=== PATIENT | female | born 1945 | race Hispanic/Latino ===

== ENCOUNTER → 2018-06-09 | Outpatient (CLI) | payer OTHER, MEDICARE ==
[~2018-06-09] MED LIST: ACET1TAB12 PO; BENZ1TAB10 PO; HALO5TAB2 PO; LOSA25TA41 PO; SERT50TA12 PO
== END | disposition home or self-care (01) ==
LOC: RAH 09:10
PROVIDERS: ATTEND Internal Medicine Gastroenterology
DX: N20.0 Calculus of kidney (principal); K76.0 Fatty (change of) liver, not elsewhere classified; N28.1 Cyst of kidney, acquired
CPT/HCPCS: 76700

== ENCOUNTER 2023-06-26 14:01 | Observation (INO) | payer MEDICARE, OTHER ==
[~2023-06-26] VITALS: Ht 154.9 cm; Wt 96.6 kg
[~2023-06-26 14:01] MED LIST changes: -BENZ1TAB10 PO; +BENZ1TAB83 PO; +SERT-439 PO; -SERT50TA12 PO
[2023-06-26 14:31] LABS: BASOPHILS # (AUTO) 0.03 K/uL (0.00-0.20); BASOPHILS % (AUTO) 0.3 % (0.0-5.0); EOSINOPHILS # (AUTO) 0.23 K/uL (0.00-0.70); EOSINOPHILS % (AUTO) 2.6 % (0.0-8.0); HEMATOCRIT 44.5 % (36-48); IMMATURE GRANULOCYTE ABSOLUTE 0.03 K/uL (0-1); LYMPHOCYTES # (AUTO) 2.9 K/uL (1.0-4.8); LYMPHOCYTES % (AUTO) 32.3 % (21.0-51.0); MEAN CORPUSCULAR HEMOGLOBIN 29.7 pg (27.0-33.0); MEAN CORPUSCULAR HGB CONC 32.1 g/dL (32.0-36.0); MEAN CORPUSCULAR VOLUME 92.5 fL (79-99); MONOCYTES % (AUTO) 10.8 % (3.0-13.0); NEUTROPHILS # (AUTO) 4.8 K/uL (1.8-7.7); NEUTROPHILS % (AUTO) 53.7 % (40.0-77.0); PLATELET COUNT (AUTO) 192 K/uL (130-400); RED BLOOD CELL COUNT(AUTO) 4.81 MIL/uL (4.00-5.50); RED CELL DISTRIBUTION WIDTH 13.6 % (11.0-15.5); WHITE BLOOD COUNT (AUTO) 8.9 K/uL (4.8-10.8)
[2023-06-26 14:42] LABS: CREATININE 0.8 mg/dL (0.5-1.5)
[2023-06-26 14:43] LABS: INR 0.98 (0.85-1.15); PROTHROMBIN TIME 11.4 SEC (9.6-11.6)
[2023-06-26 14:44] LABS: PARTIAL THROMBOPLASTIN TIME 33.3 SEC (26.3-35.5)
[2023-06-26 14:47] LABS: ALBUMIN 3.4 g/dL (3.5-5.0); BILIRUBIN,TOTAL 0.6 mg/dL (0.2-1.0); MAGNESIUM 1.9 mg/dL (1.80-2.40); TOTAL PROTEIN, SERUM 7.6 g/dL (6.0-8.3)
[2023-06-26 14:49] LABS: POTASSIUM 3.2 mmol/L (3.5-5.1)
[2023-06-26 14:54] LABS: B-TYPE NATRIURETIC PEPTIDE 25 pg/mL (0-100)
[2023-06-26 16:36] VITALS: BP 138/70; PULSE 82; RESP 20; O2SAT 96
[2023-06-26 16:51] LABS: APPEARANCE,URINE CLEAR (CLEAR); BILIRUBIN,URINE NEGATIVE (NEGATIVE); COLOR,URINE YELLOW (YELLOW); GLUCOSE, URINE (UA) NEGATIVE (NEGATIVE); KETONES,URINE NEGATIVE (NEGATIVE); LEUKOCYTE ESTERASE ,URINE TRACE Leu/uL (NEGATIVE); NITRATE,URINE NEGATIVE (NEGATIVE); OCCULT BLOOD,URINE TRACE-INTACT (NEGATIVE); PH,URINE 6.5 (5.0-8.0); PROTEIN,URINE NEGATIVE (NEGATIVE); UROBILINOGEN,URINE 0.2 mg/dL (0.2-1.0)
[2023-06-26 16:57] LABS: ADD UA MICROSCOPIC YES
[2023-06-26 17:00] LABS: BACTERIA,URINE Rare /HPF (None Seen); RBC,URINE 0-1 /HPF (0-1); SQUAMOUS EPITHELIAL CELL,UR Rare /HPF (0-2)
[2023-06-26 19:21] LABS: SARS-CoV-2, RNA, NAAT NEGATIVE SARS CoV-2 (NEGATIVE)
[2023-06-26 19:25] LABS: INFLUENZA TYPE A Negative For Type A (NEGATIVE); INFLUENZA TYPE B Negative For Type B (NEGATIVE)
[2023-06-26] MEDS ORDERED: ACETAMINOPHEN 325 MG TAB PO PRN (19:30)
[2023-06-26] MEDS ORDERED: ONDANSETRON 4MG INJ IVP PRN (19:30)
[2023-06-26] MEDS ORDERED: TEMAZEPAM 15 MG CAPSULE PO PRN (19:30)
[2023-06-26] MEDS ORDERED: KCL 20 MEQ ERTAB PO PRN (19:30)
[2023-06-26] MEDS ORDERED: MAGNESIUM 2GM PREMIX 50ML 50 ML IV PRN (19:30)
[2023-06-26] MEDS ORDERED: ACETAMINOPHEN 650 MG SUPPOSITORY RC PRN (19:30)
[2023-06-26] MEDS ORDERED: LACTULOSE 20 GM/30 ML UDCUP PO PRN (19:30)
[2023-06-26] MEDS ORDERED: DEXTROSE 50%-WATER 50 ML DISP.SYRIN IV PRN (19:30)
[2023-06-26] MEDS ORDERED: POTASSIUM CHLORIDE 10% ELIXIR 20 MEQ/15 ML UDCUP PO PRN (19:30)
[2023-06-26] MEDS ORDERED: DOCUSATE SODIUM 100 MG CAP PO PRN (19:30)
[2023-06-26] MEDS ORDERED: HYDRALAZINE 20MG/ML VIAL IV PRN (19:30)
[2023-06-26] MEDS ORDERED: GLUCAGON 1MG KIT 1 MG ML IM PRN (19:30)
[2023-06-26] MEDS ORDERED: POTASSIUM CHLORIDE 20MEQ/100ML 100 ML IV PRN (19:30)
[2023-06-26] MEDS: AZITHROMYCIN 250 MG TABLET PO ONE (19:37)
[2023-06-26] MEDS: CEFTRIAXONE 2GM VIAL IVPB ONE (19:38)
[2023-06-26] MEDS: KCL 20 MEQ ERTAB PO ONE (19:38)
[2023-06-26] MEDS ORDERED: POTASSIUM BICARB/CIT AC 25 MEQ TABLET.EFF ONE (19:44)
[2023-06-26] MEDS ORDERED: SOLU-MEDROL 125MG VIAL IVP SCH (20:00)
[2023-06-26] MEDS ORDERED: ALBUTEROL 0.083% 2.5 MG/3 ML INH IH SCH (20:00)
[2023-06-26] MEDS ORDERED: IPRATROPIUM 0.5 MG/2.5 ML INH IH SCH (20:00)
[2023-06-26] MEDS ORDERED: INSULIN HUMULIN R 100 UNIT/ML 3ML SQ SCH (21:00)
[2023-06-26] MEDS ORDERED: DOXYCYCLINE 100MG+NS 250ML IV SCH (21:30)
[2023-06-26] MEDS ORDERED: IPRATROPIUM/ALBUTEROL SULFATE 3 ML SOLUTION IH SCH (22:00)
[2023-06-27] MEDS ORDERED: CEFTRIAXONE 1G VIAL IVPB SCH (09:00)
[2023-06-27] MEDS ORDERED: ENOXAPARIN SODIUM 40 MG/0.4 ML SYRINGE SQ SCH (09:00)
== END 2023-06-26 22:59 | disposition left against medical advice (07) ==
LOC: EDH 14:01 → EDHIP 18:23
PROVIDERS: ADMIT Internal Medicine; ATTEND Internal Medicine
DX: J96.01 Acute respiratory failure with hypoxia (principal); Z20.822 Contact with and (suspected) exposure to COVID-19; J18.9 Pneumonia, unspecified organism; I45.10 Unspecified right bundle-branch block; I10 Essential (primary) hypertension; J45.909 Unspecified asthma, uncomplicated; E11.9 Type 2 diabetes mellitus without complications; Z77.22 Contact with and (suspected) exposure to environmental tobacco smoke (acute) (chronic); Z85.3 Personal history of malignant neoplasm of breast; Z91.040 Latex allergy status; Z90.49 Acquired absence of other specified parts of digestive tract
CPT/HCPCS: 96374; 99285; 83735; 84484; 80053; 83880; 85025; 85610; 85730; 87804 ×2; 81001; 36415; 87635; 71045; 93005; G0378 ×5; J0696

== ENCOUNTER 2024-05-24 11:24 | Inpatient (IN) | payer OTHER ==
[~2024-05-24] VITALS: Ht 170.2 cm; Wt 90.7 kg
--- NOTE | 2024-05-24 11:42 | ERN ---
ED Note History of Present Illness Stated Complaint: NAUSEA Chief Complaint: Nausea,Vomiting,Diarrhea Time Seen by MD: 11:29 Dictation: PATIENT IS A 78-YEAR-OLD FEMALE COMING IN FROM THE [facility] VIA EMS WITH FEVER CHILLS NAUSEA VOMITING AND DIFFUSE ABDOMINAL PAIN FOR THE LAST SEVERAL DAYS. PER EMS, PATIENT HAS A HISTORY OF DEMENTIA IN HIS NOT A HISTORIAN. FAMILY STATES THAT SHE HAD BEEN DIAGNOSED WITH A URINARY TRACT INFECTION AND PRESCRIBED CEPHALEXIN HOWEVER SHE HAS ONLY TAKEN ONE DOSE. PATIENT IS ALERT, HAS NOT ABLE TO ANSWER ANY QUESTIONS AND NO FAMILY AT THE BEDSIDE. SHE IS NOTED TO BE TEMPERATURE MORE LOWER ABDOMEN WITH PALPATION MORE ON THE LEFT. Allergies: Coded Allergies: latex (Unverified Allergy, Unknown, 06/26/23) Home Meds Active Scripts Acetaminophen with Codeine (Tylenol with Codeine #3 Tablet) 1 Each Tablet, 1-2 TAB PO q4h for PAIN, #40 TAB Prov:ANTONIETTA MONTES MD 08/31/14 Reported Medications Benztropine Mesylate (Benztropine Mesylate) 1 Mg Tablet, 1 MG PO HS, TAB 08/29/14 Sertraline HCl (Sertraline HCl) 50 Mg Tablet, 50 MG PO HS, TAB 08/29/14 Losartan Potassium (Losartan Potassium) 25 Mg Tablet, 25 MG PO DAILY, TAB 08/29/14 Haloperidol (Haldol) 5 Mg Tab, 5 MG PO HS, TAB 08/29/14 Past Medical History Past Medical History: Dementia, Diabetes-Type II, High Cholesterol, Hypertension Additional Past Medical Hx: BREAST CA Surgical History: Unknown Surgical History Other: MASTECTOMY History: Not Applicable RN Note Reviewed/Agreed w/PFSH: Yes Review of System Dictation CONSTITUTIONAL: NEGATIVE EXCEPT FOR HPI FEVER CHILLS HEAD/FACE: NEGATIVE EXCEPT FOR HPI EENT: NEGATIVE EXCEPT FOR HPI RESPIRATORY: NEGATIVE EXCEPT FOR HPI GASTROINTESTINAL/ABDOMINAL: NEGATIVE EXCEPT FOR HPI NAUSEA VOMITING WITH DIFFUSE LOWER ABDOMINAL PAIN GREATER ON THE LEFT GENITOURINARY: NEGATIVE EXCEPT FOR HPI MUSCULOSKELETAL: NEGATIVE EXCEPT FOR HPI INTEGUMENTARY: NEGATIVE EXCEPT FOR HPI NEUROLOGICAL/PSYCH: NEGATIVE EXCEPT FOR HPI HEMATOLOGIC/LYMPHATIC: NEGATIVE EXCEPT FOR HPI ALL SYSTEMS NEGATIVE, EXCEPT NOTED ABOVE. 13 POINT REVIEW OF SYSTEMS ASSESSED AND ALL NEGATIVE EXCEPT FOR ABOVE. Initial Vital Sign VS Vital Signs Date Time Temp Pulse Resp B/P (MAP) Pulse Ox O2 Delivery O2 Flow Rate FiO2 05/24/24 11:26 101.1 95 23 147/84 95 Room Air 0 05/24/24 15:30 21 Physical Exam Dictation VITAL SIGNS REVIEWED GENERAL APPEARANCE: ALERT, ORIENTED X 1, NOT ANSWERING QUESTIONS. PATIENT MYCHAL EARS ELDERLY AND DEBILITATED.. HEAD AND FACE: NON-TRAUMATIC. EYES: PERRL, PINK CONJUNCTIVAS, EYELID NO TRAUMA, ANTERIOR CHAMBER WITH ARCUS SENILIS. EARS: PINNAS INTACT AND NO SIGNS OF TRAUMA OR ERYTHEMA EAR CANALS CLEAR AND NO DISCHARGE TM NO ERYTHEMA NOSE: NO DISCHARGE, NO BLEEDING. OROPHARYNX: MOUTH NORMAL, TONGUE PINK, PHARYNX CLEAR,NO ERYTHEMA, TONSILS NO EXUDATES, NO ABSCESSES NOTED, MUCOUS MEMBRANE MOIST NECK: SUPPLE, NON-TENDER, NO THYROMEGALY, NO MASSES, NO JVD, NO BRUITS BREAST:DEFERRED CHEST:NO TENDERNESS, NO CREPITUS, NO PARADOXICAL MOVEMENT, NO RETRACTIONS LUNGS:CLEAR, WELL-VENTILATED, SYMMETRIC, NO RALES, NO WHEEZING, NO RHONCHI, NO STRIDOR, GOOD BREATH SOUNDS BILATERALLY HEART: REGULAR RATE, REGULAR RHYTHM, NO MURMUR, NO GALLOPS VASCULAR: NO PERIPHERAL EDEMA, ABDOMEN: SOFT, POSITIVE BOWEL SOUNDS, NONDISTENDED, NO GUARDING, DIFFUSE LOWER ABDOMEN AND PELVIC TENDERNESS, SEEMS GREATER ON THE LEFT RECTAL: DEFERRED GENITAL: DEFERRED NEUROLOGICAL: NORMAL SPEECH, MOTOR FUNCTION INTACT, SENSORY FUNCTION INTACT MUSCULOSKELETAL: NECK NONTENDER, FULL RANGE OF MOTION, BACK NONTENDER, FULL RANGE OF MOTION, EXTREMITIES: NONTENDER, FULL RANGE OF MOTION SKIN: COLOR PINK, DRY, NO TURGOR, NO RASH, NO LACERATIONS, NO ABRASIONS, NO CONTUSIONS. LYMPHATIC: DEFERRED Results (Laboratory/Radiology) Laboratory/Radiology Laboratory Tests Test 05/24/24 12:39 05/24/24 12:45 05/24/24 13:40 05/24/24 15:32 White Blood Count 26.4 K/uL (4.8-10.8) H Red Blood Count 4.58 MIL/uL (4.00-5.50) Hemoglobin 13.5 g/dL (12.0-16.0) Hematocrit 41.5 % (36-48) Mean Corpuscular Volume 90.6 fL (79-99) Mean Corpuscular Hemoglobin 29.5 pg (27.0-33.0) Mean Corpuscular Hemoglobin Concent 32.5 g/dL (32.0-36.0) Red Cell Distribution Width 14.2 % (11.0-15.5) Platelet Count 172 K/uL (130-400) Mean Platelet Volume 11.5 fL (7.5-10.5) H Immature Granulocyte % (Auto) 0.8 % (0-1) Neutrophils (%) (Auto) 85.6 % (40.0-77.0) H Lymphocytes (%) (Auto) 4.4 % (21.0-51.0) L Monocytes (%) (Auto) 9.0 % (3.0-13.0) Eosinophils (%) (Auto) 0.0 % (0.0-8.0) Basophils (%) (Auto) 0.2 % (0.0-5.0) Neutrophils # (Auto) 22.6 K/uL (1.8-7.7) H Lymphocytes # (Auto) 1.2 K/uL (1.0-4.8) Monocytes # (Auto) 2.4 K/uL (0.1-1.0) H Eosinophils # (Auto) 0.00 K/uL (0.00-0.70) Basophils # (Auto) 0.06 K/uL (0.00-0.20) Absolute Immature Granulocyte (auto 0.20 K/uL (0-1) Nucleated Red Blood Cells 0.0 % (0.0-0.19) White Cell Morphology Comment See comments Sodium Level 135 mmol/L (136-145) L Potassium Level 3.5 mmol/L (3.5-5.1) Chloride Level 99 mmol/L (101-111) L Carbon Dioxide Level 23 mmol/L (21-32) Blood Urea Nitrogen 24 mg/dL (7-18) H Creatinine 2.0 mg/dL (0.5-1.0) H Glomerular Filtration Rate Calc 25 mL/min (>90) Random Glucose 176 mg/dL (70-105) H Lactic Acid Level 3.9 mmol/L (0.8-2.5) H 2.6 mmol/L (0.8-2.5) H Total Calcium 8.8 mg/dL (8.5-10.1) Troponin I High Sensitivity 16 ng/L (4-50) Lipase 17 U/L (16-77) Influenza Type A Antigen Negative For Type A Influenza Type B Antigen Negative For Type B SARS-CoV-2 Antigen (Rapid) PRESUMPTIVE NEGATIVE Urine Color YELLOW (YELLOW) Urine Appearance CLOUDY (CLEAR) H Urine pH 6.0 (5.0-8.0) Urine Specific [place] 1.015 (1.001-1.031) Urine Protein 100 mg/dL (NEGATIVE) H Urine Glucose (UA) NEGATIVE mg/dL (NEGATIVE) Urine Ketones NEGATIVE mg/dL (NEGATIVE) Urine Occult Blood MODERATE (NEGATIVE) H Urine Nitrate NEGATIVE (NEGATIVE) Urine Bilirubin NEGATIVE mg/dL (NEGATIVE) Urine Urobilinogen 0.2 mg/dL (0.2-1.0) Urine Leukocyte Esterase 500 Deloris/uL (NEGATIVE) H Urine RBC 26-50 /HPF (0-1) H Urine WBC TNTC /HPF (0-1) H Urine Squamous Epithelial Cells RARE /HPF (0-2) Urine Bacteria FEW /HPF (None Seen) Erythrocyte Sedimentation Rate 45 MM/HR (0-30) H Prothrombin Time 14.0 SEC (9.6-11.6) H Prothromb Time International Ratio 1.28 (0.85-1.15) H Activated Partial Thromboplast Time 34.5 SEC (26.3-35.5) Hemoglobin A1c 6.2 % (4.0-6.0) H Estimated Average Glucose (eAG) 131 mg/dL (70-126) H Total Bilirubin 1.2 mg/dL (0.2-1.0) H Direct Bilirubin 0.6 mg/dL (0.0-0.3) H Aspartate Amino Transf (AST/SGOT) 22 U/L (10-37) Alanine Aminotransferase (ALT/SGPT) 16 U/L (12-78) Alkaline Phosphatase 76 U/L (50-136) Ammonia < 10 umol/L (11-32) L C-Reactive Protein, Quantitative 125.20 mg/L (0.5-3.0) H Total Protein 6.0 g/dL (6.0-8.3) Albumin 2.3 g/dL (3.5-5.0) L Procalcitonin 3.54 ng/mL (0.05-0.5) H Thyroid Stimulating Hormone (TSH) 0.64 uIU/mL (0.36-3.74) Labs Reviewed?: Yes ED Course ED Course Orders Procedure Category Date Status Time Covid19 (Sars Antigen LAB 05/24/24 Complete Rapid) 11:37 Influenza Type A & B, LAB 05/24/24 Complete Rapid 11:37 Cbc With Differential LAB 05/24/24 Complete 11:37 Blood Cult BENNETT 05/24/24 In Process 11:37 Urinalysis Profile LAB 05/24/24 Complete 11:37 Troponin I High LAB 05/24/24 Complete Sensitivity 11:37 Lactic Acid LAB 05/24/24 Complete 11:37 Basic Metabolic Panel LAB 05/24/24 Complete 11:37 Nurse Driven Herrmann ALBERTO 05/24/24 In Process Removal Pro 11:37 Acetaminophen 500mg PHA 05/24/24 Complete Tab (Tylenol 500mg T 12:00 0.9%Nacl 1000ml (Ns PHA 05/24/24 Complete 1000ml) 12:00 Ketorolac PHA 05/24/24 Complete Tromethamine 15mg/Ml 12:00 Ondansetron 4mg Inj PHA 05/24/24 Complete (Zofran 4mg Inj) 12:00 Ct Abdomen/Pelvis W/O CT 05/24/24 Resulted Contrast 11:37 Chest 1vw RAD 05/24/24 Resulted 11:37 Lipase LAB 05/24/24 Complete 11:37 Ceftriaxone 2gm Vial PHA 05/24/24 Complete (Rocephin 2gm Inj) 13:00 0.9%Nacl 1000ml (Ns PHA 05/24/24 Complete 1000ml) 13:00 Culture Urine BENNETT 05/24/24 In Process 14:06 Edm Admit Bridge Order ADM 05/24/24 Transmitted 14:45 Keep Patient Npo CPOE 05/24/24 Transmitted 14:58 Hemoglobin A1c LAB 05/24/24 Complete 14:58 Thyroid Stimulating LAB 05/24/24 Complete Hormone 14:58 0.9%Nacl 1000ml (Ns PHA 05/24/24 In Process 1000ml) 15:00 Lactic Acid LAB 05/24/24 Complete 14:58 Pharmacy PHA 05/24/24 Complete Communication (Lace 15:00 Hepatic Function Panel LAB 05/24/24 Complete 15:02 Ammonia LAB 05/24/24 Complete 15:02 Erythrocyte LAB 05/24/24 Complete Sedimentation Rate 15:02 Crp Quantitative LAB 05/24/24 Complete 15:02 Procalcitonin LAB 05/24/24 Complete 15:02 12 Lead Ekg Tracing- EKG 05/24/24 Logged Technical 15:03 Meropenem (Merrem) PHA 05/24/24 In Process 15:30 Pharmacy To Renal PHA 05/24/24 Complete Dose (Renal Dose) 15:30 Acetaminophen 325 Tab PHA 05/24/24 In Process (Tylenol 325mg Tab 15:30 Ondansetron 4mg Inj PHA 05/24/24 In Process (Zofran 4mg Inj) 15:30 Fall Precautions CPOE 05/24/24 Transmitted 15:05 Aspiration Precautions CPOE 05/24/24 Transmitted 15:05 Elevate Hob At 30 CPOE 05/24/24 Transmitted Degrees 15:05 Admit Orders ADM 05/24/24 Transmitted 15:05 Transfer To: CPOE 05/24/24 Transmitted 15:05 Critcal Care Consult CONPHYSVC 05/24/24 Transmitted 15:05 Nephrology Consult CONPHYSVC 05/24/24 Transmitted 15:22 Urology Consult CONPHYSVC 05/24/24 Transmitted 15:22 Pt And Ptt LAB 05/24/24 Complete 15:23 Influenza Type A & B, LAB 05/24/24 Transmitted Rapid 15:23 Norepinephrin 4mg/Ns PHA 05/24/24 In Process 250ml (Levophed 4mg 15:30 Pantoprazole 40mg Inj PHA 05/24/24 In Process (Protonix 40mg Inj 15:30 *Nursing CPOE 05/24/24 Transmitted Communication: 15:26 Budesonide 0.5 Mg/2 PHA 05/24/24 In Process Ml Inh (Pulmicort 0. 18:00 Ct Head/Brain W/O CT 05/24/24 Resulted Contrast 15:26 Type And Screen BBK 05/24/24 Complete 15:27 Thiamine Hcl (Vitamin PHA 05/24/24 In Process B-1) 16:00 Venous Blood Gas + RT 05/24/24 Transmitted 16:32 Current Medications Medications (Trade) Dose Ordered Sig/Madelaine Route PRN Reason Start Time Stop Time Status Last Admin Dose Admin Acetaminophen (TYLenol 500MG TAB) 1,000 mg ONCE ONCE PO 05/24/24 12:00 05/24/24 12:01 DC 05/24/24 13:05 Ceftriaxone Sodium (Rocephin 2gm Inj) 2 gm ONCE ONCE IVPB 05/24/24 13:00 05/24/24 13:01 DC 05/24/24 13:04 Ketorolac Tromethamine (toRADol) 15 mg ONCE ONCE IV 05/24/24 12:00 05/24/24 12:01 DC 05/24/24 13:06 Ondansetron HCl (zoFRAN 4MG INJ) 4 mg ONCE ONCE IVP 05/24/24 12:00 05/24/24 12:01 DC 05/24/24 13:04 Pharmacy Profile Note (Lace Assessment) 1 each AD MISC 05/24/24 15:00 05/24/24 15:05 DC Sodium Chloride 1,000 ml @ 0 mls/hr ONCE ONCE IV 05/24/24 12:00 05/24/24 12:01 DC Sodium Chloride 1,000 ml @ 75 mls/hr [id number] IV 05/24/24 15:00 06/23/24 14:59 05/24/24 16:07 Sodium Chloride 3,402 ml @ 1,134 mls/hr ONCE ONCE IV 05/24/24 13:00 05/24/24 15:59 DC 05/24/24 13:03 Vital Signs Date Time Temp Pulse Resp B/P (MAP) Pulse Ox O2 Delivery O2 Flow Rate FiO2 05/24/24 16:26 99.1 88 20 103/51 95 Room Air* 0 21 05/24/24 15:30 99.1 87 20 87/48 95 Room Air* 0 21 05/24/24 13:05 101.1 05/24/24 11:26 101.1 95 23 147/84 95 Room Air 0 Fourteen 20, spoke with patient's granddaughter at length who does not live with her. She states patient has a long history of urinary tract infections currently is on cephalexin because she does not take him because she can not remember to take him. She said she does not live with her however she has family lives with her and they do not remind her either in her to take her meds she is aware that she will be admitted for UTI with [id number]/spoke with , reviewed labs CT etc. he agreed to admit patient Medical Decision Making MDM MDM: Differential diagnosis: Sepsis/UTI/pyelonephritis/SARs/COVID/pne umonia/bronchitis/electrolyte imbalance/dehydration Rationale: Tests considered and ordered secondary to shared decision making include: labs, ECG and radiology Previous outside records reviewed: Old ER visits. Risk of complication and/or morbidity or mortality of patient management: Moderate Medications-Per medication reconciliation Need for hospitalization: Patient does meet criteria for hospitalization. Patient will need broad-spectrum antibiotics cultures for her urinalysis and f luid resuscitation. Need for emergency major/minor surgery: No There are no social concerns with this patient. Patient lives with family who depend on her to provide her own care and remember her own medications. Prescription drug management Prescriptions will include symptomatic care Patient's prior external medical records from other ER visits were reviewed by me as indicated. Prior testing and results from previous visits were reviewed. Prior tests were taken into account with medical decision making and resource utilization, independent historian/historians were used to obtain complete medical history. I independently interpreted the test that were performed, results were reviewed by me and considered findings on radiology if ordered. Medical management and examination interpretation discussions were had by me with other qualified healthcare professionals as indicated for the patient's care. DX & DISP Disposition: Inpatient Decision to Admit Time: 14:33 Departure Impression: Primary Impression: Acute cystitis with hematuria Additional Impressions: Uncontrolled diabetes mellitus, Acute kidney injury, Sepsis, Hyponatremia, Frequent UTI, Acute pyonephrosis Condition: Stable Referrals: MALLY NG M.D. (PCP) Time of Disposition: 14:33 I have reviewed the case, and I agree with, Diagnosis and Plan I performed the substantive portion of the visit. I have reviewed and personally made and approve the management plan that is documented in the notes by myself or the MYCHAL. I acknowledge full responsibility for the patient's management plan. CM CORRALES NP May 24, 2024 11:42 PHNA SANDOVAL MD May 24, 2024 17:20
--- NOTE | 2024-05-24 12:15 | NUR ---
ASSUMED PT CARE AT THIS TIME
--- NOTE | 2024-05-24 12:16 | NUR ---
PT MOVED FROM EMS STRETCHER TO ER ROOM 10. PT AOX2
[2024-05-24 12:48] LABS: BASOPHILS # (AUTO) 0.06 K/uL (0.00-0.20); BASOPHILS % (AUTO) 0.2 % (0.0-5.0); HEMATOCRIT 41.5 % (36-48); LYMPHOCYTES # (AUTO) 1.2 K/uL (1.0-4.8); LYMPHOCYTES % (AUTO) 4.4 % (21.0-51.0); MEAN CORPUSCULAR HEMOGLOBIN 29.5 pg (27.0-33.0); MEAN CORPUSCULAR HGB CONC 32.5 g/dL (32.0-36.0); MEAN CORPUSCULAR VOLUME 90.6 fL (79-99); MONOCYTES # (AUTO) 2.4 K/uL (0.1-1.0); NEUTROPHILS # (AUTO) 22.6 K/uL (1.8-7.7); NEUTROPHILS % (AUTO) 85.6 % (40.0-77.0); PLATELET COUNT (AUTO) 172 K/uL (130-400); RED BLOOD CELL COUNT(AUTO) 4.58 MIL/uL (4.00-5.50); RED CELL DISTRIBUTION WIDTH 14.2 % (11.0-15.5); WHITE BLOOD COUNT (AUTO) 26.4 K/uL (4.8-10.8)
[2024-05-24 12:56] LABS: POTASSIUM 3.5 mmol/L (3.5-5.1)
[2024-05-24] MEDS: 0.9%NACL 1000ML 1,000 ML IV ONE (13:03)
[2024-05-24] MEDS: [UNRECOGNIZED DRUG - OTHER] IV ONE (13:03)
[2024-05-24] MEDS: ondanSETRON 4MG INJ IVP ONE (13:04)
[2024-05-24] MEDS: CEFTRIAXONE 2GM VIAL IVPB ONE (13:04)
[2024-05-24] MEDS: acetaMINOPHEN 500 MG TABLET PO ONE (13:05)
[2024-05-24] MEDS: ketOROlac 15MG/ML VIAL (15MG/ML) IV ONE (13:06)
[2024-05-24 13:22] LABS: COVID19 (SARS ANTIGEN RAPID) PRESUMPTIVE NEGATIVE (NEGATIVE); INFLUENZA TYPE A Negative For Type A (NEGATIVE); INFLUENZA TYPE B Negative For Type B (NEGATIVE)
[2024-05-24 14:00] VITALS: TEMP 99.1
--- NOTE | 2024-05-24 14:00 | HMCIMG ---
CT ABDOMEN PELVIS WITHOUT CONTRAST Clinical Information: DIFFUSE AND LEFT LOWER QUADRANT PAIN TENDERNESS WITH FEVER Comparison: CT Dose Index (CTDI): 28.40 mGy Dose Length Product (DLP): 1536.00 total mGy-cm PROTOCOL: Routine noncontrast helical scanning of the abdomen and pelvis was performed at 5mm collimation. Findings: There is a Right ureteropelvic junction calculus measuring 6 mm causing moderate hydronephrosis. There is extensive nephrolithiasis of the right kidney and there is air within the collecting system and the possibility of hydronephrosis on the right side must be entertained. The left side shows nonobstructing nephrolithiasis. The lung bases are clear. The stomach is unremarkable. It shows no wall thickening. No gross ulceration is seen. It is not overly distended. There are no surrounding inflammatory changes. No wall lesions are identified to suggest cancer. The spleen is unremarkable. It is not enlarged. The pancreas shows normal anatomy. It is not fatty replaced. It shows no lesions. The pancreatic duct is not dilated. The gallbladder is surgically absent. The adrenal glands are unremarkable. There is no enlargement. No lesions are noted. The liver is unremarkable. It shows no focal masses. The appendix is unremarkable. It shows no evidence of inflammation. No appendicolith is seen. The small bowel is unremarkable. There is no evidence of dilatation to suggest obstruction. No evidence of adynamic ileus is seen. There is no small bowel wall thickening to suggest enteritis. The colon is unremarkable. The urinary bladder is unremarkable. There is no wall thickening to suggest tumor or inflammation. There are no intraluminal calculi. There are no diverticula. There is no evidence of chronic bladder outlet obstruction. There is no evidence of urinary bladder distention to suggest urinary retention. The other pelvic structures are unremarkable. The bony and vascular structures are unremarkable for the patient's age. IMPRESSION: Urinary tract calculus causing obstruction. Possible right pyonephrosis. This study was performed using dose reduction techniques to include automated exposure control and/or adjustment of the mA and/or kV according to patient size.
[2024-05-24 14:02] LABS: APPEARANCE,URINE CLOUDY (CLEAR); BILIRUBIN,URINE NEGATIVE (NEGATIVE); COLOR,URINE YELLOW (YELLOW); GLUCOSE, URINE (UA) NEGATIVE (NEGATIVE); KETONES,URINE NEGATIVE (NEGATIVE); LEUKOCYTE ESTERASE ,URINE 500 Leu/uL (NEGATIVE); NITRATE,URINE NEGATIVE (NEGATIVE); OCCULT BLOOD,URINE MODERATE (NEGATIVE); PROTEIN,URINE 100 mg/dL (NEGATIVE); UROBILINOGEN,URINE 0.2 mg/dL (0.2-1.0)
[2024-05-24 14:05] LABS: ADD UA MICROSCOPIC YES
[2024-05-24 14:13] LABS: BACTERIA,URINE FEW /HPF (None Seen); MUCUS,URINE RARE LPF (None Seen); RBC,URINE 26-50 /HPF (0-1); SQUAMOUS EPITHELIAL CELL,UR RARE /HPF (0-2); WBC,URINE TNTC /HPF (0-1)
[2024-05-24] MEDS ORDERED: PHARMACY COMMUNICATION 1 EACH EACH MISC SCH (15:00)
--- NOTE | 2024-05-24 15:28 | HMCIMG ---
Exam Type: CHEST 1VW Clinical Information: SHORTNESS A BREATH Comparison: None Findings: The lungs are clear of infiltrates. The heart is enlarged. Bony and soft tissue structures of the chest wall are unremarkable. IMPRESSION: Cardiomegaly. Clear lungs.
[2024-05-24] MEDS ORDERED: RENAL DOSE IV SCH (15:30)
[2024-05-24] MEDS ORDERED: NOREPINEPHRIN 4MG/NS 250ML 250 ML IV SCH (15:30)
[2024-05-24] MEDS ORDERED: acetaMINOPHEN 325 MG TAB PO PRN (15:30)
[2024-05-24] MEDS ORDERED: ondanSETRON 4MG INJ IVP PRN (15:30)
[2024-05-24] MEDS: MEROPENEM 1GM 1 GM VIAL IVPB SCH (15:43)
[2024-05-24] MEDS: PANTOPrazole 40 MG/VIAL IVP SCH (15:44)
[2024-05-24 16:00] LABS: INR 1.28 (0.85-1.15)
[2024-05-24 16:02] LABS: PARTIAL THROMBOPLASTIN TIME 34.5 SEC (26.3-35.5)
[2024-05-24 16:06] LABS: HEMOGLOBIN A1C 6.2 % (4.0-6.0)
[2024-05-24] MEDS: 0.9%NACL 1000ML 1,000 ML IV SCH (16:07)
[2024-05-24] MEDS: THIAMINE HCL 100 MG/ML 2ML VIAL IVP SCH (16:09)
[2024-05-24 16:22] LABS: ALANINE AMINOTRANSFERASE 16 U/L (12-78); ALBUMIN 2.3 g/dL (3.5-5.0); AMMONIA < 10 umol/L (11-32); ASPARTATE AMINOTRANSFERASE 22 U/L (10-37); BILIRUBIN,DIRECT 0.6 mg/dL (0.0-0.3); BILIRUBIN,TOTAL 1.2 mg/dL (0.2-1.0)
--- NOTE | 2024-05-24 16:28 | HMCIMG ---
Exam Type: CT HEAD/BRAIN W/O CONTRAST Clinical Information: sepsis, confusion Comparison: None CT Dose Index (CTDI): 57.33 mGy Dose Length Product (DLP): 956.79 total mGy-cm Findings: The examination shows atrophy. There is low attenuation throughout the periventricular white matter locations, consistent with chronic small vessel ischemic changes. No acute intra- or extra-axial fluid collections are seen. There is no evidence of acute or chronic hemorrhage. There is no mass effect or shift of midline structures. There are no areas to suggest acute infarct. The skull windows show no significant abnormalities. IMPRESSION: 1. ATROPHY AND CHRONIC SMALL VESSEL ISCHEMIC CHANGES. This study was performed using dose reduction techniques to include automated exposure control and/or adjustment of the mA and/or kV according to patient size.
[2024-05-24 16:34] LABS: THYROID STIMULATING HORMONE 0.64 uIU/mL (0.36-3.74)
--- NOTE | 2024-05-24 17:07 | HP ---
[facility] HISTORY [facility] PHYSICAL Date of Service: May 24, 2024 Time of Service: 17:07 HISTORY OF PRESENT ILLNESS: Date of service: 05/24/2024, patient was seen in ER room 10 78-year-old female with underlying history of hypertension, type 2 diabetes mellitus, hyperlipidemia, obesity who presented to the ER for further evaluation of high-grade fevers, confusion, nausea, poor oral intake. Symptoms have been going on since last night her daughter noticed that patient was having fever of 102 F. patient was seen by her PCP recently and was diagnosed with a UTI and was given a course of outpatient Keflex. Daughter states that patient has not taken antibiotics due to nausea. She has been having issues with urinary tract infection and urinary incontinence over the past several months. She has been being followed by Dr. Stark with Gynecology as outpatient. Recently, she was referred for outpatient urology appointment. Patient is a poor historian and unable to provide detailed history. History was obtained from patient's daughter was present at bedside. Patient on presentation to the hospital was febrile with T-max of 101.1 F, heart rate of 95, blood pressure of 147/84. Labs on presentation showed [place] [address] with neutrophilia, hemoglobin of 13.5, platelet count of [id number]. BMP remarkable for sodium of 135, creatinine 2.0, lactic acid close to 4 and urinalysis showed leukocyte esterase positive, pyuria and bacteriuria. Patient underwent further imaging with CT abdomen pelvis without contrast which showed findings of right ureteropelvic junction calculus measuring 6 mm causing moderate hydronephrosis with significant nephrolithiasis noted of right kidney, air was noted in the collecting duct with concerns for right pyonephrosis. Patient will be admitted for severe sepsis POA we will monitor this patient closely in the ICU for 24 hours, lactic acid will be trended. Consultation with Urology, Nephrology and critical Care will be requested be. patient will receive broad-spectrum antibiotics and IV fluid resuscitation as well. If patient gets clinically worse tonight, plan will be for emergent right percutaneous nephrostomy tube tonight , on the other hand, if patient's lactic acid is improving and stabilizes, plan will be for ureteral stent placement by Dr. Daniel., per recommendations by Urology. REVIEW OF SYSTEMS Unable to obtain review of system due to underlying confusion and lethargy PAST MEDICAL HISTORY: Hypertension, hyperlipidemia, type 2 diabetes mellitus, morbid obesity, history of recurrent UTI, urinary incontinence, history of right breast cancer diagnosed in 2015 PAST SURGICAL HISTORY: History of right breast mastectomy in 2015, history of right shoulder surgery PAST SOCIAL HISTORY: Denies active smoking or alcohol consumption, resides with family at home, needs assistance with IADLs FAMILY HISTORY: Denies pertinent family history Home medications: Keflex 500 mg q.i.d., losartan 25 mg daily, atorvastatin 10 mg daily, Januvia 100 mg daily Coded Allergies: latex (Unverified Allergy, Unknown, 06/26/23) PHYSICAL EXAM GENERAL APPEARANCE: Patient is Able to tell me her name but otherwise appears lethargic NEUROLOGICAL: Cranial nerves II-XII grossly intact. Motor is 5/5 in bilateral upper and lower extremities proximal to distal. No sensory deficits. HEENT: Face is symmetric. Pupils are equal and reactive. Extraocular movements are intact. NECK: Supple. No JVD. No thyromegaly. No submental, submandibular, pre-/ postauricular, occipital or supraclavicular lymphadenopathy. CHEST: Normal chest expansion. No Telemetry. LUNGS: Minimal crackles noted bilateral lung bases CARDIOVASCULAR: Regular. S1 and S2 normal. No appreciable rubs, murmurs or gallops. ABDOMEN: No significant tenderness noted of the abdomen : Deferred. No Herrmann. EXTREMITIES: Non-edematous and not cyanotic. No clubbing. Good capillary refill. SKIN: No skin breakdown. Vital Sign (Last 24 Hours) 05/24/24 16:26 Temp 99.1 Pulse 88 Resp 20 B/P (MAP) 103/51 Pulse Ox 95 O2 Delivery Room Air* O2 Flow Rate 0 FiO2 21 LABS: Laboratory: Test 05/24/24 15:32 05/24/24 13:40 05/24/24 12:45 05/24/24 12:39 Range/Units Prothrombin Time 14.0 H 9.6-11.6 SEC Prothromb Time International Ratio 1.28 H 0.85-1.15 Activated Partial Thromboplast Time 34.5 26.3-35.5 SEC Hemoglobin A1c 6.2 H 4.0-6.0 % Estimated Average Glucose (eAG) 131 H 70-126 mg/dL Lactic Acid Level 2.6 H 0.8-2.5 mmol/L Total Bilirubin 1.2 H 0.2-1.0 mg/dL Direct Bilirubin 0.6 H 0.0-0.3 mg/dL Aspartate Amino Transf (AST/SGOT) 22 10-37 U/L Alanine Aminotransferase (ALT/SGPT) 16 12-78 U/L Alkaline Phosphatase 76 50-136 U/L Ammonia < 10 L 11-32 umol/L C-Reactive Protein, Quantitative 125.20 H 0.5-3.0 mg/L Total Protein 6.0 6.0-8.3 g/dL Albumin 2.3 L 3.5-5.0 g/dL Thyroid Stimulating Hormone (TSH) 0.64 0.36-3.74 uIU/mL Urine Color YELLOW YELLOW Urine Appearance CLOUDY H CLEAR Urine pH 6.0 5.0-8.0 Urine Specific Ellerbe 1.015 1.001-1.031 Urine Protein 100 H NEGATIVE mg/dL Urine Glucose (UA) NEGATIVE NEGATIVE mg/dL Urine Ketones NEGATIVE NEGATIVE mg/dL Urine Occult Blood MODERATE H NEGATIVE Urine Nitrate NEGATIVE NEGATIVE Urine Bilirubin NEGATIVE NEGATIVE mg/dL Urine Urobilinogen 0.2 0.2-1.0 mg/dL Urine Leukocyte Esterase 500 H NEGATIVE Deloris/uL Urine RBC 26-50 H 0-1 /HPF Urine WBC TNTC H 0-1 /HPF Urine Squamous Epithelial Cells RARE 0-2 /HPF Urine Bacteria FEW None Seen /HPF Influenza Type A Antigen Negative For Type A NEGATIVE Influenza Type B Antigen Negative For Type B NEGATIVE SARS-CoV-2 Antigen (Rapid) PRESUMPTIVE NEGATIVE NEGATIVE White Blood Count 26.4 H 4.8-10.8 K/uL Red Blood Count 4.58 4.00-5.50 MIL/uL Hemoglobin 13.5 12.0-16.0 g/dL Hematocrit 41.5 36-48 % Mean Corpuscular Volume 90.6 79-99 fL Mean Corpuscular Hemoglobin 29.5 27.0-33.0 pg Mean Corpuscular Hemoglobin Concent 32.5 32.0-36.0 g/dL Red Cell Distribution Width 14.2 11.0-15.5 % Platelet Count 172 130-400 K/uL Mean Platelet Volume 11.5 H 7.5-10.5 fL Immature Granulocyte % (Auto) 0.8 0-1 % Neutrophils (%) (Auto) 85.6 H 40.0-77.0 % Lymphocytes (%) (Auto) 4.4 L 21.0-51.0 % Monocytes (%) (Auto) 9.0 3.0-13.0 % Eosinophils (%) (Auto) 0.0 0.0-8.0 % Basophils (%) (Auto) 0.2 0.0-5.0 % Neutrophils # (Auto) 22.6 H 1.8-7.7 K/uL Lymphocytes # (Auto) 1.2 1.0-4.8 K/uL Monocytes # (Auto) 2.4 H 0.1-1.0 K/uL Eosinophils # (Auto) 0.00 0.00-0.70 K/uL Basophils # (Auto) 0.06 0.00-0.20 K/uL Absolute Immature Granulocyte (auto 0.20 0-1 K/uL Nucleated Red Blood Cells 0.0 0.0-0.19 % White Cell Morphology Comment See comments Sodium Level 135 L 136-145 mmol/L Potassium Level 3.5 3.5-5.1 mmol/L Chloride Level 99 L 101-111 mmol/L Carbon Dioxide Level 23 21-32 mmol/L Blood Urea Nitrogen 24 H 7-18 mg/dL Creatinine 2.0 H 0.5-1.0 mg/dL Glomerular Filtration Rate Calc 25 >90 mL/min Random Glucose 176 H 70-105 mg/dL Total Calcium 8.8 8.5-10.1 mg/dL Troponin I High Sensitivity 16 4-50 ng/L Lipase 17 16-77 U/L Current Medications Medications (Trade) Dose Ordered Sig/Madelaine Route PRN Reason Start Time Stop Time Status Last Admin Dose Admin Acetaminophen (TYLenol 325MG TAB) 650 mg Q6H PRN PO MILD PAIN (1-3) 05/24/24 15:30 06/23/24 15:29 Budesonide (Pulmicort 0.5 Mg/2ml) 0.5 mg BIDRESP IH 05/24/24 18:00 06/23/24 17:59 Meropenem (Merrem) 1 gm Q12H IVPB 05/24/24 15:30 06/03/24 15:29 05/24/24 15:43 1 GM Norepinephrine 250 ml @ 21.263 mls/ hr PROTOCOL IV 05/24/24 15:30 06/23/24 15:29 Ondansetron HCl (zoFRAN 4MG INJ) 4 mg Q6H PRN IVP NAUSEA/VOMITING 05/24/24 15:30 06/23/24 15:29 Pantoprazole Sodium (PROTonix 40MG INJ) 40 mg Q24H IVP 05/24/24 15:30 06/23/24 15:29 05/24/24 15:44 40 MG Pharmacy Profile Note (Lace Assessment) 1 each AD MISC 05/24/24 15:00 05/24/24 15:05 DC Sodium Chloride 1,000 ml @ 75 mls/hr [id number] IV 05/24/24 15:00 06/23/24 14:59 05/24/24 16:07 75 MLS/HR Thiamine HCl (Vitamin B-1) 100 mg Q24H IVP 05/24/24 16:00 06/23/24 15:59 05/24/24 16:09 100 MG DIAGNOSTICS / RADIOLOGY: SERVICE 1137 REASON: DIFFUSE AND LEFT LOWER QUADRANT PAIN TENDERNESS WITH FEVER ORDERING PHYSICIAN: CM CORRALES NP PROCEDURE: ABD PEL WO - CT ABDOMEN/PELVIS W/O CONTRAST CT ABDOMEN PELVIS WITHOUT CONTRAST Clinical Information: DIFFUSE AND LEFT LOWER QUADRANT PAIN TENDERNESS WITH FEVER Comparison: CT Dose Index (CTDI): 28.40 mGy Dose Length Product (DLP): 1536.00 total mGy-cm PROTOCOL: Routine noncontrast helical scanning of the abdomen and pelvis was performed at 5mm collimation. Findings: There is a Right ureteropelvic junction calculus measuring 6 mm causing moderate hydronephrosis. There is extensive nephrolithiasis of the right kidney and there is air within the collecting system and the possibility of hydronephrosis on the right side must be entertained. The left side shows nonobstructing nephrolithiasis. The lung bases are clear. The stomach is unremarkable. It shows no wall thickening. No gross ulceration is seen. It is not overly distended. There are no surrounding inflammatory changes. No wall lesions are identified to suggest cancer. The spleen is unremarkable. It is not enlarged. The pancreas shows normal anatomy. It is not fatty replaced. It shows no lesions. The pancreatic duct is not dilated. The gallbladder is surgically absent. The adrenal glands are unremarkable. There is no enlargement. No lesions are noted. The liver is unremarkable. It shows no focal masses. The appendix is unremarkable. It shows no evidence of inflammation. No appendicolith is seen. The small bowel is unremarkable. There is no evidence of dilatation to suggest obstruction. No evidence of adynamic ileus is seen. There is no small bowel wall thickening to suggest enteritis. The colon is unremarkable. The urinary bladder is unremarkable. There is no wall thickening to suggest tumor or inflammation. There are no intraluminal calculi. There are no diverticula. There is no evidence of chronic bladder outlet obstruction. There is no evidence of urinary bladder distention to suggest urinary retention. The other pelvic structures are unremarkable. The bony and vascular structures are unremarkable for the patient's age. IMPRESSION: Urinary tract calculus causing obstruction. Possible right pyonephrosis. This study was performed using dose reduction techniques to include automated exposure control and/or adjustment of the mA and/or kV according to patient size. DICTATED BY: SHERICE SANCHEZ MD DATE: 05/24/24 1354 ELECTRONICALLY SIGNED BY: SHERICE SANCHEZ MD DATE: 05/24/24 1400 ASSESSMENT: Severe sepsis, 2/2 complicated urinary tract infection, POA Toxic/metabolic encephalopathy, POA Complicated urinary tract infection with right pyonephrosis, POA Obstructing right ureteropelvic junction calculus measuring 6 mm causing moderate right-sided hydronephrosis, POA Significant leukocytosis, POA Acute kidney injury, POA Moderate lactic acidosis, POA Morbid obesity, POA Frailty, POA Underlying history of hypertension, POA Hyperlipidemia, POA Significant nephrolithiasis noted of the right kidney, 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 We will start patient on broad-spectrum antibiotics with IV meropenem 1 g b.i.d. Patient will be kept NPO Patient's case was discussed with Dr. Daniel with Urology, if patient has clinical deterioration with septic shock and up trending lactic acidosis, plan will be for emergent percutaneous right-sided nephrostomy tube placement, on the other hand, if patient clinically stabilizes tonight, plan will be for ureteral stent placement We will have critical Care and Nephrology follow this patient along All medications were reconciled and updated All labs will be repeated in the morning DVT prophylaxis with SCDs and Lovenox, GI prophylaxis with Protonix We will start patient thiamine supplementation Monitor urine output closely, Herrmann catheter will be placed Date of service: 05/24/2024 Critical care minutes: 60 minutes Plan of care was discussed with patient and family at bedside, Reymundo Curiel MD Advanced Care Planning: Which of the following were discussed: Hospice care: Yes __ No _X_ Therapeutic options: Yes _X_ No __ Advance directives: Yes __X No __ Other discussions: Discussed with who?: Patient Voluntary nature of this service was explained to the patient? Yes _x_ No __ Amount of time spent: 20 minutes REYMUNDO CURIEL MD May 24, 2024 17:07
--- NOTE | 2024-05-24 17:46 | CONS ---
[facility] CONSULTATION NOTE Date Patient Seen: May 24, 2024 Time of Visit: 1944 Supervising Physician: [Dr. Rik Mei ] Reason for Consultation: [Critical care management ] Primary Care Physician: [Dr. Law [facility]] Outpatient Specialists: [Oncology: Dr. Martinez, Obgyn: Dr. Stark] Inpatient Consults: [BIS team: ICU care; Urology: Dr. Daniel, nephro: Dr. Tejada] PROBLEM LIST: Severe sepsis-POA Lactic acidosis-POA Acute infectious encephalopathy-POA Complicated UTI-POA Right pyelonephritis-POA Moderate right hydronephrosis-POA Right ureteropelvic junction calculus measuring 6 mm, causing obstruction-POA CHARISSA-POA Urinary retention-POA Mild hyponatremia-POA Dehydration-POA Hyperbilirubinemia-POA Recurrent UTIs-POA Recurrent urinary retention-POA Lawson catheter in situ-POA HX of right breast CA s/p mastectomy Primary HTN DM HLD Morbid obesity PLAN: -Continue critical care management -Start IV Levophed drip as warranted to maintain hemodynamic stability to keep MAP >65 -Continue IV fluids for hydration -Continue IV Merrem, add Linezolid in the setting of immunocompromise state. Deescalate as warranted pending culture results -Avoid mind-altering meds or sedatives -Reinforce facility-approved CAUTI prevention strategies, nursing to implement -Multimodal pain management -HAPI-prevention reinforcement -Urology consulted by primary for possible urinary stent placement -Nephro team to follow on kidney injury concerns -The rest of medical management per primary team HPI: [Patient is encephalopathic and unable to relay medical history and reason for hospitalization. She has an adolescent grandson who was at bedside but unable to give residual history other than right breast cancer with mastectomy. Per ED notes: "78-year-old female with underlying history of hypertension, type 2 diabetes mellitus, hyperlipidemia, obesity who presented to the ER for further evaluation of high-grade fevers, confusion, nausea, poor oral intake. Symptoms have been going on since last night her daughter noticed that patient was having fever of 102 F. patient was seen by her PCP recently and was diagnosed with a UTI and was given a course of outpatient Keflex. Daughter states that patient has not taken antibiotics due to nausea. She has been having issues with urinary tract infection and urinary incontinence over the past several months. She has been being followed by Dr. Stark with Gynecology as outpatient. Rec ently, she was referred for outpatient urology appointment. Patient is a poor historian and unable to provide detailed history. History was obtained from patient's daughter was present at bedside. Patient on presentation to the hospital was febrile with T-max of 101.1 F, heart rate of 95, blood pressure of 147/84.Labs on presentation showed [place] [address] with neutrophilia, hemoglobin of 13.5, platelet count of 884665. BMP remarkable for sodium of 135, creatinine 2.0, lactic acid close to 4 and urinalysis showed leukocyte esterase positive, pyuria and bacteriuria. Patient underwent further imaging with CT abdomen pelvis without contrast which showed findings of right ureteropelvic junction calculus measuring 6 mm causing m oderate hydronephrosis with significant nephrolithiasis noted of right kidney, air was noted in the collecting duct with concerns for right pyonephrosis.Patient will be admitted for severe sepsis POA we will monitor this patient closely in the ICU for 24 hours, lactic acid will be trended. Consultation with Urology, Nephrology and critical Care will be requested be. patient will receive broad-spectrum antibiotics and IV fluid resuscitation as well." BIS team was consulted fro critical care management. At the time of my assessment, patient's BP was slowly improving, lawson was draining concentrated urine at a 100 ml level. She denies pain or discomfort. Lungs CTA, abdomen soft and non-tender. We will initiate Levophed drip if hemodynamically unstable to keep MAP above 65. I agree to continue the patient on broad-spectrum antibiotic. In reference to severe sepsis with elevated procalcitonin of 3.5, we will add Zyvox in the setting of immunocompromise state and kidney injury. We will continue to follow along patient's response to treatment. On behalf of BIS team, thank you for the opportunity to get consulted on Miss Cho's case. PAST MEDICAL HX: see above PAST SURGICAL HX: noncontributory SOCIAL HISTORY: No tobacco, ETOH, or illicit drug use Coded Allergies: latex (Unverified Allergy, Unknown, 06/26/23) REVIEW OF SYSTEMS: 12 point ROS reviewed with patient. Pertinent positives mentioned above. Otherwise negative. PHYSICAL EXAM: GENERAL: alert, weak, awake oriented x 2 HEENT: EOMI, Sclera non icteric, moist mucosa NECK: Supple, no JVD, trachea midline LUNGS: Clear breath sounds bilaterally. No wheezes HEART: Regular rate and rhythm. Normal S1 and S2, without murmurs ABD: Abdomen soft, nontender. Bowel sounds present EXT: No clubbing cyanosis, 2+ pitting edema on BLE NEURO: Alert and oriented to person, follows commands Vital Signs (last 8hr) Date Time Temp Pulse Resp B/P (MAP) Pulse Ox O2 Delivery O2 Flow Rate FiO2 05/24/24 16:26 99.1 88 20 103/51 95 Room Air* 0 21 05/24/24 15:30 99.1 87 20 87/48 95 Room Air* 0 21 05/24/24 13:05 101.1 05/24/24 11:26 101.1 95 23 147/84 95 Room Air 0 LABS: Hematology Labs: Test 05/24/24 15:32 05/24/24 12:39 Range/Units Erythrocyte Sedimentation Rate 45 H 0-30 MM/HR White Blood Count 26.4 H 4.8-10.8 K/uL Red Blood Count 4.58 4.00-5.50 MIL/uL Hemoglobin 13.5 12.0-16.0 g/dL Hematocrit 41.5 36-48 % Mean Corpuscular Volume 90.6 79-99 fL Mean Corpuscular Hemoglobin 29.5 27.0-33.0 pg Mean Corpuscular Hemoglobin Concent 32.5 32.0-36.0 g/dL Red Cell Distribution Width 14.2 11.0-15.5 % Platelet Count 172 130-400 K/uL Mean Platelet Volume 11.5 H 7.5-10.5 fL Immature Granulocyte % (Auto) 0.8 0-1 % Neutrophils (%) (Auto) 85.6 H 40.0-77.0 % Lymphocytes (%) (Auto) 4.4 L 21.0-51.0 % Monocytes (%) (Auto) 9.0 3.0-13.0 % Eosinophils (%) (Auto) 0.0 0.0-8.0 % Basophils (%) (Auto) 0.2 0.0-5.0 % Neutrophils # (Auto) 22.6 H 1.8-7.7 K/uL Lymphocytes # (Auto) 1.2 1.0-4.8 K/uL Monocytes # (Auto) 2.4 H 0.1-1.0 K/uL Eosinophils # (Auto) 0.00 0.00-0.70 K/uL Basophils # (Auto) 0.06 0.00-0.20 K/uL Absolute Immature Granulocyte (auto 0.20 0-1 K/uL Nucleated Red Blood Cells 0.0 0.0-0.19 % White Cell Morphology Comment See comments Chemistry Labs: Test 05/24/24 15:32 05/24/24 12:39 Range/Units Hemoglobin A1c 6.2 H 4.0-6.0 % Estimated Average Glucose (eAG) 131 H 70-126 mg/dL Lactic Acid Level 2.6 H 0.8-2.5 mmol/L Total Bilirubin 1.2 H 0.2-1.0 mg/dL Direct Bilirubin 0.6 H 0.0-0.3 mg/dL Aspartate Amino Transf (AST/SGOT) 22 10-37 U/L Alanine Aminotransferase (ALT/SGPT) 16 12-78 U/L Alkaline Phosphatase 76 50-136 U/L Ammonia < 10 L 11-32 umol/L C-Reactive Protein, Quantitative 125.20 H 0.5-3.0 mg/L Total Protein 6.0 6.0-8.3 g/dL Albumin 2.3 L 3.5-5.0 g/dL Procalcitonin 3.54 H 0.05-0.5 ng/mL Thyroid Stimulating Hormone (TSH) 0.64 0.36-3.74 uIU/mL Sodium Level 135 L 136-145 mmol/L Potassium Level 3.5 3.5-5.1 mmol/L Chloride Level 99 L 101-111 mmol/L Carbon Dioxide Level 23 21-32 mmol/L Blood Urea Nitrogen 24 H 7-18 mg/dL Creatinine 2.0 H 0.5-1.0 mg/dL Glomerular Filtration Rate Calc 25 >90 mL/min Random Glucose 176 H 70-105 mg/dL Total Calcium 8.8 8.5-10.1 mg/dL Troponin I High Sensitivity 16 4-50 ng/L Lipase 17 16-77 U/L Coagulation Labs: Test 05/24/24 15:32 Range/Units Prothrombin Time 14.0 H 9.6-11.6 SEC Prothromb Time International Ratio 1.28 H 0.85-1.15 Activated Partial Thromboplast Time 34.5 26.3-35.5 SEC DIAGNOSTICS / RADIOLOGY RESULTS: [ ] PLAN NEURO: Minimize central acting medications as possible. Maintain fall precautions, adequate lighting during the day PULMONARY: Supplemental 02 as needed. Maintain aspiration precautions at all times CARDIOVASCULAR: Follow hemodynamics. Vital signs per facility protocol GI & NUTRITION: Continue with nutritional support. Continue stool softeners and laxatives as needed. KIDNEYS & ELECTROLYTES: Strict monitoring of intake, output and overall fluid balance. Avoid nephrotoxic medications to the extent possible. Medications to be dosed according to renal function. Monitor electrolytes and replace as needed ENDOCRINE: Maintain blood glucose between 100-180 at all times. Hypoglycemia protocol in place INFECTIOUS DISEASE: Trend temperature, WBC and procalcitonin level Follow cultures, deescalate antibiotics as soon as possible. Panculture if new onset fever ONCOLOGY/HEMATOLOGY/COAGULATION: Monitor for s/s of bleeding Monitor hemoglobin, coagulation studies as needed SKIN: Pressure ulcer prevention per facility protocol Specialty mattress ORTHO/REHAB: Continue PT/OT Prophylaxis: Continue GI and DVT prophylaxis Code Status: Full Resuscitation Disposition: TBD Other: Total patient care time: 35 minutes CARO ARITA May 24, 2024 17:46
--- NOTE | 2024-05-24 18:51 | NUR ---
CALLED RT FOR VBG AND TX
--- NOTE | 2024-05-24 19:15 | NUR ---
ASSUMED PT CARE, PT DENIES PAIN AT THIS TIME, RESTING IN POSITION OF COMFORT, NO ACUTE DISTRESS NOTED. VSS, RESP EVEN AND UNLABORED ON RA.
[2024-05-24 19:20] VITALS: PULSE 75; RESP 18
[2024-05-24 19:38] LABS: ABG OXYGEN SATURATION 78.1 % (94.0-98.0); BASE EXCESS,VENOUS BLOOD GAS -4.6 (-2.0-3.0); DEVICE COMMENT RN VENOUS; HCO3,VENOUS BLOOD GAS 20.5 (22.0-29.0); PCO2,VENOUS BLOOD GAS 38 (38-54); PH,VENOUS BLOOD GAS 7.346 (7.320-7.430); VENT MODE, BG RA (ROOM AIR)
--- NOTE | 2024-05-24 21:28 | CONS ---
Urology CONSULTATION NOTE Date of Service: May 24, 2024 Reason for Consultation: Obstructing right renal pelvis/ureteral calculi with hydronephrosis/systemic inflammatory response syndrome Requesting Physician: Hospitalist team HISTORY OF PRESENT ILLNESS: 78-year-old female with underlying history of hypertension, type 2 diabetes mellitus, hyperlipidemia, obesity who presented to the ER for further evaluation of high-grade fevers, confusion, nausea, poor oral intake. Symptoms have been going on since last night her daughter noticed that patient was having fever of 102 F. patient was seen by her PCP recently and was diagnosed with a UTI and was given a course of outpatient Keflex. Daughter states that patient has not taken antibiotics due to nausea. She has been having issues with urinary tract infection and urinary incontinence over the past several months. Recently, she was referred for outpatient urology appointment. Patient on presentation to the hospital was febrile with T-max of 101.1 F, heart rate of 95, blood pressure of 147/84. Labs on presentation showed significant leukocytosis with WBC count of 26K with neutrophilia, hemoglobin of 13.5, platelet count of 172K. BMP remarkable for sodium of 135, creatinine 2.0, lactic acid close to 4 and urinalysis showed leukocyte esterase positive, pyuria and bacteriuria. Patient underwent further imaging with CT abdomen pelvis without contrast which showed findings of right ureteropelvic junction calculus measuring 6 mm causing moderate hydronephrosis with significant nephrolithiasis noted of right kidney, air was noted in the collecting duct with concerns for right pyonephrosis. Patient was admitted for severe sepsis with a urological consultation. REVIEW OF SYSTEMS Unable to obtain a review of systems, patient is confused. Past Medical History Hypertension, DM 2 hyperlipidemia and obesity Past surgical history No surgeries reported Social history Denies ethanol alcohol and recreational drugs as reported by family Coded Allergies: latex (Unverified Allergy, Unknown, 06/26/23) PHYSICAL EXAM EYES: Anicteric. Pupils equal and reactive. HENT: No oral thrush seen, moist Oral mucosa NECK: Supple, no JVD or thyromegaly. LUNGS: Good air entry. No rales, no rhonchi. CARDIOVASCULAR: S1, S2 regular. No murmur heard. ABDOMEN: Soft, non tender, bowel sounds present, no organomegaly CENTRAL NERVOUS SYSTEM: Awake, alert, oriented x 3. No focal deficits. SKIN: No rashes, no swelling. LYMPHATICS: No peripheral lymphadenopathy MUSCULOSKELETAL: No joint swelling, erythema or tenderness. EXTREMITIES: No cyanosis or clubbing BACK: No deformity, no pressure ulcer. GENITOURINARY: Unable to perform a exam patient uncooperative Vital Sign (Last 24 Hours) 05/24/24 20:39 Temp 98.1 Pulse 74 Resp 20 B/P (MAP) 104/57 Pulse Ox 98 O2 Delivery Room Air* O2 Flow Rate 0 FiO2 21 LABS: Laboratory: Test 05/24/24 19:37 05/24/24 19:13 05/24/24 15:32 05/24/24 13:40 Range/Units Blood Gas Specimen Type Venous Arterial Blood Oxygen Saturation 78.1 L 94.0-98.0 % Venous Blood pH 7.346 7.320-7.430 Venous Blood pCO2 at Patient Temp 38 38-54 Venous Blood pO2 at Patient Temp 42.0 23.0-48.0 mmHg Venous Blood HCO3 20.5 L 22.0-29.0 Venous Blood Base Excess -4.6 L -2.0-3.0 Venous Blood Total Hemoglobin 13.3 12.0-16.0 Sodium (Blood Gas) 136 136-145 MMOL/L Bedside Potassium (Blood Gas) 3.5 3.4-4.5 MMOL/L Bedside Chloride (Blood Gas) 104 98-107 MMOL/L Bedside Glucose (Blood Gas) 141 H 65-95 MG/DL Bedside Ionized Calcium (Blood Gas) 1.09 L 1.15-1.33 MMOL/L Bedside Lactic Acid (Blood Gas) 1.96 H 0.36-0.75 MMOL/L Blood Gas Temperature 37.0 35.5-37.0 CELSIUS Blood Gas Vent Mode RA ROOM AIR FiO2 21.0 % Blood Gas Specimen Comment RN VENOUS Lactic Acid Level 2.0 0.8-2.5 mmol/L Erythrocyte Sedimentation Rate 45 H 0-30 MM/HR Prothrombin Time 14.0 H 9.6-11.6 SEC Prothromb Time International Ratio 1.28 H 0.85-1.15 Activated Partial Thromboplast Time 34.5 26.3-35.5 SEC Hemoglobin A1c 6.2 H 4.0-6.0 % Estimated Average Glucose (eAG) 131 H 70-126 mg/dL Total Bilirubin 1.2 H 0.2-1.0 mg/dL Direct Bilirubin 0.6 H 0.0-0.3 mg/dL Aspartate Amino Transf (AST/SGOT) 22 10-37 U/L Alanine Aminotransferase (ALT/SGPT) 16 12-78 U/L Alkaline Phosphatase 76 50-136 U/L Ammonia < 10 L 11-32 umol/L C-Reactive Protein, Quantitative 125.20 H 0.5-3.0 mg/L Total Protein 6.0 6.0-8.3 g/dL Albumin 2.3 L 3.5-5.0 g/dL Procalcitonin 3.54 H 0.05-0.5 ng/mL Thyroid Stimulating Hormone (TSH) 0.64 0.36-3.74 uIU/mL Urine Color YELLOW YELLOW Urine Appearance CLOUDY H CLEAR Urine pH 6.0 5.0-8.0 Urine Specific [place] 1.015 1.001-1.031 Urine Protein 100 H NEGATIVE mg/dL Urine Glucose (UA) NEGATIVE NEGATIVE mg/dL Urine Ketones NEGATIVE NEGATIVE mg/dL Urine Occult Blood MODERATE H NEGATIVE Urine Nitrate NEGATIVE NEGATIVE Urine Bilirubin NEGATIVE NEGATIVE mg/dL Urine Urobilinogen 0.2 0.2-1.0 mg/dL Urine Leukocyte Esterase 500 H NEGATIVE Deloris/uL Urine RBC 26-50 H 0-1 /HPF Urine WBC TNTC H 0-1 /HPF Urine Squamous Epithelial Cells RARE 0-2 /HPF Urine Bacteria FEW None Seen /HPF Test 05/24/24 12:45 05/24/24 12:39 Range/Units Influenza Type A Antigen Negative For Type A NEGATIVE Influenza Type B Antigen Negative For Type B NEGATIVE SARS-CoV-2 Antigen (Rapid) PRESUMPTIVE NEGATIVE NEGATIVE White Blood Count 26.4 H 4.8-10.8 K/uL Red Blood Count 4.58 4.00-5.50 MIL/uL Hemoglobin 13.5 12.0-16.0 g/dL Hematocrit 41.5 36-48 % Mean Corpuscular Volume 90.6 79-99 fL Mean Corpuscular Hemoglobin 29.5 27.0-33.0 pg Mean Corpuscular Hemoglobin Concent 32.5 32.0-36.0 g/dL Red Cell Distribution Width 14.2 11.0-15.5 % Platelet Count 172 130-400 K/uL Mean Platelet Volume 11.5 H 7.5-10.5 fL Immature Granulocyte % (Auto) 0.8 0-1 % Neutrophils (%) (Auto) 85.6 H 40.0-77.0 % Lymphocytes (%) (Auto) 4.4 L 21.0-51.0 % Monocytes (%) (Auto) 9.0 3.0-13.0 % Eosinophils (%) (Auto) 0.0 0.0-8.0 % Basophils (%) (Auto) 0.2 0.0-5.0 % Neutrophils # (Auto) 22.6 H 1.8-7.7 K/uL Lymphocytes # (Auto) 1.2 1.0-4.8 K/uL Monocytes # (Auto) 2.4 H 0.1-1.0 K/uL Eosinophils # (Auto) 0.00 0.00-0.70 K/uL Basophils # (Auto) 0.06 0.00-0.20 K/uL Absolute Immature Granulocyte (auto 0.20 0-1 K/uL Nucleated Red Blood Cells 0.0 0.0-0.19 % White Cell Morphology Comment See comments Sodium Level 135 L 136-145 mmol/L Potassium Level 3.5 3.5-5.1 mmol/L Chloride Level 99 L 101-111 mmol/L Carbon Dioxide Level 23 21-32 mmol/L Blood Urea Nitrogen 24 H 7-18 mg/dL Creatinine 2.0 H 0.5-1.0 mg/dL Glomerular Filtration Rate Calc 25 >90 mL/min Random Glucose 176 H 70-105 mg/dL Total Calcium 8.8 8.5-10.1 mg/dL Troponin I High Sensitivity 16 4-50 ng/L Lipase 17 16-77 U/L DIAGNOSTICS / RADIOLOGY: A CT scan of the abdomen and pelvis without intravenous contrast was reviewed. Evidence of obstruction of the right collecting system with stones at various levels along the ureter were noted. Large stone burden in the renal pelvis on the right side noted. Nonobstructing stones on the left side noted. ASSESSMENT: 78-year-old female with significant risk factors presents with an obstructed right renal unit secondary to stone burden mounting systemic inflammatory response syndrome PLAN: 1. Patient has been admitted to the hospitalist team for supportive care. That we include fluid management, intravenous antibiotics and pain control. 2. Patient is going to need a urological intervention. As of now the plan is to perform a cystoscopy with retrograde pyelogram with stent placement on 07/2024. In preparation for this procedure, patient can have breakfast the morning of 05/25/2024 and be NPO after breakfast. 3. We will put into the system the appropriate orders in anticipation for this intervention tomorrow. 4. Thank you for involving us in the care of this patient. 60 minutes spent to complete a consult, more than half of the time spent at bedside in counseling and coordination of care discussing all questions and concerns post by patient's family. Some time was spent discussing with members of her care team. The rest of the time was spent reviewing medical records past and present as well as reviewing laboratory imaging data. QUIN RUSSO MD May 24, 2024 21:28
[2024-05-25] VITALS (21 sets, daily range): BP systolic 125–158; BP diastolic 63–105; PULSE 87–101; RESP 14–23; TEMP 98.6–99.6; O2SAT 92–94
--- NOTE | 2024-05-25 | NUR ---
PT CONTINUES IN ER ROOM 10, NO ACUTE DISTRESS NOTED, PT RESTING IN POSITION OF COMFORT, VSS, RESP EVEN AND UNLABORED ON RA, ALL NEEDS ADDRESSED AT THIS TIME.
--- NOTE | 2024-05-25 04:20 | NUR ---
REPORT GIVEN TO BRAYAN RN ALL QUESTIONS ANSWERED AT THIS TIME. RN EXPECTING PT ARRIVAL TO THE UNIT.
[2024-05-25] MEDS: LINEZOLID 600 MG/ISO-OSM 300 ML IV SCH (04:30)
[2024-05-25] MEDS ORDERED: SITA100T12 PO (05:35)
[2024-05-25] MEDS ORDERED: CEPH500C2 PO (05:35)
[2024-05-25] MEDS: BUDESONIDE 0.5 MG/2 ML INH IH SCH (06:38)
[2024-05-25 06:41] LABS: BASOPHILS # (AUTO) 0.03 K/uL (0.00-0.20); BASOPHILS % (AUTO) 0.2 % (0.0-5.0); EOSINOPHILS # (AUTO) 0.03 K/uL (0.00-0.70); EOSINOPHILS % (AUTO) 0.2 % (0.0-8.0); HEMATOCRIT 34.4 % (36-48); LYMPHOCYTES % (AUTO) 6.9 % (21.0-51.0); MEAN CORPUSCULAR HEMOGLOBIN 30.1 pg (27.0-33.0); MEAN CORPUSCULAR HGB CONC 30.2 g/dL (32.0-36.0); MEAN CORPUSCULAR VOLUME 99.4 fL (79-99); MONOCYTES # (AUTO) 1.2 K/uL (0.1-1.0); MONOCYTES % (AUTO) 8.8 % (3.0-13.0); NEUTROPHILS # (AUTO) 11.7 K/uL (1.8-7.7); NEUTROPHILS % (AUTO) 83.2 % (40.0-77.0); PLATELET COUNT (AUTO) 112 K/uL (130-400); RED BLOOD CELL COUNT(AUTO) 3.46 MIL/uL (4.00-5.50); RED CELL DISTRIBUTION WIDTH 15.1 % (11.0-15.5)
[2024-05-25 06:55] LABS: INR 1.23 (0.85-1.15); PROTHROMBIN TIME 13.5 SEC (9.6-11.6)
[2024-05-25 06:56] LABS: PARTIAL THROMBOPLASTIN TIME 41.6 SEC (26.3-35.5)
--- NOTE | 2024-05-25 07:00 | EKG ---
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
--- NOTE | 2024-05-25 08:28 | NUR ---
Dr. Daniel page Paged Dr. Daniel through his office. Spoke to Jaylyn, asked for date and time clarification on ordered scheduled procedure for cystourethroscopy with right urethral stent placement. Pending call back at this time.
[2024-05-25 08:35] LABS: ALBUMIN 2.5 g/dL (3.5-5.0); BILIRUBIN,TOTAL 1.4 mg/dL (0.2-1.0); CREATININE 2.4 mg/dL (0.5-1.0); MAGNESIUM 1.6 mg/dL (1.80-2.40); PHOSPHORUS 3.3 mg/dL (2.5-4.9); POTASSIUM 3.5 mmol/L (3.5-5.1)
--- NOTE | 2024-05-25 10:16 | NUR ---
DCP Per daughter/provider, Yue Cho [phone], states patient was not showing signs of dementia until she became ill. States patient lives with daughter, Yanna Cho, and grandchildren; [phone], in a rented house with two steps at the entrance. Recieves $20 in food stamps. patient was able to do most of her own ADL's until she became ill. States patient suffers of incontinence and wears diapers. Has a walker with a seat but has a step in tub and requires assistance. Denies home health or dialysis services. PCP - Jenna Fleming MD. [facility]. Discharge home with family, Yue, daughter/provider will transport. will need a hospital bed and wheelchair. Referred to primary care doctor for prescription. Addendum: 05/25/24 at 1032 by DIOGENES POLLOCK RN CM Amended: Links added.
--- NOTE | 2024-05-25 11:49 | PN ---
[facility] PROGRESS NOTE Date Patient Seen: May 25, 2024 Time of Visit: 11:49 Supervising Physician: Dr. Carlson Primary Care Physician: [Dr. Hoffman of [facility]] Outpatient Specialists: [Oncology: Dr. Martinez, Obgyn: Dr. Stark] Inpatient Consults: [[facility] team: ICU care; Urology: Dr. Daniel, nephro: Dr. Tejada] PROBLEM LIST: Severe sepsis-POA Lactic acidosis-POA Acute infectious encephalopathy-POA Complicated UTI-POA Right pyelonephritis-POA Moderate right hydronephrosis-POA Right ureteropelvic junction calculus measuring 6 mm, causing obstruction-POA CHARISSA-POA Urinary retention-POA Mild hyponatremia-POA Dehydration-POA Hyperbilirubinemia-POA Recurrent UTIs-POA Recurrent urinary retention-POA Herrmann catheter in situ-POA HX of right breast CA s/p mastectomy Primary HTN DM HLD Morbid obesity INTERVAL HISTORY: 05/25/2024: At time of my evaluation, the patient was lying in bed. She is awake, alert and oriented x2. Respiratory mcdermott, the patient is breathing on room air. On the monitor, the patient is hemodynamically stable and is not requiring any pressor therapy. She is feeding orally and is so far tolerating well. There is no report of nausea, vomiting or diarrhea events. Staff nurse reports no major events overnight. The patient continues on antibiotic therapy with Merrem and Zyvox combination. No other complaint. REVIEW OF SYSTEMS: 12 point ROS reviewed with patient. Pertinent positives mentioned above. Othe rwise negative. PHYSICAL EXAM: GENERAL: alert, weak, awake oriented x 2 HEENT: EOMI, Sclera non icteric, moist mucosa NECK: Supple, no JVD, trachea midline LUNGS: Clear breath sounds bilaterally. No wheezes HEART: Regular rate and rhythm. Normal S1 and S2, without murmurs ABD: Abdomen soft, nontender. Bowel sounds present EXT: No clubbing cyanosis, 2+ pitting edema on BLE NEURO: Alert and oriented to person, follows commands Vital Signs (last 8hr) Date Time Temp Pulse Resp B/P (MAP) Pulse Ox O2 Delivery O2 Flow Rate FiO2 05/25/24 09:00 91 23 150/77 94 Room Air 05/25/24 08:30 92 15 145/74 93 Room Air 05/25/24 08:00 99.7 95 20 155/84 93 Room Air 05/25/24 08:00 93 Room Air* 0 05/25/24 07:30 93 20 141/78 92 Room Air 05/25/24 07:00 94 16 139/105 94 Room Air 05/25/24 06:41 91 18 05/25/24 06:41 91 18 N/A Room Air 05/25/24 05:16 94 Room Air* 0 21 05/25/24 05:01 99.0 93 14 139/80 94 Room Air 05/25/24 04:19 98.6 93 16 115/62 96 Room Air* 0 21 LABS: Hematology Labs: Test 05/25/24 06:26 05/24/24 15:32 05/24/24 12:39 Range/Units White Blood Count 14.0 #H 4.8-10.8 K/uL Red Blood Count 3.46 #L 4.00-5.50 MIL/uL Hemoglobin 10.4 #L 12.0-16.0 g/dL Hematocrit 34.4 L 36-48 % Mean Corpuscular Volume 99.4 H 79-99 fL Mean Corpuscular Hemoglobin 30.1 27.0-33.0 pg Mean Corpuscular Hemoglobin Concent 30.2 L 32.0-36.0 g/dL Red Cell Distribution Width 15.1 11.0-15.5 % Platelet Count 112 #L 130-400 K/uL Mean Platelet Volume 11.9 H 7.5-10.5 fL Immature Granulocyte % (Auto) 0.7 0-1 % Neutrophils (%) (Auto) 83.2 H 40.0-77.0 % Lymphocytes (%) (Auto) 6.9 L 21.0-51.0 % Monocytes (%) (Auto) 8.8 3.0-13.0 % Eosinophils (%) (Auto) 0.2 0.0-8.0 % Basophils (%) (Auto) 0.2 0.0-5.0 % Neutrophils # (Auto) 11.7 H 1.8-7.7 K/uL Lymphocytes # (Auto) 1.0 1.0-4.8 K/uL Monocytes # (Auto) 1.2 H 0.1-1.0 K/uL Eosinophils # (Auto) 0.03 0.00-0.70 K/uL Basophils # (Auto) 0.03 0.00-0.20 K/uL Absolute Immature Granulocyte (auto 0.10 0-1 K/uL Nucleated Red Blood Cells 0.0 0.0-0.19 % Red Blood Cell Morphology See comments Erythrocyte Sedimentation Rate 45 H 0-30 MM/HR White Cell Morphology Comment See comments Chemistry Labs: Test 05/25/24 08:05 05/24/24 19:13 05/24/24 15:32 05/24/24 12:39 Range/Units Sodium Level 136 136-145 mmol/L Potassium Level 3.5 3.5-5.1 mmol/L Chloride Level 100 L 101-111 mmol/L Carbon Dioxide Level 23 21-32 mmol/L Blood Urea Nitrogen 32 H 7-18 mg/dL Creatinine 2.4 H 0.5-1.0 mg/dL Glomerular Filtration Rate Calc 20 >90 mL/min Random Glucose 181 H 70-105 mg/dL Total Calcium 8.1 L 8.5-10.1 mg/dL Phosphorus Level 3.3 2.5-4.9 mg/dL Magnesium Level 1.60 L 1.80-2.40 mg/dL Total Bilirubin 1.4 H 0.2-1.0 mg/dL Aspartate Amino Transf (AST/SGOT) 20 10-37 U/L Alanine Aminotransferase (ALT/SGPT) 17 12-78 U/L Alkaline Phosphatase 98 # 50-136 U/L Total Protein 7.0 6.0-8.3 g/dL Albumin 2.5 L 3.5-5.0 g/dL Lactic Acid Level 2.0 0.8-2.5 mmol/L Hemoglobin A1c 6.2 H 4.0-6.0 % Estimated Average Glucose (eAG) 131 H 70-126 mg/dL Direct Bilirubin 0.6 H 0.0-0.3 mg/dL Ammonia < 10 L 11-32 umol/L C-Reactive Protein, Quantitative 125.20 H 0.5-3.0 mg/L Procalcitonin 3.54 H 0.05-0.5 ng/mL Thyroid Stimulating Hormone (TSH) 0.64 0.36-3.74 uIU/mL Troponin I High Sensitivity 16 4-50 ng/L Lipase 17 16-77 U/L Coagulation Labs: Test 05/25/24 06:26 Range/Units Prothrombin Time 13.5 H 9.6-11.6 SEC Prothromb Time International Ratio 1.23 H 0.85-1.15 Activated Partial Thromboplast Time 41.6 H 26.3-35.5 SEC DIAGNOSTICS / RADIOLOGY RESULTS: [ ] PLAN 05/24/2024: PLAN: -Continue critical care management -Start IV Levophed drip as warranted to maintain hemodynamic stability to keep MAP >65 -Continue IV fluids for hydration -Continue IV Merrem, add Linezolid in the setting of immunocompromise state. Deescalate as warranted pending culture results -Avoid mind-altering meds or sedatives -Reinforce facility-approved CAUTI prevention strategies, nursing to implement -Multimodal pain management -HAPI-prevention reinforcement -Urology consulted by primary for possible urinary stent placement -Nephro team to follow on kidney injury concerns -The rest of medical management per primary team 05/25/2024: For now, going to continue current management for the patient. We will continue monitoring her mental status. The patient is currently breathing on room air, but we will offer oxygen supplementation if necessary. We will continue to monitor hemodynamically status. We will continue to monitor her nutrition status and supplement if necessary. The urologist is on board and plans to takes the patient for a cystoscopic evaluation of the urinary tract. Urine sample for culture, currently showing Gram-negative rods. Blood cultures x2 were negative. The patient will continue with antibiotic coverage as ordere d. We will monitor the renal parameters and follow the the recommendation of the cocoa mill operator. Considering the patient is not requiring any pressor therapy, we will downgrade the patient to medical with tele. We will continue to provide general supportive care, GI and DVT prophylaxis. Further orders per attending MD and hospital course. NEURO: Minimize central acting medications as possible. Fall Precautions. Well lighted room through the day and minimize interruptions through the night to prevent acute delirium. PULMONARY: Supplemental 02 as needed Titrate Fio2 to keep Spo2 > or = 90% DuoNebs and CPT as needed IS hourly while awake for pulmonary hygiene Out of bed to chair as tolerated VAP Bundle Vent/BIPAP Settings: [ ] CARDIOVASCULAR: Follow hemodynamics. Titrate vasopressor to keep MAP >65 or systolic blood pressure >95mmHg DIPS: [ ] LINES: [ ] GI & NUTRITION: Continue nutritional support Aspirations precautions Prokinetic agents and laxatives as needed KIDNEYS & ELECTROLYTES: Strict monitoring of intake and output Daily weights Avoid nephrotoxic agents Monitor electrolytes and replace as needed Goal urine output of 30mL/hr or 0.5mL/kg/hr Urine output: [ ] Fluid Balance: [ ] ENDOCRINE: Maintain blood glucose between 100-180 at all times. Insulin sliding scale for blood glucose management INFECTIOUS DISEASE: Trend temperature. Miller-culture if febrile. Micro: [ ] Antibiotics: [ ] HEMATOLOGY & COAGULATION: Monitor H&H. Keep Hgb > 7 Transfuse 1 unit of PRBC for Hgb < 7 Transfuse 1 pack of platelets of platelets < 20, 000 Watch for any signs and symptoms of bleeding SKIN: Pressure ulcer prevention per facility protocol Rehab: PT/OT Prophylaxis: GI: Protonix DVT: SCDs Code Status: Full Resuscitation Disposition: ICU Other: Total patient care time exceeds 35 minutes excluding all procedures. Case was discussed and seen with my supervising physician. The above plan was formulated and agreed upon. MAUREEN PACKER NP May 25, 2024 11:49
--- NOTE | 2024-05-25 12:32 | CONS ---
NEPHROLOGY CONSULTATION REASON FOR CONSULTATION: Renal failure. HISTORY OF PRESENT ILLNESS: This lady has multiple medical problems of diabetes, hypertension, hyperlipidemia, obesity. The patient has severe mental status changes . The patient has rising BUN and creatinine, for which we have been consulted. The patient has low sodium also slightly. No other associated finding. Has been found to have a leukocytosis. PAST MEDICAL HISTORY: As above with hypertension, hyperlipidemia, diabetes, anemia, UTI, incontinence, breast cancer before. PAST SURGICAL HISTORY: Mastectomy, right shoulder surgery. SOCIAL HISTORY: No smoking, alcohol or drug abuse. Lives at home. FAMILY HISTORY: Not pertinent. ALLERGIES: LATEX. HOME MEDICINES: Reviewed. REVIEW OF SYSTEMS: Has been having fever, chills and has been confused. No other associated finding and multiple other comorbidities, unable to get any other review from the patient. PHYSICAL EXAMINATION: GENERAL: Pale, no other distress. VITAL SIGNS: Temperature up to 99.1, pulse 80, respiratory rate 20, blood pressure is 103/51. HEENT: Head is atraumatic. Pupils are round and reactive. Sclerae are anicteric. Conjunctivae not pale. Oral mucosa is not dry. NECK: Supple. No masses or bruits. Thyroid is palpable. Neck has no bruits. CHEST: Shows diminished at both bases, prolonged expiration, percussion note being resonant in all areas. Few crackles. CARDIAC: Regular rhythm, no rub, no S3, S4. No parasternal heave. ABDOMEN: Soft. No guarding or tenderness and no organomegaly. EXTREMITIES: With no edema. No cyanosis or clubbing. BACK: No tenderness or back deformities. LYMPHATIC: With no lymph node swelling in neck or axillary area. NEUROLOGIC: The patient is lethargic, nonfocal. No cranial nerve palsies. SKIN: No other rashes on inspection and palpation. Reviewed available labs. Urine has shown pyuria. Ammonia less than 10. Lactic acid 2.6, high. The patient has influenza test and COVID test negative. The patient has white cell count of 26,000, hemoglobin 13.5. Sodium 135, BUN of 24, creatinine 2. Imaging studies are personally reviewed. Old records reviewed. The patient has CT abdomen and pelvis done, with no evidence of bleed, but there is a right-sided hydronephrosis, right UPJ calculus. Left side also shows a nonobstructing nephrolithiasis, otherwise old records have been reviewed. Imaging studies are personally reviewed. PROBLEMS: * Acute renal failure. * Sepsis, severe. * Mental status changes, metabolic encephalopathy. * Nephrolithiasis with obstructing right stone with right hydronephrosis. * The patient has lactic acidosis. * Underlying dementia. * Underlying hypertension. * Underlying hyperlipidemia. * The patient has recurrent urinary tract infections before, incontinence, depression and other comorbidities. The patient is critically ill. PLAN: * The patient is admitted to the ICU. * The patient will have broad-spectrum antibiotic in adjusted dose. * The patient will be on pressors as needed. * The patient is on gentle hydration. * The patient will have a followup with Urology, may need nephrostomy or cystoscopy. * IV Dilaudid 0.5 q. 6 can be used for pain. * We reviewed the old record, external records. Herrmann catheter is planned to be placed and the patient will have a continued followup on renal function, electrolytes and overall status. The patient will get other nephrotoxic avoided. Discussed with other team physicians. We have reviewed the external records, old records, previous records. All the labs and x-rays were personally reviewed and interpreted and follow up labs and x-rays have been ordered. Condition is critical, guarded. Thank you for this patient. TID: [id number] RECEIPT: [id number]
--- NOTE | 2024-05-25 13:06 | PN ---
[facility] PROGRESS NOTE Date of Service: May 25, 2024 Time of Service: 13:02 SUBJECTIVE: 05/25 patient seen at bedside, no acute events overnight. She has been afebrile, hemodynamically stable saturating well on room air. She has not required any pressors, WBC improved from 20/6 0.4 down to 14.0, hemoglobin decreased from 13.5 down to 10.4, platelets decreased from 172 down to 112, creatinine increased from 2.0 up to 2.4, lactic acid improved from 2.6 down to 2.0, remainder of her labs are relatively unremarkable. Urology planning to take patient for cystogram with possible stent placement and other intervention tomorrow, we will continue with empiric antibiotics and IV fluids. Patient responding appropriately, has no complaints this morning. REVIEW OF SYSTEMS 12 point review of systems negative unless noted in HPI PHYSICAL EXAM GENERAL APPEARANCE: Patient is Able to tell me her name but otherwise appears lethargic NEUROLOGICAL: Cranial nerves II-XII grossly intact. Motor is 5/5 in bilateral upper and lower extremities proximal to distal. No sensory deficits. HEENT: Face is symmetric. Pupils are equal and reactive. Extraocular movements are intact. NECK: Supple. No JVD. No thyromegaly. No submental, submandibular, pre-/posta uricular, occipital or supraclavicular lymphadenopathy. CHEST: Normal chest expansion. No Telemetry. LUNGS: Minimal crackles noted bilateral lung bases CARDIOVASCULAR: Regular. S1 and S2 normal. No appreciable rubs, murmurs or gallops. ABDOMEN: No significant tenderness noted of the abdomen : Deferred. No Herrmann. EXTREMITIES: Non-edematous and not cyanotic. No clubbing. Good capillary refill. SKIN: No skin breakdown. Vital Signs (last 8hr) Date Time Temp Pulse Resp B/P (MAP) Pulse Ox O2 Delivery O2 Flow Rate FiO2 05/25/24 09:00 91 23 150/77 94 Room Air 05/25/24 08:30 92 15 145/74 93 Room Air 05/25/24 08:00 99.7 95 20 155/84 93 Room Air 05/25/24 08:00 93 Room Air* 0 21 05/25/24 07:30 93 20 141/78 92 Room Air 05/25/24 07:00 94 16 139/105 94 Room Air 05/25/24 06:41 91 18 2/4/25 06:41 91 18 N/A Room Air 21 05/25/24 05:16 94 Room Air* 0 21 LABS: Laboratory: Test 05/25/24 08:05 05/25/24 06:26 05/24/24 19:37 05/24/24 19:13 Range/Units Sodium Level 136 136-145 mmol/L Potassium Level 3.5 3.5-5.1 mmol/L Chloride Level 100 L 101-111 mmol/L Carbon Dioxide Level 23 21-32 mmol/L Blood Urea Nitrogen 32 H 7-18 mg/dL Creatinine 2.4 H 0.5-1.0 mg/dL Glomerular Filtration Rate Calc 20 >90 mL/min Random Glucose 181 H 70-105 mg/dL Total Calcium 8.1 L 8.5-10.1 mg/dL Phosphorus Level 3.3 2.5-4.9 mg/dL Magnesium Level 1.60 L 1.80-2.40 mg/dL Total Bilirubin 1.4 H 0.2-1.0 mg/dL Aspartate Amino Transf (AST/SGOT) 20 10-37 U/L Alanine Aminotransferase (ALT/SGPT) 17 12-78 U/L Alkaline Phosphatase 98 # 50-136 U/L Total Protein 7.0 6.0-8.3 g/dL Albumin 2.5 L 3.5-5.0 g/dL White Blood Count 14.0 #H 4.8-10.8 K/uL Red Blood Count 3.46 #L 4.00-5.50 MIL/uL Hemoglobin 10.4 #L 12.0-16.0 g/dL Hematocrit 34.4 L 36-48 % Mean Corpuscular Volume 99.4 H 79-99 fL Mean Corpuscular Hemoglobin 30.1 27.0-33.0 pg Mean Corpuscular Hemoglobin Concent 30.2 L 32.0-36.0 g/dL Red Cell Distribution Width 15.1 11.0-15.5 % Platelet Count 112 #L 130-400 K/uL Mean Platelet Volume 11.9 H 7.5-10.5 fL Immature Granulocyte % (Auto) 0.7 0-1 % Neutrophils (%) (Auto) 83.2 H 40.0-77.0 % Lymphocytes (%) (Auto) 6.9 L 21.0-51.0 % Monocytes (%) (Auto) 8.8 3.0-13.0 % Eosinophils (%) (Auto) 0.2 0.0-8.0 % Basophils (%) (Auto) 0.2 0.0-5.0 % Neutrophils # (Auto) 11.7 H 1.8-7.7 K/uL Lymphocytes # (Auto) 1.0 1.0-4.8 K/uL Monocytes # (Auto) 1.2 H 0.1-1.0 K/uL Eosinophils # (Auto) 0.03 0.00-0.70 K/uL Basophils # (Auto) 0.03 0.00-0.20 K/uL Absolute Immature Granulocyte (auto 0.10 0-1 K/uL Nucleated Red Blood Cells 0.0 0.0-0.19 % Red Blood Cell Morphology See comments Prothrombin Time 13.5 H 9.6-11.6 SEC Prothromb Time International Ratio 1.23 H 0.85-1.15 Activated Partial Thromboplast Time 41.6 H 26.3-35.5 SEC Blood Gas Specimen Type Venous Arterial Blood Oxygen Saturation 78.1 L 94.0-98.0 % Venous Blood pH 7.346 7.320-7.430 Venous Blood pCO2 at Patient Temp 38 38-54 Venous Blood pO2 at Patient Temp 42.0 23.0-48.0 mmHg Venous Blood HCO3 20.5 L 22.0-29.0 Venous Blood Base Excess -4.6 L -2.0-3.0 Venous Blood Total Hemoglobin 13.3 12.0-16.0 Sodium (Blood Gas) 136 136-145 MMOL/L Bedside Potassium (Blood Gas) 3.5 3.4-4.5 MMOL/L Bedside Chloride (Blood Gas) 104 98-107 MMOL/L Bedside Glucose (Blood Gas) 141 H 65-95 MG/DL Bedside Ionized Calcium (Blood Gas) 1.09 L 1.15-1.33 MMOL/L Bedside Lactic Acid (Blood Gas) 1.96 H 0.36-0.75 MMOL/L Blood Gas Temperature 37.0 35.5-37.0 CELSIUS Blood Gas Vent Mode RA ROOM AIR FiO2 21.0 % Blood Gas Specimen Comment RN VENOUS Lactic Acid Level 2.0 0.8-2.5 mmol/L Test 05/24/24 15:32 05/24/24 13:40 05/24/24 12:45 05/24/24 12:39 Range/Units Erythrocyte Sedimentation Rate 45 H 0-30 MM/HR Hemoglobin A1c 6.2 H 4.0-6.0 % Estimated Average Glucose (eAG) 131 H 70-126 mg/dL Direct Bilirubin 0.6 H 0.0-0.3 mg/dL Ammonia < 10 L 11-32 umol/L C-Reactive Protein, Quantitative 125.20 H 0.5-3.0 mg/L Procalcitonin 3.54 H 0.05-0.5 ng/mL Thyroid Stimulating Hormone (TSH) 0.64 0.36-3.74 uIU/mL Urine Color YELLOW YELLOW Urine Appearance CLOUDY H CLEAR Urine pH 6.0 5.0-8.0 Urine Specific Homer 1.015 1.001-1.031 Urine Protein 100 H NEGATIVE mg/dL Urine Glucose (UA) NEGATIVE NEGATIVE mg/dL Urine Ketones NEGATIVE NEGATIVE mg/dL Urine Occult Blood MODERATE H NEGATIVE Urine Nitrate NEGATIVE NEGATIVE Urine Bilirubin NEGATIVE NEGATIVE mg/dL Urine Urobilinogen 0.2 0.2-1.0 mg/dL Urine Leukocyte Esterase 500 H NEGATIVE Deloris/uL Urine RBC 26-50 H 0-1 /HPF Urine WBC TNTC H 0-1 /HPF Urine Squamous Epithelial Cells RARE 0-2 /HPF Urine Bacteria FEW None Seen /HPF Influenza Type A Antigen Negative For Type A NEGATIVE Influenza Type B Antigen Negative For Type B NEGATIVE SARS-CoV-2 Antigen (Rapid) PRESUMPTIVE NEGATIVE NEGATIVE White Cell Morphology Comment See comments Troponin I High Sensitivity 16 4-50 ng/L Lipase 17 16-77 U/L Current Medications Medications (Trade) Dose Ordered Sig/Madelaine Route PRN Reason Start Time Stop Time Status Last Admin Dose Admin Acetaminophen (TYLenol 325MG TAB) 650 mg Q6H PRN PO MILD PAIN (1-3) 05/24/24 15:30 06/23/24 15:29 Budesonide (Pulmicort 0.5 Mg/2ml) 0.5 mg BIDRESP IH 05/24/24 18:00 06/23/24 17:59 05/25/24 06:38 0.5 MG Insulin Human Regular (humuLIN R 100 UNIT/ML 3ML) INSULIN SLIDING SCAL... ACHS SQ 05/25/24 16:30 06/24/24 16:29 Linezolid 300 ml @ 150 mls/hr Q12H IV 05/25/24 04:00 06/04/24 03:59 05/25/24 04:30 150 MLS/HR Magnesium Sulfate 50 ml @ 0 mls/hr PROTOCOL IV 05/25/24 12:00 06/24/24 11:59 Meropenem (Merrem) 1 gm Q12H IVPB 05/24/24 15:30 06/03/24 15:29 05/25/24 03:43 1 GM Norepinephrine 250 ml @ 21.263 mls/ hr PROTOCOL IV 05/24/24 15:30 06/23/24 15:29 Ondansetron HCl (zoFRAN 4MG INJ) 4 mg Q6H PRN IVP NAUSEA/VOMITING 05/24/24 15:30 06/23/24 15:29 Pantoprazole Sodium (PROTonix 40MG INJ) 40 mg Q24H IVP 05/24/24 15:30 06/23/24 15:29 05/24/24 15:44 40 MG Pharmacy Profile Note (Lace Assessment) 1 each AD MISC 05/24/24 15:00 05/24/24 15:05 DC Sodium Chloride 1,000 ml @ 75 mls/hr [id number] IV 05/24/24 15:00 06/23/24 14:59 05/25/24 03:43 75 MLS/HR Thiamine HCl (Vitamin B-1) 100 mg Q24H IVP 05/24/24 16:00 06/23/24 15:59 05/24/24 16:09 100 MG DIAGNOSTICS / RADIOLOGY: [ ] ASSESSMENT: Severe sepsis, 2/2 complicated urinary tract infection, POA Toxic/metabolic encephalopathy, POA Complicated urinary tract infection with right pyonephrosis, POA Obstructing right ureteropelvic junction calculus measuring 6 mm causing moderate right-sided hydronephrosis, POA Significant leukocytosis, POA Acute kidney injury, POA Moderate lactic acidosis, POA Morbid obesity, POA Frailty, POA Underlying history of hypertension, POA Hyperlipidemia, POA Significant nephrolithiasis noted of the right kidney, 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 Start regular diet, NPO after midnight Urology planning for cystogram tomorrow Continue sliding scale insulin with hypoglycemia protocol Continue linezolid Continue meropenem Critical care and nephrology consulted, appreciate recommendations DVT prophylaxis with SCDs and Lovenox, GI prophylaxis with Protonix Continue thiamine supplementation Continue to monitor urinary output Disposition: Pending cystogram, urology recommendations, improvement in clinical status Greater than 35 minutes ICU time spent in care of this patient JOANNE RENEE MD May 25, 2024 13:06
--- NOTE | 2024-05-25 14:37 | PN ---
NEPHROLOGY PROGRESS NOTE Date/Time Patient Seen: May 25, 2024 Reason for Consultation: 14:31 SUBJECTIVE: This is a 78-year-old female with underlying history of hypertension, type 2 diabetes mellitus, hyperlipidemia, obesity She presented to the ER for further evaluation of high-grade fevers, confusion, nausea, poor oral intake. Patient was seen by her PCP recently and was diagnosed with a UTI and was given a course of outpatient Keflex. CT abdomen pelvis without contrast which showed findings urinary tract calculus causing obstruction. Possible right pyonephrosis. Urology recommended cystoscopy with retrograde pyelogram with stent placement on 05/25/2024. Urine cultures positive for Gram-negative rods She continues on antibiotics The patient has rising BUN and creatinine, for which we have been consulted. The patient has low sodium also slightly. No other associated finding. Has been found to have a leukocytosis. Renal function remains elevated Electrolytes are stable. She was seen in the ICU, in no acute distress Family at the bedside Prognosis remains guarded REVIEW OF SYSTEMS: GENERAL: Negative for any nausea, vomiting, fevers, chills, or weight loss. NEUROLOGIC: Negative for any blurry vision, blind spots, double vision, facial asymmetry, dysphagia, dysarthria, hemiparesis, hemisensory deficits, vertigo, ataxia. HEENT: Negative for any head trauma, neck trauma, neck stiffness, photophobia, phonophobia, sinusitis, rhinitis. CARDIAC: Negative for any chest pain, dyspnea on exertion, paroxysmal nocturnal dyspnea, peripheral edema. PULMONARY: Negative for any shortness of breath, wheezing, COPD, or TB exposure. GASTROINTESTINAL: Negative for any abdominal pain, nausea, vomiting, bright red blood per rectum, melena. GENITOURINARY: Negative for any dysuria, hematuria, incontinence. INTEGUMENTARY: Negative for any rashes, cuts, insect bites. RHEUMATOLOGIC: Negative for any joint pains, photosensitive rashes, history of vasculitis or kidney problems. HEMATOLOGIC: Negative for any abnormal bruising, frequent infections or bleeding. Vital Signs (last 8hr) Date Time Temp Pulse Resp B/P (MAP) Pulse Ox O2 Delivery O2 Flow Rate FiO2 05/25/24 13:00 88 15 155/69 94 Room Air 05/25/24 12:00 98.8 101 19 152/85 94 Room Air 05/25/24 11:00 97 18 138/70 93 Room Air 05/25/24 10:00 90 18 158/63 93 Room Air 05/25/24 09:00 91 23 150/77 94 Room Air 05/25/24 08:30 92 15 145/74 93 Room Air 05/25/24 08:00 99.7 95 20 155/84 93 Room Air 05/25/24 08:00 93 Room Air* 0 21 05/25/24 07:30 93 20 141/78 92 Room Air 05/25/24 07:00 94 16 139/105 94 Room Air 05/25/24 06:41 91 18 05/25/24 06:41 91 18 N/A Room Air 21 PHYSICAL EXAM: GENERAL: Alert and oriented x 3. No acute distress. Well-nourished. EYES: EOMI. Anicteric. HENT: Moist mucous membranes. No scleral icterus. No cervical lymphadenopathy. LUNGS: Clear to auscultation bilaterally. No accessory muscle use. CARDIOVASCULAR: Regular rate and rhythm. No murmur. No JVD. ABDOMEN: Soft, non-tender and non-distended. No palpable masses. EXTREMITIES: No edema. Non-tender.?SKIN: No rashes or lesions. Warm. NEUROLOGIC: No focal neurological deficits. CN II-XII grossly intact, but not individually tested. PSYCHIATRIC: Cooperative. Appropriate mood and affect. Current Medications Medications (Trade) Dose Ordered Sig/Madelaine Route PRN Reason Start Time Stop Time Status Last Admin Dose Admin Acetaminophen (TYLenol 325MG TAB) 650 mg Q6H PRN PO MILD PAIN (1-3) 05/24/24 15:30 06/23/24 15:29 Budesonide (Pulmicort 0.5 Mg/2ml) 0.5 mg BIDRESP IH 05/24/24 18:00 06/23/24 17:59 05/25/24 06:38 0.5 MG Insulin Human Regular (humuLIN R 100 UNIT/ML 3ML) INSULIN SLIDING SCAL... ACHS SQ 05/25/24 16:30 06/24/24 16:29 Linezolid 300 ml @ 150 mls/hr Q12H IV 05/25/24 04:00 06/04/24 03:59 05/25/24 04:30 150 MLS/HR Magnesium Sulfate 50 ml @ 0 mls/hr PROTOCOL IV 05/25/24 12:00 06/24/24 11:59 Meropenem (Merrem) 1 gm Q12H IVPB 05/24/24 15:30 06/03/24 15:29 05/25/24 03:43 1 GM Norepinephrine 250 ml @ 21.263 mls/ hr PROTOCOL IV 05/24/24 15:30 06/23/24 15:29 Ondansetron HCl (zoFRAN 4MG INJ) 4 mg Q6H PRN IVP NAUSEA/VOMITING 05/24/24 15:30 06/23/24 15:29 Pantoprazole Sodium (PROTonix 40MG INJ) 40 mg Q24H IVP 05/24/24 15:30 06/23/24 15:29 05/24/24 15:44 40 MG Pharmacy Profile Note (Lace Assessment) 1 each AD MISC 05/24/24 15:00 05/24/24 15:05 DC Sodium Chloride 1,000 ml @ 75 mls/hr [id number] IV 05/24/24 15:00 06/23/24 14:59 05/25/24 03:43 75 MLS/HR Thiamine HCl (Vitamin B-1) 100 mg Q24H IVP 05/24/24 16:00 06/23/24 15:59 05/24/24 16:09 100 MG LABORATORY: [ ] Hematology Labs: Test 05/25/24 06:26 05/24/24 15:32 05/24/24 12:39 Range/Units White Blood Count 14.0 #H 4.8-10.8 K/uL Red Blood Count 3.46 #L 4.00-5.50 MIL/uL Hemoglobin 10.4 #L 12.0-16.0 g/dL Hematocrit 34.4 L 36-48 % Mean Corpuscular Volume 99.4 H 79-99 fL Mean Corpuscular Hemoglobin 30.1 27.0-33.0 pg Mean Corpuscular Hemoglobin Concent 30.2 L 32.0-36.0 g/dL Red Cell Distribution Width 15.1 11.0-15.5 % Platelet Count 112 #L 130-400 K/uL Mean Platelet Volume 11.9 H 7.5-10.5 fL Immature Granulocyte % (Auto) 0.7 0-1 % Neutrophils (%) (Auto) 83.2 H 40.0-77.0 % Lymphocytes (%) (Auto) 6.9 L 21.0-51.0 % Monocytes (%) (Auto) 8.8 3.0-13.0 % Eosinophils (%) (Auto) 0.2 0.0-8.0 % Basophils (%) (Auto) 0.2 0.0-5.0 % Neutrophils # (Auto) 11.7 H 1.8-7.7 K/uL Lymphocytes # (Auto) 1.0 1.0-4.8 K/uL Monocytes # (Auto) 1.2 H 0.1-1.0 K/uL Eosinophils # (Auto) 0.03 0.00-0.70 K/uL Basophils # (Auto) 0.03 0.00-0.20 K/uL Absolute Immature Granulocyte (auto 0.10 0-1 K/uL Nucleated Red Blood Cells 0.0 0.0-0.19 % Red Blood Cell Morphology See comments Erythrocyte Sedimentation Rate 45 H 0-30 MM/HR White Cell Morphology Comment See comments Chemistry Labs: Test 05/25/24 08:05 05/24/24 19:13 05/24/24 15:32 05/24/24 12:39 Range/Units Sodium Level 136 136-145 mmol/L Potassium Level 3.5 3.5-5.1 mmol/L Chloride Level 100 L 101-111 mmol/L Carbon Dioxide Level 23 21-32 mmol/L Blood Urea Nitrogen 32 H 7-18 mg/dL Creatinine 2.4 H 0.5-1.0 mg/dL Glomerular Filtration Rate Calc 20 >90 mL/min Random Glucose 181 H 70-105 mg/dL Total Calcium 8.1 L 8.5-10.1 mg/dL Phosphorus Level 3.3 2.5-4.9 mg/dL Magnesium Level 1.60 L 1.80-2.40 mg/dL Total Bilirubin 1.4 H 0.2-1.0 mg/dL Aspartate Amino Transf (AST/SGOT) 20 10-37 U/L Alanine Aminotransferase (ALT/SGPT) 17 12-78 U/L Alkaline Phosphatase 98 # 50-136 U/L Total Protein 7.0 6.0-8.3 g/dL Albumin 2.5 L 3.5-5.0 g/dL Lactic Acid Level 2.0 0.8-2.5 mmol/L Hemoglobin A1c 6.2 H 4.0-6.0 % Estimated Average Glucose (eAG) 131 H 70-126 mg/dL Direct Bilirubin 0.6 H 0.0-0.3 mg/dL Ammonia < 10 L 11-32 umol/L C-Reactive Protein, Quantitative 125.20 H 0.5-3.0 mg/L Procalcitonin 3.54 H 0.05-0.5 ng/mL Thyroid Stimulating Hormone (TSH) 0.64 0.36-3.74 uIU/mL Troponin I High Sensitivity 16 4-50 ng/L Lipase 17 16-77 U/L Coagulation Labs: Test 05/25/24 06:26 Range/Units Prothrombin Time 13.5 H 9.6-11.6 SEC Prothromb Time International Ratio 1.23 H 0.85-1.15 Activated Partial Thromboplast Time 41.6 H 26.3-35.5 SEC DIAGNOSTICS / RADIOLOGY: REASON: sepsis, confusion ORDERING PHYSICIAN: SUNG CAICEDO MD PROCEDURE: HEAD WO - CT HEAD/BRAIN W/O CONTRAST Exam Type: CT HEAD/BRAIN W/O CONTRAST Clinical Information: sepsis, confusion Comparison: None CT Dose Index (CTDI): 57.33 mGy Dose Length Product (DLP): 956.79 total mGy-cm Findings: The examination shows atrophy. There is low attenuation throughout the periventricular white matter locations, consistent with chronic small vessel ischemic changes. No acute intra- or extra-axial fluid collections are seen. There is no evidence of acute or chronic hemorrhage. There is no mass effect or shift of midline structures. There are no areas to suggest acute infarct. The skull windows show no significant abnormalities. IMPRESSION: 1. ATROPHY AND CHRONIC SMALL VESSEL ISCHEMIC CHANGES. This study was performed using dose reduction techniques to include automated exposure control and/or adjustment of the mA and/or kV according to patient size. DICTATED BY: SHERICE SANCHEZ MD DATE: 05/24/24 1625 REASON: SHORTNESS A BREATH ORDERING PHYSICIAN: CM CORRALES NP PROCEDURE: CXR1VW - CHEST 1VW Exam Type: CHEST 1VW Clinical Information: SHORTNESS A BREATH Comparison: None Findings: The lungs are clear of infiltrates. The heart is enlarged. Bony and soft tissue structures of the chest wall are unremarkable. IMPRESSION: Cardiomegaly. Clear lungs. DICTATED BY: SHERICE SANCHEZ MD DATE: 05/24/24 1525 REASON: DIFFUSE AND LEFT LOWER QUADRANT PAIN TENDERNESS WITH FEVER ORDERING PHYSICIAN: CM CORRALES NP PROCEDURE: ABD PEL WO - CT ABDOMEN/PELVIS W/O CONTRAST CT ABDOMEN PELVIS WITHOUT CONTRAST Clinical Information: DIFFUSE AND LEFT LOWER QUADRANT PAIN TENDERNESS WITH FEVER Comparison: CT Dose Index (CTDI): 28.40 mGy Dose Length Product (DLP): 1536.00 total mGy-cm PROTOCOL: Routine noncontrast helical scanning of the abdomen and pelvis was performed at 5mm collimation. Findings: There is a Right ureteropelvic junction calculus measuring 6 mm causing moderate hydronephrosis. There is extensive nephrolithiasis of the right kidney and there is air within the collecting system and the possibility of hydronephrosis on the right side must be entertained. The left side shows nonobstructing nephrolithiasis. The lung bases are clear. The stomach is unremarkable. It shows no wall thickening. No gross ulceration is seen. It is not overly distended. There are no surrounding inflammatory changes. No wall lesions are identified to suggest cancer. The spleen is unremarkable. It is not enlarged. The pancreas shows normal anatomy. It is not fatty replaced. It shows no lesions. The pancreatic duct is not dilated. The gallbladder is surgically absent. The adrenal glands are unremarkable. There is no enlargement. No lesions are noted. The liver is unremarkable. It shows no focal masses. The appendix is unremarkable. It shows no evidence of inflammation. No appendicolith is seen. The small bowel is unremarkable. There is no evidence of dilatation to suggest obstruction. No evidence of adynamic ileus is seen. There is no small bowel wall thickening to suggest enteritis. The colon is unremarkable. The urinary bladder is unremarkable. There is no wall thickening to suggest tumor or inflammation. There are no intraluminal calculi. There are no diverticula. There is no evidence of chronic bladder outlet obstruction. There is no evidence of urinary bladder distention to suggest urinary retention. The other pelvic structures are unremarkable. The bony and vascular structures are unremarkable for the patient's age. IMPRESSION: Urinary tract calculus causing obstruction. Possible right pyonephrosis. This study was performed using dose reduction techniques to include automated exposure control and/or adjustment of the mA and/or kV according to patient size. DICTATED BY: SHERICE SANCHEZ MD DATE: 05/24/24 6998 ASSESSMENT: Acute kidney injury Severe sepsis Complicated urinary tract infection Toxic/metabolic encephalopathy Obstructing right ureteropelvic junction calculus measuring 6 mm causing moderate right-sided hydronephrosis Significant leukocytosis Morbid obesity, Frailty Hypertension, Hyperlipidemia Significant nephrolithiasis noted of the right kidney, likely staghorn calculi History of recurrent urinary tract infection History of urinary incontinence History of depression PLAN: Labs, diagnostic, radiologic exams reviewed and interpreted by myself and supervising physician. We have reviewed external records in detail Pending sister garth with possible stent by Urology. Continue with antibiotics Follow up culture results Require close monitoring of renal function and electrolytes Order CBC, CMP, and electrolytes in am BiPAP as necessary, for respiratory distress IV pressors as needed Monitor blood pressure adjust medication doses as needed Avoid hypotensive episodes May use Dilaudid 0.5 mg IV every 6 hours as needed for severe pain Monitor blood sugars Strict intake, output, and daily weight should be monitored Please renally adjust medications Avoid nephrotoxic and nonsteroidal drugs Avoid contrast if possible Will continue to monitor renal function, anemia, electrolytes Treatment plan discussed with patient Questions were answered We have discussed with the other team physicians in detail about the care plan We will continue to monitor the patient closely Total critical care time spent with patient, nursing staff, critical care team over 35 minutes ATTESTATION BY PHYSICIAN I have seen and examined the patient. I reviewed the documentation, medical decision making, and treatment plan as noted by the mid-level provider above. I agree with the findings and plan of care. JESSICA RUCKER MD, [facility] [employer] May 25, 2024 14:37
[2024-05-25] MEDS: INSULIN humuLIN R 100 UNIT/ML 3ML SQ SCH (16:30)
[2024-05-25] MEDS: MAGNESIUM 2GM PREMIX 50ML 50 ML IV SCH (17:23)
--- NOTE | 2024-05-25 20:00 | NUR ---
Dr. Daniel rounding Pt to be taken for surgery tomorrow 05/26/24 1830 PM. Made aware pt pending consent, to be signed in AM per report by daughter who is POA.
--- NOTE | 2024-05-25 20:16 | PN ---
UROLOGY PROGRESS NOTE Date of Service: May 25, 2024 Time of Service: 20:13 SUBJECTIVE: Patient is still dealing with some degree of confusion however her overall clinical picture is improving. A Herrmann catheter has been inserted. Patient seems to be more responsive than she was yesterday. She is on a regular diet with standing order to be NPO tomorrow 05/26/2024 after breakfast. Grandson present at bedside. REVIEW OF SYSTEMS All systems reviewed negative except as stated in the HPI PHYSICAL EXAM EYES: Anicteric. Pupils equal and reactive. HENT: No oral thrush seen, moist Oral mucosa NECK: Supple, no JVD or thyromegaly. LUNGS: Good air entry. No rales, no rhonchi. CARDIOVASCULAR: S1, S2 regular. No murmur heard. ABDOMEN: Soft, non tender, bowel sounds present, no organomegaly CENTRAL NERVOUS SYSTEM: Awake, alert, oriented x 3. No focal deficits. SKIN: No rashes, no swelling. LYMPHATICS: No peripheral lymphadenopathy MUSCULOSKELETAL: No joint swelling, erythema or tenderness. EXTREMITIES: No cyanosis or clubbing BACK: No deformity, no pressure ulcer. GENITOURINARY: Normal genitalia, Herrmann catheter draining to gravity Vital Signs (last 8hr) Date Time Temp Pulse Resp B/P (MAP) Pulse Ox O2 Delivery O2 Flow Rate FiO2 05/25/24 19:36 88 18 N/A Room Air 21 05/25/24 19:34 87 18 05/25/24 18:45 99.1 93 16 125/75 95 Room Air 05/25/24 17:00 96 16 141/72 93 Room Air 05/25/24 16:00 90 16 135/70 93 Room Air 05/25/24 14:46 91 19 147/67 91 Room Air 05/25/24 13:46 90 21 140/81 92 Room Air 05/25/24 13:00 88 15 155/69 94 Room Air LABS: Laboratory: Test 05/25/24 19:59 05/25/24 08:05 05/25/24 06:26 05/24/24 19:37 Range/Units Whole Blood Glucose 150 H 70-110 MG/DL Sodium Level 136 136-145 mmol/L Potassium Level 3.5 3.5-5.1 mmol/L Chloride Level 100 L 101-111 mmol/L Carbon Dioxide Level 23 21-32 mmol/L Blood Urea Nitrogen 32 H 7-18 mg/dL Creatinine 2.4 H 0.5-1.0 mg/dL Glomerular Filtration Rate Calc 20 >90 mL/min Random Glucose 181 H 70-105 mg/dL Total Calcium 8.1 L 8.5-10.1 mg/dL Phosphorus Level 3.3 2.5-4.9 mg/dL Magnesium Level 1.60 L 1.80-2.40 mg/dL Total Bilirubin 1.4 H 0.2-1.0 mg/dL Aspartate Amino Transf (AST/SGOT) 20 10-37 U/L Alanine Aminotransferase (ALT/SGPT) 17 12-78 U/L Alkaline Phosphatase 98 # 50-136 U/L Total Protein 7.0 6.0-8.3 g/dL Albumin 2.5 L 3.5-5.0 g/dL White Blood Count 14.0 #H 4.8-10.8 K/uL Red Blood Count 3.46 #L 4.00-5.50 MIL/uL Hemoglobin 10.4 #L 12.0-16.0 g/dL Hematocrit 34.4 L 36-48 % Mean Corpuscular Volume 99.4 H 79-99 fL Mean Corpuscular Hemoglobin 30.1 27.0-33.0 pg Mean Corpuscular Hemoglobin Concent 30.2 L 32.0-36.0 g/dL Red Cell Distribution Width 15.1 11.0-15.5 % Platelet Count 112 #L 130-400 K/uL Mean Platelet Volume 11.9 H 7.5-10.5 fL Immature Granulocyte % (Auto) 0.7 0-1 % Neutrophils (%) (Auto) 83.2 H 40.0-77.0 % Lymphocytes (%) (Auto) 6.9 L 21.0-51.0 % Monocytes (%) (Auto) 8.8 3.0-13.0 % Eosinophils (%) (Auto) 0.2 0.0-8.0 % Basophils (%) (Auto) 0.2 0.0-5.0 % Neutrophils # (Auto) 11.7 H 1.8-7.7 K/uL Lymphocytes # (Auto) 1.0 1.0-4.8 K/uL Monocytes # (Auto) 1.2 H 0.1-1.0 K/uL Eosinophils # (Auto) 0.03 0.00-0.70 K/uL Basophils # (Auto) 0.03 0.00-0.20 K/uL Absolute Immature Granulocyte (auto 0.10 0-1 K/uL Nucleated Red Blood Cells 0.0 0.0-0.19 % Red Blood Cell Morphology See comments Prothrombin Time 13.5 H 9.6-11.6 SEC Prothromb Time International Ratio 1.23 H 0.85-1.15 Activated Partial Thromboplast Time 41.6 H 26.3-35.5 SEC Blood Gas Specimen Type Venous Arterial Blood Oxygen Saturation 78.1 L 94.0-98.0 % Venous Blood pH 7.346 7.320-7.430 Venous Blood pCO2 at Patient Temp 38 38-54 Venous Blood pO2 at Patient Temp 42.0 23.0-48.0 mmHg Venous Blood HCO3 20.5 L 22.0-29.0 Venous Blood Base Excess -4.6 L -2.0-3.0 Venous Blood Total Hemoglobin 13.3 12.0-16.0 Sodium (Blood Gas) 136 136-145 MMOL/L Bedside Potassium (Blood Gas) 3.5 3.4-4.5 MMOL/L Bedside Chloride (Blood Gas) 104 98-107 MMOL/L Bedside Glucose (Blood Gas) 141 H 65-95 MG/DL Bedside Ionized Calcium (Blood Gas) 1.09 L 1.15-1.33 MMOL/L Bedside Lactic Acid (Blood Gas) 1.96 H 0.36-0.75 MMOL/L Blood Gas Temperature 37.0 35.5-37.0 CELSIUS Blood Gas Vent Mode RA ROOM AIR FiO2 21.0 % Blood Gas Specimen Comment RN VENOUS Test 05/24/24 19:13 05/24/24 15:32 05/24/24 13:40 05/24/24 12:45 Range/Units Lactic Acid Level 2.0 0.8-2.5 mmol/L Erythrocyte Sedimentation Rate 45 H 0-30 MM/HR Hemoglobin A1c 6.2 H 4.0-6.0 % Estimated Average Glucose (eAG) 131 H 70-126 mg/dL Direct Bilirubin 0.6 H 0.0-0.3 mg/dL Ammonia < 10 L 11-32 umol/L C-Reactive Protein, Quantitative 125.20 H 0.5-3.0 mg/L Procalcitonin 3.54 H 0.05-0.5 ng/mL Thyroid Stimulating Hormone (TSH) 0.64 0.36-3.74 uIU/mL Urine Color YELLOW YELLOW Urine Appearance CLOUDY H CLEAR Urine pH 6.0 5.0-8.0 Urine Specific [place] 1.015 1.001-1.031 Urine Protein 100 H NEGATIVE mg/dL Urine Glucose (UA) NEGATIVE NEGATIVE mg/dL Urine Ketones NEGATIVE NEGATIVE mg/dL Urine Occult Blood MODERATE H NEGATIVE Urine Nitrate NEGATIVE NEGATIVE Urine Bilirubin NEGATIVE NEGATIVE mg/dL Urine Urobilinogen 0.2 0.2-1.0 mg/dL Urine Leukocyte Esterase 500 H NEGATIVE Deloris/uL Urine RBC 26-50 H 0-1 /HPF Urine WBC TNTC H 0-1 /HPF Urine Squamous Epithelial Cells RARE 0-2 /HPF Urine Bacteria FEW None Seen /HPF Influenza Type A Antigen Negative For Type A NEGATIVE Influenza Type B Antigen Negative For Type B NEGATIVE SARS-CoV-2 Antigen (Rapid) PRESUMPTIVE NEGATIVE NEGATIVE Test 05/24/24 12:39 Range/Units White Cell Morphology Comment See comments Troponin I High Sensitivity 16 4-50 ng/L Lipase 17 16-77 U/L DIAGNOSTICS / RADIOLOGY: A CT scan of the abdomen and pelvis without intravenous contrast was reviewed. Evidence of obstruction of the right collecting system with stones at various levels along the ureter were noted. Large stone burden in the renal pelvis on the right side noted. Nonobstructing stones on the left side noted. ASSESSMENT: 78-year-old female with significant risk factors presents with an obstructed right renal unit secondary to stone burden mounting systemic inflammatory response syndrome PLAN: 1. Patient has been admitted to the hospitalist team for supportive care. That we include fluid management, intravenous antibiotics and pain control. 2. Patient is going to need a urological intervention. As of now the plan is to perform a cystoscopy with retrograde pyelogram with stent placement on 05/26/2024. In preparation for this procedure, patient can have breakfast the morning of 05/26/2024 and be NPO after breakfast. 30 minutes spent to complete a consult with more than half of the time spent at bedside in counseling and coordination of care, addressing questions posed by patient's grandson. Some time was spent discussing with other members of her care team. The rest of the time was spent in reviewing medical records. QUIN RUSSO MD May 25, 2024 20:16
[2024-05-26] VITALS (27 sets, daily range): BP systolic 92–160; BP diastolic 44–86; PULSE 74–100; RESP 12–18; TEMP 97.1–99.3; O2SAT 93–95
[2024-05-26 04:12] LABS: HEMATOCRIT 36.5 % (36-48); MEAN CORPUSCULAR HEMOGLOBIN 29.6 pg (27.0-33.0); MEAN CORPUSCULAR HGB CONC 32.3 g/dL (32.0-36.0); MEAN CORPUSCULAR VOLUME 91.5 fL (79-99); PLATELET COUNT (AUTO) 157 K/uL (130-400); RED BLOOD CELL COUNT(AUTO) 3.99 MIL/uL (4.00-5.50); RED CELL DISTRIBUTION WIDTH 14.3 % (11.0-15.5); WHITE BLOOD COUNT (AUTO) 14.7 K/uL (4.8-10.8)
[2024-05-26 04:27] LABS: ALBUMIN 2.1 g/dL (3.5-5.0); BILIRUBIN,TOTAL 0.9 mg/dL (0.2-1.0); CREATININE 1.7 mg/dL (0.5-1.0); MAGNESIUM 2.2 mg/dL (1.80-2.40); PHOSPHORUS 2.7 mg/dL (2.5-4.9); POTASSIUM 3.4 mmol/L (3.5-5.1); TOTAL PROTEIN, SERUM 6.1 g/dL (6.0-8.3)
[2024-05-26 04:46] LABS: BAND NEUTROPHILS % (MANUAL) 2 % (0-2); BASOPHILS % (MANUAL) 1 % (0-2); LYMPHOCYTES % (MANUAL) 12 % (22-44); MAN.DIFF COMMENT-IMPRESSION MANUAL DIFFERENTIAL; MONOCYTES % (MANUAL) 6 % (2-9); SEGMENTED NEUTROPHILS % 79 % (40-70); TOTAL CELLS COUNTED 100
--- NOTE | 2024-05-26 11:56 | HMCIMG ---
Exam Type: CHEST 1VW Clinical Information: sob Comparison: None Findings: The lungs are clear. The heart is normal in size. There is tortuosity of the aorta which artifactually enlarges the mediastinum. No actual mediastinal pathology is detected. IMPRESSION: Tortuous aorta. Clear lungs.
--- NOTE | 2024-05-26 14:51 | PN ---
NEPHROLOGY PROGRESS NOTE Date/Time Patient Seen: May 26, 2024 Reason for Consultation: 14:46 SUBJECTIVE: This is a 78-year-old female with underlying history of hypertension, type 2 diabetes mellitus, hyperlipidemia, obesity She presented to the ER for further evaluation of high-grade fevers, confusion, nausea, poor oral intake. Patient was seen by her PCP recently and was diagnosed with a UTI and was given a course of outpatient Keflex. CT abdomen pelvis without contrast which showed findings urinary tract calculus causing obstruction. Possible right pyonephrosis. Urology recommended cystoscopy with retrograde pyelogram with stent placement, pending Urine cultures positive for E coli. She continues on antibiotics The patient has rising BUN and creatinine, for which we have been consulted. The patient has low sodium also slightly. No other associated finding. Has been found to have a leukocytosis. Renal function is improving Electrolytes are stable. She was seen in the medical floor, in no acute distress Family at the bedside Prognosis remains guarded REVIEW OF SYSTEMS: GENERAL: Negative for any nausea, vomiting, fevers, chills, or weight loss. NEUROLOGIC: Negative for any blurry vision, blind spots, double vision, facial asymmetry, dysphagia, dysarthria, hemiparesis, hemisensory deficits, vertigo, ataxia. HEENT: Negative for any head trauma, neck trauma, neck stiffness, photophobia, phonophobia, sinusitis, rhinitis. CARDIAC: Negative for any chest pain, dyspnea on exertion, paroxysmal nocturnal dyspnea, peripheral edema. PULMONARY: Negative for any shortness of breath, wheezing, COPD, or TB exposure. GASTROINTESTINAL: Negative for any abdominal pain, nausea, vomiting, bright red blood per rectum, melena. GENITOURINARY: Negative for any dysuria, hematuria, incontinence. INTEGUMENTARY: Negative for any rashes, cuts, insect bites. RHEUMATOLOGIC: Negative for any joint pains, photosensitive rashes, history of vasculitis or kidney problems. HEMATOLOGIC: Negative for any abnormal bruising, frequent infections or bleeding. Vital Signs (last 8hr) Date Time Temp Pulse Resp B/P (MAP) Pulse Ox O2 Delivery O2 Flow Rate FiO2 05/25/24 13:00 88 15 155/69 94 Room Air 05/25/24 12:00 98.8 101 19 152/85 94 Room Air 05/25/24 11:00 97 18 138/70 93 Room Air 05/25/24 10:00 90 18 158/63 93 Room Air 05/25/24 09:00 91 23 150/77 94 Room Air 05/25/24 08:30 92 15 145/74 93 Room Air 05/25/24 08:00 99.7 95 20 155/84 93 Room Air 05/25/24 08:00 93 Room Air* 0 21 05/25/24 07:30 93 20 141/78 92 Room Air 05/25/24 07:00 94 16 139/105 94 Room Air 05/25/24 06:41 91 18 05/25/24 06:41 91 18 N/A Room Air 21 PHYSICAL EXAM: GENERAL: Alert and oriented x 3. No acute distress. Well-nourished. EYES: EOMI. Anicteric. HENT: Moist mucous membranes. No scleral icterus. No cervical lymphadenopathy. LUNGS: Clear to auscultation bilaterally. No accessory muscle use. CARDIOVASCULAR: Regular rate and rhythm. No murmur. No JVD. ABDOMEN: Soft, non-tender and non-distended. No palpable masses. EXTREMITIES: No edema. Non-tender.?SKIN: No rashes or lesions. Warm. NEUROLOGIC: No focal neurological deficits. CN II-XII grossly intact, but not individually tested. PSYCHIATRIC: Cooperative. Appropriate mood and affect. Current Medications Medications (Trade) Dose Ordered Sig/Madelaine Route PRN Reason Start Time Stop Time Status Last Admin Dose Admin Acetaminophen (TYLenol 325MG TAB) 650 mg Q6H PRN PO MILD PAIN (1-3) 05/24/24 15:30 06/23/24 15:29 Budesonide (Pulmicort 0.5 Mg/2ml) 0.5 mg BIDRESP IH 05/24/24 18:00 06/23/24 17:59 05/25/24 06:38 0.5 MG Insulin Human Regular (humuLIN R 100 UNIT/ML 3ML) INSULIN SLIDING SCAL... ACHS SQ 05/25/24 16:30 06/24/24 16:29 Linezolid 300 ml @ 150 mls/hr Q12H IV 05/25/24 04:00 06/04/24 03:59 05/25/24 04:30 150 MLS/HR Magnesium Sulfate 50 ml @ 0 mls/hr PROTOCOL IV 05/25/24 12:00 06/24/24 11:59 Meropenem (Merrem) 1 gm Q12H IVPB 05/24/24 15:30 06/03/24 15:29 05/25/24 03:43 1 GM Norepinephrine 250 ml @ 21.263 mls/ hr PROTOCOL IV 05/24/24 15:30 06/23/24 15:29 Ondansetron HCl (zoFRAN 4MG INJ) 4 mg Q6H PRN IVP NAUSEA/VOMITING 05/24/24 15:30 06/23/24 15:29 Pantoprazole Sodium (PROTonix 40MG INJ) 40 mg Q24H IVP 05/24/24 15:30 06/23/24 15:29 05/24/24 15:44 40 MG Pharmacy Profile Note (Lace Assessment) 1 each AD MISC 05/24/24 15:00 05/24/24 15:05 DC Sodium Chloride 1,000 ml @ 75 mls/hr [id number] IV 05/24/24 15:00 06/23/24 14:59 05/25/24 03:43 75 MLS/HR Thiamine HCl (Vitamin B-1) 100 mg Q24H IVP 05/24/24 16:00 06/23/24 15:59 05/24/24 16:09 100 MG LABORATORY: [ ] Hematology Labs: Test 05/26/24 03:56 05/25/24 06:26 05/24/24 15:32 Range/Units White Blood Count 14.7 H 4.8-10.8 K/uL Red Blood Count 3.99 L 4.00-5.50 MIL/uL Hemoglobin 11.8 L 12.0-16.0 g/dL Hematocrit 36.5 36-48 % Mean Corpuscular Volume 91.5 79-99 fL Mean Corpuscular Hemoglobin 29.6 27.0-33.0 pg Mean Corpuscular Hemoglobin Concent 32.3 32.0-36.0 g/dL Red Cell Distribution Width 14.3 11.0-15.5 % Platelet Count 157 # 130-400 K/uL Mean Platelet Volume 12.0 H 7.5-10.5 fL Segmented Neutrophils % 79 H 40-70 % Band Neutrophils % 2 0-2 % Lymphocytes % (Manual) 12 L 22-44 % Monocytes % (Manual) 6 2-9 % Basophils % (Manual) 1 0-2 % Nucleated Red Blood Cells 0.0 0.0-0.19 % Differential Comment MANUAL DIFFERENTIAL White Cell Morphology Comment Platelet Morphology Comment See comments Red Blood Cell Morphology ANISO 1+ Immature Granulocyte % (Auto) 0.7 0-1 % Neutrophils (%) (Auto) 83.2 H 40.0-77.0 % Lymphocytes (%) (Auto) 6.9 L 21.0-51.0 % Monocytes (%) (Auto) 8.8 3.0-13.0 % Eosinophils (%) (Auto) 0.2 0.0-8.0 % Basophils (%) (Auto) 0.2 0.0-5.0 % Neutrophils # (Auto) 11.7 H 1.8-7.7 K/uL Lymphocytes # (Auto) 1.0 1.0-4.8 K/uL Monocytes # (Auto) 1.2 H 0.1-1.0 K/uL Eosinophils # (Auto) 0.03 0.00-0.70 K/uL Basophils # (Auto) 0.03 0.00-0.20 K/uL Absolute Immature Granulocyte (auto 0.10 0-1 K/uL Erythrocyte Sedimentation Rate 45 H 0-30 MM/HR Chemistry Labs: Test 05/26/24 12:10 05/26/24 03:56 05/24/24 19:13 05/24/24 15:32 Range/Units Whole Blood Glucose 125 H 70-110 MG/DL Sodium Level 140 136-145 mmol/L Potassium Level 3.4 L 3.5-5.1 mmol/L Chloride Level 107 101-111 mmol/L Carbon Dioxide Level 23 21-32 mmol/L Blood Urea Nitrogen 26 H 7-18 mg/dL Creatinine 1.7 H 0.5-1.0 mg/dL Glomerular Filtration Rate Calc 31 >90 mL/min Random Glucose 141 H 70-105 mg/dL Total Calcium 7.9 L 8.5-10.1 mg/dL Phosphorus Level 2.7 2.5-4.9 mg/dL Magnesium Level 2.20 1.80-2.40 mg/dL Total Bilirubin 0.9 # 0.2-1.0 mg/dL Aspartate Amino Transf (AST/SGOT) 16 10-37 U/L Alanine Aminotransferase (ALT/SGPT) 15 12-78 U/L Alkaline Phosphatase 100 50-136 U/L Total Protein 6.1 6.0-8.3 g/dL Albumin 2.1 L 3.5-5.0 g/dL Lactic Acid Level 2.0 0.8-2.5 mmol/L Hemoglobin A1c 6.2 H 4.0-6.0 % Estimated Average Glucose (eAG) 131 H 70-126 mg/dL Direct Bilirubin 0.6 H 0.0-0.3 mg/dL Ammonia < 10 L 11-32 umol/L C-Reactive Protein, Quantitative 125.20 H 0.5-3.0 mg/L Procalcitonin 3.54 H 0.05-0.5 ng/mL Thyroid Stimulating Hormone (TSH) 0.64 0.36-3.74 uIU/mL Coagulation Labs: Test 05/25/24 06:26 Range/Units Prothrombin Time 13.5 H 9.6-11.6 SEC Prothromb Time International Ratio 1.23 H 0.85-1.15 Activated Partial Thromboplast Time 41.6 H 26.3-35.5 SEC DIAGNOSTICS / RADIOLOGY: REASON: sob ORDERING PHYSICIAN: MAUREEN PACKER NP PROCEDURE: CXR1VW - CHEST 1VW Exam Type: CHEST 1VW Clinical Information: sob Comparison: None Findings: The lungs are clear. The heart is normal in size. There is tortuosity of the aorta which artifactually enlarges the mediastinum. No actual mediastinal pathology is detected. IMPRESSION: Tortuous aorta. Clear lungs. DICTATED BY: SHERICE SANCHEZ MD DATE: 05/26/24 1153 REASON: sepsis, confusion ORDERING PHYSICIAN: SUNG CAICEDO MD PROCEDURE: HEAD WO - CT HEAD/BRAIN W/O CONTRAST Exam Type: CT HEAD/BRAIN W/O CONTRAST Clinical Information: sepsis, confusion Comparison: None CT Dose Index (CTDI): 57.33 mGy Dose Length Product (DLP): 956.79 total mGy-cm Findings: The examination shows atrophy. There is low attenuation throughout the periventricular white matter locations, consistent with chronic small vessel ischemic changes. No acute intra- or extra-axial fluid collections are seen. There is no evidence of acute or chronic hemorrhage. There is no mass effect or shift of midline structures. There are no areas to suggest acute infarct. The skull windows show no significant abnormalities. IMPRESSION: 1. ATROPHY AND CHRONIC SMALL VESSEL ISCHEMIC CHANGES. This study was performed using dose reduction techniques to include automated exposure control and/or adjustment of the mA and/or kV according to patient size. DICTATED BY: SHERICE SANCHEZ MD DATE: 05/24/24 1625 REASON: SHORTNESS A BREATH ORDERING PHYSICIAN: CM CORRALES NP PROCEDURE: CXR1VW - CHEST 1VW Exam Type: CHEST 1VW Clinical Information: SHORTNESS A BREATH Comparison: None Findings: The lungs are clear of infiltrates. The heart is enlarged. Bony and soft tissue structures of the chest wall are unremarkable. IMPRESSION: Cardiomegaly. Clear lungs. DICTATED BY: SHERICE SANCHEZ MD DATE: 05/24/24 1525 REASON: DIFFUSE AND LEFT LOWER QUADRANT PAIN TENDERNESS WITH FEVER ORDERING PHYSICIAN: CM CORRALES NP PROCEDURE: ABD PEL WO - CT ABDOMEN/PELVIS W/O CONTRAST CT ABDOMEN PELVIS WITHOUT CONTRAST Clinical Information: DIFFUSE AND LEFT LOWER QUADRANT PAIN TENDERNESS WITH FEVER Comparison: CT Dose Index (CTDI): 28.40 mGy Dose Length Product (DLP): 1536.00 total mGy-cm PROTOCOL: Routine noncontrast helical scanning of the abdomen and pelvis was performed at 5mm collimation. Findings: There is a Right ureteropelvic junction calculus measuring 6 mm causing moderate hydronephrosis. There is extensive nephrolithiasis of the right kidney and there is air within the collecting system and the possibility of hydronephrosis on the right side must be entertained. The left side shows nonobstructing nephrolithiasis. The lung bases are clear. The stomach is unremarkable. It shows no wall thickening. No gross ulceration is seen. It is not overly distended. There are no surrounding inflammatory changes. No wall lesions are identified to suggest cancer. The spleen is unremarkable. It is not enlarged. The pancreas shows normal anatomy. It is not fatty replaced. It shows no lesions. The pancreatic duct is not dilated. The gallbladder is surgically absent. The adrenal glands are unremarkable. There is no enlargement. No lesions are noted. The liver is unremarkable. It shows no focal masses. The appendix is unremarkable. It shows no evidence of inflammation. No appendicolith is seen. The small bowel is unremarkable. There is no evidence of dilatation to suggest obstruction. No evidence of adynamic ileus is seen. There is no small bowel wall thickening to suggest enteritis. The colon is unremarkable. The urinary bladder is unremarkable. There is no wall thickening to suggest tumor or inflammation. There are no intraluminal calculi. There are no diverticula. There is no evidence of chronic bladder outlet obstruction. There is no evidence of urinary bladder distention to suggest urinary retention. The other pelvic structures are unremarkable. The bony and vascular structures are unremarkable for the patient's age. IMPRESSION: Urinary tract calculus causing obstruction. Possible right pyonephrosis. This study was performed using dose reduction techniques to include automated exposure control and/or adjustment of the mA and/or kV according to patient size. 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 We have reviewed external records in detail Pending cystoscopy with retrograde pyelogram with stent placement Continue with antibiotics Follow up culture results Require close monitoring of renal function and electrolytes Order CBC, CMP, and electrolytes in am BiPAP as necessary, for respiratory distress Monitor blood pressure adjust medication doses as needed Avoid hypotensive episodes May use Dilaudid 0.5 mg IV every 6 hours as needed for severe pain Monitor blood sugars Strict intake, output, and daily weight should be monitored Please renally adjust medications Avoid nephrotoxic and nonsteroidal drugs Avoid contrast if possible Will continue to monitor renal function, anemia, electrolytes Treatment plan discussed with patient Questions were answered We have discussed with the other team physicians in detail about the care plan We will continue to monitor the patient closely ATTESTATION BY PHYSICIAN I have seen and examined the patient. I reviewed the documentation, medical decision making, and treatment plan as noted by the mid-level provider above. I agree with the findings and plan of care. JESSICA RUCKER MD, ELIZABETH FNP May 26, 2024 14:50
--- NOTE | 2024-05-26 15:59 | PN ---
[facility] PROGRESS NOTE Date of Service: May 26, 2024 Time of Service: 15:53 SUBJECTIVE: 05/25 patient seen at bedside, no acute events overnight. She has been afebrile, hemodynamically stable saturating well on room air. She has not required any pressors, WBC improved from 20/6 0.4 down to 14.0, hemoglobin decreased from 13.5 down to 10.4, platelets decreased from 172 down to 112, creatinine increased from 2.0 up to 2.4, lactic acid improved from 2.6 down to 2.0, remainder of her labs are relatively unremarkable. Urology planning to take patient for cystogram with possible stent placement and other intervention tomorrow, we will continue with empiric antibiotics and IV fluids. Patient responding appropriately, has no complaints this morning. 05/26 patient seen at bedside, no acute events overnight. Patient pending cystogram today with Urology, we will follow up postprocedure. Patient growing E coli in the blood and 1/2 bottles, we will consult Infectious Disease. Urine growing E coli, we will continue with meropenem, probably can be de-escalated to ceftriaxone, we will defer to Infectious Disease. Creatinine improved from 2.4 down to 1.7, WBC increased from 14.0 up to 14.7, hemoglobin improved from 10.4 up to 11.8, platelets increased from 112 up to 157 remainder of her labs are relatively unremarkable. REVIEW OF SYSTEMS 12 point review of systems negative unless noted in HPI PHYSICAL EXAM GENERAL APPEARANCE: Patient is Able to tell me her name but otherwise appears l ethargic NEUROLOGICAL: Cranial nerves II-XII grossly intact. Motor is 5/5 in bilateral upper and lower extremities proximal to distal. No sensory deficits. HEENT: Face is symmetric. Pupils are equal and reactive. Extraocular movements are intact. NECK: Supple. No JVD. No thyromegaly. No submental, submandibular, pre- /postauricular, occipital or supraclavicular lymphadenopathy. CHEST: Normal chest expansion. No Telemetry. LUNGS: Minimal crackles noted bilateral lung bases CARDIOVASCULAR: Regular. S1 and S2 normal. No appreciable rubs, murmurs or gallops. ABDOMEN: No significant tenderness noted of the abdomen : Deferred. No Herrmann. EXTREMITIES: Non-edematous and not cyanotic. No clubbing. Good capillary refill. SKIN: No skin breakdown. Vital Signs (last 8hr) Date Time Temp Pulse Resp B/P (MAP) Pulse Ox O2 Delivery O2 Flow Rate FiO2 05/26/24 12:30 98.4 100 18 160/85 92 Room Air 05/26/24 08:35 98.8 80 18 133/77 95 Room Air 05/26/24 08:34 80 18 N/A Room Air 21 LABS: Laboratory: Test 05/26/24 15:46 05/26/24 03:56 05/25/24 06:26 05/24/24 19:37 Range/Units Whole Blood Glucose 132 H 70-110 MG/DL White Blood Count 14.7 H 4.8-10.8 K/uL Red Blood Count 3.99 L 4.00-5.50 MIL/uL Hemoglobin 11.8 L 12.0-16.0 g/dL Hematocrit 36.5 36-48 % Mean Corpuscular Volume 91.5 79-99 fL Mean Corpuscular Hemoglobin 29.6 27.0-33.0 pg Mean Corpuscular Hemoglobin Concent 32.3 32.0-36.0 g/dL Red Cell Distribution Width 14.3 11.0-15.5 % Platelet Count 157 # 130-400 K/uL Mean Platelet Volume 12.0 H 7.5-10.5 fL Segmented Neutrophils % 79 H 40-70 % Band Neutrophils % 2 0-2 % Lymphocytes % (Manual) 12 L 22-44 % Monocytes % (Manual) 6 2-9 % Basophils % (Manual) 1 0-2 % Nucleated Red Blood Cells 0.0 0.0-0.19 % Differential Comment MANUAL DIFFERENTIAL White Cell Morphology Comment Platelet Morphology Comment See comments Red Blood Cell Morphology ANISO 1+ Sodium Level 140 136-145 mmol/L Potassium Level 3.4 L 3.5-5.1 mmol/L Chloride Level 107 101-111 mmol/L Carbon Dioxide Level 23 21-32 mmol/L Blood Urea Nitrogen 26 H 7-18 mg/dL Creatinine 1.7 H 0.5-1.0 mg/dL Glomerular Filtration Rate Calc 31 >90 mL/min Random Glucose 141 H 70-105 mg/dL Total Calcium 7.9 L 8.5-10.1 mg/dL Phosphorus Level 2.7 2.5-4.9 mg/dL Magnesium Level 2.20 1.80-2.40 mg/dL Total Bilirubin 0.9 # 0.2-1.0 mg/dL Aspartate Amino Transf (AST/SGOT) 16 10-37 U/L Alanine Aminotransferase (ALT/SGPT) 15 12-78 U/L Alkaline Phosphatase 100 50-136 U/L Total Protein 6.1 6.0-8.3 g/dL Albumin 2.1 L 3.5-5.0 g/dL Immature Granulocyte % (Auto) 0.7 0-1 % Neutrophils (%) (Auto) 83.2 H 40.0-77.0 % Lymphocytes (%) (Auto) 6.9 L 21.0-51.0 % Monocytes (%) (Auto) 8.8 3.0-13.0 % Eosinophils (%) (Auto) 0.2 0.0-8.0 % Basophils (%) (Auto) 0.2 0.0-5.0 % Neutrophils # (Auto) 11.7 H 1.8-7.7 K/uL Lymphocytes # (Auto) 1.0 1.0-4.8 K/uL Monocytes # (Auto) 1.2 H 0.1-1.0 K/uL Eosinophils # (Auto) 0.03 0.00-0.70 K/uL Basophils # (Auto) 0.03 0.00-0.20 K/uL Absolute Immature Granulocyte (auto 0.10 0-1 K/uL Prothrombin Time 13.5 H 9.6-11.6 SEC Prothromb Time International Ratio 1.23 H 0.85-1.15 Activated Partial Thromboplast Time 41.6 H 26.3-35.5 SEC Blood Gas Specimen Type Venous Arterial Blood Oxygen Saturation 78.1 L 94.0-98.0 % Venous Blood pH 7.346 7.320-7.430 Venous Blood pCO2 at Patient Temp 38 38-54 Venous Blood pO2 at Patient Temp 42.0 23.0-48.0 mmHg Venous Blood HCO3 20.5 L 22.0-29.0 Venous Blood Base Excess -4.6 L -2.0-3.0 Venous Blood Total Hemoglobin 13.3 12.0-16.0 Sodium (Blood Gas) 136 136-145 MMOL/L Bedside Potassium (Blood Gas) 3.5 3.4-4.5 MMOL/L Bedside Chloride (Blood Gas) 104 98-107 MMOL/L Bedside Glucose (Blood Gas) 141 H 65-95 MG/DL Bedside Ionized Calcium (Blood Gas) 1.09 L 1.15-1.33 MMOL/L Bedside Lactic Acid (Blood Gas) 1.96 H 0.36-0.75 MMOL/L Blood Gas Temperature 37.0 35.5-37.0 CELSIUS Blood Gas Vent Mode RA ROOM AIR FiO2 21.0 % Blood Gas Specimen Comment RN VENOUS Test 05/24/24 19:13 Range/Units Lactic Acid Level 2.0 0.8-2.5 mmol/L Current Medications Medications (Trade) Dose Ordered Sig/Madelaine Route PRN Reason Start Time Stop Time Status Last Admin Dose Admin Acetaminophen (TYLenol 325MG TAB) 650 mg Q6H PRN PO MILD PAIN (1-3) 05/24/24 15:30 06/23/24 15:29 Budesonide (Pulmicort 0.5 Mg/2ml) 0.5 mg BIDRESP IH 05/24/24 18:00 06/23/24 17:59 05/26/24 07:09 0.5 MG Insulin Human Regular (humuLIN R 100 UNIT/ML 3ML) INSULIN SLIDING SCAL... ACHS SQ 05/25/24 16:30 06/24/24 16:29 Linezolid 300 ml @ 150 mls/hr Q12H IV 05/25/24 04:00 06/04/24 03:59 05/26/24 04:18 150 MLS/HR Magnesium Sulfate 50 ml @ 0 mls/hr PROTOCOL IV 05/25/24 12:00 06/24/24 11:59 05/25/24 17:23 25 MLS/HR Meropenem (Merrem 1gm) 1 gm Q12H IVPB 05/24/24 15:30 06/03/24 15:29 05/26/24 14:47 1 GM Norepinephrine 250 ml @ 21.263 mls/ hr PROTOCOL IV 05/24/24 15:30 06/23/24 15:29 Ondansetron HCl (zoFRAN 4MG INJ) 4 mg Q6H PRN IVP NAUSEA/VOMITING 05/24/24 15:30 06/23/24 15:29 Pantoprazole Sodium (PROTonix 40MG INJ) 40 mg Q24H IVP 05/24/24 15:30 06/23/24 15:29 05/26/24 14:47 40 MG Pharmacy Profile Note (Lace Assessment) 1 each AD MISC 05/24/24 15:00 05/24/24 15:05 DC Sodium Chloride 1,000 ml @ 75 mls/hr [id number] IV 05/24/24 15:00 05/26/24 16:00 05/26/24 06:01 75 MLS/HR Thiamine HCl (Vitamin B-1) 100 mg Q24H IVP 05/24/24 16:00 06/23/24 15:59 05/25/24 17:21 100 MG DIAGNOSTICS / RADIOLOGY: [ ] ASSESSMENT: Severe sepsis, 2/2 complicated urinary tract infection, POA Toxic/metabolic encephalopathy, POA Gram-negative bacteremia Complicated urinary tract infection with right pyonephrosis, POA Obstructing right ureteropelvic junction calculus measuring 6 mm causing moderate right-sided hydronephrosis, POA Significant leukocytosis, POA Acute kidney injury, POA Moderate lactic acidosis, POA Morbid obesity, POA Frailty, POA Underlying history of hypertension, POA Hyperlipidemia, POA Significant nephrolithiasis noted of the right kidney, 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 NPO Urology planning for cystogram tomorrow Continue sliding scale insulin with hypoglycemia protocol Discontinue linezolid Continue meropenem Critical care and nephrology consulted, appreciate recommendations Infectious disease consulted, appreciate recommendations DVT prophylaxis with SCDs and Lovenox, GI prophylaxis with Protonix Continue thiamine supplementation Continue to monitor urinary output Disposition: Pending cystogram, urology recommendations, infectious disease recommendations, improvement in clinical status JOANNE RENEE MD May 26, 2024 15:59
--- NOTE | 2024-05-26 18:08 | NUR ---
TRANSFER via bed to OR accomp by RN
[2024-05-26] MEDS ORDERED: proPOFol 10 MG/ML 20ML VIAL IV ONE (19:16)
[2024-05-26] MEDS ORDERED: SUCCINYLCHOLINE CHLORIDE 20 MG/ML 10 ML VIAL ONE (19:16)
[2024-05-26] MEDS ORDERED: FENTanyl CITRate PF 50 MCG/1 ML 2ML VIAL ONE (19:17)
[2024-05-26] MEDS ORDERED: rocuRONium bROMide 10MG/1ML 5ML VL ONE (19:40)
[2024-05-26] MEDS: IOHEXOL-350 50ML VIAL IV ONE (19:45)
[2024-05-26] MEDS ORDERED: ePHEDrine SULFate 50 MG/ML AMPULE ONE (19:47)
[2024-05-26] MEDS ORDERED: IOHEXOL-350 50ML VIAL IV ONE (20:28)
--- NOTE | 2024-05-26 20:36 | OP ---
Operative Note: DATE OF PROCEDURE: 05/26/24 SURGEON: QUIN RUSSO MD DIRECTOR OF HOTEL OPERATIONS: Operating room staff ANESTHESIA: General endotracheal anesthesia ANESTHESIOLOGIST/SENIOR ENERGY ANALYST: Anesthesia staff PREOPERATIVE DIAGNOSIS: 1. Systemic inflammatory response syndrome 2. Obstructing right ureteral calculi, multiple 3. Right hydronephrosis POSTOPERATIVE DIAGNOSIS: 1. Systemic inflammatory response syndrome 2. Obstructing right ureteral calculi, multiple 3. Right hydronephrosis SYNOPSIS: Multiple stones obstructing the right ureter. Steinstrasse. Successful lasering of the stones to relieve the obstruction and placement of a stent PROCEDURE: 1. 40999 Cystourethroscopy with right ureteroscopy and laser lithotripsy of right ureteral calculi, multiple 2. 69392 Cystourethroscopy with evacuation of right ureteral calculi 3. 89594 Cystourethroscopy with insertion of a right ureteral stent 4. 39906 Right retrograde pyelogram with interpretation 5. Herrmann catheterizations, simple ESTIMATED BLOOD LOSS: Minimal INDICATIONS: 78-year-old female presented with confusion, met sepsis criteria, pump potential source an obstructed right renal unit with multiple stones and severe right-sided hydroureteronephrosis, was admitted to the floor for supportive care. Patient has presented to the operating room today for stent placement. DESCRIPTION OF PROCEDURE: Patient identified in the holding area, consent verified. Patient had already received Merrem scheduled. She was taken to the operating suite placed in the supine position, after induction underwent general anesthesia. Next she was placed in low lithotomy, her genitalia was prepped she was draped and a time-out was performed. A rigid 20 Spanish cystoscope was introduced through meatus which was patent, urethra was normal. We entered the bladder and surveyed and in four quadrants no abnormalities. Bladder was emptied. Right ureteral orifice was pinpoint identified and cannulated with a an open-ended ureteral catheter and a retrograde pyelogram was obtained. There was evidence of Steinstrasse as multiple tiny stone particles at lying the entire mid to distal right ureter causing obstruction. Several attempts were made to pass a wire, a standard 0.35 sensor wire without success. We switched to a Glidewire and that was also unsuccessful. At this point we resorted to right ureteroscopy. We used a standard seven Spanish semi-rigid Olympus ureteral scope. We navigated into the distal ureter identified the stones. Used a 200 micron laser filament to fragment the stones using different combinations of rates an energy and a thallium laser. Once the entire passage way was cleared a wire was advanced. A retrograde pyelogram was obtained and there was hydronephrosis. A decision was made to place a contour 7 Spanish by 22 cm double-J stent with the appropriate proximal and distal coils. At this point a decision was made to place a Herrmann catheter. QUIN RUSSO MD May 26, 2024 20:36
--- NOTE | 2024-05-26 21:18 | PN ---
[facility] PROGRESS NOTE Date Patient Seen: May 26, 2024 Time of Visit: 21:12 Supervising Physician: ELISHA CANDELARIA MD Primary Care Physician: [Dr. Hoffman of [facility]] Outpatient Specialists: [Oncology: Dr. Martinez, Obgyn: Dr. Stark] Inpatient Consults: [[facility] team: ICU care; Urology: Dr. Daniel, nephro: Dr. Tejada] PROBLEM LIST: - Acute sepsis with septic shock on admission - Toxic metabolic encephalopathy secondary to sepsis - Acute complicated cystitis - Right pyelonephritis - Right hydronephrosis - Obstructive uropathy secondary to right uretero pelvic junction calculus - Acute kidney injury secondary to urinary obsturuction - Chronic urinary retention - Essential hypertension - Type 2 diabetes mellitus - Breast cancer in remission - History of mastectomy secondary to breast cancer - Morbid obesity class II, BMI 37.5 INTERVAL HISTORY: 05/26/24 Patient is afebrile, she denies chills Maintains good urinary output She has Herrmann catheter in place Her urine is clear, no hematuria, no sediments Patient is scheduled for urinary cystoscopy and pyelogram I was ablo to talk to family via telephone to explain about findings, procedure and treatment Good appetite, no diarrhea. hemodynamically stable REVIEW OF SYSTEMS: 12 point ROS reviewed with patient. Pertinent positives mentioned above. Otherwise negative. PHYSICAL EXAM: GENERAL: alert, weak, awake oriented x 2 HEENT: EOMI, Sclera non icteric, moist mucosa NECK: Supple, no JVD, trachea midline LUNGS: Clear breath sounds bilaterally. No wheezes HEART: Regular rate and rhythm. Normal S1 and S2, without murmurs ABD: Abdomen soft, nontender. Bowel sounds present EXT: No clubbing cyanosis, 2+ pitting edema on BLE NEURO: Alert and oriented to person, follows commands Vital Signs (last 8hr) Date Time Temp Pulse Resp B/P (MAP) Pulse Ox O2 Delivery O2 Flow Rate FiO2 05/26/24 21:05 97.2 74 16 150/81 95 Nasal Cannula 3.0 28 05/26/24 21:00 97.2 75 16 155/83 96 Nasal Cannula 3.0 28 05/26/24 20:55 97.2 75 16 155/84 96 Nasal Cannula 3.0 28 05/26/24 20:50 97.2 75 16 153/80 95 Nasal Cannula 3.0 28 05/26/24 20:45 97.2 76 16 148/82 98 Nonrebreathing Mask 10.0 100 05/26/24 20:40 97.2 78 16 134/76 98 Nonrebreathing Mask 10.0 100 05/26/24 20:35 97.2 80 14 120/70 98 Nonrebreathing Mask 10.0 100 05/26/24 20:30 97.2 76 14 124/62 94 Nonrebreathing Mask 10.0 100 05/26/24 20:25 97.2 77 12 124/64 89 Nonrebreathing Mask 10.0 100 05/26/24 16:21 99.3 78 18 130/71 93 Room Air LABS: Hematology Labs: Test 05/26/24 03:56 05/25/24 06:26 Range/Units White Blood Count 14.7 H 4.8-10.8 K/uL Red Blood Count 3.99 L 4.00-5.50 MIL/uL Hemoglobin 11.8 L 12.0-16.0 g/dL Hematocrit 36.5 36-48 % Mean Corpuscular Volume 91.5 79-99 fL Mean Corpuscular Hemoglobin 29.6 27.0-33.0 pg Mean Corpuscular Hemoglobin Concent 32.3 32.0-36.0 g/dL Red Cell Distribution Width 14.3 11.0-15.5 % Platelet Count 157 # 130-400 K/uL Mean Platelet Volume 12.0 H 7.5-10.5 fL Segmented Neutrophils % 79 H 40-70 % Band Neutrophils % 2 0-2 % Lymphocytes % (Manual) 12 L 22-44 % Monocytes % (Manual) 6 2-9 % Basophils % (Manual) 1 0-2 % Nucleated Red Blood Cells 0.0 0.0-0.19 % Differential Comment MANUAL DIFFERENTIAL White Cell Morphology Comment Platelet Morphology Comment See comments Red Blood Cell Morphology ANISO 1+ Immature Granulocyte % (Auto) 0.7 0-1 % Neutrophils (%) (Auto) 83.2 H 40.0-77.0 % Lymphocytes (%) (Auto) 6.9 L 21.0-51.0 % Monocytes (%) (Auto) 8.8 3.0-13.0 % Eosinophils (%) (Auto) 0.2 0.0-8.0 % Basophils (%) (Auto) 0.2 0.0-5.0 % Neutrophils # (Auto) 11.7 H 1.8-7.7 K/uL Lymphocytes # (Auto) 1.0 1.0-4.8 K/uL Monocytes # (Auto) 1.2 H 0.1-1.0 K/uL Eosinophils # (Auto) 0.03 0.00-0.70 K/uL Basophils # (Auto) 0.03 0.00-0.20 K/uL Absolute Immature Granulocyte (auto 0.10 0-1 K/uL Chemistry Labs: Test 05/26/24 20:52 05/26/24 03:56 Range/Units Whole Blood Glucose 120 H 70-110 MG/DL Sodium Level 140 136-145 mmol/L Potassium Level 3.4 L 3.5-5.1 mmol/L Chloride Level 107 101-111 mmol/L Carbon Dioxide Level 23 21-32 mmol/L Blood Urea Nitrogen 26 H 7-18 mg/dL Creatinine 1.7 H 0.5-1.0 mg/dL Glomerular Filtration Rate Calc 31 >90 mL/min Random Glucose 141 H 70-105 mg/dL Total Calcium 7.9 L 8.5-10.1 mg/dL Phosphorus Level 2.7 2.5-4.9 mg/dL Magnesium Level 2.20 1.80-2.40 mg/dL Total Bilirubin 0.9 # 0.2-1.0 mg/dL Aspartate Amino Transf (AST/SGOT) 16 10-37 U/L Alanine Aminotransferase (ALT/SGPT) 15 12-78 U/L Alkaline Phosphatase 100 50-136 U/L Total Protein 6.1 6.0-8.3 g/dL Albumin 2.1 L 3.5-5.0 g/dL Coagulation Labs: Test 05/25/24 06:26 Range/Units Prothrombin Time 13.5 H 9.6-11.6 SEC Prothromb Time International Ratio 1.23 H 0.85-1.15 Activated Partial Thromboplast Time 41.6 H 26.3-35.5 SEC DIAGNOSTICS / RADIOLOGY RESULTS: None today PLAN Pyelogram and cystoscopy scheduled for tomorrow will continue with Herrmann catheter in place will continue with IV antibiotics NEURO: Minimize central acting medications as possible. Maintain fall precautions, adequate lighting during the day PULMONARY: Supplemental 02 as needed. Maintain aspiration precautions at all times CARDIOVASCULAR: Follow hemodynamics. Vital signs per facility protocol GI & NUTRITION: Continue with nutritional support. Continue stool softeners and laxatives as needed. KIDNEYS & ELECTROLYTES: Strict monitoring of intake, output and overall fluid balance. Avoid nephrotoxic medications to the extent possible. Medications to be dosed according to renal function. Monitor electrolytes and replace as needed ENDOCRINE: Maintain blood glucose between 100-180 at all times. Hypoglycemia protocol in place INFECTIOUS DISEASE: Trend temperature, WBC and procalcitonin level Follow cultures, deescalate antibiotics as soon as possible. Panculture if new onset fever ONCOLOGY/HEMATOLOGY/COAGULATION: Monitor for s/s of bleeding Monitor hemoglobin, coagulation studies as needed SKIN: Pressure ulcer prevention per facility protocol Specialty mattress ORTHO/REHAB: Continue PT/OT Prophylaxis: Continue GI and DVT prophylaxis Code Status: Full Resuscitation Disposition: TBD Progress Note scirbed by Roshan Ferguson, medical staff specialist and I can attest to the accuracy of the note. I personally scribed for ELISHA CANDELARIA MD (ALMA) on 05/26/24 at 21:18. Electronically submitted by Roshan Ferguson ([email or web address]). ELISHA CANDELARIA MD May 26, 2024 21:18
--- NOTE | 2024-05-26 21:40 | NUR ---
Pt arrives from OR. 2139 Pt arrives from OR. Pt VS stable on 4L NC. Family at bedside to see pt. Pt feels a little anxious but otherwise has no complaints: no pain or shortness of breath. RR are wdl. Post OP VS set up. Per orders, all current meds/orders to be resumed. No changes.
[2024-05-27] VITALS (11 sets, daily range): BP systolic 97–139; BP diastolic 45–78; PULSE 77–97; RESP 16–18; TEMP 97.8–98.9; O2SAT 93–98
[2024-05-27 04:13] LABS: BASOPHILS # (AUTO) 0.06 K/uL (0.00-0.20); BASOPHILS % (AUTO) 0.3 % (0.0-5.0); HEMATOCRIT 35.6 % (36-48); IMMATURE GRANULOCYTE ABSOLUTE 0.13 K/uL (0-1); LYMPHOCYTES # (AUTO) 0.5 K/uL (1.0-4.8); LYMPHOCYTES % (AUTO) 2.7 % (21.0-51.0); MEAN CORPUSCULAR HEMOGLOBIN 29.6 pg (27.0-33.0); MEAN CORPUSCULAR HGB CONC 32.3 g/dL (32.0-36.0); MEAN CORPUSCULAR VOLUME 91.5 fL (79-99); MONOCYTES # (AUTO) 1.1 K/uL (0.1-1.0); MONOCYTES % (AUTO) 6.1 % (3.0-13.0); NEUTROPHILS # (AUTO) 16.8 K/uL (1.8-7.7); NEUTROPHILS % (AUTO) 90.2 % (40.0-77.0); PLATELET COUNT (AUTO) 159 K/uL (130-400); RED BLOOD CELL COUNT(AUTO) 3.89 MIL/uL (4.00-5.50); RED CELL DISTRIBUTION WIDTH 14.6 % (11.0-15.5); WHITE BLOOD COUNT (AUTO) 18.7 K/uL (4.8-10.8)
[2024-05-27 04:28] LABS: CREATININE 1.6 mg/dL (0.5-1.0); PHOSPHORUS 2.3 mg/dL (2.5-4.9); POTASSIUM 3.2 mmol/L (3.5-5.1)
[2024-05-27] MEDS: PoTASSium BIcarbonate/CIT AC 25 MEQ TABLET.EFF PO ONE (05:13)
[2024-05-27] MEDS: PoTASSium chloRIDE 20MEQ ER 20 MEQ ERTAB PO ONE (09:29)
[2024-05-27] MEDS: CEFTRIAXONE 2GM VIAL IVPB SCH (12:56)
--- NOTE | 2024-05-27 13:14 | PN ---
NEPHROLOGY PROGRESS NOTE Date/Time Patient Seen: May 27, 2024 Reason for Consultation: 13:12 SUBJECTIVE: This is a 78-year-old female with underlying history of hypertension, type 2 diabetes mellitus, hyperlipidemia, obesity She presented to the ER for further evaluation of high-grade fevers, confusion, nausea, poor oral intake. Patient was seen by her PCP recently and was diagnosed with a UTI and was given a course of outpatient Keflex. CT abdomen pelvis without contrast which showed findings urinary tract calculus causing obstruction. Possible right pyonephrosis. S/P Cystourethroscopy with right ureteroscopy and laser lithotripsy of right ureteral calculi, multiple, evacuation of right ureteral calculi, insertion of a right ureteral stent on 05/26/[address] Roman Urine cultures positive for E coli. She continues on antibiotics The patient has rising BUN and creatinine, for which we have been consulted. The patient has low sodium also slightly. No other associated finding. Has been found to have a leukocytosis. Renal function is improving Electrolytes are stable. She was seen in the medical floor, in no acute distress Family at the bedside Prognosis remains guarded REVIEW OF SYSTEMS: GENERAL: Negative for any nausea, vomiting, fevers, chills, or weight loss. NEUROLOGIC: Negative for any blurry vision, blind spots, double vision, facial asymmetry, dysphagia, dysarthria, hemiparesis, hemisensory deficits, vertigo, ataxia. HEENT: Negative for any head trauma, neck trauma, neck stiffness, photophobia, phonophobia, sinusitis, rhinitis. CARDIAC: Negative for any chest pain, dyspnea on exertion, paroxysmal nocturnal dyspnea, peripheral edema. PULMONARY: Negative for any shortness of breath, wheezing, COPD, or TB exposure. GASTROINTESTINAL: Negative for any abdominal pain, nausea, vomiting, bright red blood per rectum, melena. GENITOURINARY: Negative for any dysuria, hematuria, incontinence. INTEGUMENTARY: Negative for any rashes, cuts, insect bites. RHEUMATOLOGIC: Negative for any joint pains, photosensitive rashes, history of vasculitis or kidney problems. HEMATOLOGIC: Negative for any abnormal bruising, frequent infections or bleeding. Vital Signs (last 8hr) Date Time Temp Pulse Resp B/P (MAP) Pulse Ox O2 Delivery O2 Flow Rate FiO2 05/25/24 13:00 88 15 155/69 94 Room Air 05/25/24 12:00 98.8 101 19 152/85 94 Room Air 05/25/24 11:00 97 18 138/70 93 Room Air 05/25/24 10:00 90 18 158/63 93 Room Air 05/25/24 09:00 91 23 150/77 94 Room Air 05/25/24 08:30 92 15 145/74 93 Room Air 05/25/24 08:00 99.7 95 20 155/84 93 Room Air 05/25/24 08:00 93 Room Air* 0 21 05/25/24 07:30 93 20 141/78 92 Room Air 05/25/24 07:00 94 16 139/105 94 Room Air 05/25/24 06:41 91 18 05/25/24 06:41 91 18 N/A Room Air 21 PHYSICAL EXAM: GENERAL: Alert and oriented x 3. No acute distress. Well-nourished. EYES: EOMI. Anicteric. HENT: Moist mucous membranes. No scleral icterus. No cervical lymphadenopathy. LUNGS: Clear to auscultation bilaterally. No accessory muscle use. CARDIOVASCULAR: Regular rate and rhythm. No murmur. No JVD. ABDOMEN: Soft, non-tender and non-distended. No palpable masses. EXTREMITIES: No edema. Non-tender.?SKIN: No rashes or lesions. Warm. NEUROLOGIC: No focal neurological deficits. CN II-XII grossly intact, but not individually tested. PSYCHIATRIC: Cooperative. Appropriate mood and affect. Current Medications Medications (Trade) Dose Ordered Sig/Madelaine Route PRN Reason Start Time Stop Time Status Last Admin Dose Admin Acetaminophen (TYLenol 325MG TAB) 650 mg Q6H PRN PO MILD PAIN (1-3) 05/24/24 15:30 06/23/24 15:29 Budesonide (Pulmicort 0.5 Mg/2ml) 0.5 mg BIDRESP IH 05/24/24 18:00 06/23/24 17:59 05/25/24 06:38 0.5 MG Insulin Human Regular (humuLIN R 100 UNIT/ML 3ML) INSULIN SLIDING SCAL... ACHS SQ 05/25/24 16:30 06/24/24 16:29 Linezolid 300 ml @ 150 mls/hr Q12H IV 05/25/24 04:00 06/04/24 03:59 05/25/24 04:30 150 MLS/HR Magnesium Sulfate 50 ml @ 0 mls/hr PROTOCOL IV 05/25/24 12:00 06/24/24 11:59 Meropenem (Merrem) 1 gm Q12H IVPB 05/24/24 15:30 06/03/24 15:29 05/25/24 03:43 1 GM Norepinephrine 250 ml @ 21.263 mls/ hr PROTOCOL IV 05/24/24 15:30 06/23/24 15:29 Ondansetron HCl (zoFRAN 4MG INJ) 4 mg Q6H PRN IVP NAUSEA/VOMITING 05/24/24 15:30 06/23/24 15:29 Pantoprazole Sodium (PROTonix 40MG INJ) 40 mg Q24H IVP 05/24/24 15:30 06/23/24 15:29 05/24/24 15:44 40 MG Pharmacy Profile Note (Lace Assessment) 1 each AD MISC 05/24/24 15:00 05/24/24 15:05 DC Sodium Chloride 1,000 ml @ 75 mls/hr [id number] IV 05/24/24 15:00 06/23/24 14:59 05/25/24 03:43 75 MLS/HR Thiamine HCl (Vitamin B-1) 100 mg Q24H IVP 05/24/24 16:00 06/23/24 15:59 05/24/24 16:09 100 MG LABORATORY: [ ] Hematology Labs: Test 05/27/24 03:51 05/26/24 03:56 Range/Units White Blood Count 18.7 #H 4.8-10.8 K/uL Red Blood Count 3.89 L 4.00-5.50 MIL/uL Hemoglobin 11.5 L 12.0-16.0 g/dL Hematocrit 35.6 L 36-48 % Mean Corpuscular Volume 91.5 79-99 fL Mean Corpuscular Hemoglobin 29.6 27.0-33.0 pg Mean Corpuscular Hemoglobin Concent 32.3 32.0-36.0 g/dL Red Cell Distribution Width 14.6 11.0-15.5 % Platelet Count 159 130-400 K/uL Mean Platelet Volume 11.9 H 7.5-10.5 fL Immature Granulocyte % (Auto) 0.7 0-1 % Neutrophils (%) (Auto) 90.2 H 40.0-77.0 % Lymphocytes (%) (Auto) 2.7 L 21.0-51.0 % Monocytes (%) (Auto) 6.1 3.0-13.0 % Eosinophils (%) (Auto) 0.0 0.0-8.0 % Basophils (%) (Auto) 0.3 0.0-5.0 % Neutrophils # (Auto) 16.8 H 1.8-7.7 K/uL Lymphocytes # (Auto) 0.5 L 1.0-4.8 K/uL Monocytes # (Auto) 1.1 H 0.1-1.0 K/uL Eosinophils # (Auto) 0.00 0.00-0.70 K/uL Basophils # (Auto) 0.06 0.00-0.20 K/uL Absolute Immature Granulocyte (auto 0.13 0-1 K/uL Nucleated Red Blood Cells 0.0 0.0-0.19 % Segmented Neutrophils % 79 H 40-70 % Band Neutrophils % 2 0-2 % Lymphocytes % (Manual) 12 L 22-44 % Monocytes % (Manual) 6 2-9 % Basophils % (Manual) 1 0-2 % Differential Comment MANUAL DIFFERENTIAL White Cell Morphology Comment Platelet Morphology Comment See comments Red Blood Cell Morphology ANISO 1+ Chemistry Labs: Test 05/27/24 12:07 05/27/24 03:51 05/26/24 03:56 Range/Units Whole Blood Glucose 120 H 70-110 MG/DL Sodium Level 141 136-145 mmol/L Potassium Level 3.2 L 3.5-5.1 mmol/L Chloride Level 108 101-111 mmol/L Carbon Dioxide Level 21 21-32 mmol/L Blood Urea Nitrogen 27 H 7-18 mg/dL Creatinine 1.6 H 0.5-1.0 mg/dL Glomerular Filtration Rate Calc 33 >90 mL/min Random Glucose 161 H 70-105 mg/dL Total Calcium 8.0 L 8.5-10.1 mg/dL Phosphorus Level 2.3 L 2.5-4.9 mg/dL Magnesium Level 2.00 1.80-2.40 mg/dL Total Bilirubin 0.9 # 0.2-1.0 mg/dL Aspartate Amino Transf (AST/SGOT) 16 10-37 U/L Alanine Aminotransferase (ALT/SGPT) 15 12-78 U/L Alkaline Phosphatase 100 50-136 U/L Total Protein 6.1 6.0-8.3 g/dL Albumin 2.1 L 3.5-5.0 g/dL DIAGNOSTICS / RADIOLOGY: REASON: sob ORDERING PHYSICIAN: MAUREEN PACKER NP PROCEDURE: CXR1VW - CHEST 1VW Exam Type: CHEST 1VW Clinical Information: sob Comparison: None Findings: The lungs are clear. The heart is normal in size. There is tortuosity of the aorta which artifactually enlarges the mediastinum. No actual mediastinal pathology is detected. IMPRESSION: Tortuous aorta. Clear lungs. DICTATED BY: SHERICE SANCHEZ MD DATE: 05/26/24 1153 REASON: sepsis, confusion ORDERING PHYSICIAN: SUNG CAICEDO MD PROCEDURE: HEAD WO - CT HEAD/BRAIN W/O CONTRAST Exam Type: CT HEAD/BRAIN W/O CONTRAST Clinical Information: sepsis, confusion Comparison: None CT Dose Index (CTDI): 57.33 mGy Dose Length Product (DLP): 956.79 total mGy-cm Findings: The examination shows atrophy. There is low attenuation throughout the periventricular white matter locations, consistent with chronic small vessel ischemic changes. No acute intra- or extra-axial fluid collections are seen. There is no evidence of acute or chronic hemorrhage. There is no mass effect or shift of midline structures. There are no areas to suggest acute infarct. The skull windows show no significant abnormalities. IMPRESSION: 1. ATROPHY AND CHRONIC SMALL VESSEL ISCHEMIC CHANGES. This study was performed using dose reduction techniques to include automated exposure control and/or adjustment of the mA and/or kV according to patient size. DICTATED BY: SHERICE SANCHEZ MD DATE: 05/24/24 1625 REASON: SHORTNESS A BREATH ORDERING PHYSICIAN: CM CORRALES NP PROCEDURE: CXR1VW - CHEST 1VW Exam Type: CHEST 1VW Clinical Information: SHORTNESS A BREATH Comparison: None Findings: The lungs are clear of infiltrates. The heart is enlarged. Bony and soft tissue structures of the chest wall are unremarkable. IMPRESSION: Cardiomegaly. Clear lungs. DICTATED BY: SHERICE SANCHEZ MD DATE: 05/24/24 1525 REASON: DIFFUSE AND LEFT LOWER QUADRANT PAIN TENDERNESS WITH FEVER ORDERING PHYSICIAN: CM CORRALES NP PROCEDURE: ABD PEL WO - CT ABDOMEN/PELVIS W/O CONTRAST CT ABDOMEN PELVIS WITHOUT CONTRAST Clinical Information: DIFFUSE AND LEFT LOWER QUADRANT PAIN TENDERNESS WITH FEVER Comparison: CT Dose Index (CTDI): 28.40 mGy Dose Length Product (DLP): 1536.00 total mGy-cm PROTOCOL: Routine noncontrast helical scanning of the abdomen and pelvis was performed at 5mm collimation. Findings: There is a Right ureteropelvic junction calculus measuring 6 mm causing moderate hydronephrosis. There is extensive nephrolithiasis of the right kidney and there is air within the collecting system and the possibility of hydronephrosis on the right side must be entertained. The left side shows nonobstructing nephrolithiasis. The lung bases are clear. The stomach is unremarkable. It shows no wall thickening. No gross ulceration is seen. It is not overly distended. There are no surrounding inflammatory changes. No wall lesions are identified to suggest cancer. The spleen is unremarkable. It is not enlarged. The pancreas shows normal anatomy. It is not fatty replaced. It shows no lesions. The pancreatic duct is not dilated. The gallbladder is surgically absent. The adrenal glands are unremarkable. There is no enlargement. No lesions are noted. The liver is unremarkable. It shows no focal masses. The appendix is unremarkable. It shows no evidence of inflammation. No appendicolith is seen. The small bowel is unremarkable. There is no evidence of dilatation to suggest obstruction. No evidence of adynamic ileus is seen. There is no small bowel wall thickening to suggest enteritis. The colon is unremarkable. The urinary bladder is unremarkable. There is no wall thickening to suggest tumor or inflammation. There are no intraluminal calculi. There are no diverticula. There is no evidence of chronic bladder outlet obstruction. There is no evidence of urinary bladder distention to suggest urinary retention. The other pelvic structures are unremarkable. The bony and vascular structures are unremarkable for the patient's age. IMPRESSION: Urinary tract calculus causing obstruction. Possible right pyonephrosis. This study was performed using dose reduction techniques to include automated exposure control and/or adjustment of the mA and/or kV according to patient size. 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 We have reviewed external records in detail Continue with antibiotics Follow up culture results Require close monitoring of renal function and electrolytes Order CBC, CMP, and electrolytes in am BiPAP as necessary, for respiratory distress Monitor blood pressure adjust medication doses as needed Avoid hypotensive episodes May use Dilaudid 0.5 mg IV every 6 hours as needed for severe pain Monitor blood sugars Strict intake, output, and daily weight should be monitored Please renally adjust medications Avoid nephrotoxic and nonsteroidal drugs Avoid contrast if possible Will continue to monitor renal function, anemia, electrolytes Treatment plan discussed with patient Questions were answered We have discussed with the other team physicians in detail about the care plan We will continue to monitor the patient closely ATTESTATION BY PHYSICIAN I have seen and examined the patient. I reviewed the documentation, medical decision making, and treatment plan as noted by the mid-level provider above. I agree with the findings and plan of care. JESSICA RUCKER MD, [facility] [employer] May 27, 2024 13:13
--- NOTE | 2024-05-27 13:22 | PN ---
[facility] PROGRESS NOTE Date of Service: May 27, 2024 Time of Service: 13:19 SUBJECTIVE: 2 patient seen at bedside, no acute events overnight. She has been afebrile, hemodynamically stable saturating well on room air. She has not required any pressors, WBC improved from 20/6 0.4 down to 14.0, hemoglobin decreased from 13.5 down to 10.4, platelets decreased from 172 down to 112, creatinine increased from 2.0 up to 2.4, lactic acid improved from 2.6 down to 2.0, remainder of her labs are relatively unremarkable. Urology planning to take patient for cystogram with possible stent placement and other intervention tomorrow, we will continue with empiric antibiotics and IV fluids. Patient responding appropriately, has no complaints this morning. 05/26 patient seen at bedside, no acute events overnight. Patient pending cystogram today with Urology, we will follow up postprocedure. Patient growing E coli in the blood and 1/2 bottles, we will consult Infectious Disease. Urine growing E coli, we will continue with meropenem, probably can be de-escalated to ceftriaxone, we will defer to Infectious Disease. Creatinine improved from 2.4 down to 1.7, WBC increased from 14.0 up to 14.7, hemoglobin improved from 10.4 up to 11.8, platelets increased from 112 up to 157 remainder of her labs are relatively unremarkable. 05/27 patient is seen and examined at bedside, no acute events overnight, remains hemodynamically stable, afebrile. WBC today 18.7. Urine culture positive for E coli. Blood cultures positive for E coli. The patient remains on broad- spectrum IV antibiotics. ID input noted and appreciated. Patient is started on Rocephin 2 g IV daily. Follow repeat two sets of blood culture. Pending urogram. Patient underwent successful laser in off multiple stones obstructing the right ureter by urologist 05/26/2024, tolerated the procedure well. Daughter not present in the room at the time of my visit. Grandson is present. Phone call made to the daughter, updated over the phone, all questions answered, agreed with plan of care and understood all the information provided. REVIEW OF SYSTEMS 12 point review of systems negative unless noted in HPI PHYSICAL EXAM GENERAL APPEARANCE: Patient is Able to tell me her name but otherwise appears lethargic NEUROLOGICAL: Cranial nerves II-XII grossly intact. Motor is 5/5 in bilateral upper and lower extremities proximal to distal. No sensory deficits. HEENT: Face is symmetric. Pupils are equal and reactive. Extraocular movements are intact. NECK: Supple. No JVD. No thyromegaly. No submental, submandibular, pre- /postauricular, occipital or supraclavicular lymphadenopathy. CHEST: Normal chest expansion. No Telemetry. LUNGS: Minimal crackles noted bilateral lung bases CARDIOVASCULAR: Regular. S1 and S2 normal. No appreciable rubs, murmurs or gallops. ABDOMEN: No significant tenderness noted of the abdomen : Deferred. No Herrmann. EXTREMITIES: Non-edematous and not cyanotic. No clubbing. Good capillary refill. SKIN: No skin breakdown. Vital Signs (last 8hr) Date Time Temp Pulse Resp B/P (MAP) Pulse Ox O2 Delivery O2 Flow Rate FiO2 05/27/24 12:29 97.9 79 18 109/60 96 Room Air 05/27/24 08:45 98.8 81 18 115/66 94 Room Air 05/27/24 08:00 95 Room Air* 0 21 05/27/24 06:55 77 16 05/27/24 06:55 77 16 N/Cannula Low lpm 4.0 LABS: Laboratory: Test 05/27/24 12:07 05/27/24 03:51 05/26/24 03:56 Range/Units Whole Blood Glucose 120 H 70-110 MG/DL White Blood Count 18.7 #H 4.8-10.8 K/uL Red Blood Count 3.89 L 4.00-5.50 MIL/uL Hemoglobin 11.5 L 12.0-16.0 g/dL Hematocrit 35.6 L 36-48 % Mean Corpuscular Volume 91.5 79-99 fL Mean Corpuscular Hemoglobin 29.6 27.0-33.0 pg Mean Corpuscular Hemoglobin Concent 32.3 32.0-36.0 g/dL Red Cell Distribution Width 14.6 11.0-15.5 % Platelet Count 159 130-400 K/uL Mean Platelet Volume 11.9 H 7.5-10.5 fL Immature Granulocyte % (Auto) 0.7 0-1 % Neutrophils (%) (Auto) 90.2 H 40.0-77.0 % Lymphocytes (%) (Auto) 2.7 L 21.0-51.0 % Monocytes (%) (Auto) 6.1 3.0-13.0 % Eosinophils (%) (Auto) 0.0 0.0-8.0 % Basophils (%) (Auto) 0.3 0.0-5.0 % Neutrophils # (Auto) 16.8 H 1.8-7.7 K/uL Lymphocytes # (Auto) 0.5 L 1.0-4.8 K/uL Monocytes # (Auto) 1.1 H 0.1-1.0 K/uL Eosinophils # (Auto) 0.00 0.00-0.70 K/uL Basophils # (Auto) 0.06 0.00-0.20 K/uL Absolute Immature Granulocyte (auto 0.13 0-1 K/uL Nucleated Red Blood Cells 0.0 0.0-0.19 % Sodium Level 141 136-145 mmol/L Potassium Level 3.2 L 3.5-5.1 mmol/L Chloride Level 108 101-111 mmol/L Carbon Dioxide Level 21 21-32 mmol/L Blood Urea Nitrogen 27 H 7-18 mg/dL Creatinine 1.6 H 0.5-1.0 mg/dL Glomerular Filtration Rate Calc 33 >90 mL/min Random Glucose 161 H 70-105 mg/dL Total Calcium 8.0 L 8.5-10.1 mg/dL Phosphorus Level 2.3 L 2.5-4.9 mg/dL Magnesium Level 2.00 1.80-2.40 mg/dL Segmented Neutrophils % 79 H 40-70 % Band Neutrophils % 2 0-2 % Lymphocytes % (Manual) 12 L 22-44 % Monocytes % (Manual) 6 2-9 % Basophils % (Manual) 1 0-2 % Differential Comment MANUAL DIFFERENTIAL White Cell Morphology Comment Platelet Morphology Comment See comments Red Blood Cell Morphology ANISO 1+ Total Bilirubin 0.9 # 0.2-1.0 mg/dL Aspartate Amino Transf (AST/SGOT) 16 10-37 U/L Alanine Aminotransferase (ALT/SGPT) 15 12-78 U/L Alkaline Phosphatase 100 50-136 U/L Total Protein 6.1 6.0-8.3 g/dL Albumin 2.1 L 3.5-5.0 g/dL Current Medications Medications (Trade) Dose Ordered Sig/Madelaine Route PRN Reason Start Time Stop Time Status Last Admin Dose Admin Acetaminophen (TYLenol 325MG TAB) 650 mg Q6H PRN PO MILD PAIN (1-3) 05/24/24 15:30 06/23/24 15:29 Budesonide (Pulmicort 0.5 Mg/2ml) 0.5 mg BIDRESP IH 05/24/24 18:00 06/23/24 17:59 05/27/24 06:52 0.5 MG Ceftriaxone Sodium (Rocephin 2gm Inj) 2 gm Q24H IVPB 05/27/24 10:00 06/06/24 09:59 05/27/24 12:56 2 GM Insulin Human Regular (humuLIN R 100 UNIT/ML 3ML) INSULIN SLIDING SCAL... ACHS SQ 05/25/24 16:30 06/24/24 16:29 Linezolid 300 ml @ 150 mls/hr Q12H IV 05/25/24 04:00 05/26/24 15:59 DC 05/26/24 04:18 150 MLS/HR Magnesium Sulfate 50 ml @ 0 mls/hr PROTOCOL IV 05/25/24 12:00 06/24/24 11:59 05/25/24 17:23 25 MLS/HR Meropenem (Merrem 1gm) 1 gm Q12H IVPB 05/24/24 15:30 05/27/24 09:56 DC 05/27/24 03:00 1 GM Norepinephrine 250 ml @ 21.263 mls/ hr PROTOCOL IV 05/24/24 15:30 06/23/24 15:29 Ondansetron HCl (zoFRAN 4MG INJ) 4 mg Q6H PRN IVP NAUSEA/VOMITING 05/24/24 15:30 06/23/24 15:29 Pantoprazole Sodium (PROTonix 40MG INJ) 40 mg Q24H IVP 05/24/24 15:30 06/23/24 15:29 05/27/24 12:56 40 MG Pharmacy Profile Note (Lace Assessment) 1 each AD MISC 05/24/24 15:00 05/24/24 15:05 DC Sodium Chloride 1,000 ml @ 75 mls/hr [id number] IV 05/24/24 15:00 05/26/24 16:00 DC 05/26/24 06:01 75 MLS/HR Thiamine HCl (Vitamin B-1) 100 mg Q24H IVP 05/24/24 16:00 06/23/24 15:59 05/25/24 17:21 100 MG DIAGNOSTICS / RADIOLOGY: [ ] ASSESSMENT: Severe sepsis, 2/2 complicated urinary tract infection, POA Toxic/metabolic encephalopathy, POA Gram-negative bacteremia secondary to E coli, POA Complicated urinary tract infection with right pyonephrosis, POA Obstructing right ureteropelvic junction calculus measuring 6 mm causing moderate right-sided hydronephrosis, POA Status post cystourethroscopy with right ureteroscopy and laser lithotripsy r ight ureteral calculi, multiple, 05/26/2024 Significant leukocytosis, POA Acute kidney injury, POA Moderate lactic acidosis, POA Morbid obesity, POA Frailty, POA Underlying history of hypertension, POA Hyperlipidemia, POA Significant nephrolithiasis noted of the right kidney, 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 Urology planning for cystogram tomorrow NEURO: Minimize central acting medications as possible. Fall Precautions. Well lighted room through the day and minimize interruptions through the night to prevent acute delirium. PULMONARY: Supplemental 02 as needed BiPAP as necessary, for respiratory distress Titrate Fio2 to keep Spo2 > or = 90% DuoNebs and CPT as needed IS hourly while awake for pulmonary hygiene prn Out of bed to chair as tolerated Maintain aspiration precautions at all times CARDIOVASCULAR: Follow hemodynamics. Vital signs per facility protocol GI & NUTRITION: Continue nutritional support Aspirations precautions Prokinetic agents and laxatives as needed KIDNEYS & ELECTROLYTES: Strict monitoring of intake and output Daily weights Avoid nephrotoxic agents Monitor electrolytes and replace as needed Goal urine output of 30mL/hr or 0.5mL/kg/hr Medications to be dosed according to renal function. Avoid contrast if possible ENDOCRINE: Maintain blood glucose between 100-180 at all times. Insulin sliding scale for blood glucose management Hypoglycemia and hyperglycemia protocol in place INFECTIOUS DISEASE: Trend temperature, WBC and procalcitonin level Follow cultures, deescalate antibiotics as soon as possible. Panculture if new onset fever HEMATOLOGY & COAGULATION: Monitor H&H. Keep Hgb > 7 Transfuse 1 unit of PRBC for Hgb < 7 Transfuse 1 pack of platelets of platelets < 20, 000 Watch for any signs and symptoms of bleeding SKIN: Pressure ulcer prevention per facility protocol Specialty mattress as needed ORTHO/REHAB Continue PT/OT PRN: MEDICATIONS Tylenol 650 mg po every 4 hrs for fever zofran 4 mg IV every 6 hrs for n/v Hydralazine 5 mg IV every 4 hrs systolic pressure > 160 bowel regiment: lactulose 20 gm PO BID PRN constipation Supportive measures: Continue GI and DVT prophylaxis Disposition: Pending improvement in clinical condition. All questions answered time spent: > 35 min JJ FISHER MD May 27, 2024 13:22
--- NOTE | 2024-05-27 16:15 | HMCIMG ---
Fluoroscopic guidance History: RETROGRADE PYELOGRAM Fluoroscopic guidance provided. Procedure by ordering physician in operating room suite with fluoroscopic guidance. Several spot images were obtained. Impression: Fluoroscopic guidance.
--- NOTE | 2024-05-27 20:05 | PN ---
[facility] PROGRESS NOTE Date Patient Seen: May 27, 2024 Time of Visit: 20:03 Supervising Physician: KAL CARPENTER MD Primary Care Physician: [Dr. Hoffman of [facility]] Outpatient Specialists: [Oncology: Dr. Martinez, Obgyn: Dr. Stark] Inpatient Consults: [[facility] team: ICU care; Urology: Dr. Daniel, nephro: Dr. Tejada] PROBLEM LIST: - Acute sepsis with septic shock on admission - Toxic metabolic encephalopathy secondary to sepsis - Acute complicated cystitis - Right pyelonephritis - Right hydronephrosis - Obstructive uropathy secondary to right uretero pelvic junction calculus - Acute kidney injury secondary to urinary obsturuction - Chronic urinary retention - Essential hypertension - Type 2 diabetes mellitus - Breast cancer in remission - History of mastectomy secondary to breast cancer - Morbid obesity class II, BMI 37.5 INTERVAL HISTORY: patient is now status pyelogram and cystoscopy procedure well tolerated, no complaints no complications had Herrmann exchanged urine is slightly turbid no fevers, no chills appetite is better denies flank pain or abdominal pain REVIEW OF SYSTEMS: 12 point ROS reviewed with patient. Pertinent positives mentioned above. Otherwise negative. PHYSICAL EXAM: GENERAL: alert, weak, awake oriented x 2 HEENT: EOMI, Sclera non icteric, moist mucosa NECK: Supple, no JVD, trachea midline LUNGS: Clear breath sounds bilaterally. No wheezes HEART: Regular rate and rhythm. Normal S1 and S2, without murmurs ABD: Abdomen soft, nontender. Bowel sounds present EXT: No clubbing cyanosis, 2+ pitting edema on BLE NEURO: Alert and oriented to person, follows commands Vital Signs (last 8hr) Date Time Temp Pulse Resp B/P (MAP) Pulse Ox O2 Delivery O2 Flow Rate FiO2 05/27/24 19:51 99.0 84 18 139/78 93 Nasal Cannula 05/27/24 16:32 98.2 78 18 121/58 96 Room Air 05/27/24 12:29 97.9 79 18 109/60 96 Room Air LABS: Hematology Labs: Test 05/27/24 03:51 05/26/24 03:56 Range/Units White Blood Count 18.7 #H 4.8-10.8 K/uL Red Blood Count 3.89 L 4.00-5.50 MIL/uL Hemoglobin 11.5 L 12.0-16.0 g/dL Hematocrit 35.6 L 36-48 % Mean Corpuscular Volume 91.5 79-99 fL Mean Corpuscular Hemoglobin 29.6 27.0-33.0 pg Mean Corpuscular Hemoglobin Concent 32.3 32.0-36.0 g/dL Red Cell Distribution Width 14.6 11.0-15.5 % Platelet Count 159 130-400 K/uL Mean Platelet Volume 11.9 H 7.5-10.5 fL Immature Granulocyte % (Auto) 0.7 0-1 % Neutrophils (%) (Auto) 90.2 H 40.0-77.0 % Lymphocytes (%) (Auto) 2.7 L 21.0-51.0 % Monocytes (%) (Auto) 6.1 3.0-13.0 % Eosinophils (%) (Auto) 0.0 0.0-8.0 % Basophils (%) (Auto) 0.3 0.0-5.0 % Neutrophils # (Auto) 16.8 H 1.8-7.7 K/uL Lymphocytes # (Auto) 0.5 L 1.0-4.8 K/uL Monocytes # (Auto) 1.1 H 0.1-1.0 K/uL Eosinophils # (Auto) 0.00 0.00-0.70 K/uL Basophils # (Auto) 0.06 0.00-0.20 K/uL Absolute Immature Granulocyte (auto 0.13 0-1 K/uL Nucleated Red Blood Cells 0.0 0.0-0.19 % Segmented Neutrophils % 79 H 40-70 % Band Neutrophils % 2 0-2 % Lymphocytes % (Manual) 12 L 22-44 % Monocytes % (Manual) 6 2-9 % Basophils % (Manual) 1 0-2 % Differential Comment MANUAL DIFFERENTIAL White Cell Morphology Comment Platelet Morphology Comment See comments Red Blood Cell Morphology ANISO 1+ Chemistry Labs: Test 05/27/24 15:32 05/27/24 03:51 05/26/24 03:56 Range/Units Whole Blood Glucose 131 H 70-110 MG/DL Sodium Level 141 136-145 mmol/L Potassium Level 3.2 L 3.5-5.1 mmol/L Chloride Level 108 101-111 mmol/L Carbon Dioxide Level 21 21-32 mmol/L Blood Urea Nitrogen 27 H 7-18 mg/dL Creatinine 1.6 H 0.5-1.0 mg/dL Glomerular Filtration Rate Calc 33 >90 mL/min Random Glucose 161 H 70-105 mg/dL Total Calcium 8.0 L 8.5-10.1 mg/dL Phosphorus Level 2.3 L 2.5-4.9 mg/dL Magnesium Level 2.00 1.80-2.40 mg/dL Total Bilirubin 0.9 # 0.2-1.0 mg/dL Aspartate Amino Transf (AST/SGOT) 16 10-37 U/L Alanine Aminotransferase (ALT/SGPT) 15 12-78 U/L Alkaline Phosphatase 100 50-136 U/L Total Protein 6.1 6.0-8.3 g/dL Albumin 2.1 L 3.5-5.0 g/dL DIAGNOSTICS / RADIOLOGY RESULTS: [ None to review today ] PLAN hemodynamically stable from pulmonary standpoint will sign off from case today please feel free to re-consult if needed NEURO: Minimize central acting medications as possible. Maintain fall precautions, adequate lighting during the day PULMONARY: Supplemental 02 as needed. Maintain aspiration precautions at all times CARDIOVASCULAR: Follow hemodynamics. Vital signs per facility protocol GI & NUTRITION: Continue with nutritional support. Continue stool softeners and laxatives as needed. KIDNEYS & ELECTROLYTES: Strict monitoring of intake, output and overall fluid balance. Avoid nephrotoxic medications to the extent possible. Medications to be dosed according to renal function. Monitor electrolytes and replace as needed ENDOCRINE: Maintain blood glucose between 100-180 at all times. Hypoglycemia protocol in place INFECTIOUS DISEASE: Trend temperature, WBC and procalcitonin level Follow cultures, deescalate antibiotics as soon as possible. Panculture if new onset fever ONCOLOGY/HEMATOLOGY/COAGULATION: Monitor for s/s of bleeding Monitor hemoglobin, coagulation studies as needed SKIN: Pressure ulcer prevention per facility protocol Specialty mattress ORTHO/REHAB: Continue PT/OT Prophylaxis: Continue GI and DVT prophylaxis Code Status: Full Resuscitation Disposition: as per PCP Progress Note scribed by Roshan Ferguson coroner/medical examiner. I can attest to the accuracy of the note. I personally scribed for KAL CARPENTER MD ([email or web address]) on 05/27/24 at 20:05. Electronically submitted by Roshan Ferguson ([email or web address]). KAL CARPENTER MD May 27, 2024 20:05
--- NOTE | 2024-05-27 20:44 | CONS ---
INFECTIOUS DISEASE CONSULTATION REQUESTING PHYSICIAN: Yassine Busby MD REASON FOR CONSULTATION: E. coli bacteremia and sepsis. HISTORY OF PRESENT ILLNESS: A 78-year-old female with morbid obesity and hypertension, who presented to the hospital with abdominal pain, fever and chills. The patient was also found with some confusion for one day and was brought to the Emergency Room by the family. Urinalysis was positive. Urine and blood culture came back with E. coli. CT of the abdomen was done, showed the patient to have right-sided hydronephrosis without stone. The patient was seen by urologist and underwent cystoscopy with stenting and lithotripsy. The patient is on meropenem. No cough, no shortness of breath, no palpitation or orthopnea. No rashes or itchiness. Dysuria and urinary frequency also resolved. PAST MEDICAL HISTORY: * Hypertension. * Diabetes mellitus. * Morbid obesity. * Nephrolithiasis. * Urinary tract infection. * Right breast cancer. PAST SURGICAL HISTORY: * Right mastectomy. * Right shoulder surgery. * Cystoscopy with right ureteral stenting during this admission. ALLERGIES: No known drug allergy. CURRENT MEDICATIONS: Reviewed. SOCIAL HISTORY: No alcohol, tobacco or illicit drug use. Lives with daughter. FAMILY HISTORY: Positive for diabetes mellitus. REVIEW OF SYSTEMS: CONSTITUTIONAL: No fever, no chills, no weight loss or night sweats. EYES: No eye pain, no photophobia or diplopia. HENT: No sore throat, no rhinorrhea or earache. NECK: No neck pain or neck swelling. RESPIRATORY: No cough, no hemoptysis or pleuritic pain. CARDIOVASCULAR: No chest pain. No palpitation or orthopnea. GASTROINTESTINAL: No nausea or vomiting. No abdominal pain. No diarrhea. GENITOURINARY: Dysuria and urinary frequency are resolved. No hematuria. CENTRAL NERVOUS SYSTEM: No headache, dyspnea or slurred speech. PSYCHIATRY: No depression. No suicidal ideation. MUSCULOSKELETAL: No joint pain, no neck swelling. PHYSICAL EXAMINATION: GENERAL: Elderly female, awake. VITAL SIGNS: Temperature 98.1, pulse 87, respiratory rate 18, BP 102/54. EYES: No icterus. Pupils are equal and reactive. HENT: No oral thrush seen. Moist oral mucosa. BACK: Supple, no JVD or thyromegaly. LUNGS: Good air entry. No rales, no rhonchi. CARDIOVASCULAR: S1, S2 regular. No murmur heard. ABDOMEN: Obese, soft. Bowel sound is present, nontender. CENTRAL NERVOUS SYSTEM: Awake, alert and oriented x 3. No focal deficits. SKIN: No rashes, no itchiness. LYMPHATIC: No peripheral lymphadenopathy. BACK: No deformity, no pressure ulcer. MUSCULOSKELETAL: No joint swelling, erythema or tenderness. LABORATORY DATA: Sodium 141, potassium 3.2, BUN 27, creatinine 1.6. WBC 18.7, hemoglobin 11.5, platelet count 159. Urine culture grew E. coli. Blood culture grew E. coli. RADIOLOGY: CT of the abdomen reviewed. ASSESSMENT: A 78-year-old female originally admitted with fever, chills and confusion. Current problems include: * Escherichia coli bacteremia and sepsis. * Urinary tract infection. * Right-sided hydronephrosis, status post cystoscopy and stenting. * Acute renal failure. * Leukocytosis. * Obesity. PLAN: * Discontinue meropenem. * Start the patient on ceftriaxone. * Blood culture will be repeated. * Continue pain management. * Continue antihypertensive. * Continue antidiabetic. * Continue pain management. * Monitor electrolytes. * The patient will follow up closely. Thank you for allowing me to participate in the care of this patient. TID: [id number] RECEIPT: [id number]
[2024-05-28] VITALS (11 sets, daily range): BP systolic 107–168; BP diastolic 72–92; PULSE 76–85; RESP 18–22; TEMP 97.4–99.5; O2SAT 94–96
[2024-05-28 04:28] LABS: BASOPHILS # (AUTO) 0.05 K/uL (0.00-0.20); BASOPHILS % (AUTO) 0.3 % (0.0-5.0); EOSINOPHILS # (AUTO) 0.22 K/uL (0.00-0.70); EOSINOPHILS % (AUTO) 1.4 % (0.0-8.0); IMMATURE GRANULOCYTE ABSOLUTE 0.17 K/uL (0-1); LYMPHOCYTES # (AUTO) 1.5 K/uL (1.0-4.8); LYMPHOCYTES % (AUTO) 9.2 % (21.0-51.0); MEAN CORPUSCULAR HEMOGLOBIN 29.5 pg (27.0-33.0); MEAN CORPUSCULAR HGB CONC 32.3 g/dL (32.0-36.0); MEAN CORPUSCULAR VOLUME 91.4 fL (79-99); MONOCYTES # (AUTO) 1.8 K/uL (0.1-1.0); MONOCYTES % (AUTO) 11.3 % (3.0-13.0); NEUTROPHILS # (AUTO) 12.2 K/uL (1.8-7.7); NEUTROPHILS % (AUTO) 76.7 % (40.0-77.0); PLATELET COUNT (AUTO) 180 K/uL (130-400); RED BLOOD CELL COUNT(AUTO) 3.83 MIL/uL (4.00-5.50); RED CELL DISTRIBUTION WIDTH 14.6 % (11.0-15.5); WHITE BLOOD COUNT (AUTO) 15.9 K/uL (4.8-10.8)
[2024-05-28 04:40] LABS: BILIRUBIN,TOTAL 0.7 mg/dL (0.2-1.0); CREATININE 1.3 mg/dL (0.5-1.0); MAGNESIUM 2.2 mg/dL (1.80-2.40); PHOSPHORUS 2.4 mg/dL (2.5-4.9); POTASSIUM 3.6 mmol/L (3.5-5.1); TOTAL PROTEIN, SERUM 6.2 g/dL (6.0-8.3)
[2024-05-28] MEDS: ENOXAPARIN SODIUM 40 MG/0.4 ML SYRINGE SQ SCH (07:51)
--- NOTE | 2024-05-28 09:16 | PN ---
[facility] PROGRESS NOTE Date of Service: May 28, 2024 Time of Service: 09:15 SUBJECTIVE: 05/25 patient seen at bedside, no acute events overnight. She has been afebrile, hemodynamically stable saturating well on room air. She has not required any pressors, WBC improved from 20/6 0.4 down to 14.0, hemoglobin decreased from 13.5 down to 10.4, platelets decreased from 172 down to 112, creatinine increased from 2.0 up to 2.4, lactic acid improved from 2.6 down to 2.0, remainder of her labs are relatively unremarkable. Urology planning to take patient for cystogram with possible stent placement and other intervention tomorrow, we will continue with empiric antibiotics and IV fluids. Patient responding appropriately, has no complaints this morning. 05/26 patient seen at bedside, no acute events overnight. Patient pending cystogram today with Urology, we will follow up postprocedure. Patient growing E coli in the blood and 1/2 bottles, we will consult Infectious Disease. Urine growing E coli, we will continue with meropenem, probably can be de-escalated to ceftriaxone, we will defer to Infectious Disease. Creatinine improved from 2.4 down to 1.7, WBC increased from 14.0 up to 14.7, hemoglobin improved from 10.4 up to 11.8, platelets increased from 112 up to 157 remainder of her labs are relatively unremarkable. 05/27 patient is seen and examined at bedside, no acute events overnight, remains hemodynamically stable, afebrile. WBC today 18.7. Urine culture positive for E coli. Blood cultures positive for E coli. The patient remains on broad- spectrum IV antibiotics. ID input noted and appreciated. Patient is started on Rocephin 2 g IV daily. Follow repeat two sets of blood culture. Pending urogram. Patient underwent successful laser in off multiple stones obstructing the right ureter by urologist 05/26/2024, tolerated the procedure well. Daughter not present in the room at the time of my visit. Grandson is present. Phone call made to the daughter, updated over the phone, all questions answered, agreed with plan of care and understood all the information provided. 05/28 patient is seen and examined at bedside, no acute events overnight, r emains hemodynamically stable, afebrile. Urine culture positive for E coli. Blood cultures positive for E coli. The patient remains on broad-spectrum IV antibiotics. ID input noted and appreciated. Patient is started on Rocephin 2 g IV daily. Follow repeat two sets of blood culture. Pending urogram. Patient underwent successful laser in off multiple stones obstructing the right ureter by urologist 05/26/2024, tolerated the procedure well. Daughter updated over the phone. REVIEW OF SYSTEMS 12 point review of systems negative unless noted in HPI PHYSICAL EXAM GENERAL APPEARANCE: Patient is Able to tell me her name but otherwise appears lethargic NEUROLOGICAL: Cranial nerves II-XII grossly intact. Motor is 5/5 in bilateral upper and lower extremities proximal to distal. No sensory deficits. HEENT: Face is symmetric. Pupils are equal and reactive. Extraocular movements are intact. NECK: Supple. No JVD. No thyromegaly. No submental, submandibular, pre-/postauricular, occipital or supraclavicular lymphadenopathy. CHEST: Normal chest expansion. No Telemetry. LUNGS: Minimal crackles noted bilateral lung bases CARDIOVASCULAR: Regular. S1 and S2 normal. No appreciable rubs, murmurs or gallops. ABDOMEN: No significant tenderness noted of the abdomen : Deferred. No Herrmann. EXTREMITIES: Non-edematous and not cyanotic. No clubbing. Good capillary refill. SKIN: No skin breakdown. Vital Signs (last 8hr) Date Time Temp Pulse Resp B/P (MAP) Pulse Ox O2 Delivery O2 Flow Rate FiO2 05/28/24 08:58 95 Room Air* 0 21 05/28/24 07:19 82 18 N/A Room Air 21 05/28/24 07:19 82 18 05/28/24 07:00 98.2 85 22 168/88 93 Room Air 05/28/24 04:21 99.5 79 18 128/77 93 Room Air LABS: Laboratory: Test 05/28/24 05:18 05/28/24 03:49 Range/Units Whole Blood Glucose 118 H 70-110 MG/DL White Blood Count 15.9 H 4.8-10.8 K/uL Red Blood Count 3.83 L 4.00-5.50 MIL/uL Hemoglobin 11.3 L 12.0-16.0 g/dL Hematocrit 35.0 L 36-48 % Mean Corpuscular Volume 91.4 79-99 fL Mean Corpuscular Hemoglobin 29.5 27.0-33.0 pg Mean Corpuscular Hemoglobin Concent 32.3 32.0-36.0 g/dL Red Cell Distribution Width 14.6 11.0-15.5 % Platelet Count 180 130-400 K/uL Mean Platelet Volume 12.1 H 7.5-10.5 fL Immature Granulocyte % (Auto) 1.1 H 0-1 % Neutrophils (%) (Auto) 76.7 40.0-77.0 % Lymphocytes (%) (Auto) 9.2 L 21.0-51.0 % Monocytes (%) (Auto) 11.3 3.0-13.0 % Eosinophils (%) (Auto) 1.4 0.0-8.0 % Basophils (%) (Auto) 0.3 0.0-5.0 % Neutrophils # (Auto) 12.2 H 1.8-7.7 K/uL Lymphocytes # (Auto) 1.5 1.0-4.8 K/uL Monocytes # (Auto) 1.8 H 0.1-1.0 K/uL Eosinophils # (Auto) 0.22 0.00-0.70 K/uL Basophils # (Auto) 0.05 0.00-0.20 K/uL Absolute Immature Granulocyte (auto 0.17 0-1 K/uL Nucleated Red Blood Cells 0.0 0.0-0.19 % Sodium Level 140 136-145 mmol/L Potassium Level 3.6 3.5-5.1 mmol/L Chloride Level 106 101-111 mmol/L Carbon Dioxide Level 25 21-32 mmol/L Blood Urea Nitrogen 27 H 7-18 mg/dL Creatinine 1.3 H 0.5-1.0 mg/dL Glomerular Filtration Rate Calc 42 >90 mL/min Random Glucose 135 H 70-105 mg/dL Total Calcium 8.1 L 8.5-10.1 mg/dL Phosphorus Level 2.4 L 2.5-4.9 mg/dL Magnesium Level 2.20 1.80-2.40 mg/dL Total Bilirubin 0.7 0.2-1.0 mg/dL Aspartate Amino Transf (AST/SGOT) 27 10-37 U/L Alanine Aminotransferase (ALT/SGPT) 25 12-78 U/L Alkaline Phosphatase 136 50-136 U/L Total Protein 6.2 6.0-8.3 g/dL Albumin 2.0 L 3.5-5.0 g/dL Current Medications Medications (Trade) Dose Ordered Sig/Madelaine Route PRN Reason Start Time Stop Time Status Last Admin Dose Admin Acetaminophen (TYLenol 325MG TAB) 650 mg Q6H PRN PO MILD PAIN (1-3) 05/24/24 15:30 06/23/24 15:29 Budesonide (Pulmicort 0.5 Mg/2ml) 0.5 mg BIDRESP IH 05/24/24 18:00 06/23/24 17:59 05/28/24 07:18 0.5 MG Ceftriaxone Sodium (Rocephin 2gm Inj) 2 gm Q24H IVPB 05/27/24 10:00 06/06/24 09:59 05/28/24 07:53 2 GM Enoxaparin Sodium (Lovenox) 40 mg DAILY SQ 05/28/24 09:00 06/27/24 08:59 05/28/24 07:51 40 MG Insulin Human Regular (humuLIN R 100 UNIT/ML 3ML) INSULIN SLIDING SCAL... ACHS SQ 05/25/24 16:30 06/24/24 16:29 Linezolid 300 ml @ 150 mls/hr Q12H IV 05/25/24 04:00 05/26/24 15:59 DC 05/26/24 04:18 150 MLS/HR Magnesium Sulfate 50 ml @ 0 mls/hr PROTOCOL IV 05/25/24 12:00 06/24/24 11:59 05/25/24 17:23 25 MLS/HR Meropenem (Merrem 1gm) 1 gm Q12H IVPB 05/24/24 15:30 05/27/24 09:56 DC 05/27/24 03:00 1 GM Norepinephrine 250 ml @ 21.263 mls/ hr PROTOCOL IV 05/24/24 15:30 06/23/24 15:29 Ondansetron HCl (zoFRAN 4MG INJ) 4 mg Q6H PRN IVP NAUSEA/VOMITING 05/24/24 15:30 06/23/24 15:29 Pantoprazole Sodium (PROTonix 40MG INJ) 40 mg Q24H IVP 05/24/24 15:30 06/23/24 15:29 05/28/24 08:57 40 MG Pharmacy Profile Note (Lace Assessment) 1 each AD MISC 05/24/24 15:00 05/24/24 15:05 DC Sodium Chloride 1,000 ml @ 75 mls/hr [id number] IV 05/24/24 15:00 05/26/24 16:00 DC 05/26/24 06:01 75 MLS/HR Thiamine HCl (Vitamin B-1) 100 mg Q24H IVP 05/24/24 16:00 06/23/24 15:59 05/27/24 17:38 100 MG DIAGNOSTICS / RADIOLOGY: [ ] ASSESSMENT: Severe sepsis, 2/2 complicated urinary tract infection, POA Toxic/metabolic encephalopathy, POA Gram-negative bacteremia secondary to E coli, POA Complicated urinary tract infection with right pyonephrosis, POA Obstructing right ureteropelvic junction calculus measuring 6 mm causing moderate right-sided hydronephrosis, POA Status post cystourethroscopy with right ureteroscopy and laser lithotripsy right ureteral calculi, multiple, 05/26/2024 Significant leukocytosis, POA Acute kidney injury, POA Moderate lactic acidosis, POA Morbid obesity, POA Frailty, POA Underlying history of hypertension, POA Hyperlipidemia, POA Significant nephrolithiasis noted of the right kidney, 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 Urology planning for cystogram tomorrow NEURO: Minimize central acting medications as possible. Fall Precautions. Well lighted room through the day and minimize interruptions through the night to prevent acute delirium. PULMONARY: Supplemental 02 as needed BiPAP as necessary, for respiratory distress Titrate Fio2 to keep Spo2 > or = 90% DuoNebs and CPT as needed IS hourly while awake for pulmonary hygiene prn Out of bed to chair as tolerated Maintain aspiration precautions at all times CARDIOVASCULAR: Follow hemodynamics. Vital signs per facility protocol GI & NUTRITION: Continue nutritional support Aspirations precautions Prokinetic agents and laxatives as needed KIDNEYS & ELECTROLYTES: Strict monitoring of intake and output Daily weights Avoid nephrotoxic agents Monitor electrolytes and replace as needed Goal urine output of 30mL/hr or 0.5mL/kg/hr Medications to be dosed according to renal function. Avoid contrast if possible ENDOCRINE: Maintain blood glucose between 100-180 at all times. Insulin sliding scale for blood glucose management Hypoglycemia and hyperglycemia protocol in place INFECTIOUS DISEASE: Trend temperature, WBC and procalcitonin level Follow cultures, deescalate antibiotics as soon as possible. Panculture if new onset fever HEMATOLOGY & COAGULATION: Monitor H&H. Keep Hgb > 7 Transfuse 1 unit of PRBC for Hgb < 7 Transfuse 1 pack of platelets of platelets < 20, 000 Watch for any signs and symptoms of bleeding SKIN: Pressure ulcer prevention per facility protocol Specialty mattress as needed ORTHO/REHAB Continue PT/OT PRN: MEDICATIONS Tylenol 650 mg po every 4 hrs for fever zofran 4 mg IV every 6 hrs for n/v Hydralazine 5 mg IV every 4 hrs systolic pressure > 160 bowel regiment: lactulose 20 gm PO BID PRN constipation Supportive measures: Continue GI and DVT prophylaxis Disposition: Pending improvement in clinical condition. All questions answered time spent: > 35 min JJ FISHER MD May 28, 2024 09:16
--- NOTE | 2024-05-28 14:57 | PN ---
NEPHROLOGY PROGRESS NOTE Date/Time Patient Seen: May 28, 2024 Reason for Consultation: 14:57 SUBJECTIVE: This is a 78-year-old female with underlying history of hypertension, type 2 diabetes mellitus, hyperlipidemia, obesity She presented to the ER for further evaluation of high-grade fevers, confusion, nausea, poor oral intake. Patient was seen by her PCP recently and was diagnosed with a UTI and was given a course of outpatient Keflex. CT abdomen pelvis without contrast which showed findings urinary tract calculus causing obstruction. Possible right pyonephrosis. S/P Cystourethroscopy with right ureteroscopy and laser lithotripsy of right ureteral calculi, multiple, evacuation of right ureteral calculi, insertion of a right ureteral stent on 05/26/[address] Roman Urine cultures positive for E coli. She continues on antibiotics The patient has rising BUN and creatinine, for which we have been consulted. The patient has low sodium also slightly. No other associated finding. Has been found to have a leukocytosis. Renal function is improving Electrolytes are stable. She was seen in the medical floor, in no acute distress Family at the bedside Prognosis remains guarded REVIEW OF SYSTEMS: GENERAL: Negative for any nausea, vomiting, fevers, chills, or weight loss. NEUROLOGIC: Negative for any blurry vision, blind spots, double vision, facial asymmetry, dysphagia, dysarthria, hemiparesis, hemisensory deficits, vertigo, ataxia. HEENT: Negative for any head trauma, neck trauma, neck stiffness, photophobia, phonophobia, sinusitis, rhinitis. CARDIAC: Negative for any chest pain, dyspnea on exertion, paroxysmal nocturnal dyspnea, peripheral edema. PULMONARY: Negative for any shortness of breath, wheezing, COPD, or TB exposure. GASTROINTESTINAL: Negative for any abdominal pain, nausea, vomiting, bright red blood per rectum, melena. GENITOURINARY: Negative for any dysuria, hematuria, incontinence. INTEGUMENTARY: Negative for any rashes, cuts, insect bites. RHEUMATOLOGIC: Negative for any joint pains, photosensitive rashes, history of vasculitis or kidney problems. HEMATOLOGIC: Negative for any abnormal bruising, frequent infections or bleeding. Vital Signs (last 8hr) Date Time Temp Pulse Resp B/P (MAP) Pulse Ox O2 Delivery O2 Flow Rate FiO2 05/25/24 13:00 88 15 155/69 94 Room Air 05/25/24 12:00 98.8 101 19 152/85 94 Room Air 05/25/24 11:00 97 18 138/70 93 Room Air 05/25/24 10:00 90 18 158/63 93 Room Air 05/25/24 09:00 91 23 150/77 94 Room Air 05/25/24 08:30 92 15 145/74 93 Room Air 05/25/24 08:00 99.7 95 20 155/84 93 Room Air 05/25/24 08:00 93 Room Air* 0 21 05/25/24 07:30 93 20 141/78 92 Room Air 05/25/24 07:00 94 16 139/105 94 Room Air 05/25/24 06:41 91 18 05/25/24 06:41 91 18 N/A Room Air 21 PHYSICAL EXAM: GENERAL: Alert and oriented x 3. No acute distress. Well-nourished. EYES: EOMI. Anicteric. HENT: Moist mucous membranes. No scleral icterus. No cervical lymphadenopathy. LUNGS: Clear to auscultation bilaterally. No accessory muscle use. CARDIOVASCULAR: Regular rate and rhythm. No murmur. No JVD. ABDOMEN: Soft, non-tender and non-distended. No palpable masses. EXTREMITIES: No edema. Non-tender.?SKIN: No rashes or lesions. Warm. NEUROLOGIC: No focal neurological deficits. CN II-XII grossly intact, but not individually tested. PSYCHIATRIC: Cooperative. Appropriate mood and affect. Current Medications Medications (Trade) Dose Ordered Sig/Madelaine Route PRN Reason Start Time Stop Time Status Last Admin Dose Admin Acetaminophen (TYLenol 325MG TAB) 650 mg Q6H PRN PO MILD PAIN (1-3) 05/24/24 15:30 06/23/24 15:29 Budesonide (Pulmicort 0.5 Mg/2ml) 0.5 mg BIDRESP IH 05/24/24 18:00 06/23/24 17:59 05/25/24 06:38 0.5 MG Insulin Human Regular (humuLIN R 100 UNIT/ML 3ML) INSULIN SLIDING SCAL... ACHS SQ 05/25/24 16:30 06/24/24 16:29 Linezolid 300 ml @ 150 mls/hr Q12H IV 05/25/24 04:00 06/04/24 03:59 05/25/24 04:30 150 MLS/HR Magnesium Sulfate 50 ml @ 0 mls/hr PROTOCOL IV 05/25/24 12:00 06/24/24 11:59 Meropenem (Merrem) 1 gm Q12H IVPB 05/24/24 15:30 06/03/24 15:29 05/25/24 03:43 1 GM Norepinephrine 250 ml @ 21.263 mls/ hr PROTOCOL IV 05/24/24 15:30 06/23/24 15:29 Ondansetron HCl (zoFRAN 4MG INJ) 4 mg Q6H PRN IVP NAUSEA/VOMITING 05/24/24 15:30 06/23/24 15:29 Pantoprazole Sodium (PROTonix 40MG INJ) 40 mg Q24H IVP 05/24/24 15:30 06/23/24 15:29 05/24/24 15:44 40 MG Pharmacy Profile Note (Lace Assessment) 1 each AD MISC 05/24/24 15:00 05/24/24 15:05 DC Sodium Chloride 1,000 ml @ 75 mls/hr [id number] IV 05/24/24 15:00 06/23/24 14:59 05/25/24 03:43 75 MLS/HR Thiamine HCl (Vitamin B-1) 100 mg Q24H IVP 05/24/24 16:00 06/23/24 15:59 05/24/24 16:09 100 MG LABORATORY: [ ] Hematology Labs: Test 05/28/24 03:49 Range/Units White Blood Count 15.9 H 4.8-10.8 K/uL Red Blood Count 3.83 L 4.00-5.50 MIL/uL Hemoglobin 11.3 L 12.0-16.0 g/dL Hematocrit 35.0 L 36-48 % Mean Corpuscular Volume 91.4 79-99 fL Mean Corpuscular Hemoglobin 29.5 27.0-33.0 pg Mean Corpuscular Hemoglobin Concent 32.3 32.0-36.0 g/dL Red Cell Distribution Width 14.6 11.0-15.5 % Platelet Count 180 130-400 K/uL Mean Platelet Volume 12.1 H 7.5-10.5 fL Immature Granulocyte % (Auto) 1.1 H 0-1 % Neutrophils (%) (Auto) 76.7 40.0-77.0 % Lymphocytes (%) (Auto) 9.2 L 21.0-51.0 % Monocytes (%) (Auto) 11.3 3.0-13.0 % Eosinophils (%) (Auto) 1.4 0.0-8.0 % Basophils (%) (Auto) 0.3 0.0-5.0 % Neutrophils # (Auto) 12.2 H 1.8-7.7 K/uL Lymphocytes # (Auto) 1.5 1.0-4.8 K/uL Monocytes # (Auto) 1.8 H 0.1-1.0 K/uL Eosinophils # (Auto) 0.22 0.00-0.70 K/uL Basophils # (Auto) 0.05 0.00-0.20 K/uL Absolute Immature Granulocyte (auto 0.17 0-1 K/uL Nucleated Red Blood Cells 0.0 0.0-0.19 % Chemistry Labs: Test 05/28/24 10:46 05/28/24 03:49 Range/Units Whole Blood Glucose 132 H 70-110 MG/DL Bedside Glucose Comment Notified Nurse Sodium Level 140 136-145 mmol/L Potassium Level 3.6 3.5-5.1 mmol/L Chloride Level 106 101-111 mmol/L Carbon Dioxide Level 25 21-32 mmol/L Blood Urea Nitrogen 27 H 7-18 mg/dL Creatinine 1.3 H 0.5-1.0 mg/dL Glomerular Filtration Rate Calc 42 >90 mL/min Random Glucose 135 H 70-105 mg/dL Total Calcium 8.1 L 8.5-10.1 mg/dL Phosphorus Level 2.4 L 2.5-4.9 mg/dL Magnesium Level 2.20 1.80-2.40 mg/dL Total Bilirubin 0.7 0.2-1.0 mg/dL Aspartate Amino Transf (AST/SGOT) 27 10-37 U/L Alanine Aminotransferase (ALT/SGPT) 25 12-78 U/L Alkaline Phosphatase 136 50-136 U/L Total Protein 6.2 6.0-8.3 g/dL Albumin 2.0 L 3.5-5.0 g/dL DIAGNOSTICS / RADIOLOGY: REASON: sob ORDERING PHYSICIAN: MAUREEN PACKER NP PROCEDURE: CXR1VW - CHEST 1VW Exam Type: CHEST 1VW Clinical Information: sob Comparison: None Findings: The lungs are clear. The heart is normal in size. There is tortuosity of the aorta which artifactually enlarges the mediastinum. No actual mediastinal pathology is detected. IMPRESSION: Tortuous aorta. Clear lungs. DICTATED BY: SHERICE SANCHEZ MD DATE: 05/26/24 1153 REASON: sepsis, confusion ORDERING PHYSICIAN: SUNG CAICEDO MD PROCEDURE: HEAD WO - CT HEAD/BRAIN W/O CONTRAST Exam Type: CT HEAD/BRAIN W/O CONTRAST Clinical Information: sepsis, confusion Comparison: None CT Dose Index (CTDI): 57.33 mGy Dose Length Product (DLP): 956.79 total mGy-cm Findings: The examination shows atrophy. There is low attenuation throughout the periventricular white matter locations, consistent with chronic small vessel ischemic changes. No acute intra- or extra-axial fluid collections are seen. There is no evidence of acute or chronic hemorrhage. There is no mass effect or shift of midline structures. There are no areas to suggest acute infarct. The skull windows show no significant abnormalities. IMPRESSION: 1. ATROPHY AND CHRONIC SMALL VESSEL ISCHEMIC CHANGES. This study was performed using dose reduction techniques to include automated exposure control and/or adjustment of the mA and/or kV according to patient size. DICTATED BY: SHERICE SANCHEZ MD DATE: 05/24/24 1625 REASON: SHORTNESS A BREATH ORDERING PHYSICIAN: CM CORRALES NP PROCEDURE: CXR1VW - CHEST 1VW Exam Type: CHEST 1VW Clinical Information: SHORTNESS A BREATH Comparison: None Findings: The lungs are clear of infiltrates. The heart is enlarged. Bony and soft tissue structures of the chest wall are unremarkable. IMPRESSION: Cardiomegaly. Clear lungs. DICTATED BY: SHERICE SANCHEZ MD DATE: 05/24/24 1525 REASON: DIFFUSE AND LEFT LOWER QUADRANT PAIN TENDERNESS WITH FEVER ORDERING PHYSICIAN: CM CORRALES NP PROCEDURE: ABD PEL WO - CT ABDOMEN/PELVIS W/O CONTRAST CT ABDOMEN PELVIS WITHOUT CONTRAST Clinical Information: DIFFUSE AND LEFT LOWER QUADRANT PAIN TENDERNESS WITH FEVER Comparison: CT Dose Index (CTDI): 28.40 mGy Dose Length Product (DLP): 1536.00 total mGy-cm PROTOCOL: Routine noncontrast helical scanning of the abdomen and pelvis was performed at 5mm collimation. Findings: There is a Right ureteropelvic junction calculus measuring 6 mm causing moderate hydronephrosis. There is extensive nephrolithiasis of the right kidney and there is air within the collecting system and the possibility of hydronephrosis on the right side must be entertained. The left side shows nonobstructing nephrolithiasis. The lung bases are clear. The stomach is unremarkable. It shows no wall thickening. No gross ulceration is seen. It is not overly distended. There are no surrounding inflammatory changes. No wall lesions are identified to suggest cancer. The spleen is unremarkable. It is not enlarged. The pancreas shows normal anatomy. It is not fatty replaced. It shows no lesions. The pancreatic duct is not dilated. The gallbladder is surgically absent. The adrenal glands are unremarkable. There is no enlargement. No lesions are noted. The liver is unremarkable. It shows no focal masses. The appendix is unremarkable. It shows no evidence of inflammation. No appendicolith is seen. The small bowel is unremarkable. There is no evidence of dilatation to suggest obstruction. No evidence of adynamic ileus is seen. There is no small bowel wall thickening to suggest enteritis. The colon is unremarkable. The urinary bladder is unremarkable. There is no wall thickening to suggest tumor or inflammation. There are no intraluminal calculi. There are no diverticula. There is no evidence of chronic bladder outlet obstruction. There is no evidence of urinary bladder distention to suggest urinary retention. The other pelvic structures are unremarkable. The bony and vascular structures are unremarkable for the patient's age. IMPRESSION: Urinary tract calculus causing obstruction. Possible right pyonephrosis. This study was performed using dose reduction techniques to include automated exposure control and/or adjustment of the mA and/or kV according to patient size. 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 We have reviewed external records in detail Follow-up on stone analysis, if send Continue with antibiotics Require close monitoring of renal function and electrolytes Order CBC, CMP, and electrolytes in am BiPAP as necessary, for respiratory distress Monitor blood pressure adjust medication doses as needed Avoid hypotensive episodes May use Dilaudid 0.5 mg IV every 6 hours as needed for severe pain Monitor blood sugars Strict intake, output, and daily weight should be monitored Please renally adjust medications Avoid nephrotoxic and nonsteroidal drugs Avoid contrast if possible Will continue to monitor renal function, anemia, electrolytes Treatment plan discussed with patient Questions were answered We have discussed with the other team physicians in detail about the care plan We will continue to monitor the patient closely ATTESTATION BY PHYSICIAN I have seen and examined the patient. I reviewed the documentation, medical decision making, and treatment plan as noted by the mid-level provider above. I agree with the findings and plan of care. JESSICA RUCKER MD, [facility] May 28, 2024 14:57
--- NOTE | 2024-05-28 21:54 | PN ---
INFECTIOUS DISEASE PROGRESS NOTE Date of Service: May 28, 2024 SUBJECTIVE: This is a 78-year-old female patient who was seen and examined at bedside in room 203. Patient is awake, alert and oriented x3. Patient denying abdominal pain at this time. Family member visiting at bedside. The WBC is still slightly elevated at 15.9, patient however remains afebrile this morning with a temperature of 99.1. The final blood cultures and urine culture results came back positive for E coli and patient is currently on ceftriaxone 2 g IV every 24 hours.. No reports of nausea or vomiting. Renal function continues to improve, BUN is 27 and a creatinine of 1.3 this morning. We will continue to follow patient's care. PHYSICAL EXAM EYES: Anicteric. Pupils equal and reactive. HENT: No oral thrush seen, moist Oral mucosa NECK: Supple, no JVD or thyromegaly. LUNGS: Good air entry. No rales, no rhonchi. CARDIOVASCULAR: S1, S2 regular. No murmur heard. ABDOMEN: Soft, non tender, bowel sounds present, no organomegaly CENTRAL NERVOUS SYSTEM: Awake, alert, oriented x 3. SKIN: No rashes, no swelling. LYMPHATICS: No peripheral lymphadenopathy MUSCULOSKELETAL: No joint swelling, erythema or tenderness. EXTREMITIES: No cyanosis or clubbing BACK: No deformity, no pressure ulcer. GENITOURINARY: No dysuria or hematuria Vital Sign (Last 12 Hours) 05/28/24 05/28/24 05/28/24 05/28/24 11:00 16:00 18:30 18:30 Temp 99.1 97.3 Pulse 81 80 78 78 Resp 22 22 18 18 B/P (MAP) 157/82 107/92 Pulse Ox 97 94 O2 Delivery Room Air Room Air N/A Room Air FiO2 21 05/28/24 05/28/24 19:20 20:00 Temp 99.1 Pulse 76 Resp 18 B/P (MAP) 151/74 Pulse Ox 97 95 O2 Delivery Room Air Room Air* O2 Flow Rate 0 FiO2 21 Intake & Output (last 24hrs) 05/27/24 05/27/24 05/28/24 15:00 23:00 07:00 Intake Total 480 ml 240 ml Output Total 800 ml Balance 480 ml 240 ml -800 ml LABS: Laboratory: Test 05/28/24 19:37 05/28/24 15:46 05/28/24 03:49 Range/Units Whole Blood Glucose 170 H 70-110 MG/DL Bedside Glucose Comment Notified Nurse White Blood Count 15.9 H 4.8-10.8 K/uL Red Blood Count 3.83 L 4.00-5.50 MIL/uL Hemoglobin 11.3 L 12.0-16.0 g/dL Hematocrit 35.0 L 36-48 % Mean Corpuscular Volume 91.4 79-99 fL Mean Corpuscular Hemoglobin 29.5 27.0-33.0 pg Mean Corpuscular Hemoglobin Concent 32.3 32.0-36.0 g/dL Red Cell Distribution Width 14.6 11.0-15.5 % Platelet Count 180 130-400 K/uL Mean Platelet Volume 12.1 H 7.5-10.5 fL Immature Granulocyte % (Auto) 1.1 H 0-1 % Neutrophils (%) (Auto) 76.7 40.0-77.0 % Lymphocytes (%) (Auto) 9.2 L 21.0-51.0 % Monocytes (%) (Auto) 11.3 3.0-13.0 % Eosinophils (%) (Auto) 1.4 0.0-8.0 % Basophils (%) (Auto) 0.3 0.0-5.0 % Neutrophils # (Auto) 12.2 H 1.8-7.7 K/uL Lymphocytes # (Auto) 1.5 1.0-4.8 K/uL Monocytes # (Auto) 1.8 H 0.1-1.0 K/uL Eosinophils # (Auto) 0.22 0.00-0.70 K/uL Basophils # (Auto) 0.05 0.00-0.20 K/uL Absolute Immature Granulocyte (auto 0.17 0-1 K/uL Nucleated Red Blood Cells 0.0 0.0-0.19 % Sodium Level 140 136-145 mmol/L Potassium Level 3.6 3.5-5.1 mmol/L Chloride Level 106 101-111 mmol/L Carbon Dioxide Level 25 21-32 mmol/L Blood Urea Nitrogen 27 H 7-18 mg/dL Creatinine 1.3 H 0.5-1.0 mg/dL Glomerular Filtration Rate Calc 42 >90 mL/min Random Glucose 135 H 70-105 mg/dL Total Calcium 8.1 L 8.5-10.1 mg/dL Phosphorus Level 2.4 L 2.5-4.9 mg/dL Magnesium Level 2.20 1.80-2.40 mg/dL Total Bilirubin 0.7 0.2-1.0 mg/dL Aspartate Amino Transf (AST/SGOT) 27 10-37 U/L Alanine Aminotransferase (ALT/SGPT) 25 12-78 U/L Alkaline Phosphatase 136 50-136 U/L Total Protein 6.2 6.0-8.3 g/dL Albumin 2.0 L 3.5-5.0 g/dL DIAGNOSTICS / RADIOLOGY: PATIENT: SORAYA SORTO ACCT: [id number] LOC: [facility] U: [id number] AGE/SX: 78/F ROOM: [facility] [place] RE05/24/[address]: JOANNE RENEE MD : 1945 BED: 1 DIS: STATUS: ADM IN TLOC: SPEC: [id number] JUSTINE: 05/24/24 STATUS: COMP REQ: [id number] RECD: 05/25/[address]: CM CORRALES NP SOURCE: BLOOD ENTR: 05/25/24 [facility] DR: MALLY NG M.D. SPDESC: BLOOD NONE ORDERED: AERO ID & SENS Procedure Result Juan Miguel Date-Time AEROBIC ID & SENSITIVITIES Final 05/27/24-07 MRL COLONY DESCRIPTION: DAY 1: GRAM NEGATIVE RODS PEDIATRIC BOTTLE IDENTIFICATION AND SENSITIVITY TO FOLLOW ESCHERICHIA COLI E COLI M.I.C. RX --------- ---- AMPICILLIN >16 R AZTREONAM <=4 S CEFAZOLIN <=2 S CEFTAZIDIME/AVIBACTAM <=8 S GENTAMICIN <=2 S LEVOFLOXACIN <=0.5 S AMPICILLIN/SULBACTAM 16/8 I MEROPENEM <=1 S PIPERACILLIN/TAZOBACTAM <=8 S TRIMETHOPRIM/SUFLAMETHOXAZOLE <=2/38 S PATIENT: SORAYA SORTO ACCT: [id number] LOC: [facility] U: [id number] AGE/SX: 78/F ROOM: [facility] [place] RE05/24/[address]: JOANNE RENEE MD : 1945 BED: 1 DIS: STATUS: ADM IN TLOC: SPEC: [id number] JUSTINE: 05/24/24 STATUS: COMP REQ: [id number] RECD: 05/25/[address] [facility] [address]: CM CORRALES NP SOURCE: URINE CATH ENTR: 05/25/[address] [facility] DR: PHAN [facility]ANDOVAL [facility] CATHERIMALLY LEE M.D. ORDERED: AERO ID & SENS Procedure Result Juan Miguel Date-Time AEROBIC ID & SENSITIVITIES Final 05/26/24-0745 MRL COLONY DESCRIPTION: DAY 1: COLONY COUNT: 10,000 - 20,000 CFU/ML GRAM NEGATIVE RODS IDENTIFICATION AND SENSITIVITY TO FOLLOW ESCHERICHIA COLI E COLI M.I.C. RX --------- ---- AMPICILLIN >16 R AZTREONAM <=4 S CEFAZOLIN 4 I CEFTAZIDIME/AVIBACTAM <=8 S CEFTRIAXONE <=1 S GENTAMICIN <=2 S LEVOFLOXACIN <=0.5 S NITROFURANTOIN <=32 S MEROPENEM <=1 S PIPERACILLIN/TAZOBACTAM <=8 S TRIMETHOPRIM/SUFLAMETHOXAZOLE <=2/38 S ASSESSMENT: E coli bacteremia. Urinary tract infection with E coli. Right-sided hydronephrosis, status post cystoscopy and stenting on 05/26/2024. Leukocytosis. Acute renal failure, improving. Hypokalemia. Diabetes mellitus. PLAN: Continue ceftriaxone. Continue GI prophylaxis. We will follow up on the repeat blood cultures. Continue pain management. Continue antiemetics. Continue monitoring glucose levels. Plan is to discharge on oral antibiotics when ready to discharge. This case was reviewed and discussed with my supervising physician and the above assessment and plan was formulated and agreed upon. ATTESTATION BY PHYSICIAN I have seen and examined the patient. I reviewed the documentation, medical decision making, and treatment plan as noted by the mid-level provider above. I agree with the findings and plan of care. SOFIA HOLDER MD, MIRTA L FNP May 28, 2024 21:54
[2024-05-29] VITALS (13 sets, daily range): BP systolic 118–158; BP diastolic 62–90; PULSE 65–77; RESP 18; TEMP 98–98.7; O2SAT 96
[2024-05-29 04:54] LABS: BASOPHILS # (AUTO) 0.07 K/uL (0.00-0.20); BASOPHILS % (AUTO) 0.5 % (0.0-5.0); EOSINOPHILS # (AUTO) 0.15 K/uL (0.00-0.70); EOSINOPHILS % (AUTO) 1.2 % (0.0-8.0); HEMATOCRIT 35.3 % (36-48); IMMATURE GRANULOCYTE ABSOLUTE 0.26 K/uL (0-1); LYMPHOCYTES # (AUTO) 1.5 K/uL (1.0-4.8); LYMPHOCYTES % (AUTO) 11.9 % (21.0-51.0); MEAN CORPUSCULAR HEMOGLOBIN 28.9 pg (27.0-33.0); MEAN CORPUSCULAR VOLUME 90.3 fL (79-99); MONOCYTES # (AUTO) 1.2 K/uL (0.1-1.0); MONOCYTES % (AUTO) 9.6 % (3.0-13.0); NEUTROPHILS # (AUTO) 9.7 K/uL (1.8-7.7); NEUTROPHILS % (AUTO) 74.8 % (40.0-77.0); PLATELET COUNT (AUTO) 203 K/uL (130-400); RED BLOOD CELL COUNT(AUTO) 3.91 MIL/uL (4.00-5.50); RED CELL DISTRIBUTION WIDTH 14.3 % (11.0-15.5); WHITE BLOOD COUNT (AUTO) 12.9 K/uL (4.8-10.8)
[2024-05-29 05:12] LABS: ALBUMIN 1.9 g/dL (3.5-5.0); BILIRUBIN,TOTAL 0.7 mg/dL (0.2-1.0); CREATININE 0.9 mg/dL (0.5-1.0); MAGNESIUM 1.8 mg/dL (1.80-2.40); PHOSPHORUS 2.7 mg/dL (2.5-4.9); POTASSIUM 3.3 mmol/L (3.5-5.1); TOTAL PROTEIN, SERUM 6.2 g/dL (6.0-8.3)
[2024-05-29] MEDS: PoTASSium chloRIDE 20MEQ ER 20 MEQ ERTAB PO PRN (05:56)
[2024-05-29] MEDS ORDERED: PoTASSium chloRIDE 10MEQ/100ML 100 ML IV PRN (06:00)
[2024-05-29] MEDS ORDERED: PoTASSium chl 10% ELIXIR 20MEQ 20 MEQ/15 ML UDCUP PO PRN (06:00)
--- NOTE | 2024-05-29 09:47 | PN ---
[facility] PROGRESS NOTE Date of Service: May 29, 2024 Time of Service: 09:43 SUBJECTIVE/INTERVAL HISTORY 05/25 patient seen at bedside, no acute events overnight. She has been afebrile, hemodynamically stable saturating well on room air. She has not required any pressors, WBC improved from 20/6 0.4 down to 14.0, hemoglobin decreased from 13.5 down to 10.4, platelets decreased from 172 down to 112, creatinine increased from 2.0 up to 2.4, lactic acid improved from 2.6 down to 2.0, remainder of her labs are relatively unremarkable. Urology planning to take patient for cystogram with possible stent placement and other intervention tomorrow, we will continue with empiric antibiotics and IV fluids. Patient responding appropriately, has no complaints this morning. 05/26 patient seen at bedside, no acute events overnight. Patient pending cystogram today with Urology, we will follow up postprocedure. Patient growing E coli in the blood and 1/2 bottles, we will consult Infectious Disease. Urine growing E coli, we will continue with meropenem, probably can be de-escalated to ceftriaxone, we will defer to Infectious Disease. Creatinine improved from 2.4 down to 1.7, WBC increased from 14.0 up to 14.7, hemoglobin improved from 10.4 up to 11.8, platelets increased from 112 up to 157 remainder of her labs are relatively unremarkable. 05/27 patient is seen and examined at bedside, no acute events overnight, remains hemodynamically stable, afebrile. WBC today 18.7. Urine culture positive for E coli. Blood cultures positive for E coli. The patient remains on broad- spectrum IV antibiotics. ID input noted and appreciated. Patient is started on Rocephin 2 g IV daily. Follow repeat two sets of blood culture. Pending urogram. Patient underwent successful laser in off multiple stones obstructing the right ureter by urologist 05/26/2024, tolerated the procedure well. Daughter not present in the room at the time of my visit. Grandson is present. Phone call made to the daughter, updated over the phone, all questions answered, agreed with plan of care and understood all the information provided. 05/28 patient is seen and examined at bedside, no acute events overnight, remains hemodynamically stable, afebrile. Urine culture positive for E coli. Blood cultures positive for E coli. The patient remains on broad-spectrum IV antibiotics. ID input noted and appreciated. Patient is started on Rocephin 2 g IV daily. Follow repeat two sets of blood culture. Patient underwent successful laser in off multiple stones obstructing the right ureter by urologist 05/26/2024, tolerated the procedure well. Daughter updated over the phone. 05/29 patient is seen and examined at bedside, no acute events overnight, remains hemodynamically stable, saturating normal on room air. She is getting IV antibiotics. WBC slowly trending down, today 12.9. Yesterday 15.9. Potassium at 3.3. Results of septic workup reviewed and discussed with the daughter at bedside. Patient with a urine culture positive for E coli, blood culture positive for E coli, we will continue the patient on broad-spectrum IV antibiotics. Continue to follow ID input and recommendations. Follow repeat tw o sets of blood cultures. REVIEW OF SYSTEMS 12 point review of systems negative unless noted in HPI PHYSICAL EXAM GENERAL APPEARANCE: Patient is Able to tell me her name but otherwise appears lethargic NEUROLOGICAL: Cranial nerves II-XII grossly intact. Motor is 5/5 in bilateral upper and lower extremities proximal to distal. No sensory deficits. HEENT: Face is symmetric. Pupils are equal and reactive. Extraocular movements are intact. NECK: Supple. No JVD. No thyromegaly. No submental, submandibular, pre- /postauricular, occipital or supraclavicular lymphadenopathy. CHEST: Normal chest expansion. No Telemetry. LUNGS: Minimal crackles noted bilateral lung bases CARDIOVASCULAR: Regular. S1 and S2 normal. No appreciable rubs, murmurs or ga llops. ABDOMEN: No significant tenderness noted of the abdomen : Deferred. No Herrmann. EXTREMITIES: Non-edematous and not cyanotic. No clubbing. Good capillary refill. SKIN: No skin breakdown. Vital Signs (last 8hr) Date Time Temp Pulse Resp B/P (MAP) Pulse Ox O2 Delivery O2 Flow Rate FiO2 05/29/24 07:16 75 18 05/29/24 07:15 18 N/A Room Air 21 05/29/24 07:13 98.2 65 18 157/87 95 Room Air 05/29/24 03:37 98.1 77 18 118/62 95 Room Air LABS: Laboratory: Test 05/29/24 05:33 05/29/24 04:23 2/7/25 15:46 Range/Units Whole Blood Glucose 119 H 70-110 MG/DL White Blood Count 12.9 H 4.8-10.8 K/uL Red Blood Count 3.91 L 4.00-5.50 MIL/uL Hemoglobin 11.3 L 12.0-16.0 g/dL Hematocrit 35.3 L 36-48 % Mean Corpuscular Volume 90.3 79-99 fL Mean Corpuscular Hemoglobin 28.9 27.0-33.0 pg Mean Corpuscular Hemoglobin Concent 32.0 32.0-36.0 g/dL Red Cell Distribution Width 14.3 11.0-15.5 % Platelet Count 203 130-400 K/uL Mean Platelet Volume 11.9 H 7.5-10.5 fL Immature Granulocyte % (Auto) 2.0 H 0-1 % Neutrophils (%) (Auto) 74.8 40.0-77.0 % Lymphocytes (%) (Auto) 11.9 L 21.0-51.0 % Monocytes (%) (Auto) 9.6 3.0-13.0 % Eosinophils (%) (Auto) 1.2 0.0-8.0 % Basophils (%) (Auto) 0.5 0.0-5.0 % Neutrophils # (Auto) 9.7 H 1.8-7.7 K/uL Lymphocytes # (Auto) 1.5 1.0-4.8 K/uL Monocytes # (Auto) 1.2 H 0.1-1.0 K/uL Eosinophils # (Auto) 0.15 0.00-0.70 K/uL Basophils # (Auto) 0.07 0.00-0.20 K/uL Absolute Immature Granulocyte (auto 0.26 0-1 K/uL Nucleated Red Blood Cells 0.0 0.0-0.19 % Sodium Level 140 136-145 mmol/L Potassium Level 3.3 L 3.5-5.1 mmol/L Chloride Level 107 101-111 mmol/L Carbon Dioxide Level 24 21-32 mmol/L Blood Urea Nitrogen 20 H 7-18 mg/dL Creatinine 0.9 0.5-1.0 mg/dL Glomerular Filtration Rate Calc 65 >90 mL/min Random Glucose 129 H 70-105 mg/dL Total Calcium 8.1 L 8.5-10.1 mg/dL Phosphorus Level 2.7 2.5-4.9 mg/dL Magnesium Level 1.80 1.80-2.40 mg/dL Total Bilirubin 0.7 0.2-1.0 mg/dL Aspartate Amino Transf (AST/SGOT) 30 10-37 U/L Alanine Aminotransferase (ALT/SGPT) 20 12-78 U/L Alkaline Phosphatase 172 H 50-136 U/L Total Protein 6.2 6.0-8.3 g/dL Albumin 1.9 L 3.5-5.0 g/dL Bedside Glucose Comment Notified Nurse Current Medications Medications (Trade) Dose Ordered Sig/Madelaine Route PRN Reason Start Time Stop Time Status Last Admin Dose Admin Acetaminophen (TYLenol 325MG TAB) 650 mg Q6H PRN PO MILD PAIN (1-3) 05/24/24 15:30 06/23/24 15:29 Budesonide (Pulmicort 0.5 Mg/2ml) 0.5 mg BIDRESP IH 05/24/24 18:00 06/23/24 17:59 05/29/24 07:14 0.5 MG Ceftriaxone Sodium (Rocephin 2gm Inj) 2 gm Q24H IVPB 05/27/24 10:00 06/06/24 09:59 05/29/24 09:05 2 GM Enoxaparin Sodium (Lovenox) 40 mg DAILY SQ 05/28/24 09:00 06/27/24 08:59 05/29/24 09:04 40 MG Insulin Human Regular (humuLIN R 100 UNIT/ML 3ML) INSULIN SLIDING SCAL... ACHS SQ 05/25/24 16:30 06/24/24 16:29 Linezolid 300 ml @ 150 mls/hr Q12H IV 05/25/24 04:00 05/26/24 15:59 DC 05/26/24 04:18 150 MLS/HR Magnesium Sulfate 50 ml @ 0 mls/hr PROTOCOL IV 05/25/24 12:00 06/24/24 11:59 05/29/24 05:58 25 MLS/HR Meropenem (Merrem 1gm) 1 gm Q12H IVPB 05/24/24 15:30 05/27/24 09:56 DC 05/27/24 03:00 1 GM Norepinephrine 250 ml @ 21.263 mls/ hr PROTOCOL IV 05/24/24 15:30 06/23/24 15:29 Ondansetron HCl (zoFRAN 4MG INJ) 4 mg Q6H PRN IVP NAUSEA/VOMITING 05/24/24 15:30 06/23/24 15:29 Pantoprazole Sodium (PROTonix 40MG INJ) 40 mg Q24H IVP 05/24/24 15:30 06/23/24 15:29 05/28/24 08:57 40 MG Pharmacy Profile Note (Lace Assessment) 1 each AD MISC 05/24/24 15:00 05/24/24 15:05 DC Potassium Chloride 100 ml @ 100 mls/hr AD PRN IV POTASSIUM PROTOCOL 05/29/24 06:00 06/28/24 05:59 Potassium Chloride (K-Dur/Klor-Con 20meq) 10 meq AD PRN PO POTASSIUM PROTOCOL 05/29/24 06:00 06/28/24 05:59 05/29/24 09:05 10 MEQ Potassium Chloride (KCl 10% Elixir 20meq/15ml) 10 meq AD PRN PO POTASSIUM PROTOCOL 05/29/24 06:00 06/28/24 05:59 Sodium Chloride 1,000 ml @ 75 mls/hr [id number] IV 05/24/24 15:00 05/26/24 16:00 DC 05/26/24 06:01 75 MLS/HR Thiamine HCl (Vitamin B-1) 100 mg Q24H IVP 05/24/24 16:00 06/23/24 15:59 05/28/24 17:04 100 MG DIAGNOSTICS / RADIOLOGY: [ ] ASSESSMENT: Severe sepsis, 2/2 complicated urinary tract infection, POA Toxic/metabolic encephalopathy, POA Gram-negative bacteremia secondary to E coli, POA Complicated urinary tract infection with right pyonephrosis, POA Obstructing right ureteropelvic junction calculus measuring 6 mm causing moderate right-sided hydronephrosis, POA Status post cystourethroscopy with right ureteroscopy and laser lithotripsy right ureteral calculi, multiple, 05/26/2024 Significant leukocytosis, POA Acute kidney injury, POA Moderate lactic acidosis, POA Morbid obesity, POA Frailty, POA Underlying history of hypertension, POA Hyperlipidemia, POA Significant nephrolithiasis noted of the right kidney, 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 NEURO: Minimize central acting medications as possible. Fall Precautions. Well lighted room through the day and minimize interruptions through the night to prevent acute delirium. PULMONARY: Supplemental 02 as needed BiPAP as necessary, for respiratory distress Titrate Fio2 to keep Spo2 > or = 90% DuoNebs and CPT as needed IS hourly while awake for pulmonary hygiene prn Out of bed to chair as tolerated Maintain aspiration precautions at all times CARDIOVASCULAR: Follow hemodynamics. Vital signs per facility protocol GI & NUTRITION: Continue nutritional support Aspirations precautions Prokinetic agents and laxatives as needed KIDNEYS & ELECTROLYTES: Strict monitoring of intake and output Daily weights Avoid nephrotoxic agents Monitor electrolytes and replace as needed Goal urine output of 30mL/hr or 0.5mL/kg/hr Medications to be dosed according to renal function. Avoid contrast if possible ENDOCRINE: Maintain blood glucose between 100-180 at all times. Insulin sliding scale for blood glucose management Hypoglycemia and hyperglycemia protocol in place INFECTIOUS DISEASE: Trend temperature, WBC and procalcitonin level Follow cultures, deescalate antibiotics as soon as possible. Panculture if new onset fever HEMATOLOGY & COAGULATION: Monitor H&H. Keep Hgb > 7 Transfuse 1 unit of PRBC for Hgb < 7 Transfuse 1 pack of platelets of platelets < 20, 000 Watch for any signs and symptoms of bleeding SKIN: Pressure ulcer prevention per facility protocol Specialty mattress as needed ORTHO/REHAB Continue PT/OT PRN: MEDICATIONS Tylenol 650 mg po every 4 hrs for fever zofran 4 mg IV every 6 hrs for n/v Hydralazine 5 mg IV every 4 hrs systolic pressure > 160 bowel regiment: lactulose 20 gm PO BID PRN constipation Supportive measures: Continue GI and DVT prophylaxis Disposition: Pending improvement in clinical condition. All questions answered time spent: > 35 min JJ FISHER MD May 29, 2024 09:47
[2024-05-29] MEDS: PoTASSium chloRIDE 20MEQ ER 20 MEQ ERTAB PO ONE (09:56)
--- NOTE | 2024-05-29 14:08 | PN ---
NEPHROLOGY PROGRESS NOTE Date/Time Patient Seen: May 29, 2024 Reason for Consultation: 14:04 SUBJECTIVE: This is a 78-year-old female with underlying history of hypertension, type 2 diabetes mellitus, hyperlipidemia, obesity She presented to the ER for further evaluation of high-grade fevers, confusion, nausea, poor oral intake. Patient was seen by her PCP recently and was diagnosed with a UTI and was given a course of outpatient Keflex. CT abdomen pelvis without contrast which showed findings urinary tract calculus causing obstruction. Possible right pyonephrosis. S/P Cystourethroscopy with right ureteroscopy and laser lithotripsy of right ureteral calculi, multiple, evacuation of right ureteral calculi, insertion of a right ureteral stent on 05/26/[address] Roman Urine and blood cultures positive for E coli. She continues on antibiotics as per ID The patient has rising BUN and creatinine, for which we have been consulted. The patient has low sodium also slightly. No other associated finding. Has been found to have a leukocytosis. Renal function and electrolytes are stable She was seen in the medical floor, in no acute distress Family at the bedside Prognosis remains guarded REVIEW OF SYSTEMS: GENERAL: Negative for any nausea, vomiting, fevers, chills, or weight loss. NEUROLOGIC: Negative for any blurry vision, blind spots, double vision, facial asymmetry, dysphagia, dysarthria, hemiparesis, hemisensory deficits, vertigo, ataxia. HEENT: Negative for any head trauma, neck trauma, neck stiffness, photophobia, phonophobia, sinusitis, rhinitis. CARDIAC: Negative for any chest pain, dyspnea on exertion, paroxysmal nocturnal dyspnea, peripheral edema. PULMONARY: Negative for any shortness of breath, wheezing, COPD, or TB exposure. GASTROINTESTINAL: Negative for any abdominal pain, nausea, vomiting, bright red blood per rectum, melena. GENITOURINARY: Negative for any dysuria, hematuria, incontinence. INTEGUMENTARY: Negative for any rashes, cuts, insect bites. RHEUMATOLOGIC: Negative for any joint pains, photosensitive rashes, history of vasculitis or kidney problems. HEMATOLOGIC: Negative for any abnormal bruising, frequent infections or bleeding. Vital Signs (last 8hr) Date Time Temp Pulse Resp B/P (MAP) Pulse Ox O2 Delivery O2 Flow Rate FiO2 05/25/24 13:00 88 15 155/69 94 Room Air 05/25/24 12:00 98.8 101 19 152/85 94 Room Air 05/25/24 11:00 97 18 138/70 93 Room Air 05/25/24 10:00 90 18 158/63 93 Room Air 05/25/24 09:00 91 23 150/77 94 Room Air 05/25/24 08:30 92 15 145/74 93 Room Air 05/25/24 08:00 99.7 95 20 155/84 93 Room Air 05/25/24 08:00 93 Room Air* 0 21 05/25/24 07:30 93 20 141/78 92 Room Air 05/25/24 07:00 94 16 139/105 94 Room Air 05/25/24 06:41 91 18 05/25/24 06:41 91 18 N/A Room Air 21 PHYSICAL EXAM: GENERAL: Alert and oriented x 3. No acute distress. Well-nourished. EYES: EOMI. Anicteric. HENT: Moist mucous membranes. No scleral icterus. No cervical lymphadenopathy. LUNGS: Clear to auscultation bilaterally. No accessory muscle use. CARDIOVASCULAR: Regular rate and rhythm. No murmur. No JVD. ABDOMEN: Soft, non-tender and non-distended. No palpable masses. EXTREMITIES: No edema. Non-tender.?SKIN: No rashes or lesions. Warm. NEUROLOGIC: No focal neurological deficits. CN II-XII grossly intact, but not individually tested. PSYCHIATRIC: Cooperative. Appropriate mood and affect. Current Medications Medications (Trade) Dose Ordered Sig/Madelaine Route PRN Reason Start Time Stop Time Status Last Admin Dose Admin Acetaminophen (TYLenol 325MG TAB) 650 mg Q6H PRN PO MILD PAIN (1-3) 05/24/24 15:30 06/23/24 15:29 Budesonide (Pulmicort 0.5 Mg/2ml) 0.5 mg BIDRESP IH 05/24/24 18:00 06/23/24 17:59 05/25/24 06:38 0.5 MG Insulin Human Regular (humuLIN R 100 UNIT/ML 3ML) INSULIN SLIDING SCAL... ACHS SQ 05/25/24 16:30 06/24/24 16:29 Linezolid 300 ml @ 150 mls/hr Q12H IV 05/25/24 04:00 06/04/24 03:59 05/25/24 04:30 150 MLS/HR Magnesium Sulfate 50 ml @ 0 mls/hr PROTOCOL IV 05/25/24 12:00 06/24/24 11:59 Meropenem (Merrem) 1 gm Q12H IVPB 05/24/24 15:30 06/03/24 15:29 05/25/24 03:43 1 GM Norepinephrine 250 ml @ 21.263 mls/ hr PROTOCOL IV 05/24/24 15:30 06/23/24 15:29 Ondansetron HCl (zoFRAN 4MG INJ) 4 mg Q6H PRN IVP NAUSEA/VOMITING 05/24/24 15:30 06/23/24 15:29 Pantoprazole Sodium (PROTonix 40MG INJ) 40 mg Q24H IVP 05/24/24 15:30 06/23/24 15:29 05/24/24 15:44 40 MG Pharmacy Profile Note (Lace Assessment) 1 each AD MISC 05/24/24 15:00 05/24/24 15:05 DC Sodium Chloride 1,000 ml @ 75 mls/hr [id number] IV 05/24/24 15:00 06/23/24 14:59 05/25/24 03:43 75 MLS/HR Thiamine HCl (Vitamin B-1) 100 mg Q24H IVP 05/24/24 16:00 06/23/24 15:59 05/24/24 16:09 100 MG LABORATORY: [ ] Hematology Labs: Test 05/29/24 04:23 Range/Units White Blood Count 12.9 H 4.8-10.8 K/uL Red Blood Count 3.91 L 4.00-5.50 MIL/uL Hemoglobin 11.3 L 12.0-16.0 g/dL Hematocrit 35.3 L 36-48 % Mean Corpuscular Volume 90.3 79-99 fL Mean Corpuscular Hemoglobin 28.9 27.0-33.0 pg Mean Corpuscular Hemoglobin Concent 32.0 32.0-36.0 g/dL Red Cell Distribution Width 14.3 11.0-15.5 % Platelet Count 203 130-400 K/uL Mean Platelet Volume 11.9 H 7.5-10.5 fL Immature Granulocyte % (Auto) 2.0 H 0-1 % Neutrophils (%) (Auto) 74.8 40.0-77.0 % Lymphocytes (%) (Auto) 11.9 L 21.0-51.0 % Monocytes (%) (Auto) 9.6 3.0-13.0 % Eosinophils (%) (Auto) 1.2 0.0-8.0 % Basophils (%) (Auto) 0.5 0.0-5.0 % Neutrophils # (Auto) 9.7 H 1.8-7.7 K/uL Lymphocytes # (Auto) 1.5 1.0-4.8 K/uL Monocytes # (Auto) 1.2 H 0.1-1.0 K/uL Eosinophils # (Auto) 0.15 0.00-0.70 K/uL Basophils # (Auto) 0.07 0.00-0.20 K/uL Absolute Immature Granulocyte (auto 0.26 0-1 K/uL Nucleated Red Blood Cells 0.0 0.0-0.19 % Chemistry Labs: Test 05/29/24 11:46 05/29/24 04:23 05/28/24 15:46 Range/Units Whole Blood Glucose 155 H 70-110 MG/DL Sodium Level 140 136-145 mmol/L Potassium Level 3.3 L 3.5-5.1 mmol/L Chloride Level 107 101-111 mmol/L Carbon Dioxide Level 24 21-32 mmol/L Blood Urea Nitrogen 20 H 7-18 mg/dL Creatinine 0.9 0.5-1.0 mg/dL Glomerular Filtration Rate Calc 65 >90 mL/min Random Glucose 129 H 70-105 mg/dL Total Calcium 8.1 L 8.5-10.1 mg/dL Phosphorus Level 2.7 2.5-4.9 mg/dL Magnesium Level 1.80 1.80-2.40 mg/dL Total Bilirubin 0.7 0.2-1.0 mg/dL Aspartate Amino Transf (AST/SGOT) 30 10-37 U/L Alanine Aminotransferase (ALT/SGPT) 20 12-78 U/L Alkaline Phosphatase 172 H 50-136 U/L Total Protein 6.2 6.0-8.3 g/dL Albumin 1.9 L 3.5-5.0 g/dL Bedside Glucose Comment Notified Nurse DIAGNOSTICS / RADIOLOGY: REASON: RETROGRADE PYELOGRAM ORDERING PHYSICIAN: QUIN RUSSO MD PROCEDURE: URORETRO - UROGRAPHY RETROGRADE Fluoroscopic guidance History: RETROGRADE PYELOGRAM Fluoroscopic guidance provided. Procedure by ordering physician in operating room suite with fluoroscopic guidance. Several spot images were obtained. Impression: Fluoroscopic guidance. DICTATED BY: SHERICE SANCHEZ MD DATE: 05/27/24 1612 REASON: sob ORDERING PHYSICIAN: MAUREEN PACKER NP PROCEDURE: CXR1VW - CHEST 1VW Exam Type: CHEST 1VW Clinical Information: sob Comparison: None Findings: The lungs are clear. The heart is normal in size. There is tortuosity of the aorta which artifactually enlarges the mediastinum. No actual mediastinal pathology is detected. IMPRESSION: Tortuous aorta. Clear lungs. DICTATED BY: SHERICE SANCHEZ MD DATE: 05/26/24 1153 REASON: sepsis, confusion ORDERING PHYSICIAN: SUNG CAICEDO MD PROCEDURE: HEAD WO - CT HEAD/BRAIN W/O CONTRAST Exam Type: CT HEAD/BRAIN W/O CONTRAST Clinical Information: sepsis, confusion Comparison: None CT Dose Index (CTDI): 57.33 mGy Dose Length Product (DLP): 956.79 total mGy-cm Findings: The examination shows atrophy. There is low attenuation throughout the periventricular white matter locations, consistent with chronic small vessel ischemic changes. No acute intra- or extra-axial fluid collections are seen. There is no evidence of acute or chronic hemorrhage. There is no mass effect or shift of midline structures. There are no areas to suggest acute infarct. The skull windows show no significant abnormalities. IMPRESSION: 1. ATROPHY AND CHRONIC SMALL VESSEL ISCHEMIC CHANGES. This study was performed using dose reduction techniques to include automated exposure control and/or adjustment of the mA and/or kV according to patient size. DICTATED BY: SHERICE SANCHEZ MD DATE: 05/24/24 1625 REASON: SHORTNESS A BREATH ORDERING PHYSICIAN: CM CORRALES NP PROCEDURE: CXR1VW - CHEST 1VW Exam Type: CHEST 1VW Clinical Information: SHORTNESS A BREATH Comparison: None Findings: The lungs are clear of infiltrates. The heart is enlarged. Bony and soft tissue structures of the chest wall are unremarkable. IMPRESSION: Cardiomegaly. Clear lungs. DICTATED BY: SHERICE SANCHEZ MD DATE: 05/24/24 1525 REASON: DIFFUSE AND LEFT LOWER QUADRANT PAIN TENDERNESS WITH FEVER ORDERING PHYSICIAN: RHEINER,CM P DIESEL MAINTENANCE TECHNICIAN PROCEDURE: ABD PEL WO - CT ABDOMEN/PELVIS W/O CONTRAST CT ABDOMEN PELVIS WITHOUT CONTRAST Clinical Information: DIFFUSE AND LEFT LOWER QUADRANT PAIN TENDERNESS WITH FEVER Comparison: CT Dose Index (CTDI): 28.40 mGy Dose Length Product (DLP): 1536.00 total mGy-cm PROTOCOL: Routine noncontrast helical scanning of the abdomen and pelvis was performed at 5mm collimation. Findings: There is a Right ureteropelvic junction calculus measuring 6 mm causing moderate hydronephrosis. There is extensive nephrolithiasis of the right kidney and there is air within the collecting system and the possibility of hydronephrosis on the right side must be entertained. The left side shows nonobstructing nephrolithiasis. The lung bases are clear. The stomach is unremarkable. It shows no wall thickening. No gross ulceration is seen. It is not overly distended. There are no surrounding inflammatory changes. No wall lesions are identified to suggest cancer. The spleen is unremarkable. It is not enlarged. The pancreas shows normal anatomy. It is not fatty replaced. It shows no lesions. The pancreatic duct is not dilated. The gallbladder is surgically absent. The adrenal glands are unremarkable. There is no enlargement. No lesions are noted. The liver is unremarkable. It shows no focal masses. The appendix is unremarkable. It shows no evidence of inflammation. No appendicolith is seen. The small bowel is unremarkable. There is no evidence of dilatation to suggest obstruction. No evidence of adynamic ileus is seen. There is no small bowel wall thickening to suggest enteritis. The colon is unremarkable. The urinary bladder is unremarkable. There is no wall thickening to suggest tumor or inflammation. There are no intraluminal calculi. There are no diverticula. There is no evidence of chronic bladder outlet obstruction. There is no evidence of urinary bladder distention to suggest urinary retention. The other pelvic structures are unremarkable. The bony and vascular structures are unremarkable for the patient's age. IMPRESSION: Urinary tract calculus causing obstruction. Possible right pyonephrosis. This study was performed using dose reduction techniques to include automated exposure control and/or adjustment of the mA and/or kV according to patient size. DICTATED BY: SHERICE SANCHEZ MD DATE: 05/24/24 8720 ASSESSMENT: Acute kidney injury Severe sepsis Complicated urinary tract infection Toxic/metabolic encephalopathy Obstructing right ureteropelvic junction calculus measuring 6 mm causing moderate right-sided hydronephrosis Significant leukocytosis Morbid obesity, Frailty Hypertension, Hyperlipidemia Significant nephrolithiasis noted of the right kidney, likely staghorn calculi History of recurrent urinary tract infection History of urinary incontinence History of depression PLAN: Labs, diagnostic, radiologic exams reviewed and interpreted by myself and supervising physician. We have reviewed external records in detail Continue with antibiotics as per ID. Herrmann catheter as per Urology Require close monitoring of renal function and electrolytes Order CBC, CMP, and electrolytes in am BiPAP as necessary, for respiratory distress Monitor blood pressure adjust medication doses as needed Avoid hypotensive episodes May use Dilaudid 0.5 mg IV every 6 hours as needed for severe pain Monitor blood sugars Strict intake, output, and daily weight should be monitored Please renally adjust medications Avoid nephrotoxic and nonsteroidal drugs Avoid contrast if possible Will continue to monitor renal function, anemia, electrolytes Treatment plan discussed with patient Questions were answered We have discussed with the other team physicians in detail about the care plan We will continue to monitor the patient closely ATTESTATION BY PHYSICIAN I have seen and examined the patient. I reviewed the documentation, medical decision making, and treatment plan as noted by the mid-level provider above. I agree with the findings and plan of care. JESSICA RUCKER MD, ELIZABETH FNP May 29, 2024 14:08
--- NOTE | 2024-05-29 14:21 | PN ---
INFECTIOUS DISEASE PROGRESS NOTE Date of Service: May 29, 2024 SUBJECTIVE: This patient is being seen today at bedside. She is awake, alert and oriented x3. No fever or chills. No abdominal pain. No nausea or vomiting. She denies any chest pain or shortness of breath. Patient continues on ceftriaxone IV. Went over plan of care with patient and daughter by phone. WBC 12.9 . Questions and concerns were answered during this time. No over night events reported by nurse. PHYSICAL EXAM EYES: Anicteric. Pupils equal and reactive. HENT: No oral thrush seen, moist Oral mucosa NECK: Supple, no JVD or thyromegaly. LUNGS: Good air entry. No rales, no rhonchi. CARDIOVASCULAR: S1, S2 regular. No murmur heard. ABDOMEN: Soft, non tender, bowel sounds present, no organomegaly CENTRAL NERVOUS SYSTEM: Awake, alert, oriented x 3. SKIN: No rashes, no swelling. LYMPHATICS: No peripheral lymphadenopathy MUSCULOSKELETAL: No joint swelling, erythema or tenderness. EXTREMITIES: No cyanosis or clubbing BACK: No deformity, no pressure ulcer. GENITOURINARY: No dysuria or hematuria Vital Sign (Last 12 Hours) 05/29/24 05/29/24 05/29/24 05/29/24 03:37 07:13 07:15 07:16 Temp 98.1 98.2 Pulse 77 65 75 Resp 18 18 18 18 B/P (MAP) 118/62 157/87 Pulse Ox 95 95 O2 Delivery Room Air Room Air N/A Room Air FiO2 21 05/29/24 05/29/24 08:45 11:41 Temp 98.1 Pulse 71 Resp 18 B/P (MAP) 157/77 Pulse Ox 96 93 O2 Delivery Room Air* Room Air O2 Flow Rate 0 FiO2 21 Intake & Output (last 24hrs) 05/28/24 05/28/24 05/29/24 15:00 23:00 07:00 Intake Total 480 ml 240 ml 300.0 ml Output Total 1600 ml 600 ml Balance 480 ml -1360 ml -300.0 ml LABS: Laboratory: Test 05/29/24 11:46 05/29/24 04:23 05/28/24 15:46 Range/Units Whole Blood Glucose 155 H 70-110 MG/DL White Blood Count 12.9 H 4.8-10.8 K/uL Red Blood Count 3.91 L 4.00-5.50 MIL/uL Hemoglobin 11.3 L 12.0-16.0 g/dL Hematocrit 35.3 L 36-48 % Mean Corpuscular Volume 90.3 79-99 fL Mean Corpuscular Hemoglobin 28.9 27.0-33.0 pg Mean Corpuscular Hemoglobin Concent 32.0 32.0-36.0 g/dL Red Cell Distribution Width 14.3 11.0-15.5 % Platelet Count 203 130-400 K/uL Mean Platelet Volume 11.9 H 7.5-10.5 fL Immature Granulocyte % (Auto) 2.0 H 0-1 % Neutrophils (%) (Auto) 74.8 40.0-77.0 % Lymphocytes (%) (Auto) 11.9 L 21.0-51.0 % Monocytes (%) (Auto) 9.6 3.0-13.0 % Eosinophils (%) (Auto) 1.2 0.0-8.0 % Basophils (%) (Auto) 0.5 0.0-5.0 % Neutrophils # (Auto) 9.7 H 1.8-7.7 K/uL Lymphocytes # (Auto) 1.5 1.0-4.8 K/uL Monocytes # (Auto) 1.2 H 0.1-1.0 K/uL Eosinophils # (Auto) 0.15 0.00-0.70 K/uL Basophils # (Auto) 0.07 0.00-0.20 K/uL Absolute Immature Granulocyte (auto 0.26 0-1 K/uL Nucleated Red Blood Cells 0.0 0.0-0.19 % Sodium Level 140 136-145 mmol/L Potassium Level 3.3 L 3.5-5.1 mmol/L Chloride Level 107 101-111 mmol/L Carbon Dioxide Level 24 21-32 mmol/L Blood Urea Nitrogen 20 H 7-18 mg/dL Creatinine 0.9 0.5-1.0 mg/dL Glomerular Filtration Rate Calc 65 >90 mL/min Random Glucose 129 H 70-105 mg/dL Total Calcium 8.1 L 8.5-10.1 mg/dL Phosphorus Level 2.7 2.5-4.9 mg/dL Magnesium Level 1.80 1.80-2.40 mg/dL Total Bilirubin 0.7 0.2-1.0 mg/dL Aspartate Amino Transf (AST/SGOT) 30 10-37 U/L Alanine Aminotransferase (ALT/SGPT) 20 12-78 U/L Alkaline Phosphatase 172 H 50-136 U/L Total Protein 6.2 6.0-8.3 g/dL Albumin 1.9 L 3.5-5.0 g/dL Bedside Glucose Comment Notified Nurse DIAGNOSTICS / RADIOLOGY: PATIENT: SORAYA SORTO ACCT: [id number] LOC: 2A U: [id number] AGE/SX: 78/F ROOM: 203 RE05/24/[address]: JOANNE RENEE MD : 1945 BED: 1 DIS: STATUS: ADM IN TLOC: SPEC: [id number] JUSTINE: 05/24/24 STATUS: COMP REQ: [id number] RECD: 05/25/[address]: CM CORRALES NP SOURCE: BLOOD ENTR: 05/25/[address] [facility] [address]: MALLY NG M.D. SPDESC: BLOOD NONE ORDERED: AERO ID & SENS Procedure Result Juan Miguel Date-Time AEROBIC ID & SENSITIVITIES Final 05/27/24-711 [facility] [place] DESCRIPTION: DAY 1: GRAM NEGATIVE RODS PEDIATRIC BOTTLE IDENTIFICATION AND SENSITIVITY TO FOLLOW ESCHERICHIA COLI E COLI M.I.C. RX --------- ---- AMPICILLIN >16 R AZTREONAM <=4 S CEFAZOLIN <=2 S CEFTAZIDIME/AVIBACTAM <=8 S GENTAMICIN <=2 S LEVOFLOXACIN <=0.5 S AMPICILLIN/SULBACTAM 16/8 I MEROPENEM <=1 S PIPERACILLIN/TAZOBACTAM <=8 S TRIMETHOPRIM/SUFLAMETHOXAZOLE <=2/38 S PATIENT: SORAYA SORTO ACCT: [id number] LOC: [facility] U: [id number] AGE/SX: 78/F ROOM: [facility] RE05/24/[address]: JOANNE RENEE MD : 1945 BED: 1 DIS: STATUS: ADM IN TLOC: SPEC: [id number] JUSTINE: 05/24/24 STATUS: COMP REQ: [id number] RECD: 05/25/[address]: CM CORRALES NP SOURCE: URINE CATH ENTR: 05/25/[address]: PHAN SANDOVAL MD [facility]: MALLY VOGEL M.D. ORDERED: AERO ID & SENS Procedure Result Juan Miguel Date-Time AEROBIC ID & SENSITIVITIES Final 05/26/24-0745 [facility] COLONY DESCRIPTION: DAY 1: COLONY COUNT: 10,000 - 20,000 CFU/ML GRAM NEGATIVE RODS IDENTIFICATION AND SENSITIVITY TO FOLLOW ESCHERICHIA COLI E COLI M.I.C. RX --------- ---- AMPICILLIN >16 R AZTREONAM <=4 S CEFAZOLIN 4 I CEFTAZIDIME/AVIBACTAM <=8 S CEFTRIAXONE <=1 S GENTAMICIN <=2 S LEVOFLOXACIN <=0.5 S NITROFURANTOIN <=32 S MEROPENEM <=1 S PIPERACILLIN/TAZOBACTAM <=8 S TRIMETHOPRIM/SUFLAMETHOXAZOLE <=2/38 S ASSESSMENT: E coli bacteremia. Urinary tract infection with E coli. Right-sided hydronephrosis, status post cystoscopy and stenting on 05/26/2024. Leukocytosis. Acute renal failure, improving. Hypokalemia. Diabetes mellitus. PLAN: Continue ceftriaxone. Continue GI prophylaxis. We will follow up on the repeat blood cultures. Continue pain management. Continue antiemetics. Continue monitoring glucose levels. This case was reviewed and discussed with my supervising physician and the above assessment and plan was formulated and agreed upon. PHYLLIS FALL [facility] May 29, 2024 14:21
[2024-05-30] VITALS (11 sets, daily range): BP systolic 150–163; BP diastolic 76–92; PULSE 70–75; RESP 16–20; TEMP 97.5–98.9; O2SAT 96–98
[2024-05-30 04:23] LABS: BASOPHILS # (AUTO) 0.08 K/uL (0.00-0.20); BASOPHILS % (AUTO) 0.7 % (0.0-5.0); EOSINOPHILS # (AUTO) 0.22 K/uL (0.00-0.70); HEMATOCRIT 38.6 % (36-48); IMMATURE GRANULOCYTE ABSOLUTE 0.56 K/uL (0-1); LYMPHOCYTES # (AUTO) 2.1 K/uL (1.0-4.8); LYMPHOCYTES % (AUTO) 18.2 % (21.0-51.0); MEAN CORPUSCULAR HEMOGLOBIN 29.2 pg (27.0-33.0); MEAN CORPUSCULAR HGB CONC 32.1 g/dL (32.0-36.0); MEAN CORPUSCULAR VOLUME 90.8 fL (79-99); MONOCYTES # (AUTO) 1.2 K/uL (0.1-1.0); MONOCYTES % (AUTO) 10.3 % (3.0-13.0); NEUTROPHILS # (AUTO) 7.2 K/uL (1.8-7.7); NEUTROPHILS % (AUTO) 63.8 % (40.0-77.0); PLATELET COUNT (AUTO) 261 K/uL (130-400); RED BLOOD CELL COUNT(AUTO) 4.25 MIL/uL (4.00-5.50); RED CELL DISTRIBUTION WIDTH 14.1 % (11.0-15.5); WHITE BLOOD COUNT (AUTO) 11.3 K/uL (4.8-10.8)
[2024-05-30 04:50] LABS: BILIRUBIN,TOTAL 0.7 mg/dL (0.2-1.0); CREATININE 0.8 mg/dL (0.5-1.0); MAGNESIUM 1.8 mg/dL (1.80-2.40); PHOSPHORUS 3.6 mg/dL (2.5-4.9); POTASSIUM 3.6 mmol/L (3.5-5.1); TOTAL PROTEIN, SERUM 6.8 g/dL (6.0-8.3)
[2024-05-30] MEDS: PoTASSium chloRIDE 10MEQ SR 10 MEQ/TAB TAB.SR.24H PO PRN (05:21)
[2024-05-30] MEDS: LoSARTan 25 MG TABLET PO SCH (09:36)
--- NOTE | 2024-05-30 12:42 | PN ---
[facility] PROGRESS NOTE Date of Service: May 30, 2024 Time of Service: 12:36 SUBJECTIVE/INTERVAL HISTORY 05/25 patient seen at bedside, no acute events overnight. She has been afebrile, hemodynamically stable saturating well on room air. She has not required any pressors, WBC improved from 20/6 0.4 down to 14.0, hemoglobin decreased from 13.5 down to 10.4, platelets decreased from 172 down to 112, creatinine increased from 2.0 up to 2.4, lactic acid improved from 2.6 down to 2.0, remainder of her labs are relatively unremarkable. Urology planning to take patient for cystogram with possible stent placement and other intervention tomorrow, we will continue with empiric antibiotics and IV fluids. Patient responding appropriately, has no complaints this morning. 05/26 patient seen at bedside, no acute events overnight. Patient pending cystogram today with Urology, we will follow up postprocedure. Patient growing E coli in the blood and 1/2 bottles, we will consult Infectious Disease. Urine growing E coli, we will continue with meropenem, probably can be de-escalated to ceftriaxone, we will defer to Infectious Disease. Creatinine improved from 2.4 down to 1.7, WBC increased from 14.0 up to 14.7, hemoglobin improved from 10.4 up to 11.8, platelets increased from 112 up to 157 remainder of her labs are relatively unremarkable. 05/27 patient is seen and examined at bedside, no acute events overnight, remains hemodynamically stable, afebrile. WBC today 18.7. Urine culture positive for E coli. Blood cultures positive for E coli. The patient remains on broad- spectrum IV antibiotics. ID input noted and appreciated. Patient is started on Rocephin 2 g IV daily. Follow repeat two sets of blood culture. Pending urogram. Patient underwent successful laser in off multiple stones obstructing the right ureter by urologist 05/26/2024, tolerated the procedure well. Daughter not present in the room at the time of my visit. Grandson is present. Phone call made to the daughter, updated over the phone, all questions answered, agreed with plan of care and understood all the information provided. 05/28 patient is seen and examined at bedside, no acute events overnight, remains hemodynamically stable, afebrile. Urine culture positive for E coli. Blood cultures positive for E coli. The patient remains on broad-spectrum IV antibiotics. ID input noted and appreciated. Patient is started on Rocephin 2 g IV daily. Follow repeat two sets of blood culture. Patient underwent successful laser in off multiple stones obstructing the right ureter by urologist 05/26/2024, tolerated the procedure well. Daughter updated over the phone. 05/29 patient is seen and examined at bedside, no acute events overnight, remains hemodynamically stable, saturating normal on room air. She is getting IV antibiotics. WBC slowly trending down, today 12.9. Yesterday 15.9. Potassium at 3.3. Results of septic workup reviewed and discussed with the daughter at bedside. Patient with a urine culture positive for E coli, blood culture positive for E coli, we will continue the patient on broad-spectrum IV antibiotics. Continue to follow ID input and recommendations. Follow repeat tw o sets of blood cultures. 05/30 patient is seen at bedside, no acute events overnight. She has been afebrile, hemodynamically stable saturating well on room air. Mildly hypertensive, we will restart her home losartan at 50 mg Q 24 hours. WBC improved from 12.9 down to 11.3, hemoglobin improved from 11.3 up to 12.4, remainder of her labs are relatively unremarkable. We will follow up with Infectious Disease regarding discharge antibiotic recommendations. We will continue with IV ceftriaxone REVIEW OF SYSTEMS 12 point review of systems negative unless noted in HPI PHYSICAL EXAM GENERAL APPEARANCE: Patient is Able to tell me her name but otherwise appears lethargic NEUROLOGICAL: Cranial nerves II-XII grossly intact. Motor is 5/5 in bilateral upper and lower extremities proximal to distal. No sensory deficits. HEENT: Face is symmetric. Pupils are equal and reactive. Extraocular movements are intact. NECK: Supple. No JVD. No thyromegaly. No submental, submandibular, pre- /postauricular, occipital or supraclavicular lymphadenopathy. CHEST: Normal chest expansion. No Telemetry. LUNGS: Minimal crackles noted bilateral lung bases CARDIOVASCULAR: Regular. S1 and S2 normal. No appreciable rubs, murmurs or gallops. ABDOMEN: No significant tenderness noted of the abdomen : Deferred. No Herrmann. EXTREMITIES: Non-edematous and not cyanotic. No clubbing. Good capillary refill. SKIN: No skin breakdown. Vital Signs (last 8hr) Date Time Temp Pulse Resp B/P (MAP) Pulse Ox O2 Delivery O2 Flow Rate FiO2 05/30/24 10:57 97.9 70 20 153/91 94 Room Air 05/30/24 09:45 98 Room Air* 0 21 05/30/24 07:14 97.5 71 18 156/85 95 Room Air 05/30/24 06:30 72 18 LABS: Laboratory: Test 05/30/24 11:00 05/30/24 03:51 05/28/24 15:46 Range/Units Whole Blood Glucose 131 H 70-110 MG/DL White Blood Count 11.3 H 4.8-10.8 K/uL Red Blood Count 4.25 4.00-5.50 MIL/uL Hemoglobin 12.4 12.0-16.0 g/dL Hematocrit 38.6 36-48 % Mean Corpuscular Volume 90.8 79-99 fL Mean Corpuscular Hemoglobin 29.2 27.0-33.0 pg Mean Corpuscular Hemoglobin Concent 32.1 32.0-36.0 g/dL Red Cell Distribution Width 14.1 11.0-15.5 % Platelet Count 261 # 130-400 K/uL Mean Platelet Volume 11.3 H 7.5-10.5 fL Immature Granulocyte % (Auto) 5.0 H 0-1 % Neutrophils (%) (Auto) 63.8 40.0-77.0 % Lymphocytes (%) (Auto) 18.2 L 21.0-51.0 % Monocytes (%) (Auto) 10.3 3.0-13.0 % Eosinophils (%) (Auto) 2.0 0.0-8.0 % Basophils (%) (Auto) 0.7 0.0-5.0 % Neutrophils # (Auto) 7.2 1.8-7.7 K/uL Lymphocytes # (Auto) 2.1 1.0-4.8 K/uL Monocytes # (Auto) 1.2 H 0.1-1.0 K/uL Eosinophils # (Auto) 0.22 0.00-0.70 K/uL Basophils # (Auto) 0.08 0.00-0.20 K/uL Absolute Immature Granulocyte (auto 0.56 0-1 K/uL Nucleated Red Blood Cells 0.0 0.0-0.19 % Sodium Level 142 136-145 mmol/L Potassium Level 3.6 3.5-5.1 mmol/L Chloride Level 105 101-111 mmol/L Carbon Dioxide Level 27 21-32 mmol/L Blood Urea Nitrogen 17 7-18 mg/dL Creatinine 0.8 0.5-1.0 mg/dL Glomerular Filtration Rate Calc 75 >90 mL/min Random Glucose 127 H 70-105 mg/dL Total Calcium 8.6 8.5-10.1 mg/dL Phosphorus Level 3.6 2.5-4.9 mg/dL Magnesium Level 1.80 1.80-2.40 mg/dL Total Bilirubin 0.7 0.2-1.0 mg/dL Aspartate Amino Transf (AST/SGOT) 45 H 10-37 U/L Alanine Aminotransferase (ALT/SGPT) 30 # 12-78 U/L Alkaline Phosphatase 219 #H 50-136 U/L Total Protein 6.8 6.0-8.3 g/dL Albumin 2.0 L 3.5-5.0 g/dL Bedside Glucose Comment Notified Nurse Current Medications Medications (Trade) Dose Ordered Sig/Madelaine Route PRN Reason Start Time Stop Time Status Last Admin Dose Admin Acetaminophen (TYLenol 325MG TAB) 650 mg Q6H PRN PO MILD PAIN (1-3) 05/24/24 15:30 06/23/24 15:29 Budesonide (Pulmicort 0.5 Mg/2ml) 0.5 mg BIDRESP IH 05/24/24 18:00 06/23/24 17:59 05/30/24 06:30 0.5 MG Ceftriaxone Sodium (Rocephin 2gm Inj) 2 gm Q24H IVPB 05/27/24 10:00 06/06/24 09:59 05/30/24 10:40 2 GM Enoxaparin Sodium (Lovenox) 40 mg DAILY SQ 05/28/24 09:00 06/27/24 08:59 05/30/24 09:36 40 MG Insulin Human Regular (humuLIN R 100 UNIT/ML 3ML) INSULIN SLIDING SCAL... ACHS SQ 05/25/24 16:30 06/24/24 16:29 Linezolid 300 ml @ 150 mls/hr Q12H IV 05/25/24 04:00 05/26/24 15:59 DC 05/26/24 04:18 150 MLS/HR Losartan Potassium (CozAAR 25MG TAB) 25 mg DAILY PO 05/30/24 09:00 06/29/24 08:59 05/30/24 09:36 25 MG Magnesium Sulfate 50 ml @ 0 mls/hr PROTOCOL IV 05/25/24 12:00 06/24/24 11:59 05/30/24 05:28 25 MLS/HR Meropenem (Merrem 1gm) 1 gm Q12H IVPB 05/24/24 15:30 05/27/24 09:56 DC 05/27/24 03:00 1 GM Norepinephrine 250 ml @ 21.263 mls/ hr PROTOCOL IV 05/24/24 15:30 06/23/24 15:29 Ondansetron HCl (zoFRAN 4MG INJ) 4 mg Q6H PRN IVP NAUSEA/VOMITING 05/24/24 15:30 06/23/24 15:29 Pantoprazole Sodium (PROTonix 40MG INJ) 40 mg Q24H IVP 05/24/24 15:30 06/23/24 15:29 05/29/24 16:04 40 MG Pharmacy Profile Note (Lace Assessment) 1 each AD MISC 05/24/24 15:00 05/24/24 15:05 DC Potassium Chloride 100 ml @ 100 mls/hr AD PRN IV POTASSIUM PROTOCOL 05/29/24 06:00 06/28/24 05:59 Potassium Chloride (K-Dur 10meq Sr Tab) 10 meq AD PRN PO POTASSIUM PROTOCOL 05/29/24 19:30 06/28/24 05:59 05/30/24 05:24 10 MEQ Potassium Chloride (K-Dur/Klor-Con 20meq) 10 meq AD PRN PO POTASSIUM PROTOCOL 05/29/24 06:00 05/29/24 19:29 DC 05/29/24 09:05 10 MEQ Potassium Chloride (KCl 10% Elixir 20meq/15ml) 10 meq AD PRN PO POTASSIUM PROTOCOL 05/29/24 06:00 06/28/24 05:59 Sodium Chloride 1,000 ml @ 75 mls/hr [id number] IV 05/24/24 15:00 05/26/24 16:00 DC 05/26/24 06:01 75 MLS/HR Thiamine HCl (Vitamin B-1) 100 mg Q24H IVP 05/24/24 16:00 06/23/24 15:59 05/29/24 16:04 100 MG DIAGNOSTICS / RADIOLOGY: [ ] ASSESSMENT: Severe sepsis, 2/2 complicated urinary tract infection, POA Toxic/metabolic encephalopathy, POA Gram-negative bacteremia secondary to E coli, POA Complicated urinary tract infection with right pyonephrosis, POA Obstructing right ureteropelvic junction calculus measuring 6 mm causing moderate right-sided hydronephrosis, POA Status post cystourethroscopy with right ureteroscopy and laser lithotripsy right ureteral calculi, multiple, 05/26/2024 Significant leukocytosis, POA Acute kidney injury, POA Moderate lactic acidosis, POA Morbid obesity, POA Frailty, POA Underlying history of hypertension, POA Hyperlipidemia, POA Significant nephrolithiasis noted of the right kidney, 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 Disposition: Pending ID recommendations for discharge JOANNE RENEE MD May 30, 2024 12:42
--- NOTE | 2024-05-30 14:22 | PN ---
NEPHROLOGY PROGRESS NOTE Date/Time Patient Seen: May 30, 2024 Reason for Consultation: 14:22 SUBJECTIVE: This is a 78-year-old female with underlying history of hypertension, type 2 diabetes mellitus, hyperlipidemia, obesity She presented to the ER for further evaluation of high-grade fevers, confusion, nausea, poor oral intake. Patient was seen by her PCP recently and was diagnosed with a UTI and was given a course of outpatient Keflex. CT abdomen pelvis without contrast which showed findings urinary tract calculus causing obstruction. Possible right pyonephrosis. S/P Cystourethroscopy with right ureteroscopy and laser lithotripsy of right ureteral calculi, multiple, evacuation of right ureteral calculi, insertion of a right ureteral stent on 05/26/[address] Roman Urine and blood cultures positive for E coli. She continues on antibiotics as per ID The patient has rising BUN and creatinine, for which we have been consulted. The patient has low sodium also slightly. No other associated finding. Has been found to have a leukocytosis. Renal function and electrolytes are stable Pending further ID recommendations Case management coordinating SNF placement She was seen in the medical floor, in no acute distress Family at the bedside Prognosis remains guarded REVIEW OF SYSTEMS: GENERAL: Negative for any nausea, vomiting, fevers, chills, or weight loss. NEUROLOGIC: Negative for any blurry vision, blind spots, double vision, facial asymmetry, dysphagia, dysarthria, hemiparesis, hemisensory deficits, vertigo, ataxia. HEENT: Negative for any head trauma, neck trauma, neck stiffness, photophobia, phonophobia, sinusitis, rhinitis. CARDIAC: Negative for any chest pain, dyspnea on exertion, paroxysmal nocturnal dyspnea, peripheral edema. PULMONARY: Negative for any shortness of breath, wheezing, COPD, or TB exposure. GASTROINTESTINAL: Negative for any abdominal pain, nausea, vomiting, bright red blood per rectum, melena. GENITOURINARY: Negative for any dysuria, hematuria, incontinence. INTEGUMENTARY: Negative for any rashes, cuts, insect bites. RHEUMATOLOGIC: Negative for any joint pains, photosensitive rashes, history of vasculitis or kidney problems. HEMATOLOGIC: Negative for any abnormal bruising, frequent infections or bleeding. Vital Signs (last 8hr) Date Time Temp Pulse Resp B/P (MAP) Pulse Ox O2 Delivery O2 Flow Rate FiO2 05/25/24 13:00 88 15 155/69 94 Room Air 05/25/24 12:00 98.8 101 19 152/85 94 Room Air 05/25/24 11:00 97 18 138/70 93 Room Air 05/25/24 10:00 90 18 158/63 93 Room Air 05/25/24 09:00 91 23 150/77 94 Room Air 05/25/24 08:30 92 15 145/74 93 Room Air 05/25/24 08:00 99.7 95 20 155/84 93 Room Air 05/25/24 08:00 93 Room Air* 0 21 05/25/24 07:30 93 20 141/78 92 Room Air 05/25/24 07:00 94 16 139/105 94 Room Air 05/25/24 06:41 91 18 05/25/24 06:41 91 18 N/A Room Air 21 PHYSICAL EXAM: GENERAL: Alert and oriented x 3. No acute distress. Well-nourished. EYES: EOMI. Anicteric. HENT: Moist mucous membranes. No scleral icterus. No cervical lymphadenopathy. LUNGS: Clear to auscultation bilaterally. No accessory muscle use. CARDIOVASCULAR: Regular rate and rhythm. No murmur. No JVD. ABDOMEN: Soft, non-tender and non-distended. No palpable masses. EXTREMITIES: No edema. Non-tender.?SKIN: No rashes or lesions. Warm. NEUROLOGIC: No focal neurological deficits. CN II-XII grossly intact, but not individually tested. PSYCHIATRIC: Cooperative. Appropriate mood and affect. Current Medications Medications (Trade) Dose Ordered Sig/Madelaine Route PRN Reason Start Time Stop Time Status Last Admin Dose Admin Acetaminophen (TYLenol 325MG TAB) 650 mg Q6H PRN PO MILD PAIN (1-3) 05/24/24 15:30 06/23/24 15:29 Budesonide (Pulmicort 0.5 Mg/2ml) 0.5 mg BIDRESP IH 05/24/24 18:00 06/23/24 17:59 05/25/24 06:38 0.5 MG Insulin Human Regular (humuLIN R 100 UNIT/ML 3ML) INSULIN SLIDING SCAL... ACHS SQ 05/25/24 16:30 06/24/24 16:29 Linezolid 300 ml @ 150 mls/hr Q12H IV 05/25/24 04:00 06/04/24 03:59 05/25/24 04:30 150 MLS/HR Magnesium Sulfate 50 ml @ 0 mls/hr PROTOCOL IV 05/25/24 12:00 06/24/24 11:59 Meropenem (Merrem) 1 gm Q12H IVPB 05/24/24 15:30 06/03/24 15:29 05/25/24 03:43 1 GM Norepinephrine 250 ml @ 21.263 mls/ hr PROTOCOL IV 05/24/24 15:30 06/23/24 15:29 Ondansetron HCl (zoFRAN 4MG INJ) 4 mg Q6H PRN IVP NAUSEA/VOMITING 05/24/24 15:30 06/23/24 15:29 Pantoprazole Sodium (PROTonix 40MG INJ) 40 mg Q24H IVP 05/24/24 15:30 06/23/24 15:29 05/24/24 15:44 40 MG Pharmacy Profile Note (Lace Assessment) 1 each AD MISC 05/24/24 15:00 05/24/24 15:05 DC Sodium Chloride 1,000 ml @ 75 mls/hr [id number] IV 05/24/24 15:00 06/23/24 14:59 05/25/24 03:43 75 MLS/HR Thiamine HCl (Vitamin B-1) 100 mg Q24H IVP 05/24/24 16:00 06/23/24 15:59 05/24/24 16:09 100 MG LABORATORY: [ ] Hematology Labs: Test 05/30/24 03:51 Range/Units White Blood Count 11.3 H 4.8-10.8 K/uL Red Blood Count 4.25 4.00-5.50 MIL/uL Hemoglobin 12.4 12.0-16.0 g/dL Hematocrit 38.6 36-48 % Mean Corpuscular Volume 90.8 79-99 fL Mean Corpuscular Hemoglobin 29.2 27.0-33.0 pg Mean Corpuscular Hemoglobin Concent 32.1 32.0-36.0 g/dL Red Cell Distribution Width 14.1 11.0-15.5 % Platelet Count 261 # 130-400 K/uL Mean Platelet Volume 11.3 H 7.5-10.5 fL Immature Granulocyte % (Auto) 5.0 H 0-1 % Neutrophils (%) (Auto) 63.8 40.0-77.0 % Lymphocytes (%) (Auto) 18.2 L 21.0-51.0 % Monocytes (%) (Auto) 10.3 3.0-13.0 % Eosinophils (%) (Auto) 2.0 0.0-8.0 % Basophils (%) (Auto) 0.7 0.0-5.0 % Neutrophils # (Auto) 7.2 1.8-7.7 K/uL Lymphocytes # (Auto) 2.1 1.0-4.8 K/uL Monocytes # (Auto) 1.2 H 0.1-1.0 K/uL Eosinophils # (Auto) 0.22 0.00-0.70 K/uL Basophils # (Auto) 0.08 0.00-0.20 K/uL Absolute Immature Granulocyte (auto 0.56 0-1 K/uL Nucleated Red Blood Cells 0.0 0.0-0.19 % Chemistry Labs: Test 05/30/24 11:00 05/30/24 03:51 05/28/24 15:46 Range/Units Whole Blood Glucose 131 H 70-110 MG/DL Sodium Level 142 136-145 mmol/L Potassium Level 3.6 3.5-5.1 mmol/L Chloride Level 105 101-111 mmol/L Carbon Dioxide Level 27 21-32 mmol/L Blood Urea Nitrogen 17 7-18 mg/dL Creatinine 0.8 0.5-1.0 mg/dL Glomerular Filtration Rate Calc 75 >90 mL/min Random Glucose 127 H 70-105 mg/dL Total Calcium 8.6 8.5-10.1 mg/dL Phosphorus Level 3.6 2.5-4.9 mg/dL Magnesium Level 1.80 1.80-2.40 mg/dL Total Bilirubin 0.7 0.2-1.0 mg/dL Aspartate Amino Transf (AST/SGOT) 45 H 10-37 U/L Alanine Aminotransferase (ALT/SGPT) 30 # 12-78 U/L Alkaline Phosphatase 219 #H 50-136 U/L Total Protein 6.8 6.0-8.3 g/dL Albumin 2.0 L 3.5-5.0 g/dL Bedside Glucose Comment Notified Nurse DIAGNOSTICS / RADIOLOGY: REASON: RETROGRADE PYELOGRAM ORDERING PHYSICIAN: QUIN RUSSO MD PROCEDURE: URORETRO - UROGRAPHY RETROGRADE Fluoroscopic guidance History: RETROGRADE PYELOGRAM Fluoroscopic guidance provided. Procedure by ordering physician in operating room suite with fluoroscopic guidance. Several spot images were obtained. Impression: Fluoroscopic guidance. DICTATED BY: SHERICE SANCHEZ MD DATE: 05/27/24 1612 REASON: sob ORDERING PHYSICIAN: MAUREEN PACKER NP PROCEDURE: CXR1VW - CHEST 1VW Exam Type: CHEST 1VW Clinical Information: sob Comparison: None Findings: The lungs are clear. The heart is normal in size. There is tortuosity of the aorta which artifactually enlarges the mediastinum. No actual mediastinal pathology is detected. IMPRESSION: Tortuous aorta. Clear lungs. DICTATED BY: SHERICE SANCHEZ MD DATE: 05/26/24 1153 REASON: sepsis, confusion ORDERING PHYSICIAN: SUNG CAICEDO MD PROCEDURE: HEAD WO - CT HEAD/BRAIN W/O CONTRAST Exam Type: CT HEAD/BRAIN W/O CONTRAST Clinical Information: sepsis, confusion Comparison: None CT Dose Index (CTDI): 57.33 mGy Dose Length Product (DLP): 956.79 total mGy-cm Findings: The examination shows atrophy. There is low attenuation throughout the periventricular white matter locations, consistent with chronic small vessel ischemic changes. No acute intra- or extra-axial fluid collections are seen. There is no evidence of acute or chronic hemorrhage. There is no mass effect or shift of midline structures. There are no areas to suggest acute infarct. The skull windows show no significant abnormalities. IMPRESSION: 1. ATROPHY AND CHRONIC SMALL VESSEL ISCHEMIC CHANGES. This study was performed using dose reduction techniques to include automated exposure control and/or adjustment of the mA and/or kV according to patient size. DICTATED BY: SHERICE SANCHEZ MD DATE: 05/24/24 1625 REASON: SHORTNESS A BREATH ORDERING PHYSICIAN: CM CORRALES NP PROCEDURE: CXR1VW - CHEST 1VW Exam Type: CHEST 1VW Clinical Information: SHORTNESS A BREATH Comparison: None Findings: The lungs are clear of infiltrates. The heart is enlarged. Bony and soft tissue structures of the chest wall are unremarkable. IMPRESSION: Cardiomegaly. Clear lungs. DICTATED BY: SHERICE SANCHEZ MD DATE: 05/24/24 1525 REASON: DIFFUSE AND LEFT LOWER QUADRANT PAIN TENDERNESS WITH FEVER ORDERING PHYSICIAN: CM CORRALES NP PROCEDURE: ABD PEL WO - CT ABDOMEN/PELVIS W/O CONTRAST CT ABDOMEN PELVIS WITHOUT CONTRAST Clinical Information: DIFFUSE AND LEFT LOWER QUADRANT PAIN TENDERNESS WITH FEVER Comparison: CT Dose Index (CTDI): 28.40 mGy Dose Length Product (DLP): 1536.00 total mGy-cm PROTOCOL: Routine noncontrast helical scanning of the abdomen and pelvis was performed at 5mm collimation. Findings: There is a Right ureteropelvic junction calculus measuring 6 mm causing moderate hydronephrosis. There is extensive nephrolithiasis of the right kidney and there is air within the collecting system and the possibility of hydronephrosis on the right side must be entertained. The left side shows nonobstructing nephrolithiasis. The lung bases are clear. The stomach is unremarkable. It shows no wall thickening. No gross ulceration is seen. It is not overly distended. There are no surrounding inflammatory changes. No wall lesions are identified to suggest cancer. The spleen is unremarkable. It is not enlarged. The pancreas shows normal anatomy. It is not fatty replaced. It shows no lesions. The pancreatic duct is not dilated. The gallbladder is surgically absent. The adrenal glands are unremarkable. There is no enlargement. No lesions are noted. The liver is unremarkable. It shows no focal masses. The appendix is unremarkable. It shows no evidence of inflammation. No appendicolith is seen. The small bowel is unremarkable. There is no evidence of dilatation to suggest obstruction. No evidence of adynamic ileus is seen. There is no small bowel wall thickening to suggest enteritis. The colon is unremarkable. The urinary bladder is unremarkable. There is no wall thickening to suggest tumor or inflammation. There are no intraluminal calculi. There are no diverticula. There is no evidence of chronic bladder outlet obstruction. There is no evidence of urinary bladder distention to suggest urinary retention. The other pelvic structures are unremarkable. The bony and vascular structures are unremarkable for the patient's age. IMPRESSION: Urinary tract calculus causing obstruction. Possible right pyonephrosis. This study was performed using dose reduction techniques to include automated exposure control and/or adjustment of the mA and/or kV according to patient size. 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 We have reviewed external records in detail Continue with antibiotics as per ID. Herrmann catheter as per Urology Require close monitoring of renal function and electrolytes Order CBC, CMP, and electrolytes in am BiPAP as necessary, for respiratory distress Monitor blood pressure adjust medication doses as needed Avoid hypotensive episodes May use Dilaudid 0.5 mg IV every 6 hours as needed for severe pain Monitor blood sugars Strict intake, output, and daily weight should be monitored Please renally adjust medications Avoid nephrotoxic and nonsteroidal drugs Avoid contrast if possible Will continue to monitor renal function, anemia, electrolytes Treatment plan discussed with patient Questions were answered We have discussed with the other team physicians in detail about the care plan We will continue to monitor the patient closely ATTESTATION BY PHYSICIAN I have seen and examined the patient. I reviewed the documentation, medical decision making, and treatment plan as noted by the mid-level provider above. I agree with the findings and plan of care. JESSICA RUCKER MD, [facility] May 30, 2024 14:22
--- NOTE | 2024-05-30 15:25 | PN ---
INFECTIOUS DISEASE PROGRESS NOTE Date of Service: May 30, 2024 SUBJECTIVE: This is a 78-year-old female patient who was seen and examined at bedside in room 203. Patient is awake, alert and oriented x 3. Patient is denying abdominal pain at this time. Family member visiting at bedside and concerned with patient's swollen hands. On examination observe very minimal swelling to hands which appears like previous IV infiltration. No erythema nor tenderness. No edema observe to lower extremities. Nursing to continue monitoring. Patient has a Herrmann catheter and patient is currently denying burning on urination. We will continue on ceftriaxone2 g IV every 24 hours for E Coli bacteremia and urinary tract infection. We will follow up on the repeat blood cultures results. PHYSICAL EXAM EYES: Anicteric. Pupils equal and reactive. HENT: No oral thrush seen, moist Oral mucosa NECK: Supple, no JVD or thyromegaly. LUNGS: Good air entry. No rales, no rhonchi. CARDIOVASCULAR: S1, S2 regular. No murmur heard. ABDOMEN: Soft, non tender, bowel sounds present, no organomegaly CENTRAL NERVOUS SYSTEM: Awake, alert, oriented x 3. SKIN: No rashes, no swelling. LYMPHATICS: No peripheral lymphadenopathy MUSCULOSKELETAL: No joint swelling, erythema or tenderness. EXTREMITIES: No cyanosis or clubbing BACK: No deformity, no pressure ulcer. GENITOURINARY: No dysuria or hematuria Vital Sign (Last 12 Hours) 05/30/24 05/30/24 05/30/24 05/30/24 06:30 07:14 09:45 10:57 Temp 97.5 97.9 Pulse 72 71 70 Resp 18 18 20 B/P (MAP) 156/85 153/91 Pulse Ox 95 98 94 O2 Delivery Room Air Room Air* Room Air O2 Flow Rate 0 FiO2 21 Intake & Output (last 24hrs) 05/29/24 05/29/24 05/30/24 15:00 23:00 07:00 Intake Total 50.0 ml 720 ml 50.0 ml Output Total 400 ml 1300 ml Balance 50.0 ml 320 ml -1250.0 ml LABS: Laboratory: Test 05/30/24 11:00 05/30/24 03:51 05/28/24 15:46 Range/Units Whole Blood Glucose 131 H 70-110 MG/DL White Blood Count 11.3 H 4.8-10.8 K/uL Red Blood Count 4.25 4.00-5.50 MIL/uL Hemoglobin 12.4 12.0-16.0 g/dL Hematocrit 38.6 36-48 % Mean Corpuscular Volume 90.8 79-99 fL Mean Corpuscular Hemoglobin 29.2 27.0-33.0 pg Mean Corpuscular Hemoglobin Concent 32.1 32.0-36.0 g/dL Red Cell Distribution Width 14.1 11.0-15.5 % Platelet Count 261 # 130-400 K/uL Mean Platelet Volume 11.3 H 7.5-10.5 fL Immature Granulocyte % (Auto) 5.0 H 0-1 % Neutrophils (%) (Auto) 63.8 40.0-77.0 % Lymphocytes (%) (Auto) 18.2 L 21.0-51.0 % Monocytes (%) (Auto) 10.3 3.0-13.0 % Eosinophils (%) (Auto) 2.0 0.0-8.0 % Basophils (%) (Auto) 0.7 0.0-5.0 % Neutrophils # (Auto) 7.2 1.8-7.7 K/uL Lymphocytes # (Auto) 2.1 1.0-4.8 K/uL Monocytes # (Auto) 1.2 H 0.1-1.0 K/uL Eosinophils # (Auto) 0.22 0.00-0.70 K/uL Basophils # (Auto) 0.08 0.00-0.20 K/uL Absolute Immature Granulocyte (auto 0.56 0-1 K/uL Nucleated Red Blood Cells 0.0 0.0-0.19 % Sodium Level 142 136-145 mmol/L Potassium Level 3.6 3.5-5.1 mmol/L Chloride Level 105 101-111 mmol/L Carbon Dioxide Level 27 21-32 mmol/L Blood Urea Nitrogen 17 7-18 mg/dL Creatinine 0.8 0.5-1.0 mg/dL Glomerular Filtration Rate Calc 75 >90 mL/min Random Glucose 127 H 70-105 mg/dL Total Calcium 8.6 8.5-10.1 mg/dL Phosphorus Level 3.6 2.5-4.9 mg/dL Magnesium Level 1.80 1.80-2.40 mg/dL Total Bilirubin 0.7 0.2-1.0 mg/dL Aspartate Amino Transf (AST/SGOT) 45 H 10-37 U/L Alanine Aminotransferase (ALT/SGPT) 30 # 12-78 U/L Alkaline Phosphatase 219 #H 50-136 U/L Total Protein 6.8 6.0-8.3 g/dL Albumin 2.0 L 3.5-5.0 g/dL Bedside Glucose Comment Notified Nurse ASSESSMENT: E coli bacteremia. Urinary tract infection with E coli. Right-sided hydronephrosis, status post cystoscopy and stenting on 05/26/2024. Leukocytosis. Acute renal failure, improving. Hypokalemia. Diabetes mellitus. PLAN: Continue ceftriaxone. Continue GI prophylaxis. Pending results on the on the repeat blood cultures. Continue pain management. Continue antiemetics. Continue monitoring glucose levels. We will monitor electrolytes. This case was reviewed and discussed with my supervising physician and the above assessment and plan was formulated and agreed upon. ATTESTATION BY PHYSICIAN I have seen and examined the patient. I reviewed the documentation, medical decision making, and treatment plan as noted by the mid-level provider above. I agree with the findings and plan of care. SOFIA HOLDER MD, MIRTA L STEPDOWN NURSE May 30, 2024 15:25
[2024-05-31] VITALS (11 sets, daily range): BP systolic 149–161; BP diastolic 75–94; PULSE 70–79; RESP 18; TEMP 97.8–98.7; O2SAT 94–98
[2024-05-31 03:42] LABS: HEMATOCRIT 38.2 % (36-48); MEAN CORPUSCULAR HEMOGLOBIN 28.8 pg (27.0-33.0); MEAN CORPUSCULAR HGB CONC 32.5 g/dL (32.0-36.0); MEAN CORPUSCULAR VOLUME 88.8 fL (79-99); RED BLOOD CELL COUNT(AUTO) 4.3 MIL/uL (4.00-5.50); RED CELL DISTRIBUTION WIDTH 14.1 % (11.0-15.5); WHITE BLOOD COUNT (AUTO) 10.6 K/uL (4.8-10.8)
[2024-05-31 03:57] LABS: CREATININE 0.8 mg/dL (0.5-1.0); PHOSPHORUS 3.9 mg/dL (2.5-4.9); POTASSIUM 3.5 mmol/L (3.5-5.1)
--- NOTE | 2024-05-31 07:20 | PN ---
[facility] PROGRESS NOTE Date of Service: May 31, 2024 Time of Service: 07:10 SUBJECTIVE/INTERVAL HISTORY 05/25 patient seen at bedside, no acute events overnight. She has been afebrile, hemodynamically stable saturating well on room air. She has not required any pressors, WBC improved from 20/6 0.4 down to 14.0, hemoglobin decreased from 13.5 down to 10.4, platelets decreased from 172 down to 112, creatinine increased from 2.0 up to 2.4, lactic acid improved from 2.6 down to 2.0, remainder of her labs are relatively unremarkable. Urology planning to take patient for cystogram with possible stent placement and other intervention tomorrow, we will continue with empiric antibiotics and IV fluids. Patient responding appropriately, has no complaints this morning. 05/26 patient seen at bedside, no acute events overnight. Patient pending cystogram today with Urology, we will follow up postprocedure. Patient growing E coli in the blood and 1/2 bottles, we will consult Infectious Disease. Urine growing E coli, we will continue with meropenem, probably can be de-escalated to ceftriaxone, we will defer to Infectious Disease. Creatinine improved from 2.4 down to 1.7, WBC increased from 14.0 up to 14.7, hemoglobin improved from 10.4 up to 11.8, platelets increased from 112 up to 157 remainder of her labs are relatively unremarkable. 05/27 patient is seen and examined at bedside, no acute events overnight, remains hemodynamically stable, afebrile. WBC today 18.7. Urine culture positive for E coli. Blood cultures positive for E coli. The patient remains on broad- spectrum IV antibiotics. ID input noted and appreciated. Patient is started on Rocephin 2 g IV daily. Follow repeat two sets of blood culture. Pending urogram. Patient underwent successful laser in off multiple stones obstructing the right ureter by urologist 05/26/2024, tolerated the procedure well. Daughter not present in the room at the time of my visit. Grandson is present. Phone call made to the daughter, updated over the phone, all questions answered, agreed with plan of care and understood all the information provided. 05/28 patient is seen and examined at bedside, no acute events overnight, remains hemodynamically stable, afebrile. Urine culture positive for E coli. Blood cultures positive for E coli. The patient remains on broad-spectrum IV antibiotics. ID input noted and appreciated. Patient is started on Rocephin 2 g IV daily. Follow repeat two sets of blood culture. Patient underwent successful laser in off multiple stones obstructing the right ureter by urologist 05/26/2024, tolerated the procedure well. Daughter updated over the phone. 05/29 patient is seen and examined at bedside, no acute events overnight, remains hemodynamically stable, saturating normal on room air. She is getting I V antibiotics. WBC slowly trending down, today 12.9. Yesterday 15.9. Potassium at 3.3. Results of septic workup reviewed and discussed with the daughter at bedside. Patient with a urine culture positive for E coli, blood culture positive for E coli, we will continue the patient on broad-spectrum IV antibiotics. Continue to follow ID input and recommendations. Follow repeat t wo sets of blood cultures. 05/30 patient is seen at bedside, no acute events overnight. She has been afebrile, hemodynamically stable saturating well on room air. Mildly hypertensive, we will restart her home losartan at 50 mg Q 24 hours. WBC improved from 12.9 down to 11.3, hemoglobin improved from 11.3 up to 12.4, remainder of her labs are relatively unremarkable. We will follow up with Infectious Disease regarding discharge antibiotic recommendations. We will continue with IV ceftriaxone 05/31 patient seen at bedside, no acute events overnight. She has been afebrile, hemodynamically stable saturating well on room air, mildly hypertensive, we will start losartan 50 mg twice daily. We will follow up with Infectious Disease regarding discharge antibiotics. Repeat blood cultures are no growth to date x3 days. Pending SNF placement, appreciate case management assistance REVIEW OF SYSTEMS 12 point review of systems negative unless noted in HPI PHYSICAL EXAM GENERAL APPEARANCE: Patient is Able to tell me her name but otherwise appears lethargic NEUROLOGICAL: Cranial nerves II-XII grossly intact. Motor is 5/5 in bilateral upper and lower extremities proximal to distal. No sensory deficits. HEENT: Face is symmetric. Pupils are equal and reactive. Extraocular movements are intact. NECK: Supple. No JVD. No thyromegaly. No submental, submandibular, pre- /postauricular, occipital or supraclavicular lymphadenopathy. CHEST: Normal chest expansion. No Telemetry. LUNGS: Minimal crackles noted bilateral lung bases CARDIOVASCULAR: Regular. S1 and S2 normal. No appreciable rubs, murmurs or gallops. ABDOMEN: No significant tenderness noted of the abdomen : Deferred. No Herrmann. EXTREMITIES: Non-edematous and not cyanotic. No clubbing. Good capillary refill. SKIN: No skin breakdown. Vital Signs (last 8hr) Date Time Temp Pulse Resp B/P (MAP) Pulse Ox O2 Delivery O2 Flow Rate FiO2 05/31/24 05:00 78 18 150/75 95 Room Air 05/31/24 03:26 98.1 79 18 161/94 94 Room Air 05/30/24 23:17 97.7 71 16 152/92 94 Room Air LABS: Laboratory: Test 05/31/24 03:33 05/30/24 19:34 05/30/24 03:51 Range/Units White Blood Count 10.6 4.8-10.8 K/uL Red Blood Count 4.30 4.00-5.50 MIL/uL Hemoglobin 12.4 12.0-16.0 g/dL Hematocrit 38.2 36-48 % Mean Corpuscular Volume 88.8 79-99 fL Mean Corpuscular Hemoglobin 28.8 27.0-33.0 pg Mean Corpuscular Hemoglobin Concent 32.5 32.0-36.0 g/dL Red Cell Distribution Width 14.1 11.0-15.5 % Platelet Count 308 130-400 K/uL Mean Platelet Volume 10.9 H 7.5-10.5 fL Nucleated Red Blood Cells 0.0 0.0-0.19 % Sodium Level 145 136-145 mmol/L Potassium Level 3.5 3.5-5.1 mmol/L Chloride Level 109 101-111 mmol/L Carbon Dioxide Level 27 21-32 mmol/L Blood Urea Nitrogen 16 7-18 mg/dL Creatinine 0.8 0.5-1.0 mg/dL Glomerular Filtration Rate Calc 75 >90 mL/min Random Glucose 135 H 70-105 mg/dL Total Calcium 8.5 8.5-10.1 mg/dL Phosphorus Level 3.9 2.5-4.9 mg/dL Whole Blood Glucose 160 H 70-110 MG/DL Immature Granulocyte % (Auto) 5.0 H 0-1 % Neutrophils (%) (Auto) 63.8 40.0-77.0 % Lymphocytes (%) (Auto) 18.2 L 21.0-51.0 % Monocytes (%) (Auto) 10.3 3.0-13.0 % Eosinophils (%) (Auto) 2.0 0.0-8.0 % Basophils (%) (Auto) 0.7 0.0-5.0 % Neutrophils # (Auto) 7.2 1.8-7.7 K/uL Lymphocytes # (Auto) 2.1 1.0-4.8 K/uL Monocytes # (Auto) 1.2 H 0.1-1.0 K/uL Eosinophils # (Auto) 0.22 0.00-0.70 K/uL Basophils # (Auto) 0.08 0.00-0.20 K/uL Absolute Immature Granulocyte (auto 0.56 0-1 K/uL Magnesium Level 1.80 1.80-2.40 mg/dL Total Bilirubin 0.7 0.2-1.0 mg/dL Aspartate Amino Transf (AST/SGOT) 45 H 10-37 U/L Alanine Aminotransferase (ALT/SGPT) 30 # 12-78 U/L Alkaline Phosphatase 219 #H 50-136 U/L Total Protein 6.8 6.0-8.3 g/dL Albumin 2.0 L 3.5-5.0 g/dL Current Medications Medications (Trade) Dose Ordered Sig/Madelaine Route PRN Reason Start Time Stop Time Status Last Admin Dose Admin Acetaminophen (TYLenol 325MG TAB) 650 mg Q6H PRN PO MILD PAIN (1-3) 05/24/24 15:30 06/23/24 15:29 Budesonide (Pulmicort 0.5 Mg/2ml) 0.5 mg BIDRESP IH 05/24/24 18:00 06/23/24 17:59 05/31/24 06:47 0.5 MG Ceftriaxone Sodium (Rocephin 2gm Inj) 2 gm Q24H IVPB 05/27/24 10:00 06/06/24 09:59 05/30/24 10:40 2 GM Enoxaparin Sodium (Lovenox) 40 mg DAILY SQ 05/28/24 09:00 06/27/24 08:59 05/30/24 09:36 40 MG Insulin Human Regular (humuLIN R 100 UNIT/ML 3ML) INSULIN SLIDING SCAL... ACHS SQ 05/25/24 16:30 06/24/24 16:29 Linezolid 300 ml @ 150 mls/hr Q12H IV 05/25/24 04:00 05/26/24 15:59 DC 05/26/24 04:18 150 MLS/HR Losartan Potassium (CozAAR 25MG TAB) 25 mg DAILY PO 05/30/24 09:00 05/31/24 03:56 DC 05/30/24 09:36 25 MG Losartan Potassium (CozAAR 25MG TAB) 50 mg BID PO 05/31/24 09:00 06/29/24 08:59 Magnesium Sulfate 50 ml @ 0 mls/hr PROTOCOL IV 05/25/24 12:00 06/24/24 11:59 05/30/24 05:28 25 MLS/HR Meropenem (Merrem 1gm) 1 gm Q12H IVPB 05/24/24 15:30 05/27/24 09:56 DC 05/27/24 03:00 1 GM Norepinephrine 250 ml @ 21.263 mls/ hr PROTOCOL IV 05/24/24 15:30 06/23/24 15:29 Ondansetron HCl (zoFRAN 4MG INJ) 4 mg Q6H PRN IVP NAUSEA/VOMITING 05/24/24 15:30 06/23/24 15:29 Pantoprazole Sodium (PROTonix 40MG INJ) 40 mg Q24H IVP 05/24/24 15:30 06/23/24 15:29 05/30/24 15:58 40 MG Pharmacy Profile Note (Lace Assessment) 1 each AD MISC 05/24/24 15:00 05/24/24 15:05 DC Potassium Chloride 100 ml @ 100 mls/hr AD PRN IV POTASSIUM PROTOCOL 05/29/24 06:00 06/28/24 05:59 Potassium Chloride (K-Dur 10meq Sr Tab) 10 meq AD PRN PO POTASSIUM PROTOCOL 05/29/24 19:30 06/28/24 05:59 05/30/24 05:24 10 MEQ Potassium Chloride (K-Dur/Klor-Con 20meq) 10 meq AD PRN PO POTASSIUM PROTOCOL 05/29/24 06:00 05/29/24 19:29 DC 05/29/24 09:05 10 MEQ Potassium Chloride (KCl 10% Elixir 20meq/15ml) 10 meq AD PRN PO POTASSIUM PROTOCOL 05/29/24 06:00 06/28/24 05:59 Sodium Chloride 1,000 ml @ 75 mls/hr [id number] IV 05/24/24 15:00 05/26/24 16:00 DC 05/26/24 06:01 75 MLS/HR Thiamine HCl (Vitamin B-1) 100 mg Q24H IVP 05/24/24 16:00 06/23/24 15:59 05/30/24 15:58 100 MG DIAGNOSTICS / RADIOLOGY: [ ] ASSESSMENT: Severe sepsis, 2/2 complicated urinary tract infection, POA Toxic/metabolic encephalopathy, POA Gram-negative bacteremia secondary to E coli, POA Complicated urinary tract infection with right pyonephrosis, POA Obstructing right ureteropelvic junction calculus measuring 6 mm causing moderate right-sided hydronephrosis, POA Status post cystourethroscopy with right ureteroscopy and laser lithotripsy right ureteral calculi, multiple, 05/26/2024 Significant leukocytosis, POA Acute kidney injury, POA Moderate lactic acidosis, POA Morbid obesity, POA Frailty, POA Underlying history of hypertension, POA Hyperlipidemia, POA Significant nephrolithiasis noted of the right kidney, 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 Disposition: Pending ID recommendations for discharge , SNF Placement JOANNE RENEE MD May 31, 2024 07:20
--- NOTE | 2024-05-31 08:00 | NUR ---
pt sitting up in chair shower completed by [place] also hair washed by [employer] linens changed family at bedside
[2024-05-31] MEDS: LoSARTan 25 MG TABLET PO SCH (09:37)
--- NOTE | 2024-05-31 11:05 | NUR ---
report called report to Juanita ROBERTS
--- NOTE | 2024-05-31 11:50 | NUR ---
RECEIVED TRANSFER FROM 2ND FLOOR. PATIENT CAME IN BED, ALERT, ORIENTED IN PERSON AND PLACE. FAMILY AT BEDSIDE. NO SHORTNESS OF BREATH NOTED. PIV ON LEFT ANTECUBITAL 20G, PATENT, FLUSHED AND LEFT ON SALINE LOCK. ABDOMEN DISTENDED, SOFT, NON TENDER. USES ADULT DIAPERS. BOWEL SOUNDS PRESENT ON ALL FOUR ABDOMINAL QUADRANTS. 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 DORSALIS PEDIS PULSES PRESENT AND STRONG ON BOTH FEET. UNSTEADY GAIT. TELE PACK #27 SINUS RHYTHM IN THE 70s. BROUSSARD CATHETER 16 FR PATENT AND DRAINING TO GRAVITY.
--- NOTE | 2024-05-31 12:00 | NUR ---
BLOOD GLUCOSE 112. NO INSULIN COVERAGE NEEDED AT THIS TIME.
--- NOTE | 2024-05-31 13:35 | PN ---
NEPHROLOGY PROGRESS NOTE Date/Time Patient Seen: May 31, 2024 Reason for Consultation: 13:34 SUBJECTIVE: This is a 78-year-old female with underlying history of hypertension, type 2 diabetes mellitus, hyperlipidemia, obesity She presented to the ER for further evaluation of high-grade fevers, confusion, nausea, poor oral intake. Patient was seen by her PCP recently and was diagnosed with a UTI and was given a course of outpatient Keflex. CT abdomen pelvis without contrast which showed findings urinary tract calculus causing obstruction. Possible right pyonephrosis. S/P Cystourethroscopy with right ureteroscopy and laser lithotripsy of right ureteral calculi, multiple, evacuation of right ureteral calculi, insertion of a right ureteral stent on 05/26/[address] Roman Urine and blood cultures positive for E coli. She continues on antibiotics as per ID The patient has rising BUN and creatinine, for which we have been consulted. The patient has low sodium also slightly. Has been found to have a leukocytosis. Renal function and electrolytes are stable Pending further ID recommendations Case management coordinating SNF placement She was seen in the medical floor, in no acute distress Family at the bedside Prognosis remains guarded REVIEW OF SYSTEMS: GENERAL: Negative for any nausea, vomiting, fevers, chills, or weight loss. NEUROLOGIC: Negative for any blurry vision, blind spots, double vision, facial asymmetry, dysphagia, dysarthria, hemiparesis, hemisensory deficits, vertigo, ataxia. HEENT: Negative for any head trauma, neck trauma, neck stiffness, photophobia, phonophobia, sinusitis, rhinitis. CARDIAC: Negative for any chest pain, dyspnea on exertion, paroxysmal nocturnal dyspnea, peripheral edema. PULMONARY: Negative for any shortness of breath, wheezing, COPD, or TB exposure. GASTROINTESTINAL: Negative for any abdominal pain, nausea, vomiting, bright red blood per rectum, melena. GENITOURINARY: Negative for any dysuria, hematuria, incontinence. INTEGUMENTARY: Negative for any rashes, cuts, insect bites. RHEUMATOLOGIC: Negative for any joint pains, photosensitive rashes, history of vasculitis or kidney problems. HEMATOLOGIC: Negative for any abnormal bruising, frequent infections or bl eeding. Vital Signs (last 8hr) Date Time Temp Pulse Resp B/P (MAP) Pulse Ox O2 Delivery O2 Flow Rate FiO2 05/25/24 13:00 88 15 155/69 94 Room Air 05/25/24 12:00 98.8 101 19 152/85 94 Room Air 05/25/24 11:00 97 18 138/70 93 Room Air 05/25/24 10:00 90 18 158/63 93 Room Air 05/25/24 09:00 91 23 150/77 94 Room Air 05/25/24 08:30 92 15 145/74 93 Room Air 05/25/24 08:00 99.7 95 20 155/84 93 Room Air 05/25/24 08:00 93 Room Air* 0 21 05/25/24 07:30 93 20 141/78 92 Room Air 05/25/24 07:00 94 16 139/105 94 Room Air 05/25/24 06:41 91 18 05/25/24 06:41 91 18 N/A Room Air 21 PHYSICAL EXAM: GENERAL: Alert and oriented x 3. No acute distress. Well-nourished. EYES: EOMI. Anicteric. HENT: Moist mucous membranes. No scleral icterus. No cervical lymphadenopathy. LUNGS: Clear to auscultation bilaterally. No accessory muscle use. CARDIOVASCULAR: Regular rate and rhythm. No murmur. No JVD. ABDOMEN: Soft, non-tender and non-distended. No palpable masses. EXTREMITIES: No edema. Non-tender.?SKIN: No rashes or lesions. Warm. NEUROLOGIC: No focal neurological deficits. CN II-XII grossly intact, but not individually tested. PSYCHIATRIC: Cooperative. Appropriate mood and affect. Current Medications Medications (Trade) Dose Ordered Sig/Madelaine Route PRN Reason Start Time Stop Time Status Last Admin Dose Admin Acetaminophen (TYLenol 325MG TAB) 650 mg Q6H PRN PO MILD PAIN (1-3) 05/24/24 15:30 06/23/24 15:29 Budesonide (Pulmicort 0.5 Mg/2ml) 0.5 mg BIDRESP IH 05/24/24 18:00 06/23/24 17:59 05/25/24 06:38 0.5 MG Insulin Human Regular (humuLIN R 100 UNIT/ML 3ML) INSULIN SLIDING SCAL... ACHS SQ 05/25/24 16:30 06/24/24 16:29 Linezolid 300 ml @ 150 mls/hr Q12H IV 05/25/24 04:00 06/04/24 03:59 05/25/24 04:30 150 MLS/HR Magnesium Sulfate 50 ml @ 0 mls/hr PROTOCOL IV 05/25/24 12:00 06/24/24 11:59 Meropenem (Merrem) 1 gm Q12H IVPB 05/24/24 15:30 06/03/24 15:29 05/25/24 03:43 1 GM Norepinephrine 250 ml @ 21.263 mls/ hr PROTOCOL IV 05/24/24 15:30 06/23/24 15:29 Ondansetron HCl (zoFRAN 4MG INJ) 4 mg Q6H PRN IVP NAUSEA/VOMITING 05/24/24 15:30 06/23/24 15:29 Pantoprazole Sodium (PROTonix 40MG INJ) 40 mg Q24H IVP 05/24/24 15:30 06/23/24 15:29 05/24/24 15:44 40 MG Pharmacy Profile Note (Lace Assessment) 1 each AD MISC 05/24/24 15:00 05/24/24 15:05 DC Sodium Chloride 1,000 ml @ 75 mls/hr [id number] IV 05/24/24 15:00 06/23/24 14:59 05/25/24 03:43 75 MLS/HR Thiamine HCl (Vitamin B-1) 100 mg Q24H IVP 05/24/24 16:00 06/23/24 15:59 05/24/24 16:09 100 MG LABORATORY: [ ] Hematology Labs: Test 05/31/24 03:33 05/30/24 03:51 Range/Units White Blood Count 10.6 4.8-10.8 K/uL Red Blood Count 4.30 4.00-5.50 MIL/uL Hemoglobin 12.4 12.0-16.0 g/dL Hematocrit 38.2 36-48 % Mean Corpuscular Volume 88.8 79-99 fL Mean Corpuscular Hemoglobin 28.8 27.0-33.0 pg Mean Corpuscular Hemoglobin Concent 32.5 32.0-36.0 g/dL Red Cell Distribution Width 14.1 11.0-15.5 % Platelet Count 308 130-400 K/uL Mean Platelet Volume 10.9 H 7.5-10.5 fL Nucleated Red Blood Cells 0.0 0.0-0.19 % Immature Granulocyte % (Auto) 5.0 H 0-1 % Neutrophils (%) (Auto) 63.8 40.0-77.0 % Lymphocytes (%) (Auto) 18.2 L 21.0-51.0 % Monocytes (%) (Auto) 10.3 3.0-13.0 % Eosinophils (%) (Auto) 2.0 0.0-8.0 % Basophils (%) (Auto) 0.7 0.0-5.0 % Neutrophils # (Auto) 7.2 1.8-7.7 K/uL Lymphocytes # (Auto) 2.1 1.0-4.8 K/uL Monocytes # (Auto) 1.2 H 0.1-1.0 K/uL Eosinophils # (Auto) 0.22 0.00-0.70 K/uL Basophils # (Auto) 0.08 0.00-0.20 K/uL Absolute Immature Granulocyte (auto 0.56 0-1 K/uL Chemistry Labs: Test 05/31/24 12:33 05/31/24 03:33 05/30/24 03:51 Range/Units Whole Blood Glucose 112 H 70-110 MG/DL Sodium Level 145 136-145 mmol/L Potassium Level 3.5 3.5-5.1 mmol/L Chloride Level 109 101-111 mmol/L Carbon Dioxide Level 27 21-32 mmol/L Blood Urea Nitrogen 16 7-18 mg/dL Creatinine 0.8 0.5-1.0 mg/dL Glomerular Filtration Rate Calc 75 >90 mL/min Random Glucose 135 H 70-105 mg/dL Total Calcium 8.5 8.5-10.1 mg/dL Phosphorus Level 3.9 2.5-4.9 mg/dL Magnesium Level 1.80 1.80-2.40 mg/dL Total Bilirubin 0.7 0.2-1.0 mg/dL Aspartate Amino Transf (AST/SGOT) 45 H 10-37 U/L Alanine Aminotransferase (ALT/SGPT) 30 # 12-78 U/L Alkaline Phosphatase 219 #H 50-136 U/L Total Protein 6.8 6.0-8.3 g/dL Albumin 2.0 L 3.5-5.0 g/dL DIAGNOSTICS / RADIOLOGY: REASON: RETROGRADE PYELOGRAM ORDERING PHYSICIAN: QUIN RUSSO MD PROCEDURE: URORETRO - UROGRAPHY RETROGRADE Fluoroscopic guidance History: RETROGRADE PYELOGRAM Fluoroscopic guidance provided. Procedure by ordering physician in operating room suite with fluoroscopic guidance. Several spot images were obtained. Impression: Fluoroscopic guidance. DICTATED BY: SHERICE SANCHEZ MD DATE: 05/27/24 1612 REASON: sob ORDERING PHYSICIAN: MAUREEN PACKER NP PROCEDURE: CXR1VW - CHEST 1VW Exam Type: CHEST 1VW Clinical Information: sob Comparison: None Findings: The lungs are clear. The heart is normal in size. There is tortuosity of the aorta which artifactually enlarges the mediastinum. No actual mediastinal pathology is detected. IMPRESSION: Tortuous aorta. Clear lungs. DICTATED BY: SHERICE SANCHEZ MD DATE: 05/26/24 1153 REASON: sepsis, confusion ORDERING PHYSICIAN: SUNG CAICEDO MD PROCEDURE: HEAD WO - CT HEAD/BRAIN W/O CONTRAST Exam Type: CT HEAD/BRAIN W/O CONTRAST Clinical Information: sepsis, confusion Comparison: None CT Dose Index (CTDI): 57.33 mGy Dose Length Product (DLP): 956.79 total mGy-cm Findings: The examination shows atrophy. There is low attenuation throughout the periventricular white matter locations, consistent with chronic small vessel ischemic changes. No acute intra- or extra-axial fluid collections are seen. There is no evidence of acute or chronic hemorrhage. There is no mass effect or shift of midline structures. There are no areas to suggest acute infarct. The skull windows show no significant abnormalities. IMPRESSION: 1. ATROPHY AND CHRONIC SMALL VESSEL ISCHEMIC CHANGES. This study was performed using dose reduction techniques to include automated exposure control and/or adjustment of the mA and/or kV according to patient size. DICTATED BY: SHERICE SANCHEZ MD DATE: 05/24/24 1625 REASON: SHORTNESS A BREATH ORDERING PHYSICIAN: CM CORRALES NP PROCEDURE: CXR1VW - CHEST 1VW Exam Type: CHEST 1VW Clinical Information: SHORTNESS A BREATH Comparison: None Findings: The lungs are clear of infiltrates. The heart is enlarged. Bony and soft tissue structures of the chest wall are unremarkable. IMPRESSION: Cardiomegaly. Clear lungs. DICTATED BY: SHERICE SANCHEZ MD DATE: 05/24/24 1525 REASON: DIFFUSE AND LEFT LOWER QUADRANT PAIN TENDERNESS WITH FEVER ORDERING PHYSICIAN: CM CORRALES NP PROCEDURE: ABD PEL WO - CT ABDOMEN/PELVIS W/O CONTRAST CT ABDOMEN PELVIS WITHOUT CONTRAST Clinical Information: DIFFUSE AND LEFT LOWER QUADRANT PAIN TENDERNESS WITH FEVER Comparison: CT Dose Index (CTDI): 28.40 mGy Dose Length Product (DLP): 1536.00 total mGy-cm PROTOCOL: Routine noncontrast helical scanning of the abdomen and pelvis was performed at 5mm collimation. Findings: There is a Right ureteropelvic junction calculus measuring 6 mm causing moderate hydronephrosis. There is extensive nephrolithiasis of the right kidney and there is air within the collecting system and the possibility of hydronephrosis on the right side must be entertained. The left side shows nonobstructing nephrolithiasis. The lung bases are clear. The stomach is unremarkable. It shows no wall thickening. No gross ulceration is seen. It is not overly distended. There are no surrounding inflammatory changes. No wall lesions are identified to suggest cancer. The spleen is unremarkable. It is not enlarged. The pancreas shows normal anatomy. It is not fatty replaced. It shows no lesions. The pancreatic duct is not dilated. The gallbladder is surgically absent. The adrenal glands are unremarkable. There is no enlargement. No lesions are noted. The liver is unremarkable. It shows no focal masses. The appendix is unremarkable. It shows no evidence of inflammation. No appendicolith is seen. The small bowel is unremarkable. There is no evidence of dilatation to suggest obstruction. No evidence of adynamic ileus is seen. There is no small bowel wall thickening to suggest enteritis. The colon is unremarkable. The urinary bladder is unremarkable. There is no wall thickening to suggest tumor or inflammation. There are no intraluminal calculi. There are no diverticula. There is no evidence of chronic bladder outlet obstruction. There is no evidence of urinary bladder distention to suggest urinary retention. The other pelvic structures are unremarkable. The bony and vascular structures are unremarkable for the patient's age. IMPRESSION: Urinary tract calculus causing obstruction. Possible right pyonephrosis. This study was performed using dose reduction techniques to include automated exposure control and/or adjustment of the mA and/or kV according to patient size. 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 We have reviewed external records in detail Case management coordinating SNF placement Continue with antibiotics as per ID. Herrmann catheter as per Urology Require close monitoring of renal function and electrolytes Order CBC, CMP, and electrolytes in am BiPAP as necessary, for respiratory distress Monitor blood pressure adjust medication doses as needed Avoid hypotensive episodes May use Dilaudid 0.5 mg IV every 6 hours as needed for severe pain Monitor blood sugars Strict intake, output, and daily weight should be monitored Please renally adjust medications Avoid nephrotoxic and nonsteroidal drugs Avoid contrast if possible Will continue to monitor renal function, anemia, electrolytes Treatment plan discussed with patient Questions were answered We have discussed with the other team physicians in detail about the care plan We will continue to monitor the patient closely ATTESTATION BY PHYSICIAN I have seen and examined the patient. I reviewed the documentation, medical decision making, and treatment plan as noted by the mid-level provider above. I agree with the findings and plan of care. JESSICA RUCKER MD, [facility] May 31, 2024 13:35
--- NOTE | 2024-05-31 15:26 | PN ---
INFECTIOUS DISEASE PROGRESS NOTE Date of Service: May 31, 2024 SUBJECTIVE: This is a 78-year-old female patient who was seen and examined at bedside in room 203. Patient is awake, alert and oriented x 3. Patient is afebrile, temperature is 98.1 and the WBC trended down to 10.6. No growth reported on the repeat blood culture for 4 days. From Infectious Disease standpoint patient can be discharged to home on cephalexin 500 mg p.o. every 8 hours times 10 days when ready to discharge. PHYSICAL EXAM EYES: Anicteric. Pupils equal and reactive. HENT: No oral thrush seen, moist Oral mucosa NECK: Supple, no JVD or thyromegaly. LUNGS: Good air entry. No rales, no rhonchi. CARDIOVASCULAR: S1, S2 regular. No murmur heard. ABDOMEN: Soft, non tender, bowel sounds present, no organomegaly CENTRAL NERVOUS SYSTEM: Awake, alert, oriented x 3. SKIN: No rashes, no swelling. LYMPHATICS: No peripheral lymphadenopathy MUSCULOSKELETAL: No joint swelling, erythema or tenderness. EXTREMITIES: No cyanosis or clubbing BACK: No deformity, no pressure ulcer. GENITOURINARY: No dysuria or hematuria. Vital Sign (Last 12 Hours) 05/31/24 05/31/24 05/31/24 05/31/24 03:26 05:00 06:47 07:14 Temp 98.1 Pulse 79 78 72 72 Resp 18 18 18 18 B/P (MAP) 161/94 150/75 Pulse Ox 94 95 O2 Delivery Room Air Room Air N/A Room Air FiO2 21 05/31/24 05/31/24 05/31/24 08:30 08:53 12:26 Temp 98.4 98.1 Pulse 70 77 Resp 18 18 B/P (MAP) 149/83 158/91 Pulse Ox 98 95 94 O2 Delivery Room Air* Room Air Room Air O2 Flow Rate 0 FiO2 21 Intake & Output (last 24hrs) 0 05/30/24 05/30/24 05/31/24 15:00 23:00 07:00 Intake Total 50.0 ml 720 ml 260.0 ml Output Total 1150 ml 825 ml 900 ml Balance -1100.0 ml -105 ml -640.0 ml LABS: Laboratory: Test 05/31/24 12:33 05/31/24 03:33 05/30/24 03:51 Range/Units Whole Blood Glucose 112 H 70-110 MG/DL White Blood Count 10.6 4.8-10.8 K/uL Red Blood Count 4.30 4.00-5.50 MIL/uL Hemoglobin 12.4 12.0-16.0 g/dL Hematocrit 38.2 36-48 % Mean Corpuscular Volume 88.8 79-99 fL Mean Corpuscular Hemoglobin 28.8 27.0-33.0 pg Mean Corpuscular Hemoglobin Concent 32.5 32.0-36.0 g/dL Red Cell Distribution Width 14.1 11.0-15.5 % Platelet Count 308 130-400 K/uL Mean Platelet Volume 10.9 H 7.5-10.5 fL Nucleated Red Blood Cells 0.0 0.0-0.19 % Sodium Level 145 136-145 mmol/L Potassium Level 3.5 3.5-5.1 mmol/L Chloride Level 109 101-111 mmol/L Carbon Dioxide Level 27 21-32 mmol/L Blood Urea Nitrogen 16 7-18 mg/dL Creatinine 0.8 0.5-1.0 mg/dL Glomerular Filtration Rate Calc 75 >90 mL/min Random Glucose 135 H 70-105 mg/dL Total Calcium 8.5 8.5-10.1 mg/dL Phosphorus Level 3.9 2.5-4.9 mg/dL Immature Granulocyte % (Auto) 5.0 H 0-1 % Neutrophils (%) (Auto) 63.8 40.0-77.0 % Lymphocytes (%) (Auto) 18.2 L 21.0-51.0 % Monocytes (%) (Auto) 10.3 3.0-13.0 % Eosinophils (%) (Auto) 2.0 0.0-8.0 % Basophils (%) (Auto) 0.7 0.0-5.0 % Neutrophils # (Auto) 7.2 1.8-7.7 K/uL Lymphocytes # (Auto) 2.1 1.0-4.8 K/uL Monocytes # (Auto) 1.2 H 0.1-1.0 K/uL Eosinophils # (Auto) 0.22 0.00-0.70 K/uL Basophils # (Auto) 0.08 0.00-0.20 K/uL Absolute Immature Granulocyte (auto 0.56 0-1 K/uL Magnesium Level 1.80 1.80-2.40 mg/dL Total Bilirubin 0.7 0.2-1.0 mg/dL Aspartate Amino Transf (AST/SGOT) 45 H 10-37 U/L Alanine Aminotransferase (ALT/SGPT) 30 # 12-78 U/L Alkaline Phosphatase 219 #H 50-136 U/L Total Protein 6.8 6.0-8.3 g/dL Albumin 2.0 L 3.5-5.0 g/dL ASSESSMENT: E coli bacteremia. Urinary tract infection with E coli. Right-sided hydronephrosis, status post cystoscopy and stenting on 05/26/2024. Leukocytosis. Acute renal failure, improving. Hypokalemia. Diabetes mellitus. PLAN: From Infectious Disease standpoint patient can be discharged to home on cephalexin 500 mg p.o. every 8 hours x 10 days when ready to discharge. This case was reviewed and discussed with my supervising physician and the above assessment and plan was formulated and agreed upon. ATTESTATION BY PHYSICIAN I have seen and examined the patient. I reviewed the documentation, medical decision making, and treatment plan as noted by the mid-level provider above. I agree with the findings and plan of care. SOFIA HOLDER MD, [facility] May 31, 2024 15:26
--- NOTE | 2024-05-31 16:18 | NUR ---
CM NOTE/WOH REFERRAL CM spoke to patient regarding d/c planning. Explained MD recommendations for short term SNF/rehab. Patients asked CM to speak to daughter. Patient agreeable to placement and with daughter's preference. CM spoke to daughter named Yue Cho [phone]. CM explained above and offered in network choices. Obtained [facility] for [place] [facility]. CM to send referral and follow up. Addendum: 05/31/24 at 1620 by EDDIE LLOYD CM Amended: Links added.
--- NOTE | 2024-05-31 16:30 | NUR ---
BLOOD GLUCOSE AT 133. NO INSULIN COVERAGE NEEDED AT THIS TIME.
--- NOTE | 2024-05-31 21:05 | PN ---
UROLOGY PROGRESS NOTE Date of Service: May 31, 2024 Time of Service: 21:03 SUBJECTIVE: Patient's clinical picture is improved remarkably. She is more alert and able to respond to questions. Clinical data she also shows improvement. Her white count is creeping up however renal function is almost normalized. She continues to have a Herrmann catheter draining to gravity with passage of mucus debris in the tubing. REVIEW OF SYSTEMS All systems reviewed negative except as stated in the HPI PHYSICAL EXAM EYES: Anicteric. Pupils equal and reactive. HENT: No oral thrush seen, moist Oral mucosa NECK: Supple, no JVD or thyromegaly. LUNGS: Good air entry. No rales, no rhonchi. CARDIOVASCULAR: S1, S2 regular. No murmur heard. ABDOMEN: Soft, non tender, bowel sounds present, no organomegaly CENTRAL NERVOUS SYSTEM: Awake, alert, oriented x 3. No focal deficits. SKIN: No rashes, no swelling. LYMPHATICS: No peripheral lymphadenopathy MUSCULOSKELETAL: No joint swelling, erythema or tenderness. EXTREMITIES: No cyanosis or clubbing BACK: No deformity, no pressure ulcer. GENITOURINARY: Normal genitalia, Herrmann catheter draining to gravity Vital Signs (last 8hr) Date Time Temp Pulse Resp B/P (MAP) Pulse Ox O2 Delivery O2 Flow Rate FiO2 05/31/24 19:39 77 18 N/A Room Air 21 05/31/24 19:39 77 18 05/31/24 16:22 98.8 79 18 157/88 77 Room Air LABS: Laboratory: Test 05/31/24 19:49 05/31/24 03:33 05/30/24 03:51 Range/Units Whole Blood Glucose 145 H 70-110 MG/DL White Blood Count 10.6 4.8-10.8 K/uL Red Blood Count 4.30 4.00-5.50 MIL/uL Hemoglobin 12.4 12.0-16.0 g/dL Hematocrit 38.2 36-48 % Mean Corpuscular Volume 88.8 79-99 fL Mean Corpuscular Hemoglobin 28.8 27.0-33.0 pg Mean Corpuscular Hemoglobin Concent 32.5 32.0-36.0 g/dL Red Cell Distribution Width 14.1 11.0-15.5 % Platelet Count 308 130-400 K/uL Mean Platelet Volume 10.9 H 7.5-10.5 fL Nucleated Red Blood Cells 0.0 0.0-0.19 % Sodium Level 145 136-145 mmol/L Potassium Level 3.5 3.5-5.1 mmol/L Chloride Level 109 101-111 mmol/L Carbon Dioxide Level 27 21-32 mmol/L Blood Urea Nitrogen 16 7-18 mg/dL Creatinine 0.8 0.5-1.0 mg/dL Glomerular Filtration Rate Calc 75 >90 mL/min Random Glucose 135 H 70-105 mg/dL Total Calcium 8.5 8.5-10.1 mg/dL Phosphorus Level 3.9 2.5-4.9 mg/dL Immature Granulocyte % (Auto) 5.0 H 0-1 % Neutrophils (%) (Auto) 63.8 40.0-77.0 % Lymphocytes (%) (Auto) 18.2 L 21.0-51.0 % Monocytes (%) (Auto) 10.3 3.0-13.0 % Eosinophils (%) (Auto) 2.0 0.0-8.0 % Basophils (%) (Auto) 0.7 0.0-5.0 % Neutrophils # (Auto) 7.2 1.8-7.7 K/uL Lymphocytes # (Auto) 2.1 1.0-4.8 K/uL Monocytes # (Auto) 1.2 H 0.1-1.0 K/uL Eosinophils # (Auto) 0.22 0.00-0.70 K/uL Basophils # (Auto) 0.08 0.00-0.20 K/uL Absolute Immature Granulocyte (auto 0.56 0-1 K/uL Magnesium Level 1.80 1.80-2.40 mg/dL Total Bilirubin 0.7 0.2-1.0 mg/dL Aspartate Amino Transf (AST/SGOT) 45 H 10-37 U/L Alanine Aminotransferase (ALT/SGPT) 30 # 12-78 U/L Alkaline Phosphatase 219 #H 50-136 U/L Total Protein 6.8 6.0-8.3 g/dL Albumin 2.0 L 3.5-5.0 g/dL DIAGNOSTICS / RADIOLOGY: A CT scan of the abdomen and pelvis without intravenous contrast was reviewed. Evidence of obstruction of the right collecting system with stones at various levels along the ureter were noted. Large stone burden in the renal pelvis on the right side noted. Nonobstructing stones on the left side noted. ASSESSMENT: 78-year-old female with significant risk factors presents with an obstructed right renal unit secondary to stone burden mounting systemic inflammatory response syndrome PLAN: 1. Patient is now postop day five status post cystourethroscopy with right ureteroscopy and laser stone treatment with placement of a stent and a Herrmann catheterizations. Clinical picture is improved. 2. Patient would need to see us in the office at an appropriate time for stent removal. 30 minutes spent to complete this visitation, more than half of the time spent at bedside in counseling and coordination of care and discussing with patient's grandson present, some time was spent discussing with members of her care team, the rest of the time was spent reviewing records. QUIN RUSSO MD May 31, 2024 21:05
[2024-06-01] VITALS (11 sets, daily range): BP systolic 134–159; BP diastolic 72–83; PULSE 66–77; RESP 17–20; TEMP 97.7–98.1; O2SAT 92–97
--- NOTE | 2024-06-01 10:59 | PN ---
[facility] PROGRESS NOTE Date of Service: Jun 01, 2024 Time of Service: 10:57 SUBJECTIVE/INTERVAL HISTORY 05/25 patient seen at bedside, no acute events overnight. She has been afebrile, hemodynamically stable saturating well on room air. She has not required any pressors, WBC improved from 20/6 0.4 down to 14.0, hemoglobin decreased from 13.5 down to 10.4, platelets decreased from 172 down to 112, creatinine increased from 2.0 up to 2.4, lactic acid improved from 2.6 down to 2.0, remainder of her labs are relatively unremarkable. Urology planning to take patient for cystogram with possible stent placement and other intervention tomorrow, we will continue with empiric antibiotics and IV fluids. Patient responding appropriately, has no complaints this morning. 05/26 patient seen at bedside, no acute events overnight. Patient pending cystogram today with Urology, we will follow up postprocedure. Patient growing E coli in the blood and 1/2 bottles, we will consult Infectious Disease. Urine growing E coli, we will continue with meropenem, probably can be de-escalated to ceftriaxone, we will defer to Infectious Disease. Creatinine improved from 2.4 down to 1.7, WBC increased from 14.0 up to 14.7, hemoglobin improved from 10.4 up to 11.8, platelets increased from 112 up to 157 remainder of her labs are relatively unremarkable. 05/27 patient is seen and examined at bedside, no acute events overnight, remains hemodynamically stable, afebrile. WBC today 18.7. Urine culture positive for E coli. Blood cultures positive for E coli. The patient remains on broad- spectrum IV antibiotics. ID input noted and appreciated. Patient is started on Rocephin 2 g IV daily. Follow repeat two sets of blood culture. Pending urogram. Patient underwent successful laser in off multiple stones obstructing the right ureter by urologist 05/26/2024, tolerated the procedure well. Daughter not present in the room at the time of my visit. Grandson is present. Phone call made to the daughter, updated over the phone, all questions answered, agreed with plan of care and understood all the information provided. 05/28 patient is seen and examined at bedside, no acute events overnight, remains hemodynamically stable, afebrile. Urine culture positive for E coli. Blood cultures positive for E coli. The patient remains on broad-spectrum IV antibiotics. ID input noted and appreciated. Patient is started on Rocephin 2 g IV daily. Follow repeat two sets of blood culture. Patient underwent successful laser in off multiple stones obstructing the right ureter by urologist 05/26/2024, tolerated the procedure well. Daughter updated over the phone. 05/29 patient is seen and examined at bedside, no acute events overnight, remains hemodynamically stable, saturating normal on room air. She is getting I V antibiotics. WBC slowly trending down, today 12.9. Yesterday 15.9. Potassium at 3.3. Results of septic workup reviewed and discussed with the daughter at bedside. Patient with a urine culture positive for E coli, blood culture positive for E coli, we will continue the patient on broad-spectrum IV antibiotics. Continue to follow ID input and recommendations. Follow repeat t wo sets of blood cultures. 05/30 patient is seen at bedside, no acute events overnight. She has been afebrile, hemodynamically stable saturating well on room air. Mildly hypertensive, we will restart her home losartan at 50 mg Q 24 hours. WBC improved from 12.9 down to 11.3, hemoglobin improved from 11.3 up to 12.4, remainder of her labs are relatively unremarkable. We will follow up with Infectious Disease regarding discharge antibiotic recommendations. We will continue with IV ceftriaxone 05/31 patient seen at bedside, no acute events overnight. She has been afebrile, hemodynamically stable saturating well on room air, mildly hypertensive, we will start losartan 50 mg twice daily. We will follow up with Infectious Disease regarding discharge antibiotics. Repeat blood cultures are no growth to date x3 days. Pending SNF placement, appreciate case management assistance 06/01 Patient seen at bedside, no acute events overnight. Patient is still pending acceptance to SNF, will follow up with case management REVIEW OF SYSTEMS 12 point review of systems negative unless noted in HPI PHYSICAL EXAM GENERAL APPEARANCE: Patient is Able to tell me her name but otherwise appears lethargic NEUROLOGICAL: Cranial nerves II-XII grossly intact. Motor is 5/5 in bilateral upper and lower extremities proximal to distal. No sensory deficits. HEENT: Face is symmetric. Pupils are equal and reactive. Extraocular movements are intact. NECK: Supple. No JVD. No thyromegaly. No submental, submandibular, pre- /postauricular, occipital or supraclavicular lymphadenopathy. CHEST: Normal chest expansion. No Telemetry. LUNGS: Minimal crackles noted bilateral lung bases CARDIOVASCULAR: Regular. S1 and S2 normal. No appreciable rubs, murmurs or gallops. ABDOMEN: No significant tenderness noted of the abdomen : Deferred. No Herrmann. EXTREMITIES: Non-edematous and not cyanotic. No clubbing. Good capillary refill. SKIN: No skin breakdown. Vital Signs (last 8hr) Date Time Temp Pulse Resp B/P (MAP) Pulse Ox O2 Delivery O2 Flow Rate FiO2 06/01/24 08:04 98.1 73 17 142/75 95 Room Air 06/01/24 07:11 69 18 N/A Room Air 21 06/01/24 07:07 69 18 06/01/24 04:00 97.7 76 18 159/83 92 Room Air LABS: Laboratory: Test 06/01/24 05:28 05/31/24 03:33 Range/Units Whole Blood Glucose 132 H 70-110 MG/DL White Blood Count 10.6 4.8-10.8 K/uL Red Blood Count 4.30 4.00-5.50 MIL/uL Hemoglobin 12.4 12.0-16.0 g/dL Hematocrit 38.2 36-48 % Mean Corpuscular Volume 88.8 79-99 fL Mean Corpuscular Hemoglobin 28.8 27.0-33.0 pg Mean Corpuscular Hemoglobin Concent 32.5 32.0-36.0 g/dL Red Cell Distribution Width 14.1 11.0-15.5 % Platelet Count 308 130-400 K/uL Mean Platelet Volume 10.9 H 7.5-10.5 fL Nucleated Red Blood Cells 0.0 0.0-0.19 % Sodium Level 145 136-145 mmol/L Potassium Level 3.5 3.5-5.1 mmol/L Chloride Level 109 101-111 mmol/L Carbon Dioxide Level 27 21-32 mmol/L Blood Urea Nitrogen 16 7-18 mg/dL Creatinine 0.8 0.5-1.0 mg/dL Glomerular Filtration Rate Calc 75 >90 mL/min Random Glucose 135 H 70-105 mg/dL Total Calcium 8.5 8.5-10.1 mg/dL Phosphorus Level 3.9 2.5-4.9 mg/dL Current Medications Medications (Trade) Dose Ordered Sig/Madelaine Route PRN Reason Start Time Stop Time Status Last Admin Dose Admin Acetaminophen (TYLenol 325MG TAB) 650 mg Q6H PRN PO MILD PAIN (1-3) 05/24/24 15:30 06/23/24 15:29 Budesonide (Pulmicort 0.5 Mg/2ml) 0.5 mg BIDRESP IH 05/24/24 18:00 06/23/24 17:59 06/01/24 07:07 0.5 MG Ceftriaxone Sodium (Rocephin 2gm Inj) 2 gm Q24H IVPB 05/27/24 10:00 06/06/24 09:59 05/31/24 09:37 2 GM Enoxaparin Sodium (Lovenox) 40 mg DAILY SQ 05/28/24 09:00 06/27/24 08:59 06/01/24 08:43 40 MG Insulin Human Regular (humuLIN R 100 UNIT/ML 3ML) INSULIN SLIDING SCAL... ACHS SQ 05/25/24 16:30 06/24/24 16:29 Linezolid 300 ml @ 150 mls/hr Q12H IV 05/25/24 04:00 05/26/24 15:59 DC 05/26/24 04:18 150 MLS/HR Losartan Potassium (CozAAR 25MG TAB) 25 mg DAILY PO 05/30/24 09:00 05/31/24 03:56 DC 05/30/24 09:36 25 MG Losartan Potassium (CozAAR 25MG TAB) 50 mg BID PO 05/31/24 09:00 06/29/24 08:59 06/01/24 08:43 50 MG Magnesium Sulfate 50 ml @ 0 mls/hr PROTOCOL IV 05/25/24 12:00 06/24/24 11:59 05/30/24 05:28 25 MLS/HR Meropenem (Merrem 1gm) 1 gm Q12H IVPB 05/24/24 15:30 05/27/24 09:56 DC 05/27/24 03:00 1 GM Norepinephrine 250 ml @ 21.263 mls/ hr PROTOCOL IV 05/24/24 15:30 06/23/24 15:29 Ondansetron HCl (zoFRAN 4MG INJ) 4 mg Q6H PRN IVP NAUSEA/VOMITING 05/24/24 15:30 3/5/25 15:29 Pantoprazole Sodium (PROTonix 40MG INJ) 40 mg Q24H IVP 05/24/24 15:30 06/23/24 15:29 05/31/24 18:05 40 MG Pharmacy Profile Note (Lace Assessment) 1 each AD MISC 05/24/24 15:00 05/24/24 15:05 DC Potassium Chloride 100 ml @ 100 mls/hr AD PRN IV POTASSIUM PROTOCOL 05/29/24 06:00 06/28/24 05:59 Potassium Chloride (K-Dur 10meq Sr Tab) 10 meq AD PRN PO POTASSIUM PROTOCOL 05/29/24 19:30 06/28/24 05:59 05/31/24 20:07 10 MEQ Potassium Chloride (K-Dur/Klor-Con 20meq) 10 meq AD PRN PO POTASSIUM PROTOCOL 05/29/24 06:00 05/29/24 19:29 DC 05/29/24 09:05 10 MEQ Potassium Chloride (KCl 10% Elixir 20meq/15ml) 10 meq AD PRN PO POTASSIUM PROTOCOL 05/29/24 06:00 06/28/24 05:59 Sodium Chloride 1,000 ml @ 75 mls/hr [id number] IV 05/24/24 15:00 05/26/24 16:00 DC 05/26/24 06:01 75 MLS/HR Thiamine HCl (Vitamin B-1) 100 mg Q24H IVP 05/24/24 16:00 06/23/24 15:59 05/31/24 18:05 100 MG DIAGNOSTICS / RADIOLOGY: [ ] ASSESSMENT: Severe sepsis, 2/2 complicated urinary tract infection, POA Toxic/metabolic encephalopathy, POA Gram-negative bacteremia secondary to E coli, POA Complicated urinary tract infection with right pyonephrosis, POA Obstructing right ureteropelvic junction calculus measuring 6 mm causing moderate right-sided hydronephrosis, POA Status post cystourethroscopy with right ureteroscopy and laser lithotripsy right ureteral calculi, multiple, 05/26/2024 Significant leukocytosis, POA Acute kidney injury, POA Moderate lactic acidosis, POA Morbid obesity, POA Frailty, POA Underlying history of hypertension, POA Hyperlipidemia, POA Significant nephrolithiasis noted of the right kidney, 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 Disposition: Pending ID recommendations for discharge , SNF Placement JOANNE RENEE MD Jun 01, 2024 10:59
--- NOTE | 2024-06-01 11:30 | NUR ---
BLOOD GLUCOSE AT 149. NO INSULIN COVERAGE NEEDED AT THIS TIME.
--- NOTE | 2024-06-01 16:30 | NUR ---
BLOOD GLUCOSE AT 113. NO INSULIN COVERAGE NEEDED AT THIS TIME.
--- NOTE | 2024-06-01 17:23 | NUR ---
Discharge Planning: Pt. is pending insurance authorization for acceptance at [facility].
--- NOTE | 2024-06-01 20:40 | PN ---
INFECTIOUS DISEASE PROGRESS NOTE Date of Service: Jun 01, 2024 SUBJECTIVE: This is a 78-year-old female patient who was seen and examined at bedside in room 203. Patient is awake, alert and oriented x 3. Patient is afebrile, temperature is 98.1 and the WBC trended down to 10.6. No growth reported on the repeat blood culture for 4 days. From Infectious Disease standpoint patient can be discharged to home on cephalexin 500 mg p.o. every 8 hours times 10 days when ready to discharge. PHYSICAL EXAM EYES: Anicteric. Pupils equal and reactive. HENT: No oral thrush seen, moist Oral mucosa NECK: Supple, no JVD or thyromegaly. LUNGS: Good air entry. No rales, no rhonchi. CARDIOVASCULAR: S1, S2 regular. No murmur heard. ABDOMEN: Soft, non tender, bowel sounds present, no organomegaly CENTRAL NERVOUS SYSTEM: Awake, alert, oriented x 3. SKIN: No rashes, no swelling. LYMPHATICS: No peripheral lymphadenopathy MUSCULOSKELETAL: No joint swelling, erythema or tenderness. EXTREMITIES: No cyanosis or clubbing BACK: No deformity, no pressure ulcer. GENITOURINARY: No dysuria or hematuria. Vital Sign (Last 12 Hours) 06/01/24 06/01/24 06/01/24 06/01/24 11:38 16:17 19:24 19:41 Temp 98.1 98.1 Pulse 73 77 68 66 Resp 17 17 20 19 B/P (MAP) 144/77 134/72 Pulse Ox 94 95 O2 Delivery Room Air Room Air N/A Room Air FiO2 21 06/01/24 20:00 Temp 97.9 Pulse 77 Resp 18 B/P (MAP) 146/82 Pulse Ox 97 O2 Delivery Room Air Intake & Output (last 24hrs) 05/31/24 05/31/24 06/01/24 15:00 23:00 07:00 Intake Total 240 ml Output Total 875 ml Balance 240 ml -875 ml LABS: Laboratory: Test 06/01/24 19:44 05/31/24 03:33 Range/Units Whole Blood Glucose 148 H 70-110 MG/DL White Blood Count 10.6 4.8-10.8 K/uL Red Blood Count 4.30 4.00-5.50 MIL/uL Hemoglobin 12.4 12.0-16.0 g/dL Hematocrit 38.2 36-48 % Mean Corpuscular Volume 88.8 79-99 fL Mean Corpuscular Hemoglobin 28.8 27.0-33.0 pg Mean Corpuscular Hemoglobin Concent 32.5 32.0-36.0 g/dL Red Cell Distribution Width 14.1 11.0-15.5 % Platelet Count 308 130-400 K/uL Mean Platelet Volume 10.9 H 7.5-10.5 fL Nucleated Red Blood Cells 0.0 0.0-0.19 % Sodium Level 145 136-145 mmol/L Potassium Level 3.5 3.5-5.1 mmol/L Chloride Level 109 101-111 mmol/L Carbon Dioxide Level 27 21-32 mmol/L Blood Urea Nitrogen 16 7-18 mg/dL Creatinine 0.8 0.5-1.0 mg/dL Glomerular Filtration Rate Calc 75 >90 mL/min Random Glucose 135 H 70-105 mg/dL Total Calcium 8.5 8.5-10.1 mg/dL Phosphorus Level 3.9 2.5-4.9 mg/dL ASSESSMENT: E coli bacteremia. Urinary tract infection with E coli. Right-sided hydronephrosis, status post cystoscopy and stenting on 05/26/2024. Leukocytosis. Acute renal failure, improving. Hypokalemia. Diabetes mellitus. Debility. PLAN: Patient was referred to [facility] for rehab and pending approval. From Infectious Disease standpoint patient can be discharged to home on cephalexin 500 mg p.o. every 8 hours x 10 days when ready to discharge. This case was reviewed and discussed with my supervising physician and the above assessment and plan was formulated and agreed upon. ATTESTATION BY PHYSICIAN I have seen and examined the patient. I reviewed the documentation, medical decision making, and treatment plan as noted by the mid-level provider above. I agree with the findings and plan of care. SOFIA HOLDER MD, M[employer]TA [employer] Jun 01, 2024 20:40
--- NOTE | 2024-06-01 22:00 | PN ---
SUBJECTIVE: This patient has renal failure, acute on chronic anemia, urinary stone, status post surgical intervention, has Herrmann in place. No other associated finding. No other aggravating or relieving factors. The patient is generally weak. The patient has white cell count still high. No fever, chills or rigors. No cough, expectoration, or hemoptysis. No abdominal pain, no nausea or vomiting. The patient has recent right ureteroscopy, laser stone treatment with placement of a stent and Herrmann. All the other systemic review is unchanged and unremarkable. The patient wants her Foleys off. PHYSICAL EXAMINATION: GENERAL: Pale, no other distress. VITAL SIGNS: Blood pressure 134/70, pulse 77, respiratory rate is 17. HEENT: Head is atraumatic. Pupils are round and reactive. Sclerae are anicteric. Conjunctivae not pale. Oral mucosa is not dry. NECK: Without masses, bruits. Thyroid is palpable. Neck has no bruits. CHEST: Shows equal thoracic percussion note being resonant in all areas. CARDIAC: Regular rhythm, no rub, no S3, S4. No parasternal heave. Apical beat is not localized. ABDOMEN: No guarding or tenderness. Bowel sounds are normoactive. No free fluid. EXTREMITIES: With no edema. NEUROLOGIC: Unchanged. LABORATORY DATA: Labs have been reviewed. The patient has old records reviewed. Imaging studies are reviewed. PROBLEMS: Renal failure, anemia, obesity, diabetes, hypertension, ureteral stent for stone. PLAN: Will be continue to maintain hydration. Herrmann catheter removal as per urology. Intermittent monitoring of renal function and electrolytes. Please avoid contrast. Seen several times. TID: [id number] RECEIPT: [id number]
[2024-06-02] VITALS (11 sets, daily range): BP systolic 131–161; BP diastolic 71–92; PULSE 70–76; RESP 18–20; TEMP 97.6–98.1; O2SAT 95–97
--- NOTE | 2024-06-02 12:37 | PN ---
[facility] PROGRESS NOTE Date of Service: Jun 02, 2024 Time of Service: 12:33 SUBJECTIVE/INTERVAL HISTORY 05/25 patient seen at bedside, no acute events overnight. She has been afebrile, hemodynamically stable saturating well on room air. She has not required any pressors, WBC improved from 20/6 0.4 down to 14.0, hemoglobin decreased from 13.5 down to 10.4, platelets decreased from 172 down to 112, creatinine increased from 2.0 up to 2.4, lactic acid improved from 2.6 down to 2.0, remainder of her labs are relatively unremarkable. Urology planning to take patient for cystogram with possible stent placement and other intervention tomorrow, we will continue with empiric antibiotics and IV fluids. Patient responding appropriately, has no complaints this morning. 05/26 patient seen at bedside, no acute events overnight. Patient pending cystogram today with Urology, we will follow up postprocedure. Patient growing E coli in the blood and 1/2 bottles, we will consult Infectious Disease. Urine growing E coli, we will continue with meropenem, probably can be de-escalated to ceftriaxone, we will defer to Infectious Disease. Creatinine improved from 2.4 down to 1.7, WBC increased from 14.0 up to 14.7, hemoglobin improved from 10.4 up to 11.8, platelets increased from 112 up to 157 remainder of her labs are relatively unremarkable. 05/27 patient is seen and examined at bedside, no acute events overnight, remains hemodynamically stable, afebrile. WBC today 18.7. Urine culture positive for E coli. Blood cultures positive for E coli. The patient remains on broad- spectrum IV antibiotics. ID input noted and appreciated. Patient is started on Rocephin 2 g IV daily. Follow repeat two sets of blood culture. Pending urogram. Patient underwent successful laser in off multiple stones obstructing the right ureter by urologist 05/26/2024, tolerated the procedure well. Daughter not present in the room at the time of my visit. Grandson is present. Phone call made to the daughter, updated over the phone, all questions answered, agreed with plan of care and understood all the information provided. 05/28 patient is seen and examined at bedside, no acute events overnight, remains hemodynamically stable, afebrile. Urine culture positive for E coli. Blood cultures positive for E coli. The patient remains on broad-spectrum IV antibiotics. ID input noted and appreciated. Patient is started on Rocephin 2 g IV daily. Follow repeat two sets of blood culture. Patient underwent successful laser in off multiple stones obstructing the right ureter by urologist 05/26/2024, tolerated the procedure well. Daughter updated over the phone. 05/29 patient is seen and examined at bedside, no acute events overnight, remains hemodynamically stable, saturating normal on room air. She is getting I V antibiotics. WBC slowly trending down, today 12.9. Yesterday 15.9. Potassium at 3.3. Results of septic workup reviewed and discussed with the daughter at bedside. Patient with a urine culture positive for E coli, blood culture positive for E coli, we will continue the patient on broad-spectrum IV antibiotics. Continue to follow ID input and recommendations. Follow repeat t wo sets of blood cultures. 05/30 patient is seen at bedside, no acute events overnight. She has been afebrile, hemodynamically stable saturating well on room air. Mildly hypertensive, we will restart her home losartan at 50 mg Q 24 hours. WBC improved from 12.9 down to 11.3, hemoglobin improved from 11.3 up to 12.4, remainder of her labs are relatively unremarkable. We will follow up with Infectious Disease regarding discharge antibiotic recommendations. We will continue with IV ceftriaxone 05/31 patient seen at bedside, no acute events overnight. She has been afebrile, hemodynamically stable saturating well on room air, mildly hypertensive, we will start losartan 50 mg twice daily. We will follow up with Infectious Disease regarding discharge antibiotics. Repeat blood cultures are no growth to date x3 days. Pending SNF placement, appreciate case management assistance 06/01 Patient seen at bedside, no acute events overnight. Patient is still pending acceptance to SNF, will follow up with case management 06/02 Patient seen at bedside, no acute events overnight. Patient is still pending acceptance to SNF, will follow up with case management. Lab holiday today, repeat labs tomorrow REVIEW OF SYSTEMS 12 point review of systems negative unless noted in HPI PHYSICAL EXAM GENERAL APPEARANCE: Patient is Able to tell me her name but otherwise appears lethargic NEUROLOGICAL: Cranial nerves II-XII grossly intact. Motor is 5/5 in bilateral upper and lower extremities proximal to distal. No sensory deficits. HEENT: Face is symmetric. Pupils are equal and reactive. Extraocular movements are intact. NECK: Supple. No JVD. No thyromegaly. No submental, submandibular, pre- /postauricular, occipital or supraclavicular lymphadenopathy. CHEST: Normal chest expansion. No Telemetry. LUNGS: Minimal crackles noted bilateral lung bases CARDIOVASCULAR: Regular. S1 and S2 normal. No appreciable rubs, murmurs or gallops. ABDOMEN: No significant tenderness noted of the abdomen : Deferred. No Herrmann. EXTREMITIES: Non-edematous and not cyanotic. No clubbing. Good capillary refill. SKIN: No skin breakdown. Vital Signs (last 8hr) Date Time Temp Pulse Resp B/P (MAP) Pulse Ox O2 Delivery O2 Flow Rate FiO2 06/02/24 08:00 97.5 76 18 156/81 95 Room Air 06/02/24 07:20 71 19 N/A Room Air 21 06/02/24 07:18 71 20 LABS: Laboratory: Test 06/02/24 11:11 Range/Units Whole Blood Glucose 114 H 70-110 MG/DL Current Medications Medications (Trade) Dose Ordered Sig/Madelaine Route PRN Reason Start Time Stop Time Status Last Admin Dose Admin Acetaminophen (TYLenol 325MG TAB) 650 mg Q6H PRN PO MILD PAIN (1-3) 05/24/24 15:30 06/23/24 15:29 Budesonide (Pulmicort 0.5 Mg/2ml) 0.5 mg BIDRESP IH 05/24/24 18:00 06/23/24 17:59 06/02/24 07:18 0.5 MG Ceftriaxone Sodium (Rocephin 2gm Inj) 2 gm Q24H IVPB 05/27/24 10:00 06/06/24 09:59 06/02/24 08:31 2 GM Enoxaparin Sodium (Lovenox) 40 mg DAILY SQ 05/28/24 09:00 06/27/24 08:59 06/02/24 08:31 40 MG Insulin Human Regular (humuLIN R 100 UNIT/ML 3ML) INSULIN SLIDING SCAL... ACHS SQ 05/25/24 16:30 06/24/24 16:29 Linezolid 300 ml @ 150 mls/hr Q12H IV 05/25/24 04:00 05/26/24 15:59 DC 05/26/24 04:18 150 MLS/HR Losartan Potassium (CozAAR 25MG TAB) 25 mg DAILY PO 05/30/24 09:00 05/31/24 03:56 DC 05/30/24 09:36 25 MG Losartan Potassium (CozAAR 25MG TAB) 50 mg BID PO 05/31/24 09:00 06/29/24 08:59 06/02/24 08:31 50 MG Magnesium Sulfate 50 ml @ 0 mls/hr PROTOCOL IV 05/25/24 12:00 06/24/24 11:59 05/30/24 05:28 25 MLS/HR Meropenem (Merrem 1gm) 1 gm Q12H IVPB 05/24/24 15:30 05/27/24 09:56 DC 05/27/24 03:00 1 GM Norepinephrine 250 ml @ 21.263 mls/ hr PROTOCOL IV 05/24/24 15:30 06/23/24 15:29 Ondansetron HCl (zoFRAN 4MG INJ) 4 mg Q6H PRN IVP NAUSEA/VOMITING 05/24/24 15:30 06/23/24 15:29 Pantoprazole Sodium (PROTonix 40MG INJ) 40 mg Q24H IVP 05/24/24 15:30 06/23/24 15:29 06/01/24 18:50 40 MG Pharmacy Profile Note (Lace Assessment) 1 each AD MISC 05/24/24 15:00 05/24/24 15:05 DC Potassium Chloride 100 ml @ 100 mls/hr AD PRN IV POTASSIUM PROTOCOL 05/29/24 06:00 06/28/24 05:59 Potassium Chloride (K-Dur 10meq Sr Tab) 10 meq AD PRN PO POTASSIUM PROTOCOL 05/29/24 19:30 06/28/24 05:59 05/31/24 20:07 10 MEQ Potassium Chloride (K-Dur/Klor-Con 20meq) 10 meq AD PRN PO POTASSIUM PROTOCOL 05/29/24 06:00 05/29/24 19:29 DC 05/29/24 09:05 10 MEQ Potassium Chloride (KCl 10% Elixir 20meq/15ml) 10 meq AD PRN PO POTASSIUM PROTOCOL 05/29/24 06:00 06/28/24 05:59 Sodium Chloride 1,000 ml @ 75 mls/hr [id number] IV 05/24/24 15:00 05/26/24 16:00 DC 05/26/24 06:01 75 MLS/HR Thiamine HCl (Vitamin B-1) 100 mg Q24H IVP 05/24/24 16:00 06/23/24 15:59 06/01/24 18:51 100 MG DIAGNOSTICS / RADIOLOGY: [ ] ASSESSMENT: Severe sepsis, 2/2 complicated urinary tract infection, POA Toxic/metabolic encephalopathy, POA Gram-negative bacteremia secondary to E coli, POA Complicated urinary tract infection with right pyonephrosis, POA Obstructing right ureteropelvic junction calculus measuring 6 mm causing moderate right-sided hydronephrosis, POA Status post cystourethroscopy with right ureteroscopy and laser lithotripsy right ureteral calculi, multiple, 05/26/2024 Significant leukocytosis, POA Acute kidney injury, POA Moderate lactic acidosis, POA Morbid obesity, POA Frailty, POA Underlying history of hypertension, POA Hyperlipidemia, POA Significant nephrolithiasis noted of the right kidney, 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 Disposition: Pending ID recommendations for discharge , SNF Placement JOANNE RENEE MD Jun 02, 2024 12:37
--- NOTE | 2024-06-02 13:40 | PN ---
NEPHROLOGY PROGRESS NOTE Date/Time Patient Seen: Jun 02, 2024 Reason for Consultation: 13:40 SUBJECTIVE: This is a 78-year-old female with underlying history of hypertension, type 2 diabetes mellitus, hyperlipidemia, obesity She presented to the ER for further evaluation of high-grade fevers, confusion, nausea, poor oral intake. Patient was seen by her PCP recently and was diagnosed with a UTI and was given a course of outpatient Keflex. CT abdomen pelvis without contrast which showed findings urinary tract calculus causing obstruction. Possible right pyonephrosis. S/P Cystourethroscopy with right ureteroscopy and laser lithotripsy of right ureteral calculi, multiple, evacuation of right ureteral calculi, insertion of a right ureteral stent on 05/26/[address] Roman Urine and blood cultures positive for E coli. She continues on antibiotics as per ID The patient has rising BUN and creatinine, for which we have been consulted. The patient has low sodium also slightly. Has been found to have a leukocytosis. Renal function and electrolytes are stable Case management coordinating SNF placement She was seen in the medical floor, in no acute distress REVIEW OF SYSTEMS: GENERAL: Negative for any nausea, vomiting, fevers, chills, or weight loss. NEUROLOGIC: Negative for any blurry vision, blind spots, double vision, facial asymmetry, dysphagia, dysarthria, hemiparesis, hemisensory deficits, vertigo, ataxia. HEENT: Negative for any head trauma, neck trauma, neck stiffness, photophobia, phonophobia, sinusitis, rhinitis. CARDIAC: Negative for any chest pain, dyspnea on exertion, paroxysmal nocturnal dyspnea, peripheral edema. PULMONARY: Negative for any shortness of breath, wheezing, COPD, or TB exposure. GASTROINTESTINAL: Negative for any abdominal pain, nausea, vomiting, bright red blood per rectum, melena. GENITOURINARY: Negative for any dysuria, hematuria, incontinence. INTEGUMENTARY: Negative for any rashes, cuts, insect bites. RHEUMATOLOGIC: Negative for any joint pains, photosensitive rashes, history of vasculitis or kidney problems. HEMATOLOGIC: Negative for any abnormal bruising, frequent infections or bleeding. Vital Signs (last 8hr) Date Time Temp Pulse Resp B/P (MAP) Pulse Ox O2 Delivery O2 Flow Rate FiO2 05/25/24 13:00 88 15 155/69 94 Room Air 05/25/24 12:00 98.8 101 19 152/85 94 Room Air 05/25/24 11:00 97 18 138/70 93 Room Air 05/25/24 10:00 90 18 158/63 93 Room Air 05/25/24 09:00 91 23 150/77 94 Room Air 05/25/24 08:30 92 15 145/74 93 Room Air 05/25/24 08:00 99.7 95 20 155/84 93 Room Air 05/25/24 08:00 93 Room Air* 0 21 05/25/24 07:30 93 20 141/78 92 Room Air 05/25/24 07:00 94 16 139/105 94 Room Air 05/25/24 06:41 91 18 05/25/24 06:41 91 18 N/A Room Air 21 PHYSICAL EXAM: GENERAL: Alert and oriented x 3. No acute distress. Well-nourished. EYES: EOMI. Anicteric. HENT: Moist mucous membranes. No scleral icterus. No cervical lymphadenopathy. LUNGS: Clear to auscultation bilaterally. No accessory muscle use. CARDIOVASCULAR: Regular rate and rhythm. No murmur. No JVD. ABDOMEN: Soft, non-tender and non-distended. No palpable masses. EXTREMITIES: No edema. Non-tender.?SKIN: No rashes or lesions. Warm. NEUROLOGIC: No focal neurological deficits. CN II-XII grossly intact, but not individually tested. PSYCHIATRIC: Cooperative. Appropriate mood and affect. Current Medications Medications (Trade) Dose Ordered Sig/Madelaine Route PRN Reason Start Time Stop Time Status Last Admin Dose Admin Acetaminophen (TYLenol 325MG TAB) 650 mg Q6H PRN PO MILD PAIN (1-3) 05/24/24 15:30 06/23/24 15:29 Budesonide (Pulmicort 0.5 Mg/2ml) 0.5 mg BIDRESP IH 05/24/24 18:00 06/23/24 17:59 05/25/24 06:38 0.5 MG Insulin Human Regular (humuLIN R 100 UNIT/ML 3ML) INSULIN SLIDING SCAL... ACHS SQ 05/25/24 16:30 06/24/24 16:29 Linezolid 300 ml @ 150 mls/hr Q12H IV 05/25/24 04:00 06/04/24 03:59 05/25/24 04:30 150 MLS/HR Magnesium Sulfate 50 ml @ 0 mls/hr PROTOCOL IV 05/25/24 12:00 06/24/24 11:59 Meropenem (Merrem) 1 gm Q12H IVPB 05/24/24 15:30 06/03/24 15:29 05/25/24 03:43 1 GM Norepinephrine 250 ml @ 21.263 mls/ hr PROTOCOL IV 05/24/24 15:30 06/23/24 15:29 Ondansetron HCl (zoFRAN 4MG INJ) 4 mg Q6H PRN IVP NAUSEA/VOMITING 05/24/24 15:30 06/23/24 15:29 Pantoprazole Sodium (PROTonix 40MG INJ) 40 mg Q24H IVP 05/24/24 15:30 06/23/24 15:29 05/24/24 15:44 40 MG Pharmacy Profile Note (Lace Assessment) 1 each AD MISC 05/24/24 15:00 05/24/24 15:05 DC Sodium Chloride 1,000 ml @ 75 mls/hr [id number] IV 05/24/24 15:00 06/23/24 14:59 05/25/24 03:43 75 MLS/HR Thiamine HCl (Vitamin B-1) 100 mg Q24H IVP 05/24/24 16:00 06/23/24 15:59 05/24/24 16:09 100 MG LABORATORY: [ ] Chemistry Labs: Test 06/02/24 11:11 Range/Units Whole Blood Glucose 114 H 70-110 MG/DL DIAGNOSTICS / RADIOLOGY: REASON: RETROGRADE PYELOGRAM ORDERING PHYSICIAN: QUIN RUSSO MD PROCEDURE: URORETRO - UROGRAPHY RETROGRADE Fluoroscopic guidance History: RETROGRADE PYELOGRAM Fluoroscopic guidance provided. Procedure by ordering physician in operating room suite with fluoroscopic guidance. Several spot images were obtained. Impression: Fluoroscopic guidance. DICTATED BY: SHERICE SANCHEZ MD DATE: 05/27/24 161 REASON: sob ORDERING PHYSICIAN: MAUREEN PACKER NP PROCEDURE: CXR1VW - CHEST 1VW Exam Type: CHEST 1VW Clinical Information: sob Comparison: None Findings: The lungs are clear. The heart is normal in size. There is tortuosity of the aorta which artifactually enlarges the mediastinum. No actual mediastinal pathology is detected. IMPRESSION: Tortuous aorta. Clear lungs. DICTATED BY: SHERICE SANCHEZ MD DATE: 05/26/24 1153 REASON: sepsis, confusion ORDERING PHYSICIAN: SUNG CAICEDO MD PROCEDURE: HEAD WO - CT HEAD/BRAIN W/O CONTRAST Exam Type: CT HEAD/BRAIN W/O CONTRAST Clinical Information: sepsis, confusion Comparison: None CT Dose Index (CTDI): 57.33 mGy Dose Length Product (DLP): 956.79 total mGy-cm Findings: The examination shows atrophy. There is low attenuation throughout the periventricular white matter locations, consistent with chronic small vessel ischemic changes. No acute intra- or extra-axial fluid collections are seen. There is no evidence of acute or chronic hemorrhage. There is no mass effect or shift of midline structures. There are no areas to suggest acute infarct. The skull windows show no significant abnormalities. IMPRESSION: 1. ATROPHY AND CHRONIC SMALL VESSEL ISCHEMIC CHANGES. This study was performed using dose reduction techniques to include automated exposure control and/or adjustment of the mA and/or kV according to patient size. DICTATED BY: SHERICE SANCHEZ MD DATE: 05/24/24 1625 REASON: SHORTNESS A BREATH ORDERING PHYSICIAN: CM CORRALES NP PROCEDURE: CXR1VW - CHEST 1VW Exam Type: CHEST 1VW Clinical Information: SHORTNESS A BREATH Comparison: None Findings: The lungs are clear of infiltrates. The heart is enlarged. Bony and soft tissue structures of the chest wall are unremarkable. IMPRESSION: Cardiomegaly. Clear lungs. DICTATED BY: SHERICE SANCHEZ MD DATE: 05/24/24 1525 REASON: DIFFUSE AND LEFT LOWER QUADRANT PAIN TENDERNESS WITH FEVER ORDERING PHYSICIAN: CM CORRALES NP PROCEDURE: ABD PEL WO - CT ABDOMEN/PELVIS W/O CONTRAST CT ABDOMEN PELVIS WITHOUT CONTRAST Clinical Information: DIFFUSE AND LEFT LOWER QUADRANT PAIN TENDERNESS WITH FEVER Comparison: CT Dose Index (CTDI): 28.40 mGy Dose Length Product (DLP): 1536.00 total mGy-cm PROTOCOL: Routine noncontrast helical scanning of the abdomen and pelvis was performed at 5mm collimation. Findings: There is a Right ureteropelvic junction calculus measuring 6 mm causing moderate hydronephrosis. There is extensive nephrolithiasis of the right kidney and there is air within the collecting system and the possibility of hydronephrosis on the right side must be entertained. The left side shows nonobstructing nephrolithiasis. The lung bases are clear. The stomach is unremarkable. It shows no wall thickening. No gross ulceration is seen. It is not overly distended. There are no surrounding inflammatory changes. No wall lesions are identified to suggest cancer. The spleen is unremarkable. It is not enlarged. The pancreas shows normal anatomy. It is not fatty replaced. It shows no lesions. The pancreatic duct is not dilated. The gallbladder is surgically absent. The adrenal glands are unremarkable. There is no enlargement. No lesions are noted. The liver is unremarkable. It shows no focal masses. The appendix is unremarkable. It shows no evidence of inflammation. No appendicolith is seen. The small bowel is unremarkable. There is no evidence of dilatation to suggest obstruction. No evidence of adynamic ileus is seen. There is no small bowel wall thickening to suggest enteritis. The colon is unremarkable. The urinary bladder is unremarkable. There is no wall thickening to suggest tumor or inflammation. There are no intraluminal calculi. There are no diverticula. There is no evidence of chronic bladder outlet obstruction. There is no evidence of urinary bladder distention to suggest urinary retention. The other pelvic structures are unremarkable. The bony and vascular structures are unremarkable for the patient's age. IMPRESSION: Urinary tract calculus causing obstruction. Possible right pyonephrosis. This study was performed using dose reduction techniques to include automated exposure control and/or adjustment of the mA and/or kV according to patient size. DICTATED BY: SHERICE SANCHEZ MD DATE: 05/24/24 1354 ASSESSMENT: Acute kidney injury Severe sepsis Complicated urinary tract infection Toxic/metabolic encephalopathy Obstructing right ureteropelvic junction calculus measuring 6 mm causing moderate right-sided hydronephrosis Significant leukocytosis Morbid obesity, Frailty Hypertension, Hyperlipidemia Significant nephrolithiasis noted of the right kidney, likely staghorn calculi History of recurrent urinary tract infection History of urinary incontinence History of depression PLAN: Labs, diagnostic, radiologic exams reviewed and interpreted by myself and supervising physician. We have reviewed external records in detail Case management coordinating SNF placement Continue with antibiotics as per ID. Herrmann catheter as per Urology Require close monitoring of renal function and electrolytes Order CBC, CMP, and electrolytes in am BiPAP as necessary, for respiratory distress Monitor blood pressure adjust medication doses as needed Avoid hypotensive episodes May use Dilaudid 0.5 mg IV every 6 hours as needed for severe pain Monitor blood sugars Strict intake, output, and daily weight should be monitored Please renally adjust medications Avoid nephrotoxic and nonsteroidal drugs Avoid contrast if possible Will continue to monitor renal function, anemia, electrolytes Treatment plan discussed with patient Questions were answered We have discussed with the other team physicians in detail about the care plan We will continue to monitor the patient closely ATTESTATION BY PHYSICIAN I have seen and examined the patient. I reviewed the documentation, medical decision making, and treatment plan as noted by the mid-level provider above. I agree with the findings and plan of care. JESSICA RUCKER MD, [facility] Jun 02, 2024 13:40
--- NOTE | 2024-06-02 14:50 | NUR ---
Discharge Planning: Patient accepted at [facility]. Patient's nurse and Dr. Busby made aware. Yellow sheet flagged and placed in patient's chart for nurse to call report.
--- NOTE | 2024-06-02 20:10 | NUR ---
MEDS SHIFT ASSESSMENT DONE, PLEASE REFER TO CHART. DUE MEDS ADMINISTERED TOLERATED WELL. KEPT RESTED AND COMFORTABLE IN BED. CALL LIGHT WITHIN REACH. FAMILY AT BEDSIDE.
--- NOTE | 2024-06-02 22:52 | PN ---
INFECTIOUS DISEASE PROGRESS NOTE Date of Service: Jun 02, 2024 SUBJECTIVE: This is a 78-year-old female patient who was seen and examined at bedside in room 203. Patient is awake, alert and oriented x 3. Patient is sitting up to the bedside chair and tolerating well. Patient is pending insurance authorization to [facility]. Herrmann catheter draining clear yellow urine. From Infectious Disease standpoint patient can be discharged on cephalexin 500 mg p.o. every 8 hours x 10 days when ready to discharge. PHYSICAL EXAM EYES: Anicteric. Pupils equal and reactive. HENT: No oral thrush seen, moist Oral mucosa NECK: Supple, no JVD or thyromegaly. LUNGS: Good air entry. No rales, no rhonchi. CARDIOVASCULAR: S1, S2 regular. No murmur heard. ABDOMEN: Soft, non tender, bowel sounds present, no organomegaly CENTRAL NERVOUS SYSTEM: Awake, alert, oriented x 3. SKIN: No rashes, no swelling. LYMPHATICS: No peripheral lymphadenopathy MUSCULOSKELETAL: No joint swelling, erythema or tenderness. EXTREMITIES: No cyanosis or clubbing BACK: No deformity, no pressure ulcer. GENITOURINARY: No dysuria or hematuria. Herrmann catheter. Vital Sign (Last 12 Hours) 06/02/24 06/02/24 06/02/24 06/02/24 12:00 16:00 18:49 18:49 Temp 98.1 97.5 Pulse 75 74 71 72 Resp 18 18 20 18 B/P (MAP) 161/92 139/71 Pulse Ox 97 96 O2 Delivery Room Air Room Air N/A Room Air FiO2 21 06/02/24 06/02/24 20:00 20:10 Temp 98.1 Pulse 74 Resp 20 B/P (MAP) 148/73 Pulse Ox 96 96 O2 Delivery Room Air Room Air* O2 Flow Rate 0 FiO2 21 Intake & Output (last 24hrs) 06/01/24 06/01/24 06/02/24 15:00 23:00 07:00 Intake Total 600 ml Output Total 400 ml 675 ml Balance 200 ml -675 ml LABS: Laboratory: Test 06/02/24 19:28 Range/Units Whole Blood Glucose 145 H 70-110 MG/DL ASSESSMENT: E coli bacteremia. Urinary tract infection with E coli. Right-sided hydronephrosis, status post cystoscopy and stenting on 05/26/2024. Leukocytosis. Acute renal failure, improving. Hypokalemia. Diabetes mellitus. Debility. PLAN: Patient was referred to [facility] for rehab and pending approval. From Infectious Disease standpoint patient can be discharged to home on cephalexin 500 mg p.o. every 8 hours x 10 days when ready to discharge. This case was reviewed and discussed with my supervising physician and the above assessment and plan was formulated and agreed upon. ATTESTATION BY PHYSICIAN I have seen and examined the patient. I reviewed the documentation, medical decision making, and treatment plan as noted by the mid-level provider above. I agree with the findings and plan of care. SOFIA HOLDER MD, [facility] [employer] Jun 02, 2024 22:52
[2024-06-03] VITALS: BP 139/66; PULSE 68; RESP 20; TEMP 98
[2024-06-03 04:00] VITALS: BP 149/73; PULSE 73; RESP 20; TEMP 97.9
[2024-06-03 05:02] LABS: HEMATOCRIT 38.6 % (36-48); MEAN CORPUSCULAR HEMOGLOBIN 29.1 pg (27.0-33.0); MEAN CORPUSCULAR HGB CONC 32.1 g/dL (32.0-36.0); MEAN CORPUSCULAR VOLUME 90.6 fL (79-99); RED BLOOD CELL COUNT(AUTO) 4.26 MIL/uL (4.00-5.50); RED CELL DISTRIBUTION WIDTH 14.1 % (11.0-15.5); WHITE BLOOD COUNT (AUTO) 11.5 K/uL (4.8-10.8)
[2024-06-03 05:16] LABS: POTASSIUM 3.4 mmol/L (3.5-5.1)
--- NOTE | 2024-06-03 05:30 | NUR ---
MEDS PT SLEPT AT INTERVALS DURING THE SHIFT. NO CONCERNS VERBALIZED. NO DISTRESS NOTED. STARTED ON PO POTASSIUM PER PROTOCOL, TOLERATED WELL. KEPT RESTED AND COMFORTABLE. CALL LIGHT WITHIN REACH. FAMILY ASLEEP AT BEDSIDE. FOR MORE CARE.
[2024-06-03 07:07] VITALS: PULSE 77; RESP 18; RESP 20; O2SAT 98
[2024-06-03 08:00] VITALS: BP 128/76; PULSE 69; RESP 18; TEMP 97.9; O2SAT 96
[2024-06-03] MEDS: PoTASSium chloRIDE 20MEQ ER 20 MEQ ERTAB PO ONE (09:30)
--- NOTE | 2024-06-03 11:39 | PN ---
[facility] PROGRESS NOTE Date of Service: Jun 03, 2024 Time of Service: 11:38 SUBJECTIVE/INTERVAL HISTORY 05/25 patient seen at bedside, no acute events overnight. She has been afebrile, hemodynamically stable saturating well on room air. She has not required any pressors, WBC improved from 20/6 0.4 down to 14.0, hemoglobin decreased from 13.5 down to 10.4, platelets decreased from 172 down to 112, creatinine increased from 2.0 up to 2.4, lactic acid improved from 2.6 down to 2.0, remainder of her labs are relatively unremarkable. Urology planning to take patient for cystogram with possible stent placement and other intervention tomorrow, we will continue with empiric antibiotics and IV fluids. Patient responding appropriately, has no complaints this morning. 05/26 patient seen at bedside, no acute events overnight. Patient pending cystogram today with Urology, we will follow up postprocedure. Patient growing E coli in the blood and 1/2 bottles, we will consult Infectious Disease. Urine growing E coli, we will continue with meropenem, probably can be de-escalated to ceftriaxone, we will defer to Infectious Disease. Creatinine improved from 2.4 down to 1.7, WBC increased from 14.0 up to 14.7, hemoglobin improved from 10.4 up to 11.8, platelets increased from 112 up to 157 remainder of her labs are relatively unremarkable. 05/27 patient is seen and examined at bedside, no acute events overnight, remains hemodynamically stable, afebrile. WBC today 18.7. Urine culture positive for E coli. Blood cultures positive for E coli. The patient remains on broad- spectrum IV antibiotics. ID input noted and appreciated. Patient is started on Rocephin 2 g IV daily. Follow repeat two sets of blood culture. Pending urogram. Patient underwent successful laser in off multiple stones obstructing the right ureter by urologist 05/26/2024, tolerated the procedure well. Daughter not present in the room at the time of my visit. Grandson is present. Phone call made to the daughter, updated over the phone, all questions answered, agreed with plan of care and understood all the information provided. 05/28 patient is seen and examined at bedside, no acute events overnight, remains hemodynamically stable, afebrile. Urine culture positive for E coli. Blood cultures positive for E coli. The patient remains on broad-spectrum IV antibiotics. ID input noted and appreciated. Patient is started on Rocephin 2 g IV daily. Follow repeat two sets of blood culture. Patient underwent successful laser in off multiple stones obstructing the right ureter by urologist 05/26/2024, tolerated the procedure well. Daughter updated over the phone. 05/29 patient is seen and examined at bedside, no acute events overnight, remains hemodynamically stable, saturating normal on room air. She is getting I V antibiotics. WBC slowly trending down, today 12.9. Yesterday 15.9. Potassium at 3.3. Results of septic workup reviewed and discussed with the daughter at bedside. Patient with a urine culture positive for E coli, blood culture positive for E coli, we will continue the patient on broad-spectrum IV antibiotics. Continue to follow ID input and recommendations. Follow repeat t wo sets of blood cultures. 05/30 patient is seen at bedside, no acute events overnight. She has been afebrile, hemodynamically stable saturating well on room air. Mildly hypertensive, we will restart her home losartan at 50 mg Q 24 hours. WBC improved from 12.9 down to 11.3, hemoglobin improved from 11.3 up to 12.4, remainder of her labs are relatively unremarkable. We will follow up with Infectious Disease regarding discharge antibiotic recommendations. We will continue with IV ceftriaxone 05/31 patient seen at bedside, no acute events overnight. She has been afebrile, hemodynamically stable saturating well on room air, mildly hypertensive, we will start losartan 50 mg twice daily. We will follow up with Infectious Disease regarding discharge antibiotics. Repeat blood cultures are no growth to date x3 days. Pending SNF placement, appreciate case management assistance 06/01 Patient seen at bedside, no acute events overnight. Patient is still pending acceptance to SNF, will follow up with case management 06/02 Patient seen at bedside, no acute events overnight. Patient is still pending acceptance to SNF, will follow up with case management. Lab holiday today, repeat labs tomorrow 06/03 patient is seen and examined at bedside, no acute events overnight, case discussed with the RN. During my visit patient comfortably in bed, following commands, pending acceptance to [facility] facility. Family at bedside, updated. We will discuss with case management today. REVIEW OF SYSTEMS 12 point review of systems negative unless noted in HPI PHYSICAL EXAM GENERAL APPEARANCE: Patient is Able to tell me her name but otherwise appears lethargic NEUROLOGICAL: Cranial nerves II-XII grossly intact. Motor is 5/5 in bilateral upper and lower extremities proximal to distal. No sensory deficits. HEENT: Face is symmetric. Pupils are equal and reactive. Extraocular movements are intact. NECK: Supple. No JVD. No thyromegaly. No submental, submandibular, pre- /postauricular, occipital or supraclavicular lymphadenopathy. CHEST: Normal chest expansion. No Telemetry. LUNGS: Minimal crackles noted bilateral lung bases CARDIOVASCULAR: Regular. S1 and S2 normal. No appreciable rubs, murmurs or gallops. ABDOMEN: No significant tenderness noted of the abdomen : Deferred. No Herrmann. EXTREMITIES: Non-edematous and not cyanotic. No clubbing. Good capillary refill. SKIN: No skin breakdown. Vital Signs (last 8hr) Date Time Temp Pulse Resp B/P (MAP) Pulse Ox O2 Delivery O2 Flow Rate FiO2 06/03/24 08:00 97.9 69 18 128/76 96 Room Air 06/03/24 07:07 77 18 N/A Room Air 21 06/03/24 07:07 77 20 06/03/24 04:00 97.9 73 20 149/73 98 Nasal Cannula LABS: Laboratory: Test 06/03/24 05:15 06/03/24 04:33 Range/Units Whole Blood Glucose 119 H 70-110 MG/DL White Blood Count 11.5 H 4.8-10.8 K/uL Red Blood Count 4.26 4.00-5.50 MIL/uL Hemoglobin 12.4 12.0-16.0 g/dL Hematocrit 38.6 36-48 % Mean Corpuscular Volume 90.6 79-99 fL Mean Corpuscular Hemoglobin 29.1 27.0-33.0 pg Mean Corpuscular Hemoglobin Concent 32.1 32.0-36.0 g/dL Red Cell Distribution Width 14.1 11.0-15.5 % Platelet Count 282 130-400 K/uL Mean Platelet Volume 11.2 H 7.5-10.5 fL Nucleated Red Blood Cells 0.0 0.0-0.19 % Sodium Level 143 136-145 mmol/L Potassium Level 3.4 L 3.5-5.1 mmol/L Chloride Level 108 101-111 mmol/L Carbon Dioxide Level 26 21-32 mmol/L Blood Urea Nitrogen 18 7-18 mg/dL Creatinine 1.0 0.5-1.0 mg/dL Glomerular Filtration Rate Calc 58 >90 mL/min Random Glucose 122 H 70-105 mg/dL Total Calcium 8.4 L 8.5-10.1 mg/dL Current Medications Medications (Trade) Dose Ordered Sig/Madelaine Route PRN Reason Start Time Stop Time Status Last Admin Dose Admin Acetaminophen (TYLenol 325MG TAB) 650 mg Q6H PRN PO MILD PAIN (1-3) 05/24/24 15:30 06/23/24 15:29 Budesonide (Pulmicort 0.5 Mg/2ml) 0.5 mg BIDRESP IH 05/24/24 18:00 06/23/24 17:59 06/03/24 07:05 0.5 MG Ceftriaxone Sodium (Rocephin 2gm Inj) 2 gm Q24H IVPB 05/27/24 10:00 06/06/24 09:59 06/03/24 09:16 2 GM Enoxaparin Sodium (Lovenox) 40 mg DAILY SQ 05/28/24 09:00 06/27/24 08:59 06/03/24 09:15 40 MG Insulin Human Regular (humuLIN R 100 UNIT/ML 3ML) INSULIN SLIDING SCAL... ACHS SQ 05/25/24 16:30 06/24/24 16:29 Linezolid 300 ml @ 150 mls/hr Q12H IV 05/25/24 04:00 05/26/24 15:59 DC 05/26/24 04:18 150 MLS/HR Losartan Potassium (CozAAR 25MG TAB) 25 mg DAILY PO 05/30/24 09:00 05/31/24 03:56 DC 05/30/24 09:36 25 MG Losartan Potassium (CozAAR 25MG TAB) 50 mg BID PO 05/31/24 09:00 06/29/24 08:59 06/03/24 09:15 50 MG Magnesium Sulfate 50 ml @ 0 mls/hr PROTOCOL IV 05/25/24 12:00 06/24/24 11:59 05/30/24 05:28 25 MLS/HR Meropenem (Merrem 1gm) 1 gm Q12H IVPB 05/24/24 15:30 05/27/24 09:56 DC 05/27/24 03:00 1 GM Norepinephrine 250 ml @ 21.263 mls/ hr PROTOCOL IV 05/24/24 15:30 06/23/24 15:29 Ondansetron HCl (zoFRAN 4MG INJ) 4 mg Q6H PRN IVP NAUSEA/VOMITING 05/24/24 15:30 06/23/24 15:29 Pantoprazole Sodium (PROTonix 40MG INJ) 40 mg Q24H IVP 05/24/24 15:30 06/23/24 15:29 06/02/24 18:44 40 MG Pharmacy Profile Note (Lace Assessment) 1 each AD MISC 05/24/24 15:00 05/24/24 15:05 DC Potassium Chloride 100 ml @ 100 mls/hr AD PRN IV POTASSIUM PROTOCOL 05/29/24 06:00 06/28/24 05:59 Potassium Chloride (K-Dur 10meq Sr Tab) 10 meq AD PRN PO POTASSIUM PROTOCOL 05/29/24 19:30 06/28/24 05:59 06/03/24 05:25 10 MEQ Potassium Chloride (K-Dur/Klor-Con 20meq) 10 meq AD PRN PO POTASSIUM PROTOCOL 05/29/24 06:00 05/29/24 19:29 DC 05/29/24 09:05 10 MEQ Potassium Chloride (KCl 10% Elixir 20meq/15ml) 10 meq AD PRN PO POTASSIUM PROTOCOL 05/29/24 06:00 06/28/24 05:59 Sodium Chloride 1,000 ml @ 75 mls/hr [id number] IV 05/24/24 15:00 05/26/24 16:00 DC 05/26/24 06:01 75 MLS/HR Thiamine HCl (Vitamin B-1) 100 mg Q24H IVP 05/24/24 16:00 06/23/24 15:59 06/02/24 18:44 100 MG DIAGNOSTICS / RADIOLOGY: [ ] ASSESSMENT: Severe sepsis, 2/2 complicated urinary tract infection, POA Toxic/metabolic encephalopathy, POA Gram-negative bacteremia secondary to E coli, POA Complicated urinary tract infection with right pyonephrosis, POA Obstructing right ureteropelvic junction calculus measuring 6 mm causing moderate right-sided hydronephrosis, POA Status post cystourethroscopy with right ureteroscopy and laser lithotripsy right ureteral calculi, multiple, 05/26/2024 Significant leukocytosis, POA Acute kidney injury, POA Moderate lactic acidosis, POA Morbid obesity, POA Frailty, POA Underlying history of hypertension, POA Hyperlipidemia, POA Significant nephrolithiasis noted of the right kidney, 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 Disposition: Pending ID recommendations for discharge , SNF Placement JJ FISHER MD Jun 03, 2024 11:39
[2024-06-03 12:00] VITALS: BP 138/81; PULSE 69; RESP 18; TEMP 98.2
--- NOTE | 2024-06-03 12:56 | PN ---
NEPHROLOGY PROGRESS NOTE Date/Time Patient Seen: Jun 03, 2024 Reason for Consultation: 12:56 SUBJECTIVE: This is a 78-year-old female with underlying history of hypertension, type 2 diabetes mellitus, hyperlipidemia, obesity She presented to the ER for further evaluation of high-grade fevers, confusion, nausea, poor oral intake. Patient was seen by her PCP recently and was diagnosed with a UTI and was given a course of outpatient Keflex. CT abdomen pelvis without contrast which showed findings urinary tract calculus causing obstruction. Possible right pyonephrosis. S/P Cystourethroscopy with right ureteroscopy and laser lithotripsy of right ureteral calculi, multiple, evacuation of right ureteral calculi, insertion of a right ureteral stent on 05/26/[address] Roman Urine and blood cultures positive for E coli. She continues on antibiotics as per ID The patient has rising BUN and creatinine, for which we have been consulted. Renal function and electrolytes are stable Case management coordinating SNF placement She was seen in the medical floor, in no acute distress REVIEW OF SYSTEMS: GENERAL: Negative for any nausea, vomiting, fevers, chills, or weight loss. NEUROLOGIC: Negative for any blurry vision, blind spots, double vision, facial asymmetry, dysphagia, dysarthria, hemiparesis, hemisensory deficits, vertigo, ataxia. HEENT: Negative for any head trauma, neck trauma, neck stiffness, photophobia, phonophobia, sinusitis, rhinitis. CARDIAC: Negative for any chest pain, dyspnea on exertion, paroxysmal nocturnal dyspnea, peripheral edema. PULMONARY: Negative for any shortness of breath, wheezing, COPD, or TB exposure. GASTROINTESTINAL: Negative for any abdominal pain, nausea, vomiting, bright red blood per rectum, melena. GENITOURINARY: Negative for any dysuria, hematuria, incontinence. INTEGUMENTARY: Negative for any rashes, cuts, insect bites. RHEUMATOLOGIC: Negative for any joint pains, photosensitive rashes, history of vasculitis or kidney problems. HEMATOLOGIC: Negative for any abnormal bruising, frequent infections or bleeding. Vital Signs (last 8hr) Date Time Temp Pulse Resp B/P (MAP) Pulse Ox O2 Delivery O2 Flow Rate FiO2 05/25/24 13:00 88 15 155/69 94 Room Air 05/25/24 12:00 98.8 101 19 152/85 94 Room Air 05/25/24 11:00 97 18 138/70 93 Room Air 05/25/24 10:00 90 18 158/63 93 Room Air 05/25/24 09:00 91 23 150/77 94 Room Air 05/25/24 08:30 92 15 145/74 93 Room Air 05/25/24 08:00 99.7 95 20 155/84 93 Room Air 05/25/24 08:00 93 Room Air* 0 21 05/25/24 07:30 93 20 141/78 92 Room Air 05/25/24 07:00 94 16 139/105 94 Room Air 05/25/24 06:41 91 18 05/25/24 06:41 91 18 N/A Room Air 21 PHYSICAL EXAM: GENERAL: Alert and oriented x 3. No acute distress. Well-nourished. EYES: EOMI. Anicteric. HENT: Moist mucous membranes. No scleral icterus. No cervical lymphadenopathy. LUNGS: Clear to auscultation bilaterally. No accessory muscle use. CARDIOVASCULAR: Regular rate and rhythm. No murmur. No JVD. ABDOMEN: Soft, non-tender and non-distended. No palpable masses. EXTREMITIES: No edema. Non-tender.?SKIN: No rashes or lesions. Warm. NEUROLOGIC: No focal neurological deficits. CN II-XII grossly intact, but not individually tested. PSYCHIATRIC: Cooperative. Appropriate mood and affect. Current Medications Medications (Trade) Dose Ordered Sig/Madelaine Route PRN Reason Start Time Stop Time Status Last Admin Dose Admin Acetaminophen (TYLenol 325MG TAB) 650 mg Q6H PRN PO MILD PAIN (1-3) 05/24/24 15:30 06/23/24 15:29 Budesonide (Pulmicort 0.5 Mg/2ml) 0.5 mg BIDRESP IH 05/24/24 18:00 06/23/24 17:59 05/25/24 06:38 0.5 MG Insulin Human Regular (humuLIN R 100 UNIT/ML 3ML) INSULIN SLIDING SCAL... ACHS SQ 05/25/24 16:30 06/24/24 16:29 Linezolid 300 ml @ 150 mls/hr Q12H IV 05/25/24 04:00 06/04/24 03:59 05/25/24 04:30 150 MLS/HR Magnesium Sulfate 50 ml @ 0 mls/hr PROTOCOL IV 05/25/24 12:00 06/24/24 11:59 Meropenem (Merrem) 1 gm Q12H IVPB 05/24/24 15:30 06/03/24 15:29 05/25/24 03:43 1 GM Norepinephrine 250 ml @ 21.263 mls/ hr PROTOCOL IV 05/24/24 15:30 06/23/24 15:29 Ondansetron HCl (zoFRAN 4MG INJ) 4 mg Q6H PRN IVP NAUSEA/VOMITING 05/24/24 15:30 06/23/24 15:29 Pantoprazole Sodium (PROTonix 40MG INJ) 40 mg Q24H IVP 05/24/24 15:30 06/23/24 15:29 05/24/24 15:44 40 MG Pharmacy Profile Note (Lace Assessment) 1 each AD MISC 05/24/24 15:00 05/24/24 15:05 DC Sodium Chloride 1,000 ml @ 75 mls/hr [id number] IV 05/24/24 15:00 06/23/24 14:59 05/25/24 03:43 75 MLS/HR Thiamine HCl (Vitamin B-1) 100 mg Q24H IVP 05/24/24 16:00 06/23/24 15:59 05/24/24 16:09 100 MG LABORATORY: [ ] Hematology Labs: Test 06/03/24 04:33 Range/Units White Blood Count 11.5 H 4.8-10.8 K/uL Red Blood Count 4.26 4.00-5.50 MIL/uL Hemoglobin 12.4 12.0-16.0 g/dL Hematocrit 38.6 36-48 % Mean Corpuscular Volume 90.6 79-99 fL Mean Corpuscular Hemoglobin 29.1 27.0-33.0 pg Mean Corpuscular Hemoglobin Concent 32.1 32.0-36.0 g/dL Red Cell Distribution Width 14.1 11.0-15.5 % Platelet Count 282 130-400 K/uL Mean Platelet Volume 11.2 H 7.5-10.5 fL Nucleated Red Blood Cells 0.0 0.0-0.19 % Chemistry Labs: Test 06/03/24 11:36 06/03/24 04:33 Range/Units Whole Blood Glucose 121 H 70-110 MG/DL Sodium Level 143 136-145 mmol/L Potassium Level 3.4 L 3.5-5.1 mmol/L Chloride Level 108 101-111 mmol/L Carbon Dioxide Level 26 21-32 mmol/L Blood Urea Nitrogen 18 7-18 mg/dL Creatinine 1.0 0.5-1.0 mg/dL Glomerular Filtration Rate Calc 58 >90 mL/min Random Glucose 122 H 70-105 mg/dL Total Calcium 8.4 L 8.5-10.1 mg/dL DIAGNOSTICS / RADIOLOGY: REASON: RETROGRADE PYELOGRAM ORDERING PHYSICIAN: QUIN RUSSO MD PROCEDURE: URORETRO - UROGRAPHY RETROGRADE Fluoroscopic guidance History: RETROGRADE PYELOGRAM Fluoroscopic guidance provided. Procedure by ordering physician in operating room suite with fluoroscopic guidance. Several spot images were obtained. Impression: Fluoroscopic guidance. DICTATED BY: SHERICE SANCHEZ MD DATE: 05/27/24 1612 REASON: sob ORDERING PHYSICIAN: MAUREEN PACKER NP PROCEDURE: CXR1VW - CHEST 1VW Exam Type: CHEST 1VW Clinical Information: sob Comparison: None Findings: The lungs are clear. The heart is normal in size. There is tortuosity of the aorta which artifactually enlarges the mediastinum. No actual mediastinal pathology is detected. IMPRESSION: Tortuous aorta. Clear lungs. DICTATED BY: SHERICE SANCHEZ MD DATE: 05/26/24 1153 REASON: sepsis, confusion ORDERING PHYSICIAN: SUNG CAICEDO MD PROCEDURE: HEAD WO - CT HEAD/BRAIN W/O CONTRAST Exam Type: CT HEAD/BRAIN W/O CONTRAST Clinical Information: sepsis, confusion Comparison: None CT Dose Index (CTDI): 57.33 mGy Dose Length Product (DLP): 956.79 total mGy-cm Findings: The examination shows atrophy. There is low attenuation throughout the periventricular white matter locations, consistent with chronic small vessel ischemic changes. No acute intra- or extra-axial fluid collections are seen. There is no evidence of acute or chronic hemorrhage. There is no mass effect or shift of midline structures. There are no areas to suggest acute infarct. The skull windows show no significant abnormalities. IMPRESSION: 1. ATROPHY AND CHRONIC SMALL VESSEL ISCHEMIC CHANGES. This study was performed using dose reduction techniques to include automated exposure control and/or adjustment of the mA and/or kV according to patient size. DICTATED BY: SHERICE SANCHEZ MD DATE: 05/24/24 1625 REASON: SHORTNESS A BREATH ORDERING PHYSICIAN: CM CORRALES NP PROCEDURE: CXR1VW - CHEST 1VW Exam Type: CHEST 1VW Clinical Information: SHORTNESS A BREATH Comparison: None Findings: The lungs are clear of infiltrates. The heart is enlarged. Bony and soft tissue structures of the chest wall are unremarkable. IMPRESSION: Cardiomegaly. Clear lungs. DICTATED BY: SHERICE SANCHEZ MD DATE: 05/24/24 1525 REASON: DIFFUSE AND LEFT LOWER QUADRANT PAIN TENDERNESS WITH FEVER ORDERING PHYSICIAN: CM CORRALES NP PROCEDURE: ABD PEL WO - CT ABDOMEN/PELVIS W/O CONTRAST CT ABDOMEN PELVIS WITHOUT CONTRAST Clinical Information: DIFFUSE AND LEFT LOWER QUADRANT PAIN TENDERNESS WITH FEVER Comparison: CT Dose Index (CTDI): 28.40 mGy Dose Length Product (DLP): 1536.00 total mGy-cm PROTOCOL: Routine noncontrast helical scanning of the abdomen and pelvis was performed at 5mm collimation. Findings: There is a Right ureteropelvic junction calculus measuring 6 mm causing moderate hydronephrosis. There is extensive nephrolithiasis of the right kidney and there is air within the collecting system and the possibility of hydronephrosis on the right side must be entertained. The left side shows nonobstructing nephrolithiasis. The lung bases are clear. The stomach is unremarkable. It shows no wall thickening. No gross ulceration is seen. It is not overly distended. There are no surrounding inflammatory changes. No wall lesions are identified to suggest cancer. The spleen is unremarkable. It is not enlarged. The pancreas shows normal anatomy. It is not fatty replaced. It shows no lesions. The pancreatic duct is not dilated. The gallbladder is surgically absent. The adrenal glands are unremarkable. There is no enlargement. No lesions are noted. The liver is unremarkable. It shows no focal masses. The appendix is unremarkable. It shows no evidence of inflammation. No appendicolith is seen. The small bowel is unremarkable. There is no evidence of dilatation to suggest obstruction. No evidence of adynamic ileus is seen. There is no small bowel wall thickening to suggest enteritis. The colon is unremarkable. The urinary bladder is unremarkable. There is no wall thickening to suggest tumor or inflammation. There are no intraluminal calculi. There are no diverticula. There is no evidence of chronic bladder outlet obstruction. There is no evidence of urinary bladder distention to suggest urinary retention. The other pelvic structures are unremarkable. The bony and vascular structures are unremarkable for the patient's age. IMPRESSION: Urinary tract calculus causing obstruction. Possible right pyonephrosis. This study was performed using dose reduction techniques to include automated exposure control and/or adjustment of the mA and/or kV according to patient size. DICTATED BY: SHERICE SANCHEZ MD DATE: 05/24/24 5163 ASSESSMENT: Acute kidney injury Severe sepsis Complicated urinary tract infection Toxic/metabolic encephalopathy Obstructing right ureteropelvic junction calculus measuring 6 mm causing moderate right-sided hydronephrosis Significant leukocytosis Morbid obesity, Frailty Hypertension, Hyperlipidemia Significant nephrolithiasis noted of the right kidney, likely staghorn calculi History of recurrent urinary tract infection History of urinary incontinence History of depression PLAN: Labs, diagnostic, radiologic exams reviewed and interpreted by myself and supervising physician. We have reviewed external records in detail Case management coordinating SNF placement Continue with antibiotics as per ID. Herrmann catheter as per Urology Require close monitoring of renal function and electrolytes Order CBC, CMP, and electrolytes in am BiPAP as necessary, for respiratory distress Monitor blood pressure adjust medication doses as needed Avoid hypotensive episodes May use Dilaudid 0.5 mg IV every 6 hours as needed for severe pain Monitor blood sugars Strict intake, output, and daily weight should be monitored Please renally adjust medications Avoid nephrotoxic and nonsteroidal drugs Avoid contrast if possible Will continue to monitor renal function, anemia, electrolytes Treatment plan discussed with patient Questions were answered We have discussed with the other team physicians in detail about the care plan We will continue to monitor the patient closely ATTESTATION BY PHYSICIAN I have seen and examined the patient. I reviewed the documentation, medical decision making, and treatment plan as noted by the mid-level provider above. I agree with the findings and plan of care. JESSICA RUCKER MD, [facility] Jun 03, 2024 12:56
--- NOTE | 2024-06-03 13:18 | DS ---
Discharge Summary Hospital Course Summary: 78-year-old female with underlying history of hypertension, type 2 diabetes mellitus, hyperlipidemia, obesity who presented to the ER for further evaluation of high-grade fevers, confusion, nausea, poor oral intake. Per the daughter, patient was having fever 102 F. Patient was seen by her PCP recently and was diagnosed with a UTI and was given a course of outpatient Keflex. Daughter stated that patient did not take the antibiotics due to nausea. She has been having issues with urinary tract infection and urinary incontinence over the past several months. She has been being followed by Dr. Stark with Gynecology as outpatient. Recently, she was referred for outpatient urology appointment. Patient on presentation to the hospital was febrile with T-max of 101.1 F, heart rate of 95, blood pressure of 147/84. Labs on presentation [place] [id number] with neutrophilia, hemoglobin of 13.5, platelet count of 715301. BMP remarkable for sodium of 135, creatinine 2.0, lactic acid close to 4 and urinalysis showed leukocyte esterase positive, pyuria and bacteriuria. Patient underwent further imaging with CT abdomen pelvis without contrast which showed findings of right ureteropelvic junction calculus measuring 6 mm causing moderate hydronephrosis with significant nephrolithiasis noted of right kidney, air was noted in the collecting duct with concerns for right pyonephrosis. Patient was admitted for severe sepsis. Consultation with Urology, Nephrology and critical Care requested. Patient placed on broad-spectrum IV antibiotics. Results of septic workup to include urine culture as well as blood culture positive for E coli. During hospitalization, patient taken to the OR, 05/26/2024, underwent Cystourethroscopy with right ureteroscopy and laser lithotripsy of right ureter al calculi, multiple, evacuation of right ureteral calculi, insertion of the right ureteral stent. Tolerated the procedure well. Case management consulted, [facility]. Co Founder(s): Critical Care, Infectious Disease and Urology Procedure(s): Date of procedure 05/26/2024 Cystourethroscopy with right ureteroscopy and laser lithotripsy of right ureteral calculi, multiple Cystourethroscopy with evacuation of right ureteral calculi Cystourethroscopy with insertion of a right ureteral stent Right retrograde pyelogram with interpretation Herrmann catheterizations, simple Assessment/Plan: Final diagnosis Severe sepsis, 2/2 complicated urinary tract infection, POA Toxic/metabolic encephalopathy, POA Gram-negative bacteremia secondary to E coli, POA Complicated urinary tract infection with right pyonephrosis, POA Obstructing right ureteropelvic junction calculus measuring 6 mm causing moderate right-sided hydronephrosis, POA Status post cystourethroscopy with right ureteroscopy and laser lithotripsy right ureteral calculi, multiple, 05/26/2024 Significant leukocytosis, POA Acute kidney injury, POA Moderate lactic acidosis, POA Morbid obesity, POA Frailty, POA Underlying history of hypertension, POA Hyperlipidemia, POA Significant nephrolithiasis noted of the right kidney, 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 Patient to return to the hospital if condition changes. Home Medications: Reported Medications Sitagliptin Phosphate (Januvia) 100 Mg Tablet, 1 TAB PO DAILY for 30 Days, #30 TAB 0 Refills 05/25/24 Cephalexin (Cephalexin) 500 Mg Capsule, 1 CAP PO QID for 10 Days, #40 CAP 0 Refills 05/25/24 Losartan Potassium (Losartan Potassium) 25 Mg Tablet, 50 MG PO DAILY, TAB 08/29/14 Discontinued Reported Medications Benztropine Mesylate (Benztropine Mesylate) 1 Mg Tablet, 1 MG PO HS, TAB 08/29/14 Sertraline HCl (Sertraline HCl) 50 Mg Tablet, 50 MG PO HS, TAB 08/29/14 Haloperidol (Haldol) 5 Mg Tab, 5 MG PO HS, TAB 08/29/14 Discontinued Scripts Acetaminophen with Codeine (Tylenol with Codeine #3 Tablet) 1 Each Tablet, 1-2 TAB PO q4h for PAIN, #40 TAB Prov:ANTONIETTA MONTES MD 08/31/14 Time spent arranging discharge: 31-60 minutes JJ FISHER MD Jun 03, 2024 13:18
--- NOTE | 2024-06-03 15:32 | NUR ---
BROUSSARD REMOVED BROUSSARD CATHETER REMOVED. PATIENT TOLERATED WELL. PATIENT DUE TO VOID IN 6 HOURS.
[2024-06-03 16:00] VITALS: BP 142/78; PULSE 78; RESP 20; TEMP 98
--- NOTE | 2024-06-03 18:45 | NUR ---
PATIENT DISCHARGED TO SNF ID BAND AND IV REMOVED. DISCHARGE INSTRUCTIONS EXPLAINED AND GIVEN TO PATIENT. PATIENT VERBALIZED UNDERSTANDING. BELONGINGS PACKED AND TAKEN BY PATIENT. WHEELED DOWN TO FACILITY VAN
--- NOTE | 2024-06-03 20:58 | PN ---
INFECTIOUS DISEASE PROGRESS NOTE Date of Service: Jun 03, 2024 SUBJECTIVE: This is a 78-year-old female patient who was seen and examined at bedside in room 203. Patient is awake, alert and oriented x 3. Patient is sitting up on the edge of the bed. Family member visiting at bedside. Patient is afebrile, temperature is 98.2. Patient has been approved to to [facility] and will be discharging today. From Infectious Disease standpoint a prescription for cephalexin 500 mg p.o. every 8 hours x 10 days has already been written. PHYSICAL EXAM EYES: Anicteric. Pupils equal and reactive. HENT: No oral thrush seen, moist Oral mucosa NECK: Supple, no JVD or thyromegaly. LUNGS: Good air entry. No rales, no rhonchi. CARDIOVASCULAR: S1, S2 regular. No murmur heard. ABDOMEN: Soft, non tender, bowel sounds present, no organomegaly CENTRAL NERVOUS SYSTEM: Awake, alert, oriented x 3. SKIN: No rashes, no swelling. LYMPHATICS: No peripheral lymphadenopathy MUSCULOSKELETAL: No joint swelling, erythema or tenderness. EXTREMITIES: No cyanosis or clubbing BACK: No deformity, no pressure ulcer. GENITOURINARY: No dysuria or hematuria. Herrmann catheter. Vital Sign (Last 12 Hours) 06/03/24 06/03/24 12:00 16:00 Temp 98.2 98.1 Pulse 69 78 Resp 18 20 B/P (MAP) 138/81 142/78 Pulse Ox 97 98 O2 Delivery Room Air Room Air Intake & Output (last 24hrs) 06/02/24 06/02/24 06/03/24 14:59 22:59 06:59 Intake Total 900 ml 100 ml Output Total 1250 ml Balance -350 ml 100 ml LABS: Laboratory: Test 06/03/24 16:16 06/03/24 04:33 Range/Units Whole Blood Glucose 116 H 70-110 MG/DL White Blood Count 11.5 H 4.8-10.8 K/uL Red Blood Count 4.26 4.00-5.50 MIL/uL Hemoglobin 12.4 12.0-16.0 g/dL Hematocrit 38.6 36-48 % Mean Corpuscular Volume 90.6 79-99 fL Mean Corpuscular Hemoglobin 29.1 27.0-33.0 pg Mean Corpuscular Hemoglobin Concent 32.1 32.0-36.0 g/dL Red Cell Distribution Width 14.1 11.0-15.5 % Platelet Count 282 130-400 K/uL Mean Platelet Volume 11.2 H 7.5-10.5 fL Nucleated Red Blood Cells 0.0 0.0-0.19 % Sodium Level 143 136-145 mmol/L Potassium Level 3.4 L 3.5-5.1 mmol/L Chloride Level 108 101-111 mmol/L Carbon Dioxide Level 26 21-32 mmol/L Blood Urea Nitrogen 18 7-18 mg/dL Creatinine 1.0 0.5-1.0 mg/dL Glomerular Filtration Rate Calc 58 >90 mL/min Random Glucose 122 H 70-105 mg/dL Total Calcium 8.4 L 8.5-10.1 mg/dL ASSESSMENT: E coli bacteremia. Urinary tract infection with E coli. Right-sided hydronephrosis, status post cystoscopy and stenting on 05/26/2024. Leukocytosis. Acute renal failure, improving. Hypokalemia. Diabetes mellitus. Debility. PLAN: Patient has been approved to [facility] for rehab and will be discharged today. From Infectious Disease standpoint a prescription for cephalexin 500 mg p.o. every 8 hours x 10 days had already been written for patient. This case was reviewed and discussed with my supervising physician and the above assessment and plan was formulated and agreed upon. ATTESTATION BY PHYSICIAN I have seen and examined the patient. I reviewed the documentation, medical decision making, and treatment plan as noted by the mid-level provider above. I agree with the findings and plan of care. SOFIA HOLDER MD, MIRTA L SLUBBER HAND Jun 03, 2024 20:57
== END 2024-06-03 18:45 | DRG 853 ==
LOC: EDH 11:24 → EDHIP 15:05 → 2BH 05-25 04:03 → 2AH 05-25 17:55 → 3BH 05-31 11:50
PROVIDERS: ADMIT Internal Medicine; ATTEND Internal Medicine
PROC: 0T768DZ Dilation of Right Ureter with Intraluminal Device, Via Natural or Artificial Opening Endoscopic (ICD-10-PCS; principal; 2024-05-26 19:15)
PROC: 0TF68ZZ Fragmentation in Right Ureter, Via Natural or Artificial Opening Endoscopic (ICD-10-PCS; 2024-05-26 19:15)
PROC: BT1D1ZZ Fluoroscopy of Right Kidney, Ureter and Bladder using Low Osmolar Contrast (ICD-10-PCS; 2024-05-26 19:15)
DX: A41.51 Sepsis due to Escherichia coli [E. coli] (principal); G92.8 Other toxic encephalopathy; R65.21 Severe sepsis with septic shock; N13.6 Pyonephrosis; N17.9 Acute kidney failure, unspecified; E87.20 Acidosis, unspecified; E87.1 Hypo-osmolality and hyponatremia; F03.93 Unspecified dementia, unspecified severity, with mood disturbance; E11.65 Type 2 diabetes mellitus with hyperglycemia; I10 Essential (primary) hypertension; E66.01 Morbid (severe) obesity due to excess calories; E78.00 Pure hypercholesterolemia, unspecified; F32.A Depression, unspecified; E86.0 Dehydration; B96.20 Unspecified Escherichia coli [E. coli] as the cause of diseases classified elsewhere; B96.89 Other specified bacterial agents as the cause of diseases classified elsewhere; D64.9 Anemia, unspecified; E87.6 Hypokalemia; Z83.3 Family history of diabetes mellitus; Z85.3 Personal history of malignant neoplasm of breast; Z90.11 Acquired absence of right breast and nipple; Z68.31 Body mass index [BMI] 31.0-31.9, adult
CPT/HCPCS: 36415; 36600; 70450; 71045; 74176; 74420; 80048; 80053; 80076; 81001; 82140; 82435; 82803; 82947; 82948; 83036; 83605; 83690; 83735; 84100; 84132; 84145; 84295; 84443; 84484; 85025; 85027; 85610; 85651; 85730; 86140; 86850; 86900; 86901; 87040; 87086; 87186; 87426; 87804; 93005; 94640; 94664; 96365; 96375; 99285; A4344; C1758; C1769; C2617; G0378; J0330; J0696; J1650; J1885; J2020; J2185; J2405; J2470; J2704; J3010; J3411; J3475; J3490; J7030; Q9967; A4358

== ENCOUNTER → 2024-08-17 | Outpatient (CLI) | payer OTHER, MEDICARE ==
[~2024-08-17] MED LIST changes: -ACET1TAB12 PO; -BENZ1TAB83 PO; +CEPH500C2 PO; -HALO5TAB2 PO; +IOHEXOL 350 MG/ML 100ML INFUS..BTL IV ONE; -SERT-439 PO; +SITA100T12 PO; +metoPROLOL tartRATE 1 MG/ML 5ML VIAL IV ONE
--- NOTE | 2024-08-17 12:09 | HMCIMG ---
CT CARDIAC ANGIO W/CONT. CCTA HISTORY: Chest pain COMPARISON: None TECHNIQUE: Multiple sequential axial images of the chest were obtained along with the CT angiogram of the chest study. Patient was given 100 cc of Omnipaque through intravenous route. FINDINGS: There is no evidence of pulmonary nodule or parenchymal disease. No pleural effusion or pericardial effusion is seen. There is no evidence of pneumothorax. There are normal size mediastinal and hilar lymph nodes. The heart is not enlarged. Degenerative changes of the thoracolumbar spine are present. IMPRESSION: 1. No evidence of pulmonary nodule or effusion is seen. Please see CT angiogram report of coronary arteries.
--- NOTE | 2024-08-20 13:37 | CARDIOLOGY ---
RAD REPORT: [facility] CT ANGIO RADIOLOGY REPORT: CORONARY CT ANGIOGRAPHY DATE: August 20, 2024 QUALITY: Excellent CLINICAL HISTORY AND INDICATION: [chest pain ] TECHNIQUE: After obtaining a preliminary engineering program analyst image, contrast imaging performed on an [employer]illon [id number] scanner. A dedicated, limited window, coronary imaging protocol was used, with single breath-hold, retrospective ECG gating, and automated arrhythmia rejection. 100 cc of low osmolar contrast agent: Omnipaque 350 was delivered via a 18-gauge IV catheter in the right antecubital fossa, using a power injector and followed by 60 cc of normal saline bolus as a chaser. Collimated images were reformatted at 0.5 mm intervals, and sent to an offline independent workstation for interpretation, using 3D anatomic reconstructions: Curved multiplanar reconstructions, maximum intensity projections, and multiplanar imaging. 20 mg IV metoprolol was administered prior to scanning. 0.8 mg SL nitroglycerin was given. CORONARY ARTERY DESCRIPTIONS: The coronary arteries arise in normal position. Left main coronary artery: Normal caliber vessel that bifurcates into the LAD and LCx. No stenosis. Left anterior descending coronary artery: Normal caliber vessel and gives rise to diagonal and septal branches. No stenosis. Left circumflex coronary artery: Normal caliber, nondominant and gives rise to a large OM branch. No stenosis. Right coronary artery: Large, dominant vessel giving rise to the PL and PDA branches. No stenosis. CAD-RADs: 0, absence of CAD. Thoracic Aorta: Normal diameter. Kirti Ayoub MD Cardiovascular Disease [facility] KIRTI AYOUB MD August 20, 2024 13:37
== END | disposition home or self-care (01) ==
LOC: RAH 10:21
PROVIDERS: ATTEND Student in an Organized Health Care Education/Training Program
DX: M47.895 Other spondylosis, thoracolumbar region (principal); E11.9 Type 2 diabetes mellitus without complications; R07.9 Chest pain, unspecified
CPT/HCPCS: 75574; J3490; Q9967